=== PATIENT | male | born 1945 | race Caucasian/White ===

== ENCOUNTER → 2020-05-31 09:19 | Outpatient (BNVA) | payer MEDICARE, SELFPAY | PROVIDERS: PCP Internal Medicine Medical Oncology; Referring Provider Internal Medicine Medical Oncology; Visit Provider Internal Medicine | DX: J43.9 Emphysema, unspecified (principal); J84.10 Pulmonary fibrosis, unspecified; R09.02 Hypoxemia | CPT/HCPCS: 99213 ==

== ENCOUNTER 2020-06-18 07:49 | Outpatient (REF) | payer MEDICARE, SELFPAY ==
[2020-06-18 08:55] LABS: Basophils Percent Auto 0.4 % (0-2); Eosinophils Absolute Auto 0.2 X10*3/uL (0.0-0.4); Eosinophils Percent Auto 2.5 % (0-4); Hematocrit 37.6 % (42-52); Hemoglobin 11.8 g/dl (14.0-18.0); Imm Gran Abs Auto 0.04 X10*3/uL (0.00-0.03); Imm Gran Pct Auto 0.5 % (0.0-0.4); Lymphocytes Absolute Auto 0.6 X10*3/uL (1.2-4.9); Lymphocytes Percent Auto 7.2 % (20-40); MANUAL DIFF FLAG SCAN; Mean Corpuscular HGB Conc 31.4 g/dl (31.0-36.0); Mean Platelet Volume 10.6 fL (9.4-12.4); Monocytes Absolute Auto 0.7 X10*3/uL (0.1-1.2); Monocytes Percent Auto 8.7 % (2-11); Neutrophils Absolute Auto 6.7 X10*3/uL (2.0-8.3); Neutrophils Percent Auto 80.7 % (45-73); Platelet Count 214 X10*3/uL (160-400); Red Blood Count 3.58 X10*6/uL (4.60-5.80); Red Cell Distribution Width 18.2 % (11.0-16.0); SCAN SMEAR FLAG 1; White Blood Count 8.4 X10*3/uL (4.8-10.8)
[2020-06-18 09:26] LABS: Alanine Aminotransferase 33 U/L (0-40); Albumin Level 3.7 g/dL (3.5-5.0); Alkaline Phosphatase 99 U/L (39-117); Aspartate Amino Transferase 28 U/L (5-37); Bilirubin Total 0.7 mg/dL (0.0-1.0); Blood Urea Nitrogen 23 mg/dL (9-16); Calcium 8.9 mg/dL (8.4-10.2); Cholesterol 168 mg/dL; Estimated Glomerular Filt Rate > 60; Glucose Fasting 96 mg/dL (60-99); HDL Cholesterol 30 mg/dL; LDL Cholesterol Calculated 100 mg/dl; Total Protein 7.1 g/dL (6.5-8.0); Triglycerides 193 mg/dL
[2020-06-18 09:43] LABS: Anion Gap 9 (12-20); Carbon Dioxide 30 mmol/L (22-29); Chloride 109 mmol/L (96-108); Potassium 4.1 mmol/l (3.3-5.1); Prostate Specific Antigen 0.47 ng/mL (<0.05-4.0); Sodium 144 mmol/L (135-145)
[2020-06-18 09:52] LABS: Vitamin B12 1303 pg/mL (200-900)
[2020-06-18 10:24] LABS: SLIDE REVIEW VERIFIED
[2020-06-18 11:23] LABS: Erythrocyte Sedimentation Rate 16 MM/HR (0-15)
== END 2020-06-18 07:50 | disposition home or self-care (01) ==
LOC: HO.LAB 07:49
PROVIDERS: PCP Internal Medicine Medical Oncology; Visit Provider Internal Medicine Medical Oncology
DX: D51.9 Vitamin B12 deficiency anemia, unspecified (principal); I10 Essential (primary) hypertension
CPT/HCPCS: 36415; 80053; 80061; 82607; 84153; 85025; 85652

== ENCOUNTER → 2020-06-26 11:17 | Outpatient (BNVA) | payer MEDICARE, SELFPAY | PROVIDERS: PCP Internal Medicine Medical Oncology; Referring Provider Internal Medicine Medical Oncology; Visit Provider Physician Assistant | DX: Z01.818 Encounter for other preprocedural examination (principal); Z86.010 Personal history of colon polyps | CPT/HCPCS: Q3014 ==

== ENCOUNTER → 2020-08-13 09:34 | Outpatient (BNVA) | payer MEDICARE, SELFPAY | PROVIDERS: PCP Internal Medicine Medical Oncology; Visit Provider Internal Medicine | DX: R09.02 Hypoxemia (principal); J84.10 Pulmonary fibrosis, unspecified; J43.9 Emphysema, unspecified | CPT/HCPCS: 99212 ==

== ENCOUNTER 2020-08-27 08:25 | Outpatient (REF) | payer MEDICARE, SELFPAY ==
[2020-08-27 09:53] LABS: Basophils Percent Auto 0.4 % (0-2); Eosinophils Absolute Auto 0.3 X10*3/uL (0.0-0.4); Eosinophils Percent Auto 3.4 % (0-4); Hematocrit 37.4 % (42-52); Hemoglobin 11.8 g/dl (14.0-18.0); Imm Gran Abs Auto 0.05 X10*3/uL (0.00-0.03); Imm Gran Pct Auto 0.6 % (0.0-0.4); Lymphocytes Absolute Auto 0.6 X10*3/uL (1.2-4.9); Lymphocytes Percent Auto 7.2 % (20-40); MANUAL DIFF FLAG SCAN; Mean Corpuscular HGB Conc 31.6 g/dl (31.0-36.0); Mean Corpuscular Hemoglobin 33.2 pg (27.0-33.0); Mean Corpuscular Volume 105.4 fL (80-98); Mean Platelet Volume 11.5 fL (9.4-12.4); Monocytes Absolute Auto 0.8 X10*3/uL (0.1-1.2); Monocytes Percent Auto 9.7 % (2-11); Neutrophils Absolute Auto 6.2 X10*3/uL (2.0-8.3); Neutrophils Percent Auto 78.7 % (45-73); Platelet Count 222 X10*3/uL (160-400); Red Blood Count 3.55 X10*6/uL (4.60-5.80); SCAN SMEAR FLAG 1; White Blood Count 7.8 X10*3/uL (4.8-10.8)
[2020-08-27 10:21] LABS: Alanine Aminotransferase 24 U/L (0-40); Albumin Level 3.7 g/dL (3.5-5.0); Alkaline Phosphatase 97 U/L (39-117); Anion Gap 10 (12-20); Aspartate Amino Transferase 23 U/L (5-37); Bilirubin Total 0.7 mg/dL (0.0-1.0); Blood Urea Nitrogen 26 mg/dL (9-16); Calcium 8.9 mg/dL (8.4-10.2); Carbon Dioxide 29 mmol/L (22-29); Chloride 109 mmol/L (96-108); Cholesterol 162 mg/dL; Estimated Glomerular Filt Rate > 60; Glucose Fasting 102 mg/dL (60-99); HDL Cholesterol 33 mg/dL; LDL Cholesterol Calculated 103 mg/dl; Potassium 4.6 mmol/l (3.3-5.1); Sodium 143 mmol/L (135-145); Total Protein 7.2 g/dL (6.5-8.0); Triglycerides 132 mg/dL
[2020-08-27 10:22] LABS: SLIDE REVIEW VERIFIED
[2020-08-27 10:40] LABS: Erythrocyte Sedimentation Rate 21 MM/HR (0-15)
== END 2020-08-27 08:26 | disposition home or self-care (01) ==
LOC: HO.LAB 08:25
PROVIDERS: PCP Internal Medicine Medical Oncology; Visit Provider Internal Medicine Medical Oncology
DX: Z13.89 Encounter for screening for other disorder (principal)
CPT/HCPCS: 36415; 80053; 80061; 85025; 85652

== ENCOUNTER 2020-08-27 09:08 | Outpatient (REF) | payer MEDICARE, SELFPAY | END 2020-08-27 09:09 | disposition home or self-care (01) | LOC: HO.LAB 09:08 | PROVIDERS: PCP Internal Medicine Medical Oncology; Visit Provider Internal Medicine | DX: Z20.822 Contact with and (suspected) exposure to COVID-19 (principal) | CPT/HCPCS: 36415; 80053; 80061; 85025; 85652; C9803; U0003 ==

== ENCOUNTER 2020-09-04 08:12 | Day surgery (SDC) | payer MEDICARE, SELFPAY ==
[2020-08-29 09:49] VITALS: BMI 21.7
--- NOTE | 2020-08-29 14:03 | P.CONAN_ITS ---
Documented by User: Izabela Guerreroney 08/29/20 14:06 HPI - Anesthesia Eval Consult details Narrative: 75yo M for Colonoscopy Pulmonary cleared. Advised to use O2 to keep sat >90%. [facility] Past Medical History Medical History Exercise hypoxemia Hearing difficulty of both ears HTN (hypertension) Pulmonary emphysema determined by X-ray Pulmonary fibrosis Family History Family History Father No problems noted. Mother No problems noted. Surgical History Surgical History History of rectal surgery Hx of cholecystectomy Hx of colonoscopy Social History Social History Alcohol intake: former Smoking Status: Former smoker Smoking Quit Date: 1999 Advance Directives: No Advance Directives Information Provided: No Advance Directives on File: No Meds Allergies Allergy/AdvReac Type Severity Reaction Status Date / Time hydrochlorothiazide AdvReac Intermediate ITCH Verified 08/29/20 09:42 Home Medications Medication Instructions Recorded Confirmed Type cyanocobalamin (vitamin B-12) 1,000 mcg PO DAILY 05/10/20 08/29/20 History 1,000 mcg tablet flu vacc (65yr 0.5 ml IM DIRECTED 05/10/20 08/13/20 History up)-MF59C(PF) 60 mcg(15 mcgx4)/0.5 mL IM syringe lisinopril 10 mg tablet 10 mg PO DAILY 05/10/20 08/29/20 History cholecalciferol (vitamin D3) 25 25 mcg PO DAILY 06/26/20 08/29/20 History mcg (1,000 unit) capsule calcium carbonate [Calcium 600] 600 mg PO DAILY 08/29/20 08/29/20 History vit C,U-Wo-lpfsz-lutein-zeaxan 1 tab PO BID 08/29/20 08/29/20 History [PreserVision AREDS-2] Exam Exam Date and Time: August 29, 2020 1403 Height,Weight and Vital Signs: Height 6 ft 1 in Weight 74.843 kg Pertinent Lab Results Pertinent Lab Results: Laboratory Tests 08/27/20 08/27/20 08:45 08:45 WBC 7.8 Hgb 11.8 L Hct 37.4 L Plt Count 222 Sodium 143 Potassium 4.6 Chloride 109 H Carbon Dioxide 29 BUN 26 H Creatinine 1.15 Assessment and Plan Assessment Anesthesia Assessment: Chart Reviewed Documented by User: Dianne Maguire 09/04/20 10:38 [facility] Past Medical History Medical History Exercise hypoxemia Hearing difficulty of both ears HTN (hypertension) Pulmonary emphysema determined by X-ray Pulmonary fibrosis Family History Family History Father No problems noted. Mother No problems noted. Surgical History Surgical History History of rectal surgery Hx of cholecystectomy Hx of colonoscopy Social History Social History Alcohol intake: former Smoking Status: Former smoker Smoking Quit Date: 1999 Advance Directives: No Advance Directives Information Provided: No Advance Directives on File: No Meds Allergies Allergy/AdvReac Type Severity Reaction Status Date / Time hydrochlorothiazide AdvReac Intermediate ITCH Verified 08/29/20 09:42 Home Medications Medication Instructions Recorded Confirmed Type cyanocobalamin (vitamin B-12) 1,000 mcg PO DAILY 05/10/20 08/29/20 History 1,000 mcg tablet flu vacc 202021(65yr 0.5 ml IM DIRECTED 05/10/20 08/13/20 History up)-MF59C(PF) 60 mcg(15 mcgx4)/0.5 mL IM syringe lisinopril 10 mg tablet 10 mg PO DAILY 05/10/20 08/29/20 History cholecalciferol (vitamin D3) 25 25 mcg PO DAILY 06/26/20 08/29/20 History mcg (1,000 unit) capsule calcium carbonate [Calcium 600] 600 mg PO DAILY 08/29/20 08/29/20 History vit C,E-Jb-iksrs-lutein-zeaxan 1 tab PO BID 08/29/20 08/29/20 History [PreserVision AREDS-2] Exam Airway Mallampati Class: II TM Dist: >3cm Neck ROM: Full Heart: RRR Lungs: CTA Assessment and Plan Assessment Anesthesia Assessment: Anesthesia Plan Discussed and Chart Reviewed Final Anesthetic Review NPO: Yes ASA Class: III Final Preanesthetic Review: No Changes in Pt Med Stat, Meds/Allgs Chart Reviewed, Consent Obtained/Reviewed and Anes Risks/Benef Reviewed Patient Risk: Intermediate Procedure Risk: Low Anesthetic Plan Anesthetic Plan: MAC: Disposition: Standard PACU
[2020-09-04 09:38] VITALS: BP 132/58; PULSE 54; RESP 18; TEMP 36.6; O2SAT 100
--- NOTE | 2020-09-04 09:48 | MHC.SHP ---
Pre-Procedural Eval Section B Chief Complaint: Colon Cancer Details of Present Illness: Hx rectal cancer-2006; TA 2017 COPD/ pulmonary fibrosis No acute changes since June preop Relevant Family History (Specify if Yes): No Relevant Social History: None Present Medications: see Short Stay Collaborative assessment Medical History: Significant History (COPD-?pulmonary fibrosis) History of Previous Operations: Relevant previous surgery/procedure and date(s) (see colo listed above.) Allergies: Allergies Allergy/AdvReac Type Severity Reaction Status Date / Time hydrochlorothiazide AdvReac Intermediate ITCH Verified 08/29/20 09:42 Review of Systems Sugical H&P ROS: Negative: Constitution, Cardiovascular, Respiratory, Gastrointestinal and Musculoskeletal Review of Systems Comment: No new problems from the June preop Exam Surgical H&P Exam: Normal: HEENT, Normal: Heart, Normal: Extremities and Normal: Skin and Significant Findings: Lungs (c/ hx) Plan Diagnosis/Plan: Unchanged I have reviewed the history and physical and performed a pertinent physical examination on my patient. No changes have occurred unless specified.YES
[2020-09-04] MEDS: Lactated Ringers 1,000 ML 100 ML IVCONT (10:04)
[2020-09-04 10:52] VITALS: BP 106/56; PULSE 55; RESP 20; TEMP 36.1; O2SAT 96
--- NOTE | 2020-09-04 10:53 | PM.PROC ---
Brief Operative Note Date of procedure: 09/04/20 Pre-op diagnosis: Hx Tubular adenomas Post-op diagnosis: other (Polyps, 1+ Internal hemorrhoids. diverticulosis) Procedure: COLOnoscopy Anesthesia: MAC (MD EMMANUEL) Surgeon: Anna Puente Pathology: other Condition: stable Disposition: PACU
[2020-09-04 11:07] VITALS: BP 101/65; PULSE 55; RESP 18; TEMP 36.1; O2SAT 97
--- NOTE | 2020-09-04 11:54 | PM.PROC ---
Brief Operative Note Date of procedure: 09/04/20 Pre-op diagnosis: hx tubular adenomas Post-op diagnosis: other (Colon polyps, Diverticulosis, Internal hemorrhoids.) Procedure: Colonoscopy with excisional polypectomies (3) Anesthesia: MAC (MD Ting) Surgeon: Anna Puente Estimated blood loss (mL): 10 Pathology: other (Prox transverse colon, area hepatic flex/asc colon-2 locations--region of tatoo and adj fold polyp) Condition: stable Disposition: PACU
--- NOTE | 2020-09-04 12:11 | HO.POSTANES ---
Post Anesthesia Evaluation Post Anesthesia Evaluation Vital Signs: Vital Signs Temp Pulse Resp BP Pulse Ox 09/04/20 11:07 97.0 F 55 18 101/65 97 09/04/20 10:52 97.0 F 55 20 106/56 L 96 09/04/20 09:38 97.8 F 54 18 132/58 L 100 Anesthesia: Monitored Mental Status: Awake Pain Control: Satisfactory Nausea/Vomiting: None Hydration: Adequate Anesthesia-Related Issues: No Anes. Related Issues
--- NOTE | 2020-09-06 21:09 | OP_ITS ---
SURGEON: Anna Puente MD PROCEDURE PERFORMED: Colonoscopy with excisional polypectomies x3. ESTIMATED BLOOD LOSS: Less than 10 mL. COMPLICATIONS: No complications. ANESTHESIA: Monitored. ANESTHESIOLOGIST: Dr. Maguire.Dr. Maguire. ASSISTANTS: No assistant operator. SPECIMENS: Specimen removed, proximal transverse colon, ascending colon, 2 areas. PREOPERATIVE DIAGNOSES: Colon cancer screening, increased risk; history of tubular adenomas. ADDITIONAL PRIMARY CARE PROVIDER: Rashaad Leach MD. POSTOPERATIVE DIAGNOSES: Colonic polyps, diverticulosis, 1+ internal hemorrhoids. TESTER COMPRESSED GASES: Dr. Puente. CONDITION: Postop, stable. FINDINGS: Digital rectal exam revealed prostate to be normal. There was decreased tone. Video colonoscope was introduced without difficulty. It was clear that the prep was fair to poor in some areas. Over 600 mL of sterile water was flushed to clear residual turbid fluid. Polyps identified were right-sided, diverticula present on the left side. Anorectal verge was clear. There were 1+ internal hemorrhoids. Initial specimen of the proximal transverse colon. In the ascending colon, there were 2 areas of polyps, one of which was really flat and after isolation, ended up not raised enough to be removed by either cold or hot snare technique. This was removed excisionally. The area was excised and the area was marked with endo florence tattooing ink for a future review with a flat polyp in complex technique and marginal prep. PLAN: Pt will need to be looked at anywhere from 12 to 36 months prior to this is dictated by the histology of the polyps. GRAFT OR IMPLANTS: No grafts or implants. Anna Puente MD MEN/MODL / [id number] [facility]
== END 2020-09-04 11:40 | disposition home or self-care (01) ==
PROVIDERS: PCP Internal Medicine Medical Oncology; Visit Provider Internal Medicine Gastroenterology
PROC: 0DJD8ZZ Inspection of Lower Intestinal Tract, Via Natural or Artificial Opening Endoscopic (ICD-10-PCS; CPT 45378; principal; 2020-09-04 09:30)
DX: Z12.11 Encounter for screening for malignant neoplasm of colon (principal); Z85.038 Personal history of other malignant neoplasm of large intestine; D12.2 Benign neoplasm of ascending colon; D12.3 Benign neoplasm of transverse colon; K57.30 Diverticulosis of large intestine without perforation or abscess without bleeding; K64.8 Other hemorrhoids; I10 Essential (primary) hypertension; J43.9 Emphysema, unspecified; J84.10 Pulmonary fibrosis, unspecified; H91.93 Unspecified hearing loss, bilateral; Z79.899 Other long term (current) drug therapy; Z88.8 Allergy status to other drugs, medicaments and biological substances
CPT/HCPCS: 45380; 88305

== ENCOUNTER → 2020-09-26 10:16 | Outpatient (BNVA) | payer MEDICARE, SELFPAY | PROVIDERS: PCP Internal Medicine Medical Oncology; Visit Provider Physician Assistant | DX: Z76.89 Persons encountering health services in other specified circumstances (principal) | CPT/HCPCS: Q3014 ==

== ENCOUNTER 2020-12-03 10:55 | Outpatient (REF) | payer MEDICARE, SELFPAY ==
[2020-12-03 11:19] LABS: COVID-19 Test Negative (Negative); IDNOW Serial# 55D5AD1C
== END 2020-12-03 10:56 | disposition home or self-care (01) ==
LOC: HO.LAB 10:55
PROVIDERS: Visit Provider Internal Medicine
DX: Z20.822 Contact with and (suspected) exposure to COVID-19 (principal)
CPT/HCPCS: 36415; 87635; C9803

== ENCOUNTER → 2021-02-20 09:37 | Outpatient (BNVA) | payer MEDICARE, SELFPAY | PROVIDERS: PCP Internal Medicine Medical Oncology; Visit Provider Internal Medicine | DX: J84.10 Pulmonary fibrosis, unspecified (principal); J43.9 Emphysema, unspecified; R09.02 Hypoxemia | CPT/HCPCS: 99212 ==

== ENCOUNTER 2021-02-25 07:37 | Outpatient (REF) | payer MEDICARE, SELFPAY ==
[2021-02-25 08:28] LABS: MANUAL DIFF FLAG NO
[2021-02-25 08:35] LABS: Basophils Percent Auto 0.3 % (0-2); Eosinophils Absolute Auto 0.2 X10*3/uL (0.0-0.4); Eosinophils Percent Auto 2.6 % (0-4); Hematocrit 33.6 % (42-52); Hemoglobin 10.6 g/dl (14.0-18.0); Imm Gran Abs Auto 0.06 X10*3/uL (0.00-0.03); Imm Gran Pct Auto 0.9 % (0.0-0.4); Lymphocytes Absolute Auto 0.6 X10*3/uL (1.2-4.9); Lymphocytes Percent Auto 8.6 % (20-40); Mean Corpuscular HGB Conc 31.5 g/dl (31.0-36.0); Mean Corpuscular Hemoglobin 33.3 pg (27.0-33.0); Mean Corpuscular Volume 105.7 fL (80-98); Mean Platelet Volume 10.6 fL (9.4-12.4); Monocytes Absolute Auto 0.6 X10*3/uL (0.1-1.2); Monocytes Percent Auto 8.9 % (2-11); Neutrophils Absolute Auto 5.4 X10*3/uL (2.0-8.3); Neutrophils Percent Auto 78.7 % (45-73); Platelet Count 225 X10*3/uL (160-400); Red Blood Count 3.18 X10*6/uL (4.60-5.80); Red Cell Distribution Width 19.9 % (11.0-16.0); White Blood Count 6.9 X10*3/uL (4.8-10.8)
[2021-02-25 09:03] LABS: Alanine Aminotransferase 18 U/L (0-40); Albumin Level 3.6 g/dL (3.5-5.0); Alkaline Phosphatase 82 U/L (39-117); Anion Gap 11 (12-20); Aspartate Amino Transferase 18 U/L (5-37); Bilirubin Total 0.5 mg/dL (0.0-1.0); Blood Urea Nitrogen 32 mg/dL (9-16); Calcium 9.3 mg/dL (8.4-10.2); Carbon Dioxide 26 mmol/L (22-29); Chloride 111 mmol/L (96-108); Cholesterol 167 mg/dL; Estimated Glomerular Filt Rate 51; Glucose Fasting 106 mg/dL (60-99); HDL Cholesterol 29 mg/dL; LDL Cholesterol Calculated 107 mg/dl; Potassium 4.6 mmol/L (3.3-5.1); Sodium 143 mmol/L (135-145); Total Protein 7.2 g/dL (6.5-8.0); Triglycerides 155 mg/dL
[2021-02-25 09:21] LABS: Erythrocyte Sedimentation Rate 14 MM/HR (0-15)
[2021-02-25 10:52] LABS: Vitamin B12 833 pg/mL (200-900)
== END 2021-02-25 07:38 | disposition home or self-care (01) ==
LOC: HO.LAB 07:37
PROVIDERS: Absent Provider Psychiatry & Neurology Neurology; PCP Internal Medicine Medical Oncology; Visit Provider Internal Medicine Medical Oncology
DX: M31.6 Other giant cell arteritis (principal)
CPT/HCPCS: 36415; 80053; 80061; 82607; 85025; 85652

== ENCOUNTER 2021-05-13 09:27 | Outpatient (REF) | payer MEDICARE, SELFPAY ==
[2021-05-13 10:40] LABS: MANUAL DIFF FLAG SCAN; SCAN SMEAR FLAG 1
[2021-05-13 10:43] LABS: Basophils Percent Auto 0.4 % (0-2); Eosinophils Absolute Auto 0.1 X10*3/uL (0.0-0.4); Eosinophils Percent Auto 1.9 % (0-4); Hematocrit 31.8 % (42-52); Hemoglobin 10.3 g/dl (14.0-18.0); Imm Gran Abs Auto 0.07 X10*3/uL (0.00-0.03); Imm Gran Pct Auto 0.9 % (0.0-0.4); Immature Retic Fraction 11.6 % (2.3-13.4); Lymphocytes Absolute Auto 0.6 X10*3/uL (1.2-4.9); Lymphocytes Percent Auto 8.1 % (20-40); Mean Corpuscular HGB Conc 32.4 g/dl (31.0-36.0); Mean Platelet Volume 10.3 fL (9.4-12.4); Monocytes Absolute Auto 0.6 X10*3/uL (0.1-1.2); Monocytes Percent Auto 7.8 % (2-11); NRBC Pct Auto 0.3 /100WBC (0.0-0.2); Neutrophils Percent Auto 80.9 % (45-73); Platelet Count 216 X10*3/uL (160-400); Red Blood Count 3.03 X10*6/uL (4.60-5.80); Red Cell Distribution Width 21.1 % (11.0-16.0); Retic HGB Equivalent 33.5 pg (30.0-35.0); Reticulocyte Percent 1.1 % (0.5-1.8); Reticulocytes Absolute 0.035 X10*6/uL (0.026-0.095); White Blood Count 7.5 X10*3/uL (4.8-10.8)
[2021-05-13 11:06] LABS: Alanine Aminotransferase 22 U/L (0-40); Albumin Level 3.6 g/dL (3.5-5.0); Alkaline Phosphatase 95 U/L (39-117); Anion Gap 11 (12-20); Aspartate Amino Transferase 22 U/L (5-37); Bilirubin Total 0.2 mg/dL (0.0-1.0); Blood Urea Nitrogen 36 mg/dL (9-16); Calcium 8.9 mg/dL (8.4-10.2); Carbon Dioxide 25 mmol/L (22-29); Chloride 113 mmol/L (96-108); Estimated Glomerular Filt Rate 43; Glucose Random 166 mg/dL (60-115); Potassium 4.8 mmol/L (3.3-5.1); Sodium 144 mmol/L (135-145); Total Protein 7.1 g/dL (6.5-8.0)
[2021-05-13 11:12] LABS: SLIDE REVIEW VERIFIED
[2021-05-13 11:20] LABS: Erythrocyte Sedimentation Rate 14 MM/HR (0-15)
[2021-05-13 11:47] LABS: Folate 19.9 ng/mL (> or = 4.0)
== END 2021-05-13 09:28 | disposition home or self-care (01) ==
LOC: HO.LAB 09:27
PROVIDERS: PCP Internal Medicine Medical Oncology; Visit Provider Internal Medicine Medical Oncology
DX: I10 Essential (primary) hypertension (principal); M31.6 Other giant cell arteritis; D53.9 Nutritional anemia, unspecified
CPT/HCPCS: 36415; 80053; 82746; 85025; 85045; 85652

== ENCOUNTER 2021-05-22 08:48 | Outpatient (REF) | payer MEDICARE, SELFPAY ==
[2021-05-22 08:59] LABS: MANUAL DIFF FLAG NO
[2021-05-22 09:19] LABS: Basophils Percent Auto 0.3 % (0-2); Eosinophils Absolute Auto 0.2 X10*3/uL (0.0-0.4); Eosinophils Percent Auto 2.2 % (0-4); Hematocrit 32.8 % (42-52); Hemoglobin 10.6 g/dl (14.0-18.0); Imm Gran Abs Auto 0.07 X10*3/uL (0.00-0.03); Imm Gran Pct Auto 0.9 % (0.0-0.4); Lymphocytes Absolute Auto 0.6 X10*3/uL (1.2-4.9); Lymphocytes Percent Auto 7.4 % (20-40); Mean Corpuscular HGB Conc 32.3 g/dl (31.0-36.0); Mean Corpuscular Hemoglobin 34.1 pg (27.0-33.0); Mean Corpuscular Volume 105.5 fL (80-98); Mean Platelet Volume 10.3 fL (9.4-12.4); Monocytes Absolute Auto 0.7 X10*3/uL (0.1-1.2); Monocytes Percent Auto 8.7 % (2-11); NRBC Pct Auto 0.3 /100WBC (0.0-0.2); Neutrophils Absolute Auto 6.1 X10*3/uL (2.0-8.3); Neutrophils Percent Auto 80.5 % (45-73); Platelet Count 218 X10*3/uL (160-400); Red Blood Count 3.11 X10*6/uL (4.60-5.80); Red Cell Distribution Width 20.9 % (11.0-16.0); White Blood Count 7.6 X10*3/uL (4.8-10.8)
[2021-05-22 09:46] LABS: Estimated Average Glucose 137 mg/dL; Hemoglobin A1c % 6.4 %
[2021-05-22 09:51] LABS: Alanine Aminotransferase 21 U/L (0-40); Albumin Level 3.6 g/dL (3.5-5.0); Alkaline Phosphatase 117 U/L (39-117); Anion Gap 10 (12-20); Aspartate Amino Transferase 21 U/L (5-37); Bilirubin Total 0.6 mg/dL (0.0-1.0); Blood Urea Nitrogen 31 mg/dL (9-16); Calcium 9.2 mg/dL (8.4-10.2); Carbon Dioxide 26 mmol/L (22-29); Chloride 109 mmol/L (96-108); Estimated Glomerular Filt Rate 44; Glucose Random 192 mg/dL (60-115); Potassium 4.8 mmol/L (3.3-5.1); Sodium 140 mmol/L (135-145); Total Protein 7.3 g/dL (6.5-8.0)
== END 2021-05-22 08:49 | disposition home or self-care (01) ==
LOC: HO.LAB 08:48
PROVIDERS: PCP Internal Medicine Medical Oncology; Visit Provider Internal Medicine Medical Oncology
DX: D53.9 Nutritional anemia, unspecified (principal); R73.9 Hyperglycemia, unspecified
CPT/HCPCS: 36415; 80053; 82668; 83036; 85025

== ENCOUNTER 2021-08-05 09:14 | Outpatient (REF) | payer MEDICARE, SELFPAY ==
[2021-08-05 09:59] LABS: Mean Corpuscular HGB Conc 31.4 g/dl (31.0-36.0); Mean Corpuscular Hemoglobin 33.2 pg (27.0-33.0); Neutrophils Absolute Auto 6.6 x10*3/uL (2.0-8.3); SCAN SMEAR FLAG 1
[2021-08-05 10:02] LABS: Basophils Percent Auto 0.4 % (0-2); Eosinophils Absolute Auto 0.2 X10*3/uL (0.0-0.4); Eosinophils Percent Auto 2.2 % (0-4); Hematocrit 34.7 % (42.0-52.0); Hemoglobin 10.9 g/dl (14.0-18.0); Imm Gran Abs Auto 0.07 X10*3/uL (0.00-0.03); Imm Gran Pct Auto 0.8 % (0.0-0.4); Immature Retic Fraction 13.3 % (2.3-13.4); Lymphocytes Absolute Auto 0.7 X10*3/uL (1.2-4.9); Lymphocytes Percent Auto 8.4 % (20-40); MANUAL DIFF FLAG SCAN; Mean Corpuscular Volume 105.8 fL (80.0-98.0); Mean Platelet Volume 10.4 fL (9.4-12.4); Monocytes Absolute Auto 0.7 X10*3/uL (0.1-1.2); NRBC Pct Auto 0.2 /100WBC (0.0-0.2); Neutrophils Percent Auto 80.2 % (45-73); Platelet Count 218 X10*3/uL (160-400); Red Blood Count 3.28 X10*6/uL (4.60-5.80); Red Cell Distribution Width 20.8 % (11.0-16.0); Retic HGB Equivalent 34.1 pg (30.0-35.0); Reticulocyte Percent 1.1 % (0.5-1.8); Reticulocytes Absolute 0.036 X10*6/uL (0.026-0.095); White Blood Count 8.2 X10*3/uL (4.8-10.8)
[2021-08-05 10:21] LABS: SLIDE REVIEW VERIFIED
[2021-08-05 10:31] LABS: Alanine Aminotransferase 27 U/L (0-40); Albumin Level 3.7 g/dL (3.5-5.0); Alkaline Phosphatase 97 U/L (39-117); Anion Gap 10 (12-20); Aspartate Amino Transferase 23 U/L (5-37); Bilirubin Total 0.4 mg/dL (0.0-1.0); Blood Urea Nitrogen 37 mg/dL (9-16); Calcium 9.6 mg/dL (8.4-10.2); Carbon Dioxide 27 mmol/L (22-29); Chloride 109 mmol/L (96-108); Estimated Glomerular Filt Rate 41; Glucose Random 182 mg/dL (60-115); Potassium 4.9 mmol/L (3.3-5.1); Sodium 141 mmol/L (135-145); Total Protein 7.5 g/dL (6.5-8.0)
== END 2021-08-05 09:15 | disposition home or self-care (01) ==
LOC: HO.LAB 09:14
PROVIDERS: PCP Internal Medicine Medical Oncology; Visit Provider Internal Medicine Medical Oncology
DX: D53.9 Nutritional anemia, unspecified (principal)
CPT/HCPCS: 36415; 80053; 85025; 85045

== ENCOUNTER 2021-09-10 14:17 | Outpatient (REF) | payer MEDICARE, SELFPAY ==
[2021-09-10 14:50] LABS: Binax Now Covid-19 Ag Negative (Negative)
[2021-09-10 14:51] LABS: Binax Internal Control QC Valid
== END 2021-09-10 14:18 | disposition home or self-care (01) ==
LOC: HO.LAB 14:17
PROVIDERS: PCP Internal Medicine Medical Oncology; Visit Provider Internal Medicine
DX: Z13.89 Encounter for screening for other disorder (principal)

== ENCOUNTER 2021-09-17 08:27 | Outpatient (REF) | payer MEDICARE, SELFPAY ==
--- NOTE | ~2021-09-17 | CT_ITS ---
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 COMPARISON: None TECHNIQUE: Following test bolus administration of Omnipaque 350 contrast material, Volumetric CT angiography of the head and neck was performed from the lung apices to the vertex utilizing the intravenous administration of 70 mL of Omnipaque 350 contrast material via power injector. Multiplanar reformatted reconstructions and MIP renderings were performed on the CT console. The degree of stenosis determined by NASCET criteria. This CT examination was performed using dose optimization techniques as appropriate, variously including the following: *Automated exposure control *Adjustment of mA and/or kV according to patient size (this includes techniques or standardized protocols for targeted exams where dose is matched to indication/reason for exam; i.e. extremities or head) *Use of iterative reconstruction technique DLP: 2365 mGy-cm FINDINGS: CTA NECK: Normal three-vessel arch configuration. Visualized thoracic aorta is normal in caliber with scattered partially calcified atheromatous plaque noted with no significant luminal diameter reduction. There is partially calcified plaque in the proximal left subclavian artery with no significant luminal diameter reduction. Proximal left common carotid artery is smoothly contoured and normal in caliber. The innominate artery is smoothly contoured and normal in caliber. Minimal calcified plaque at the origin of the right subclavian artery which is partially obscured near its origin. More distally, the right subclavian artery is normal in caliber, but is partially obscured distally by dense contrast material in the subclavian vein. Proximal right common carotid artery is smoothly contoured and normal in caliber. The vertebral arteries are codominant. Left vertebral artery origin is patent and normal in caliber. There is focal calcified plaque adjacent to the right vertebral artery origin, with a moderate stenosis at this location. The mid to distal common carotid arteries are patent and normal in caliber bilaterally. Mild degrees of calcified plaque are seen within the right carotid bulb and proximal right ICA with less than 50% diameter reduction stenosis on the basis of NASCET criteria. More distally, the cervical right ICA is normal in caliber and smoothly contoured. The right external carotid artery is patent and normal in caliber. On the left side, the mid to distal common carotid artery is patent and normal in caliber. There is partially calcified plaque at the left carotid bulb with less than 50% diameter reduction stenosis on the basis of NASCET criteria. More distally, the cervical left ICA is normal in caliber and smoothly contoured with a patent, normal caliber external carotid artery. The vertebral arteries are codominant and are smoothly contoured without significant focal stenosis or segmental occlusion. CTA HEAD: The intracranial internal carotid arteries are patent and normal in caliber. There are mural calcifications corresponding to the carotid siphons bilaterally, right more the left, without significant focal stenosis. The A1 segments are patent with the left being hypoplastic. The anterior communicating artery appears normal. The A2 segments are patent and normal in caliber. The M1 segments are patent and normal in caliber with a normal appearance to the M2 branches. The intradural vertebral arteries are patent and normal in caliber. The posterior inferior cerebellar artery origins are visualized bilaterally and appear unremarkable. The basilar artery is tortuous but is otherwise normal in caliber and smoothly contoured. Both the superior cerebellar arteries and posterior cerebral arteries are patent and normal in caliber. The posterior communicating arteries are not clearly visualized. Precontrast and Delayed Postcontrast Imaging of the Head: Moderate diffuse generalized brain parenchymal volume loss noted. No intracranial hemorrhage, extra-axial fluid collection, space-occupying process or mass effect. Extensive patchy and confluent regions of hypodensity are seen in the subcortical and deeper white matter of both cerebral hemispheres which are nonspecific findings but could be consistent with advanced chronic ischemic microangiopathy and/or subcortical arteriosclerotic encephalopathy. Ganglionic structures appear intact. Tiny remote lacunar infarcts are seen in the left external capsule and left putamen. The ventricular system is within normal limits without hydrocephalus. There is normal opacification of the major intracranial dural venous sinuses. Note is made of a prominent pacchionian granulation in the left occipital bone, which is an anatomic variant. Otherwise, the bony structures appear intact and the visualized airspaces are predominantly unopacified. Probable small retention cyst and minor mucosal thickening along the floor of the right maxillary sinus. Neck/Upper Chest Soft Tissues: Soft tissue neck structures appear within normal limits. Note is made of extensive emphysematous changes in the visualized lung acevedo bilaterally with probable bilateral pleural pulmonary scarring at the lung apices. Visualized mediastinal structures demonstrate some lymph nodes in the right hilum which are less than 1 cm in greatest short axis. Skeletal: Multilevel cervical DDD and spondylosis is noted with trace anterolisthesis at C3-C4 and C4-C5 and slight retrolisthesis at C5-C6 with severe disc space height loss at C5-C6 and C6-C7 with associated mild spondylosis. There is lordotic reversal at C5-C6. Bony structures are otherwise grossly intact. CT/CT angio head neck IMPRESSION: 1. No evidence for extracranial or intracranial arterial stenosis or occlusion as described above. [id number] degrees of partially calcified atheromatous plaque at the right carotid bulb and proximal right ICA and at the left carotid bulb with less than 50% diameter reduction stenosis on the basis of NASCET criteria. Moderate short segment focal stenosis suspected with associated calcified plaque at the origin of the right vertebral artery. 2. Moderate generalized diffuse brain parenchymal volume loss and probable advanced chronic ischemic microangiopathy and/or subcortical arteriosclerotic encephalopathy involving both cerebral hemispheres, with no acute process identified. 3. Pulmonary emphysematous changes noted in both lungs and probable bilateral apical scarring with a less than 1 cm greatest short axis right hilar lymph node noted. Correlate with any previous studies.
[2021-09-17] MEDS: iohexoL 350 MG/ML 100 ML INFUS..BTL 70 ML IV (09:22)
== END 2021-09-17 08:28 | disposition home or self-care (01) ==
LOC: HO.CT 08:27
PROVIDERS: PCP Internal Medicine Medical Oncology; Visit Provider Internal Medicine Medical Oncology
DX: H34.9 Unspecified retinal vascular occlusion (principal)
CPT/HCPCS: 70496; 70498; Q9967

== ENCOUNTER 2021-09-18 09:21 | Outpatient (REF) | payer MEDICARE, SELFPAY ==
[2021-09-18 15:02] LABS: Blood Urea Nitrogen 26 mg/dL (9-16); Estimated Glomerular Filt Rate 45
== END 2021-09-18 09:22 | disposition home or self-care (01) ==
LOC: HO.LAB 09:21
PROVIDERS: PCP Internal Medicine Medical Oncology; Visit Provider Internal Medicine Medical Oncology
DX: D53.9 Nutritional anemia, unspecified (principal)
CPT/HCPCS: 36415; 82565; 84520

== ENCOUNTER → 2021-09-26 10:00 | Outpatient (BNVA) | payer MEDICARE, SELFPAY | PROVIDERS: PCP Internal Medicine Medical Oncology; Visit Provider Surgery Vascular Surgery | DX: I65.23 Occlusion and stenosis of bilateral carotid arteries (principal) | CPT/HCPCS: 99202 ==

== ENCOUNTER → 2021-10-01 08:59 | Outpatient (BNVA) | payer MEDICARE, SELFPAY | PROVIDERS: PCP Internal Medicine Medical Oncology; Visit Provider Internal Medicine | DX: J84.10 Pulmonary fibrosis, unspecified (principal); J43.9 Emphysema, unspecified; R09.02 Hypoxemia | CPT/HCPCS: 99212 ==

== ENCOUNTER → 2021-10-07 10:47 | Outpatient (REF) | payer MEDICARE, SELFPAY ==
--- NOTE | 2021-10-07 10:51 | CA_ITS ---
Transthoracic Echocardiogram Patient (Last, First, Middle): Alban Little M Gender: Male Date of : 1945 Age: 76 Procedure Date: 10/07/2021 Procedure Type: Transthoracic Echocardiogram Location: OP Height: 185.42 cm Weight: 73.48 kg BSA: 1.97 m2 Heart Rate: bpm BP: 122 / 48 mmHg Branch Operations Manager: DUNG Referring MD: Rashaad Leach MD Symptoms: H34.9 Study Quality: Good ECG Rhythm: Sinus Conclusions: - The left ventricular systolic function is normal. The calculated ejection fraction is 59% by biplane method. - No obvious valvular pathology seen on this study. Findings Left Ventricle Normal left ventricular cavity size. There is normal left ventricular wall thickness. The left ventricular systolic function is normal. The calculated ejection fraction is 59% by biplane method. There is no evidence of regional wall motion abnormalities. Diastolic function is normal for age. Right Ventricle Normal right ventricular cavity size and systolic function. Atria Both atria are normal in size. Aortic Valve There is a normal trileaflet aortic valve. There is no aortic valve stenosis. There is no aortic valve regurgitation. Mitral Valve The mitral valve appears normal. There is trace mitral valve regurgitation. There is no mitral valve stenosis. Pulmonic Valve There is trace pulmonic valve regurgitation. Tricuspid Valve Normal tricuspid valve structure. There is trace tricuspid valve regurgitation. The pulmonary artery systolic pressure is normal. Great Vessels The asc aorta and aortic arch are normal in size. Venous The inferior vena cava is normal in size and collapses greater than 50% with inspiration. Pericardium/Pleural There is no evidence of pericardial effusion. Prior Study Comparison No prior study available for comparison. Recommendations, Care & Conclusions No obvious valvular pathology seen on this study. Measurements 2D Linear Measurements IVSd: 0.86 0.6-0.9/0.6-1.0 cm LVIDd: 4.48 3.9-5.3/4.2-5.9 cm LVIDd Index: 2.27 2.4-3.2/2.2-3.1 cm/m2 LVIDs: 2.73 2.0-3.6 cm LVPWd: 0.76 0.7-1.1 cm Ao Root: 3.70 2.1-3.5 cm LA Diam: 3.50 2.7-3.8/3.0-4.0 cm LAIDs Index: 1.78 1.5-2.3 cm/m2 LV Mass: 142.66 67-162/88-224 g LV Mass Index: 72.42 43-95/49-115 g/m2 LVOT Diam: 2.10 3.0+(-)1.3 cm 2D Systolic Function EF 4C: 60.40 >55% EF 2C: 60.90 >55% EF BiP: 59.00 >55% Mitral Valve MV Pk E: 0.69 MV PK A: 0.84 MV Decel Time: 323.00 E/A: 0.80 E'Lateral: 7.94 E'Medial: 7.29 E/E' Med: 9.50 E/E' Lat: 8.70 PHT: 95.00 MVA PHT: 2.32 Decel [place]: 2.15 Aortic Valve AoV Pk Mahendra: 1.18 AoV Mn Mahendra: 0.83 AoV VTI: 0.28 AoV Pk Grad: 6.00 Aov Mn Grad: 3.00 EMILE Cont.VTI: 2.77 LVOT LVOT Pk Mahendra: 0.96 LVOT Mn Mahendra: 0.67 LVOT VTI: 0.22 LVOT Pk Grad: 4.00 LVOT Mn Grad: 2.00 LVOT Diam: 2.10 LVOT Area: 3.46 Diastolic Function MV Pk E: 0.69 MV Pk A: 0.84 E/A: 0.80 E'Medial: 7.29 E/E' Med: 9.50 E' Laterial: 7.94 E/E' Lat: 8.70 Right Ventricle TAPSE (mm): 24.00 TVS' Mahendra: 11.00 Tricuspid Valve TR Pk Mahendra: 2.00 TR Pk Grad: 16.00 Great Vessels Aorta Ao Root-2D: 3.70 2.0-3.7 cm Ao Asc: 3.10 2.1-3.4 cm Ao Arch: 2.80 Updated in Other Vendor System with Status of Final Gregg Griggs MD electronically signed on 10/07/2021 4:19:24 PM with status of Final
== END ==
LOC: HO.CARD 10:47
PROVIDERS: Visit Provider Internal Medicine Medical Oncology
DX: H34.9 Unspecified retinal vascular occlusion (principal); R07.9 Chest pain, unspecified
CPT/HCPCS: 93306

== ENCOUNTER 2021-11-07 07:21 | Outpatient (REF) | payer MEDICARE, SELFPAY ==
[2021-11-07 07:35] LABS: MANUAL DIFF FLAG NO
[2021-11-07 07:56] LABS: Basophils Percent Auto 0.4 % (0-2); Eosinophils Absolute Auto 0.3 X10*3/uL (0.0-0.4); Eosinophils Percent Auto 2.8 % (0-4); Hematocrit 35.9 % (42.0-52.0); Hemoglobin 11.5 g/dl (14.0-18.0); Imm Gran Abs Auto 0.08 X10*3/uL (0.00-0.03); Imm Gran Pct Auto 0.8 % (0.0-0.4); Lymphocytes Absolute Auto 0.6 X10*3/uL (1.2-4.9); Lymphocytes Percent Auto 6.6 % (20-40); Mean Corpuscular Hemoglobin 33.7 pg (27.0-33.0); Mean Corpuscular Volume 105.3 fL (80.0-98.0); Mean Platelet Volume 10.9 fL (9.4-12.4); Monocytes Absolute Auto 0.8 X10*3/uL (0.1-1.2); Monocytes Percent Auto 8.5 % (2-11); Neutrophils Absolute Auto 7.7 x10*3/uL (2.0-8.3); Neutrophils Percent Auto 80.9 % (45-73); Platelet Count 258 X10*3/uL (160-400); Red Blood Count 3.41 X10*6/uL (4.60-5.80); Red Cell Distribution Width 22.1 % (11.0-16.0); White Blood Count 9.5 X10*3/uL (4.8-10.8)
[2021-11-07 08:06] LABS: Estimated Average Glucose 137 mg/dL; Hemoglobin A1C 130.9067 umol/L; Hemoglobin A1c % 6.4 %
[2021-11-07 08:16] LABS: Alanine Aminotransferase 29 U/L (0-40); Albumin Level 3.7 g/dL (3.5-5.0); Alkaline Phosphatase 106 U/L (39-117); Anion Gap 9 (12-20); Aspartate Amino Transferase 22 U/L (5-37); Bilirubin Total 0.7 mg/dL (0.0-1.0); Blood Urea Nitrogen 37 mg/dL (9-16); Calcium 9.6 mg/dL (8.4-10.2); Carbon Dioxide 27 mmol/L (22-29); Chloride 113 mmol/L (96-108); Cholesterol 161 mg/dL; Estimated Glomerular Filt Rate 38; Glucose Fasting 106 mg/dL (60-99); HDL Cholesterol 29 mg/dL; LDL Cholesterol Calculated 102 mg/dl; Potassium 4.7 mmol/L (3.3-5.1); Sodium 144 mmol/L (135-145); Total Protein 7.4 g/dL (6.5-8.0); Triglycerides 152 mg/dL
== END 2021-11-07 07:22 | disposition home or self-care (01) ==
LOC: HO.LAB 07:21
PROVIDERS: PCP Internal Medicine Medical Oncology; Visit Provider Internal Medicine Medical Oncology
DX: D53.9 Nutritional anemia, unspecified (principal); I10 Essential (primary) hypertension
CPT/HCPCS: 36415; 80053; 80061; 83036; 85025

== ENCOUNTER → 2021-11-20 14:32 | Outpatient (BNVA) | payer MEDICARE, SELFPAY | PROVIDERS: PCP Internal Medicine Medical Oncology; Referring Provider Internal Medicine Medical Oncology; Visit Provider Internal Medicine Cardiovascular Disease | DX: H34.13 Central retinal artery occlusion, bilateral (principal) | CPT/HCPCS: 93005; 99202 ==

== ENCOUNTER 2022-01-09 09:22 | Outpatient (REF) | payer MEDICARE, SELFPAY ==
[2022-01-09 09:32] LABS: MANUAL DIFF FLAG NO
[2022-01-09 10:06] LABS: Basophils Percent Auto 0.3 % (0-2); Eosinophils Absolute Auto 0.1 X10*3/uL (0.0-0.4); Eosinophils Percent Auto 1.3 % (0-4); Hemoglobin 10.6 g/dl (14.0-18.0); Imm Gran Abs Auto 0.04 X10*3/uL (0.00-0.03); Imm Gran Pct Auto 0.4 % (0.0-0.4); Lymphocytes Absolute Auto 0.5 X10*3/uL (1.2-4.9); Lymphocytes Percent Auto 5.4 % (20-40); Mean Corpuscular HGB Conc 31.2 g/dl (31.0-36.0); Mean Corpuscular Hemoglobin 33.2 pg (27.0-33.0); Mean Corpuscular Volume 106.6 fL (80.0-98.0); Mean Platelet Volume 10.4 fL (9.4-12.4); Monocytes Absolute Auto 0.6 X10*3/uL (0.1-1.2); Monocytes Percent Auto 6.8 % (2-11); Neutrophils Absolute Auto 7.9 x10*3/uL (2.0-8.3); Neutrophils Percent Auto 85.8 % (45-73); Platelet Count 213 X10*3/uL (160-400); Red Blood Count 3.19 X10*6/uL (4.60-5.80); Red Cell Distribution Width 22.9 % (11.0-16.0); White Blood Count 9.2 X10*3/uL (4.8-10.8)
[2022-01-09 10:22] LABS: Alanine Aminotransferase 29 U/L (0-40); Albumin Level 3.5 g/dL (3.5-5.0); Alkaline Phosphatase 99 U/L (39-117); Anion Gap 10 (12-20); Aspartate Amino Transferase 21 U/L (5-37); Bilirubin Total 0.5 mg/dL (0.0-1.0); Blood Urea Nitrogen 39 mg/dL (9-16); Calcium 9.3 mg/dL (8.4-10.2); Carbon Dioxide 25 mmol/L (22-29); Chloride 110 mmol/L (96-108); Estimated Glomerular Filt Rate 41; Glucose Random 146 mg/dL (60-115); Potassium 4.8 mmol/L (3.3-5.1); Sodium 140 mmol/L (135-145); Total Protein 7.1 g/dL (6.5-8.0)
== END 2022-01-09 09:23 | disposition home or self-care (01) ==
LOC: HO.LAB 09:22
PROVIDERS: PCP Internal Medicine Medical Oncology; Visit Provider Internal Medicine Medical Oncology
DX: D53.9 Nutritional anemia, unspecified (principal)
CPT/HCPCS: 36415; 80053; 85025

== ENCOUNTER → 2022-01-14 12:44 | Outpatient (REF) | payer MEDICARE, SELFPAY ==
--- NOTE | 2022-01-14 12:52 | HM_ITS ---
REQUESTING PROVIDERS: Cristobal Schulz M.D. REASON FOR TEST: Central retinal artery occlusion to evaluate for atrial fibrillation. FINDINGS: Patient was enrolled in cardiac event monitor from 01/14/2022, to 01/22/2022, for a total duration of 8 days. FINDINGS: Baseline rhythm is normal sinus rhythm with a heart rate varying from 72 beats per minute to 99 beats per minute. Rare isolated PACs noted. No sustained atrial fibrillation noted. Patient reported symptoms of shortness of breath, correlate with sinus rhythm. There were no other symptoms reported. CONCLUSION: 1. Event monitor is remarkable for based on normal sinus rhythm. 2. Rare isolated PACs without atrial fibrillation noted. 3. No patient reported events that were suggestive of arrhythmia. Cristobal Schulz MD NRS/MODL / [id number]
== END ==
LOC: HO.CARD 12:44
PROVIDERS: Visit Provider Internal Medicine Cardiovascular Disease
DX: H34.10 Central retinal artery occlusion, unspecified eye (principal)
CPT/HCPCS: 93270

== ENCOUNTER 2022-02-17 11:47 | Outpatient (REF) | payer MEDICARE, SELFPAY ==
[2022-02-17 11:59] LABS: MANUAL DIFF FLAG NO
[2022-02-17 13:13] LABS: Basophils Absolute Auto 0.1 X10*3/uL (0.0-0.2); Basophils Percent Auto 0.5 % (0-2); Eosinophils Absolute Auto 0.1 X10*3/uL (0.0-0.4); Eosinophils Percent Auto 1.3 % (0-4); Hematocrit 33.3 % (42.0-52.0); Hemoglobin 10.5 g/dl (14.0-18.0); Imm Gran Abs Auto 0.07 X10*3/uL (0.00-0.03); Imm Gran Pct Auto 0.7 % (0.0-0.4); Lymphocytes Absolute Auto 0.6 X10*3/uL (1.2-4.9); Lymphocytes Percent Auto 5.9 % (20-40); Mean Corpuscular HGB Conc 31.5 g/dl (31.0-36.0); Mean Corpuscular Hemoglobin 33.7 pg (27.0-33.0); Mean Corpuscular Volume 106.7 fL (80.0-98.0); Mean Platelet Volume 11.3 fL (9.4-12.4); Monocytes Absolute Auto 0.6 X10*3/uL (0.1-1.2); Monocytes Percent Auto 5.1 % (2-11); Neutrophils Absolute Auto 9.3 x10*3/uL (2.0-8.3); Neutrophils Percent Auto 86.5 % (45-73); Platelet Count 228 X10*3/uL (160-400); Red Blood Count 3.12 X10*6/uL (4.60-5.80); Red Cell Distribution Width 22.4 % (11.0-16.0); White Blood Count 10.8 X10*3/uL (4.8-10.8)
[2022-02-17 13:53] LABS: Erythrocyte Sedimentation Rate 13 MM/HR (0-15)
== END 2022-02-17 11:48 | disposition home or self-care (01) ==
LOC: HO.LAB 11:47
PROVIDERS: PCP Internal Medicine Medical Oncology; Visit Provider Psychiatry & Neurology Neurology
DX: M31.6 Other giant cell arteritis (principal)
CPT/HCPCS: 36415; 85025; 85652; 86140

== ENCOUNTER 2022-03-18 09:01 | Outpatient (REF) | payer MEDICARE, SELFPAY ==
--- NOTE | ~2022-03-18 | CT_ITS ---
EXAMINATION: CT CHEST WITHOUT CONTRAST CLINICAL INFORMATION: Pulmonary fibrosis and emphysema. COMPARISON: CT chest 03/21/2020. TECHNIQUE: Multidetector volumetric CT imaging of the chest was done. Axial MIP volume rendering provided. Sagittal and coronal reformatted images were obtained. This CT examination was performed using dose optimization techniques as appropriate, variously including the following: *Automated exposure control *Adjustment of mA and/or kV according to patient size (this includes techniques or standardized protocols for targeted exams where dose is matched to indication/reason for exam; i.e. extremities or head) *Use of iterative reconstruction technique DLP: 122 mGy-cm FINDINGS: HEMP FIBER TAKER OFF: Well-inflated lungs. LUNGS: There is centrilobular and paraseptal emphysema. There is mild intralobular peripheral-based fine interstitial thickening in both upper lobes and lower lobes. There are cystic changes throughout both lungs, most prominent in the lower lobes. Diffuse ground-glass opacity seen in both lungs. There is a 3 mm pulmonary nodule right lower lobe axial image 46/9. A 4 mm subpleural nodule right lower lobe axial image 80/6 is stable. There is bilateral basilar atelectasis or scarring. There is minimal bronchiectasis without any focal secretions. No consolidation seen. MEDIASTINUM: The heart size and the great vessels are normal caliber. There is no pericardial effusion seen. Trace coronary artery calcifications are present. There are reactive small lymph nodes in the mediastinum. The central trachea and the bronchi are widely patent. Thyroid lobes are symmetric and normal. PLEURA: There is no pleural effusion. No pleural mass or thickening. AXILLA: No lymphadenopathy. UPPER ABDOMEN: The visualized liver, spleen, pancreas, and bilateral adrenal glands are unremarkable. OSSEOUS STRUCTURES: No lytic or sclerotic process seen. CT/CT chest wo con IMPRESSION: Diffuse emphysema with fine subpleural reticular thickening throughout both lungs and subpleural-based cystic changes throughout both lungs. There are 2 pulmonary nodules which are stable. No new nodules seen. No large consolidation, mass or abnormal mediastinal lymphadenopathy. Diffuse air trapping. Overall no change from the last exam 03/21/2020. Fleischner guidelines were followed.
== END 2022-03-18 09:02 | disposition home or self-care (01) ==
LOC: HO.CT 09:01
PROVIDERS: Visit Provider Internal Medicine
DX: J84.10 Pulmonary fibrosis, unspecified (principal); J43.9 Emphysema, unspecified
CPT/HCPCS: 71250

== ENCOUNTER 2022-04-02 10:51 | Outpatient (REF) | payer MEDICARE, SELFPAY ==
--- NOTE | 2022-04-02 12:07 | PFT_ITS ---
Forced vital capacity 90%, FEV1 98%. FEV1/FVC ratio is 78. FEF 25-75 is 130% and MVV is 91%. Post bronchodilator therapy, there is no change. Total lung capacity at 83% and residual volume is 162%. Diffusion capacity 19%. CONCLUSION: No evidence of obstructive or restrictive pulmonary disorder. There was some technical problem and patient was not able to perform adequate maneuvers for slung volumes. Decreased diffusion capacity may be due to technical reason. Resting O2 saturation was noted to be 94%. Clinical correlation is recommended. It should be noted that the patient had pulmonary function test on 03/21/2020, and even on that date, it was noted that the patient was unable to complete successful lung volume maneuver and the diffusion capacity on that date was also 21, which is markedly low. MD MAIK Isbell/MATEUS / [id number]
== END 2022-04-02 10:52 | disposition home or self-care (01) ==
LOC: HO.RESP 10:51
PROVIDERS: PCP Internal Medicine Medical Oncology; Visit Provider Internal Medicine
DX: R09.02 Hypoxemia (principal); J84.10 Pulmonary fibrosis, unspecified; J43.9 Emphysema, unspecified
CPT/HCPCS: 94060; 94729

== ENCOUNTER 2022-04-07 11:18 | Outpatient (REF) | payer MEDICARE, SELFPAY ==
--- NOTE | ~2022-04-07 | US_ITS ---
EXAMINATION: US EXTRACRANIAL CAROTID DUPLEX, BILATERAL CLINICAL INFORMATION: Carotid stenosis COMPARISON: CTA from 09/17/2021 and ultrasound from 11/27/2021 TECHNIQUE: Real-time ultrasound and Doppler techniques (integrating B-mode 2-D vascular images, Doppler spectral analysis and color-flow Doppler imaging) were utilized to interrogate the extracranial carotid arteries, the vertebral arteries and proximal subclavian arteries bilaterally. The degree of stenosis is determined by criteria similar to NASCET. FINDINGS: Right Side: 1. There is mild atherosclerotic plaque seen in the bifurcation/proximal ICA region. 2. The common carotid artery PSV proximally is 80.9 cm/s and distally 72.7 cm/s. 3. The proximal internal carotid artery velocities are 66.4 cm/s systolic and 15.3 cm/s diastolic. 4. The proximal external carotid artery PSV is 110 cm/s. 5. The vertebral artery shows antegrade flow. 6. The subclavian artery waveforms are normal. Left Side: 1. There is mild atherosclerotic plaque seen in the bifurcation/proximal ICA region. 2. The common carotid artery PSV proximally is 89.7 cm/s and distally 72.1 cm/s. 3. The proximal internal carotid artery velocities are 78.6 cm/s systolic and 14.7 cm/s diastolic. 4. The proximal external carotid artery PSV is 99.7 cm/s. 5. The vertebral artery shows antegrade flow. 6. The subclavian artery waveforms are normal. US/US carotid duplex BI IMPRESSION: 1. RIGHT: Minimal, non-hemodynamically significant stenosis of the proximal right internal carotid artery corresponding to a 0-49% stenosis by velocity criteria. 2. LEFT: Minimal, non-hemodynamically significant stenosis of the proximal left internal carotid artery corresponding to a 0-49% stenosis by velocity criteria. 3. There is no change in the category severity of disease when compared to the previous study dated 09/17/2021.
== END 2022-04-07 11:19 | disposition home or self-care (01) ==
LOC: HO.US 11:18
PROVIDERS: Visit Provider Surgery Vascular Surgery
DX: I65.23 Occlusion and stenosis of bilateral carotid arteries (principal)
CPT/HCPCS: 93880

== ENCOUNTER → 2022-04-28 09:04 | Outpatient (BNVA) | payer MEDICARE, SELFPAY | PROVIDERS: PCP Internal Medicine Medical Oncology; Visit Provider Internal Medicine | DX: J43.9 Emphysema, unspecified (principal); J84.10 Pulmonary fibrosis, unspecified; R09.02 Hypoxemia | CPT/HCPCS: 94618; 99212 ==

== ENCOUNTER → 2022-06-03 13:04 | Outpatient (BNVA) | payer MEDICARE, SELFPAY | PROVIDERS: PCP Internal Medicine Medical Oncology; Visit Provider Surgery Vascular Surgery | DX: I65.23 Occlusion and stenosis of bilateral carotid arteries (principal) | CPT/HCPCS: 99212 ==

== ENCOUNTER 2022-06-25 07:39 | Outpatient (REF) | payer MEDICARE, SELFPAY ==
[2022-06-25 07:54] LABS: MANUAL DIFF FLAG NO
[2022-06-25 08:29] LABS: Basophils Absolute Auto 0.1 X10*3/uL (0.0-0.2); Basophils Percent Auto 0.5 % (0-2); Eosinophils Absolute Auto 0.2 X10*3/uL (0.0-0.4); Eosinophils Percent Auto 1.3 % (0-4); Hematocrit 33.8 % (42.0-52.0); Hemoglobin 10.7 g/dl (14.0-18.0); Imm Gran Abs Auto 0.15 X10*3/uL (0.00-0.03); Lymphocytes Absolute Auto 0.6 X10*3/uL (1.2-4.9); Lymphocytes Percent Auto 3.7 % (20-40); Mean Corpuscular HGB Conc 31.7 g/dl (31.0-36.0); Mean Corpuscular Hemoglobin 33.8 pg (27.0-33.0); Mean Corpuscular Volume 106.6 fL (80.0-98.0); Mean Platelet Volume 11.3 fL (9.4-12.4); Monocytes Absolute Auto 0.8 X10*3/uL (0.1-1.2); Monocytes Percent Auto 5.3 % (2-11); NRBC Pct Auto 0.1 /100WBC (0.0-0.2); Neutrophils Absolute Auto 13.8 x10*3/uL (2.0-8.3); Neutrophils Percent Auto 88.2 % (45-73); Platelet Count 259 X10*3/uL (160-400); Red Blood Count 3.17 X10*6/uL (4.60-5.80); Red Cell Distribution Width 22.8 % (11.0-16.0); White Blood Count 15.7 X10*3/uL (4.8-10.8)
[2022-06-25 09:26] LABS: Alanine Aminotransferase 44 U/L (0-40); Albumin Level 3.8 g/dL (3.5-5.0); Alkaline Phosphatase 157 U/L (39-117); Anion Gap 13 (12-20); Aspartate Amino Transferase 31 U/L (5-37); Bilirubin Total 0.6 mg/dL (0.0-1.0); Blood Urea Nitrogen 38 mg/dL (9-16); Calcium 9.1 mg/dL (8.4-10.2); Carbon Dioxide 25 mmol/L (22-29); Chloride 112 mmol/L (96-108); Cholesterol 101 mg/dL; Estimated Glomerular Filt Rate 35; Glucose Fasting 96 mg/dL (60-99); HDL Cholesterol 34 mg/dL; LDL Cholesterol Calculated 45 mg/dl; Potassium 5.3 mmol/L (3.3-5.1); Sodium 145 mmol/L (135-145); Total Protein 7.6 g/dL (6.5-8.0); Triglycerides 111 mg/dL
== END 2022-06-25 07:40 | disposition home or self-care (01) ==
LOC: HO.LAB 07:39
PROVIDERS: PCP Internal Medicine Medical Oncology; Visit Provider Internal Medicine Medical Oncology
DX: I10 Essential (primary) hypertension (principal); D53.9 Nutritional anemia, unspecified; R73.9 Hyperglycemia, unspecified
CPT/HCPCS: 36415; 80053; 80061; 85025

== ENCOUNTER 2022-07-16 09:11 | Outpatient (REF) | payer MEDICARE, SELFPAY ==
[2022-07-16 10:01] LABS: Basophils Absolute Auto 0.1 X10*3/uL (0.0-0.2); Basophils Percent Auto 0.4 % (0-2); Eosinophils Absolute Auto 0.1 X10*3/uL (0.0-0.4); Eosinophils Percent Auto 0.8 % (0-4); Hemoglobin 9.6 g/dl (14.0-18.0); Imm Gran Pct Auto 0.6 % (0.0-0.4); Lymphocytes Absolute Auto 0.5 X10*3/uL (1.2-4.9); Lymphocytes Percent Auto 3.2 % (20-40); MANUAL DIFF FLAG SCAN; Mean Corpuscular Hemoglobin 33.3 pg (27.0-33.0); Mean Corpuscular Volume 104.2 fL (80.0-98.0); Mean Platelet Volume 11.3 fL (9.4-12.4); Monocytes Absolute Auto 0.6 X10*3/uL (0.1-1.2); Monocytes Percent Auto 4.2 % (2-11); Neutrophils Percent Auto 90.8 % (45-73); Platelet Count 215 X10*3/uL (160-400); Red Blood Count 2.88 X10*6/uL (4.60-5.80); Red Cell Distribution Width 23.1 % (11.0-16.0); SCAN SMEAR FLAG 1; White Blood Count 15.4 X10*3/uL (4.8-10.8)
[2022-07-16 10:26] LABS: SLIDE REVIEW VERIFIED
[2022-07-16 10:29] LABS: Alanine Aminotransferase 37 U/L (0-40); Albumin Level 3.4 g/dL (3.5-5.0); Alkaline Phosphatase 136 U/L (39-117); Anion Gap 10 (12-20); Aspartate Amino Transferase 25 U/L (5-37); Bilirubin Total 0.3 mg/dL (0.0-1.0); Blood Urea Nitrogen 43 mg/dL (9-16); Calcium 8.5 mg/dL (8.4-10.2); Carbon Dioxide 25 mmol/L (22-29); Chloride 110 mmol/L (96-108); Estimated Glomerular Filt Rate 36; Gamma Glutamyl Transpeptidase 53 U/L (11-51); Glucose Random 146 mg/dL (60-115); Sodium 140 mmol/L (135-145); Total Protein 6.8 g/dL (6.5-8.0)
== END 2022-07-16 09:12 | disposition home or self-care (01) ==
LOC: HO.LAB 09:11
PROVIDERS: PCP Internal Medicine Medical Oncology; Visit Provider Internal Medicine Medical Oncology
DX: I12.9 Hypertensive chronic kidney disease with stage 1 through stage 4 chronic kidney disease, or unspecified chronic kidney disease (principal); N18.30 Chronic kidney disease, stage 3 unspecified; D53.9 Nutritional anemia, unspecified; F01.50 Vascular dementia, unspecified severity, without behavioral disturbance, psychotic disturbance, mood disturbance, and anxiety
CPT/HCPCS: 36415; 80053; 82977; 85025

== ENCOUNTER → 2022-08-27 10:20 | Outpatient (BNVA) | payer MEDICARE, SELFPAY | PROVIDERS: PCP Internal Medicine Medical Oncology; Visit Provider Internal Medicine | DX: J43.9 Emphysema, unspecified (principal); J84.10 Pulmonary fibrosis, unspecified; R09.02 Hypoxemia; D64.9 Anemia, unspecified | CPT/HCPCS: 99212 ==

== ENCOUNTER 2022-11-06 08:39 | Outpatient (REF) | payer MEDICARE, SELFPAY ==
--- NOTE | ~2022-11-06 | FL_ITS ---
EXAMINATION: FL BARIUM SWALLOW CLINICAL INFORMATION: Dysphagia. COMPARISON: None available. TECHNIQUE: Barium swallow examination is performed using fluoroscopic evaluation in addition to multiple fluoroscopic spot views. The patient is imaged both upright and prone and using both thick and thin sulfate along with effervescent granules. Fluoroscopy time: 1.9 minutes DAP: 8.121 Gycm2 Images: 44 FINDINGS: Following intravenous administration of thick barium and barium coated turkey in upright view there is normal propagation of bolus from the oral cavity through the pharynx, upper and mid esophagus into the distal segment. There are significant tertiary peristalsis in corkscrew appearance in the distal esophagus consistent with presbyesophagus. No obstructive or constrictive lesion seen. On oral administration of barium tablet there is obstruction of tablet in the distal esophagus in spite of oral administration of several glasses of water. FL/FL barium swallow IMPRESSION: Presbyesophagus distal esophagus. There is significant delay in the transition of barium resulting in pooling of barium in the upper and mid esophagus.
== END 2022-11-06 08:40 | disposition home or self-care (01) ==
LOC: HO.XRAY 08:39
PROVIDERS: PCP Internal Medicine Medical Oncology; Visit Provider Internal Medicine Medical Oncology
DX: R13.10 Dysphagia, unspecified (principal)
CPT/HCPCS: 74220

== ENCOUNTER 2022-12-23 14:41 | Outpatient (REF) | payer MEDICARE, SELFPAY ==
[2022-12-23 17:01] LABS: Alanine Aminotransferase 49 U/L (0-40); Albumin Level 3.5 g/dL (3.5-5.0); Alkaline Phosphatase 272 U/L (39-117); Amylase 38 U/L (28-100); Anion Gap 13 (12-20); Aspartate Amino Transferase 42 U/L (5-37); Bilirubin Total 0.4 mg/dL (0.0-1.0); Blood Urea Nitrogen 61 mg/dL (9-16); Calcium 9.1 mg/dL (8.4-10.2); Carbon Dioxide 22 mmol/L (22-29); Chloride 116 mmol/L (96-108); Estimated Glomerular Filt Rate 20; Gamma Glutamyl Transpeptidase 107 U/L (11-51); Glucose Random 150 mg/dL (60-115); Lipase 48 U/L (8-78); Magnesium 2.5 mg/dL (1.6-2.6); Potassium 5.1 mmol/L (3.3-5.1); Sodium 146 mmol/L (135-145); Total Protein 7.2 g/dL (6.5-8.0)
[2022-12-23 17:47] LABS: Free T4 (Free Thyroxine) 0.74 ng/dL (0.71-1.85); Thyroid Stimulating Hormone 1.81 uIU/mL (0.32-4.0)
[2022-12-26 12:39] LABS: IgA 116 mg/dL (70-320); IgG 2587 mg/dL (600-1540); IgM 59 mg/dL (50-300)
[2022-12-26 14:44] LABS: Kappa Light Chain, Free Serum 902.7 mg/L (3.3-19.4); Kappa/Lambda Lt Ch Free Ratio 18.96 (0.26-1.65); Lambda Light Chain, Free Serum 47.6 mg/L (5.7-26.3)
[2022-12-30 22:42] LABS: PES - Abn Protein Band 1 1.8 g/dL (NONE DETECTED); Prot Elec - Albumin 3.9 g/dL (3.8-4.8); Prot Elec - Alpha1 0.3 g/dL (0.2-0.3); Prot Elec - Alpha2 0.8 g/dL (0.5-0.9); Prot Elec - Beta 1 0.4 g/dL (0.4-0.6); Prot Elec - Beta 2 0.2 g/dL (0.2-0.5); Prot Elec - Gamma 2.2 g/dL (0.8-1.7); Prot Elec - Total Protein 7.7 g/dL (6.1-8.1)
[2023-01-01 14:04] LABS: Kappa, Serum 862 mg/dL (176-443); Kappa/Lambda Ratio, Serum 8.89 (1.29-2.55); Lambda, Serum 97 mg/dL (91-240)
== END 2022-12-23 14:42 | disposition home or self-care (01) ==
LOC: HO.LAB 14:41
PROVIDERS: PCP Internal Medicine Medical Oncology; Visit Provider Internal Medicine Medical Oncology
DX: Z13.89 Encounter for screening for other disorder (principal)
CPT/HCPCS: 36415; 80053; 82150; 82784; 82977; 83521; 83690; 83735; 83883; 84134; 84165; 84439; 84443; 85025; 85652; 86334

== ENCOUNTER 2022-12-24 09:44 | Outpatient (REF) | payer MEDICARE, SELFPAY ==
[2022-12-24 10:44] LABS: Hematocrit 27.3 % (42.0-52.0); Hemoglobin 8.5 g/dl (14.0-18.0); Mean Corpuscular HGB Conc 31.1 g/dl (31.0-36.0); Mean Corpuscular Hemoglobin 33.2 pg (27.0-33.0); Mean Corpuscular Volume 106.6 fL (80.0-98.0); Mean Platelet Volume 11.1 fL (9.4-12.4); NRBC Pct Auto 0.1 /100WBC (0.0-0.2); Platelet Count 246 X10*3/uL (160-400); Red Blood Count 2.56 X10*6/uL (4.60-5.80)
[2022-12-24 10:45] LABS: WBC ABN SCTR FOR CBC 1
[2022-12-24 11:41] LABS: Band Neutrophils Percent 20 % (3-5); Eosinophils Percent Manual 1 % (0-4); Lymphocytes Percent Manual 4 % (20-40); Monocytes Percent Manual 2 % (2-11); Neutrophils Percent Manual 73 % (45-73)
[2022-12-24 11:44] LABS: RBC Morphology NOTED
[2022-12-24 11:45] LABS: Hypochromasia 1+ (5-14) /OIF; Macrocytosis 2+ (15-30) /OIF; Schistocytes 1+ (0-2) /OIF; Spherocytes 1+ (0-2) /OIF; Target Cells 1+ (5-14) /OIF
[2022-12-24 11:46] LABS: Dohle Bodies PRESENT; Platelet Estimate NORMAL (NORMAL); Platelet Morphology Comment NORMAL
[2022-12-24 12:46] LABS: Eosinophils Absolute Manual 0.5 X10*3/uL (0.0-0.4); Lymphocytes Absolute Manual 2.1 X10*3/uL (1.2-4.9); Neutrophils Absolute Manual 48.1 X10*3/uL (2.0-8.3); White Blood Count 51.7 X10*3/uL (4.8-10.8)
== END 2022-12-24 09:45 | disposition home or self-care (01) ==
LOC: HO.LAB 09:44
PROVIDERS: PCP Internal Medicine Medical Oncology; Visit Provider Internal Medicine Medical Oncology
DX: Z13.89 Encounter for screening for other disorder (principal)
CPT/HCPCS: 36415; 85007; 85027

== ENCOUNTER 2022-12-25 10:11 | Inpatient (IN) | payer MEDICARE, SELFPAY ==
--- NOTE | ~2022-12-25 | XR_ITS ---
EXAMINATION: XR CHEST CLINICAL INFORMATION: Hypoxia COMPARISON: March 18, 2022 and December 28, 2006 TECHNIQUE: AP portable view of the chest was obtained. FINDINGS: There is diffuse bilateral interstitial lung disease present. There may be some superimposed acute parenchymal disease. No pneumothorax or pleural effusion identified. There appear to be some emphysematous changes seen about the lung apices. Heart normal size. No evidence of pulmonary edema. XR/XR chest 1V IMPRESSION: Diffuse interstitial lung disease bilaterally with question superimposed acute process not excluded.
--- NOTE | ~2022-12-25 | XR_ITS ---
EXAMINATION: XR CHEST CLINICAL INFORMATION: Shortness of breath COMPARISON: 12/25/2022 TECHNIQUE: Frontal view of the chest was obtained. FINDINGS: Once again significant areas of infiltrate bilaterally. These are showing no improvement from previous. Findings suggest some worsening disease in left mid to lower lung field. The right lung is relatively stable. There is no effusion. The cardiac silhouette is comparable. XR/XR chest 1V IMPRESSION: Once again significant lung disease here with some possible worsening in the left mid to lower lung zone.
--- NOTE | ~2022-12-25 | CT_ITS ---
EXAMINATION: CT ABDOMEN AND PELVIS WITHOUT CONTRAST CLINICAL INFORMATION: Acute kidney injury on top of chronic kidney disease. Weight loss. COMPARISON: CT abdomen pelvis 12/04/[address] chest 03/18/2022 TECHNIQUE: Multidetector volumetric imaging was performed from the superior aspect of the liver through the pubic symphysis. Sagittal and coronal reformatted images were obtained on the technologist's workstation. This CT examination was performed using dose optimization techniques as appropriate, variously including the following: *Automated exposure control *Adjustment of mA and/or kV according to patient size (this includes techniques or standardized protocols for targeted exams where dose is matched to indication/reason for exam; i.e. extremities or head) *Use of iterative reconstruction technique DLP: 414 mGy-cm FINDINGS: LUNG BASES: Again seen are severe changes of COPD and fibrosis at the lung bases unchanged in appearances when compared to the 03/18/2022 study LIVER, GALLBLADDER, AND BILIARY TREE: The liver is normal in size and attenuation but has a minimally nodular border. No focal hepatic lesion or biliary ductal dilatation is present. The gallbladder is unremarkable with no evidence of radiopaque gallstones, gallbladder wall thickening, or obvious pericholecystic inflammatory changes. PANCREAS: Unremarkable. SPLEEN: Spleen is mildly enlarged at 12.5 cm. ADRENAL GLANDS: Unremarkable. KIDNEYS AND URETERS: The kidneys are normal in size, shape, and attenuation. No hydronephrosis, hydroureter, or calculi seen. No perinephric stranding. BLADDER: Unremarkable. GASTROINTESTINAL TRACT: Extensive diverticulosis is present in the left colon most prominent in the sigmoid. No evidence of diverticulitis. The small and large bowel are otherwise unremarkable. The appendix is unremarkable. ABDOMINAL WALL: No significant hernia is appreciated. LYMPH NODES: No retroperitoneal lymphadenopathy. VASCULAR: Calcific plaque present in the aorta and iliofemoral vessels without aneurysm. The left renal vein is retroaortic. PELVIC VISCERA: The prostate and seminal vesicles are unremarkable. OSSEOUS STRUCTURES: Unremarkable. Some minimal degenerative changes are seen most prominent at L5-S1. CT/CT abdomen pelvis wo IV con IMPRESSION: 1. A cause for the patient's weight loss has not been found. 2. Incidental note made of severe COPD and fibrosis at the lung bases, mild splenomegaly and a minimally nodular liver border. 3. Extensive colonic diverticulosis without diverticulitis. 4. Other incidental findings as described above. Fleischner guidelines were followed.
[2022-12-25 10:17] VITALS: BP 124/34; PULSE 74; RESP 18; TEMP 37.1; O2SAT 89; BMI 25.5
--- NOTE | 2022-12-25 10:22 | ECG_ITS ---
Test Reason : weakness Blood Pressure : / mmHG Vent. Rate : 059 BPM Atrial Rate : 059 BPM P-R Int : 182 ms QRS Dur : 072 ms QT Int : 452 ms P-R-T Axes : 077 055 053 degrees QTc Int : 447 ms Sinus bradycardia Otherwise normal ECG When compared with ECG of 03-FEB-2008 15:25, No significant changes seen Referred By: eL Paul Electronically Signed By:Aiden Ho
--- NOTE | 2022-12-25 10:38 | ED.RECABL ---
HPI - Recheck/Abnormal Lab/Rx General Chief Complaint: Recheck/Abnormal Lab/Rx Stated Complaint: abnormal labs not eating Time Seen by Provider: 12/25/22 10:20 Source: patient, family, RN notes reviewed, old records reviewed and other (Dr. Leach) Mode of arrival: ambulatory Limitations: no limitations History of Present Illness HPI narrative: 77 yo male with history of vascular dementia, emphysema, minor pulmonary fibrosis (not on O2), CKD III, temporal arteritis, hx retinal artery occlusion, macrocytic anemia, BPH who presents to the ER per request of his PCP Dr. Leach for evaluation of abnormal lab work. He was seen in the office on 12/23 for persistent diarrhea, decreased PO intake and weight loss. His had been giving him Imodium the last 2-3 weeks and then he developed constipation. He was having pain trying have to have a bowel movement and had to disimpact himself at home. He had labs done yesterday showing a WBC 51,000 and OPAL on CKD with SCr up to 3.0 from a baseline of 1.8. He denies any abdominal pain aside from when he is trying to have a bowel movement. No chest pain, cough, urinary symptoms, rashes or fevers. He is SOB with exertion which is his baseline per his report. MD complaint: abnormal lab Initial visit (ago): day(s) (2) Initial visit for: other (diarrhea) Returns today for: called because of abnormal lab/test Description of abnormal result: WBC 51K OPAL on CKD Context: called for abnormal lab result Associated symptoms: malaise and other (constipation) Related Data Home Medications Medication Instructions Recorded Confirmed cyanocobalamin (vitamin B-12) 1,000 mcg PO DAILY 05/10/20 12/25/22 1,000 mcg tablet vit C 250 mg-vit E 90 mg-zinc 40 1 tab PO BID 08/29/20 12/25/22 mg-copper 1 [id number] capsule (PreserVision AREDS-2) aspirin 325 mg tablet 325 mg PO DAILY 09/26/21 12/25/22 atorvastatin 20 mg tablet 20 mg PO DAILY 06/03/22 12/25/22 tacrolimus 0.1 % topical ointment 1 appl topical DAILY 06/03/22 12/25/22 calcium carbonate 600 mg-vitamin 1 tab PO DAILY 12/25/22 12/25/22 D3 5 mcg (200 unit) tablet Allergies Allergy/AdvReac Type Severity Reaction Status Date / Time hydrochlorothiazide AdvReac Intermediate ITCH Verified 08/27/22 10:50 Review of Systems Review of Systems: Yes all other systems are reviewed and are negative [facility] Past Medical History Medical History (Updated 12/25/22 @ 14:48 by GIBSON Murray) Anemia Exercise hypoxemia Hearing difficulty of both ears HTN (hypertension) Pulmonary emphysema determined by X-ray Pulmonary fibrosis Tubular adenoma of colon Surgical History History of rectal surgery Hx of cholecystectomy Hx of colonoscopy Family History Family History Father No problems noted. Mother No problems noted. Social History Social History Household Members: Spouse Alcohol intake: former Patient Tobacco Use Status: Former Tobacco user Advance Directives: No Advance Directives Information Provided: Yes Current occupational status: retired Physical Exam Vital Signs: Vital Signs: Last Vital Signs Temp 97.7 F 12/25/22 13:42 Pulse 62 12/25/22 13:42 Resp 16 12/25/22 13:42 BP 124/57 L 12/25/22 13:42 Pulse Ox 92 12/25/22 13:42 O2 Del Method Nasal Cannula 12/25/22 13:42 O2 Flow Rate 2 12/25/22 13:42 BMI result Body Mass Index 25.5 Appearance: Alert. Oriented X3. No acute distress. Head: normocephalic, atraumatic. Eyes: Pupils equal, round and reactive to light. ENT: Pharynx normal. No tonsillar swelling or exudate. Neck: Normal inspection. Neck supple. CVS: Normal heart rate and rhythm. Pulses normal. Respiratory: Barrel chested. No respiratory distress. Breath sounds coarse at the bases. Abdomen: Soft and nontender. +BS x4. MARY normal to inspection, soft brown stool deep in the rectal vault Skin: Skin warm and dry. Normal skin color. Normal skin turgor. No rashes. Extremities: No lower extremity edema. No joint swelling. Neuro/psych: Oriented X 3. No motor deficit. No sensory deficit. CN II-XII intact. Normal speech and cognition. Course Reevaluation(s) Reevaluation #1: critical labs of WBC 56.5K with left shift and bandemia 12% he is afebrile, not tachycardic and lactic acid is normal. no evidence of severe sepsis possible GI source of infection, unable to send stool studies as he has been taking imodium and is now constipated. CT abd/pelvis pending. will give dose of empiric rocephin and f/u cultures and imaging results. case d/w Dr. Strickland. sodium 151 with calculated free water deficit of 3.1L. will start D5W @ 75cc/hr which will replete 1/2 water deficit in 1st 24 hours. planning for admission once workup complete Time: 11:47 Reevaluation #2: CT abd without and significant abnormality will plan for admission for further care patient and family updated Time: 13:20 Medications Administered Generic Name Dose Route Start Last Admin Trade Name Freq PRN Reason Stop Dose Admin Dextrose 1,000 mls @ 75 mls/hr 12/25/22 11:45 12/25/22 12:53 D5w IVCONT 75 mls/hr .[id number] RHONDA Infusion Discontinued Medications Generic Name Dose Route Start Last Admin Trade Name Freq PRN Reason Stop Dose Admin Sodium Chloride 1,000 mls @ 999 mls/hr 12/25/22 10:45 12/25/22 11:46 Ns IV 12/25/22 11:45 Infused .Q1H1M RHONDA Infusion Lactated Ringer's 1,000 mls @ 999 mls/hr 12/25/22 12:00 12/25/22 12:53 Lr IV 12/25/22 13:00 Infused .Q1H1M RHONDA Infusion Ceftriaxone Sodium 1 gm/ 50 mls @ 100 mls/hr 12/25/22 11:46 12/25/22 12:25 Sodium Chloride IV 12/25/22 12:15 Infused ONCE ONE Infusion Medical Decision Making Medical Decision Making MDM Narrative: 77 yo male with history of vascular dementia, emphysema, minor pulmonary fibrosis (not on O2), CKD III, temporal arteritis, hx retinal artery occlusion, macrocytic anemia, BPH who presents to the ER per request of his PCP Dr. Leach for evaluation of abnormal lab work. Found to have OPAL on CKD, hypernatremia, transaminitis and significant leukocytosis w/ bandemia. Afebrile and not tachycardic, not severe sepsis. No source of infection identified, ?partially hemocentrated due to dehydration. cultures sent and given 2L IVF then started on D5W for hypernatremia CT abd/pelvis without acute abnormality. no fecal impaction on exam, no diarhea to send for stool studies. at this time patient is to be admitted for further workup and management. pt and family updated on plan of care. Differential Diagnosis Differential Diagnoses: The differential diagnosis associated with the presentation includes dehydration, failure to thrive, cancer, gut translocation, biliary obstruction, biliary cancer, c diff, bacterial enteritis, doubt pneumonia Admission/Observation Consideration of admission/observation: Escalation of care including admission/observation considered Consult Healthcare Provider Management of the patient was discussed with: Hospitalist and Meat Specialist Dr. Leach - PCP and heme/onc provider Lab Data MDM Lab Attestation statement: I reviewed the patient's lab results. signiicant leukocytosis w/ bandemia, OPAL on CKD w/ hypernatremia, elevated LFTs 12/25/22 10:48 12/25/22 10:48 Labs: Lab Results 12/25/22 12/25/22 12/25/22 Range/Units 10:45 10:47 10:48 WBC 56.5 H* (4.8-10.8) X10*3/uL RBC 2.53 L (4.60-5.80) X10*6/uL Hgb 8.4 L (14.0-18.0) g/dl Hct 27.2 L (42.0-52.0) % MCV 107.5 H (80.0-98.0) fL MCH 33.2 H (27.0-33.0) pg MCHC 30.9 L (31.0-36.0) g/dl RDW 28.9 H (11.0-16.0) % Plt Count 249 (160-400) X10*3/uL MPV 11.0 (9.4-12.4) fL Immature Gran % (Auto) Cancelled Neut % (Auto) Cancelled Lymph % (Auto) Cancelled Cedar % (Auto) Cancelled Eos % (Auto) Cancelled Baso % (Auto) Cancelled Lymph # (Auto) Cancelled Cedar # (Auto) Cancelled Eos # (Auto) Cancelled Baso # (Auto) Cancelled Abs Immat Gran (auto) Cancelled Absolute Neuts (auto) Cancelled Absolute Nucleated RBC 0.070 H (0.0-0.012) X10*3/uL Nucleated RBC % (auto) 0.1 (0.0-0.2) /100WBC Neutrophils % (Manual) 85 H (45-73) % Band Neutrophils % 12 H (3-5) % Lymphocytes % (Manual) 2 L (20-40) % Monocytes % (Manual) 1 L (2-11) % Abs Neuts (Manual) 54.8 H (2.0-8.3) X10*3/uL Lymphocytes # (Manual) 1.1 L (1.2-4.9) X10*3/uL Monocytes # (Manual) 0.6 (0.1-1.2) X10*3/uL Dohle Bodies PRESENT Platelet Estimate NORMAL (NORMAL) Plt Morphology Comment NORMAL RBC Morphology NOTED Hypochromasia 1+ (5-14) /OIF Basophilic Stippling 1+ (0-2) /OIF Macrocytosis 2+ (15-30) /OIF Spherocytes 1+ (0-2) /OIF Target Cells 1+ (5-14) /OIF Schistocytes 2+ (3-5) /OIF PT (10.0-13.1) SEC INR (0.9-1.1) APTT (26.0-36.4) SEC Sodium (135-145) mmol/L Potassium (3.3-5.1) mmol/L Chloride (96-108) mmol/L Carbon Dioxide (22-29) mmol/L Anion Gap (12-20) BUN (9-16) mg/dL Creatinine (0.5-1.4) mg/dL Estim Creat Clear Calc Estimated GFR Random Glucose (60-115) mg/dL Lactic Acid 1.8 (0.5-2.0) mmol/L Calcium (8.4-10.2) mg/dL Magnesium (1.6-2.6) mg/dL Total Bilirubin (0.0-1.0) mg/dL Direct Bilirubin (0.0-0.5) mg/dL AST (5-37) U/L ALT (0-40) U/L Alkaline Phosphatase (39-117) U/L Total Creatine Kinase (38-174) U/L Troponin I High Sens (<3.5-35.0) ng/L B-Natriuretic Peptide (<100) pg/mL Total Protein (6.5-8.0) g/dL Albumin (3.5-5.0) g/dL TSH (0.32-4.0) uIU/mL Urine Color Urine Appearance Urine pH (5.0-9.0) Ur Specific [place] (1.005-1.025) Urine Protein (Neg-Trace) mg/dL Urine Glucose (UA) (Negative) mg/dL Urine Ketones (Negative) mg/dL Urine Blood (Negative) Urine Nitrite (Negative) Ur Leukocyte Esterase (Negative) Urine RBC (0-2) /HPF Urine WBC (0-5) /HPF Ur Squamous Epith Cells (0-2) /HPF Urine Bacteria (None Seen) Hyaline Casts (0-2) /LPF COVID-19 (JABARI) Negative (Negative) COVID-19 Clin Com See Note 12/25/22 12/25/22 12/25/22 Range/Units 10:48 10:48 10:48 WBC (4.8-10.8) X10*3/uL RBC (4.60-5.80) X10*6/uL Hgb (14.0-18.0) g/dl Hct (42.0-52.0) % MCV (80.0-98.0) fL MCH (27.0-33.0) pg MCHC (31.0-36.0) g/dl RDW (11.0-16.0) % Plt Count (160-400) X10*3/uL MPV (9.4-12.4) fL Immature Gran % (Auto) Neut % (Auto) Lymph % (Auto) Cedar % (Auto) Eos % (Auto) Baso % (Auto) Lymph # (Auto) Cedar # (Auto) Eos # (Auto) Baso # (Auto) Abs Immat Gran (auto) Absolute Neuts (auto) Absolute Nucleated RBC (0.0-0.012) X10*3/uL Nucleated RBC % (auto) (0.0-0.2) /100WBC Neutrophils % (Manual) (45-73) % Band Neutrophils % (3-5) % Lymphocytes % (Manual) (20-40) % Monocytes % (Manual) (2-11) % Abs Neuts (Manual) (2.0-8.3) X10*3/uL Lymphocytes # (Manual) (1.2-4.9) X10*3/uL Monocytes # (Manual) (0.1-1.2) X10*3/uL Dohle Bodies Platelet Estimate (NORMAL) Plt Morphology Comment RBC Morphology Hypochromasia /OIF Basophilic Stippling /OIF Macrocytosis /OIF Spherocytes /OIF Target Cells /OIF Schistocytes /OIF PT 11.4 (10.0-13.1) SEC INR 1.0 (0.9-1.1) APTT 28.3 (26.0-36.4) SEC Sodium 151 H (135-145) mmol/L Potassium 4.8 (3.3-5.1) mmol/L Chloride 118 H (96-108) mmol/L Carbon Dioxide 24 (22-29) mmol/L Anion Gap 14 (12-20) BUN 68 H (9-16) mg/dL Creatinine 3.06 H (0.5-1.4) mg/dL Estim Creat Clear Calc 15.7 Estimated GFR 20 Random Glucose 143 H (60-115) mg/dL Lactic Acid (0.5-2.0) mmol/L Calcium 9.5 (8.4-10.2) mg/dL Magnesium 2.4 (1.6-2.6) mg/dL Total Bilirubin 0.5 (0.0-1.0) mg/dL Direct Bilirubin 0.1 (0.0-0.5) mg/dL AST 41 H (5-37) U/L ALT 50 H (0-40) U/L Alkaline Phosphatase 271 H (39-117) U/L Total Creatine Kinase 238 H (38-174) U/L Troponin I High Sens 33.0 (<3.5-35.0) ng/L B-Natriuretic Peptide (<100) pg/mL Total Protein 7.5 (6.5-8.0) g/dL Albumin 3.6 (3.5-5.0) g/dL TSH (0.32-4.0) uIU/mL Urine Color Urine Appearance Urine pH (5.0-9.0) Ur Specific [place] (1.005-1.025) Urine Protein (Neg-Trace) mg/dL Urine Glucose (UA) (Negative) mg/dL Urine Ketones (Negative) mg/dL Urine Blood (Negative) Urine Nitrite (Negative) Ur Leukocyte Esterase (Negative) Urine RBC (0-2) /HPF Urine WBC (0-5) /HPF Ur Squamous Epith Cells (0-2) /HPF Urine Bacteria (None Seen) Hyaline Casts (0-2) /LPF COVID-19 (JABARI) (Negative) COVID-19 Clin Com 12/25/22 12/25/22 12/25/22 Range/Units 10:48 10:48 13:49 WBC (4.8-10.8) X10*3/uL RBC (4.60-5.80) X10*6/uL Hgb (14.0-18.0) g/dl Hct (42.0-52.0) % MCV (80.0-98.0) fL MCH (27.0-33.0) pg MCHC (31.0-36.0) g/dl RDW (11.0-16.0) % Plt Count (160-400) X10*3/uL MPV (9.4-12.4) fL Immature Gran % (Auto) Neut % (Auto) Lymph % (Auto) Cedar % (Auto) Eos % (Auto) Baso % (Auto) Lymph # (Auto) Cedar # (Auto) Eos # (Auto) Baso # (Auto) Abs Immat Gran (auto) Absolute Neuts (auto) Absolute Nucleated RBC (0.0-0.012) X10*3/uL Nucleated RBC % (auto) (0.0-0.2) /100WBC Neutrophils % (Manual) (45-73) % Band Neutrophils % (3-5) % Lymphocytes % (Manual) (20-40) % Monocytes % (Manual) (2-11) % Abs Neuts (Manual) (2.0-8.3) X10*3/uL Lymphocytes # (Manual) (1.2-4.9) X10*3/uL Monocytes # (Manual) (0.1-1.2) X10*3/uL Dohle Bodies Platelet Estimate (NORMAL) Plt Morphology Comment RBC Morphology Hypochromasia /OIF Basophilic Stippling /OIF Macrocytosis /OIF Spherocytes /OIF Target Cells /OIF Schistocytes /OIF PT (10.0-13.1) SEC INR (0.9-1.1) APTT (26.0-36.4) SEC Sodium (135-145) mmol/L Potassium (3.3-5.1) mmol/L Chloride (96-108) mmol/L Carbon Dioxide (22-29) mmol/L Anion Gap (12-20) BUN (9-16) mg/dL Creatinine (0.5-1.4) mg/dL Estim Creat Clear Calc Estimated GFR Random Glucose (60-115) mg/dL Lactic Acid (0.5-2.0) mmol/L Calcium (8.4-10.2) mg/dL Magnesium (1.6-2.6) mg/dL Total Bilirubin (0.0-1.0) mg/dL Direct Bilirubin (0.0-0.5) mg/dL AST (5-37) U/L ALT (0-40) U/L Alkaline Phosphatase (39-117) U/L Total Creatine Kinase (38-174) U/L Troponin I High Sens (<3.5-35.0) ng/L B-Natriuretic Peptide 139 H (<100) pg/mL Total Protein (6.5-8.0) g/dL Albumin (3.5-5.0) g/dL TSH 1.15 (0.32-4.0) uIU/mL Urine Color Yellow Urine Appearance Clear Urine pH 5.5 (5.0-9.0) Ur Specific [place] 1.015 (1.005-1.025) Urine Protein 30 (1+) H (Neg-Trace) mg/dL Urine Glucose (UA) Negative (Negative) mg/dL Urine Ketones Negative (Negative) mg/dL Urine Blood Negative (Negative) Urine Nitrite Negative (Negative) Ur Leukocyte Esterase Negative (Negative) Urine RBC 0-2 (0-2) /HPF Urine WBC 0-5 (0-5) /HPF Ur Squamous Epith Cells 0-2 (0-2) /HPF Urine Bacteria None Seen (None Seen) Hyaline Casts 11-20 (0-2) /LPF COVID-19 (JABARI) (Negative) COVID-19 Clin Com Independent Interpretation I performed an independent interpretation of an: EKG and CT Scan Interpretation: cxr w/ diffuse patchy opacities bilaterally c/w pulmonary fibrosis ekg with sinus bradycardia, hr 59 bpm, normal ND interval, no ST segment elevations or depressions Radiology Impression Discussion of test interpretation with radiology: I have reviewed the radiologist's reading. Radiologist Impression: CT/CT abdomen pelvis wo IV con IMPRESSION: 1.? A cause for the patient's weight loss has not been found. 2.? Incidental note made of severe COPD and fibrosis at the lung bases, mild splenomegaly and a minimally nodular liver border. 3.? Extensive colonic diverticulosis without diverticulitis. 4.? Other incidental findings as described above. Independent Historian Clinical information obtained from an independent historian. History obtained from or confirmed by: Spouse and Other (Dr. Leach) External Record Review External record reviewed: Outpatient record, Prior outpatient labs and Prior outpatient radiology Prescription Management I considered prescription management with: Antibiotic Chronic Conditions Patient?s care impacted by: Other (dementia, CKD) Critical Care Time Critical Care Time Critical Care Time: Yes Total Critical Care Time: 48 Attestation: I have personally provided critical care time exclusive of time spent on separately billable procedures. Time includes review of lab data, radiology results, discussion with consultants, and monitoring for potential decompensation. Intervention performed as documented. Discharge Plan Discharge Clinical Impression: Acute kidney injury superimposed on CKD, Leukocytosis, Acute hypernatremia, Constipation, Transaminitis, Hypoxia Patient Disposition: Admitted As Inpatient
[2022-12-25] MEDS: 0.9 % Sodium Chloride 1,000 ML 999 ML IV (10:50)
[2022-12-25 10:57] LABS: Hematocrit 27.2 % (42.0-52.0); Hemoglobin 8.4 g/dl (14.0-18.0); Mean Corpuscular HGB Conc 30.9 g/dl (31.0-36.0); Mean Corpuscular Hemoglobin 33.2 pg (27.0-33.0); Mean Corpuscular Volume 107.5 fL (80.0-98.0); NRBC Pct Auto 0.1 /100WBC (0.0-0.2); Platelet Count 249 X10*3/uL (160-400); Red Blood Count 2.53 X10*6/uL (4.60-5.80); Red Cell Distribution Width 28.9 % (11.0-16.0)
[2022-12-25 10:58] LABS: WBC ABN SCTR FOR CBC 1
[2022-12-25 10:59] LABS: White Blood Count 56.5 X10*3/uL (4.8-10.8)
[2022-12-25 11:01] LABS: Prothrombin Time 11.4 SEC (10.0-13.1)
[2022-12-25 11:04] LABS: Partial Thromboplastin Time 28.3 SEC (26.0-36.4)
[2022-12-25 11:11] LABS: Lactic Acid 1.8 mmol/L (0.5-2.0)
[2022-12-25 11:17] LABS: IDNOW Serial# BCCEAD1C
[2022-12-25 11:17] LABS: Alanine Aminotransferase 50 U/L (0-40); Albumin Level 3.6 g/dL (3.5-5.0); Alkaline Phosphatase 271 U/L (39-117); Anion Gap 14 (12-20); Aspartate Amino Transferase 41 U/L (5-37); Bilirubin Direct 0.1 mg/dL (0.0-0.5); Bilirubin Total 0.5 mg/dL (0.0-1.0); Blood Urea Nitrogen 68 mg/dL (9-16); Calcium 9.5 mg/dL (8.4-10.2); Carbon Dioxide 24 mmol/L (22-29); Chloride 118 mmol/L (96-108); Creatinine Clr Calc Pharmacy 15.7; Estimated Glomerular Filt Rate 20; Glucose Random 143 mg/dL (60-115); Magnesium 2.4 mg/dL (1.6-2.6); Potassium 4.8 mmol/L (3.3-5.1); Sodium 151 mmol/L (135-145); Total Protein 7.5 g/dL (6.5-8.0)
[2022-12-25 11:18] LABS: COVID-19 Test Negative (Negative)
[2022-12-25 11:22] LABS: B Type Natriuretic Peptide 139 pg/mL (<100)
[2022-12-25 11:38] LABS: Band Neutrophils Percent 12 % (3-5); Lymphocytes Absolute Manual 1.1 X10*3/uL (1.2-4.9); Lymphocytes Percent Manual 2 % (20-40); Monocytes Absolute Manual 0.6 X10*3/uL (0.1-1.2); Monocytes Percent Manual 1 % (2-11); Neutrophils Absolute Manual 54.8 X10*3/uL (2.0-8.3); Neutrophils Percent Manual 85 % (45-73)
[2022-12-25 11:39] LABS: Macrocytosis 2+ (15-30) /OIF; RBC Morphology NOTED; TSH reflex Free T4 1.15 uIU/mL (0.32-4.0)
[2022-12-25 11:42] LABS: Basophilic Stippling 1+ (0-2) /OIF; Hypochromasia 1+ (5-14) /OIF; Schistocytes 2+ (3-5) /OIF; Target Cells 1+ (5-14) /OIF
[2022-12-25 11:43] LABS: Dohle Bodies PRESENT
[2022-12-25 11:44] LABS: Platelet Estimate NORMAL (NORMAL); Platelet Morphology Comment NORMAL; Spherocytes 1+ (0-2) /OIF
[2022-12-25] MEDS: Dextrose 5 % 1,000 ML 75 ML IVCONT (11:51)
[2022-12-25] MEDS: cefTRIAXone sodium 1 GM in 0.9 % Sodium Chloride 50 ML IV (11:55)
[2022-12-25] MEDS: Lactated Ringers 1,000 ML 999 ML IV (11:55)
--- NOTE | 2022-12-25 12:01 | PHA.MEDREC ---
Pharmacy Consult ? Medication Reconciliation Pharmacy has completed the medication reconciliation. Patient family member had list of updated medications. Reports lisinopril was stops by provider on 11/19/22. Monica Reagan, DanaD
[2022-12-25 13:42] VITALS: BP 124/57; PULSE 62; RESP 16; TEMP 36.5; O2SAT 92
[2022-12-25 14:18] LABS: Appearance Urine Clear; Color Urine Yellow; Glucose Urine UA Negative (Negative); Leukocyte Esterase Urine Negative (Negative); Nitrite Urine Negative (Negative); PH 5.5 (5.0-9.0); Specific Gravity - Urine 1.015 (1.005-1.025); UMIC TRIGGER UACC YES; Urine Blood Negative (Negative); Urine Ketones Negative (Negative); Urine Protein 30 (1+) mg/dL (Neg-Trace)
--- NOTE | 2022-12-25 14:24 | P.HPHOSP_ITS ---
History of Present Illness Date of Service: 12/25/22 Attending physician on admission: Ruma Barnett Chief Complaint: Sent by PCP for abnormal labs Pt is a 77-year-old male with a PMH significant for?unspecified dementia, emphysema, pulmonary fibrosis not on home O2, temporal arteritis, CKD stage 3, macrocytic anemia, BPH, carotid atherosclerosis on aspirin, and hx of retinal artery occlusion who presents to the ED at the behest of the patient's PCP Dr. Leach for evaluation of abnormal labs with leukocytosis of 56.5, hypernatremia of 151 and creatinine 3.06. Pt AOx4 but with underlying dementia with mild cognitive impairment. Pt is accompanied by who helps supplement HPI. Pt initially presented to his PCP 3 weeks ago complaining of lose, gassy stool. Was prescribed Imodium which she just recently finished. Patient has recently been complaining of constipation with the need to manually disimpact himself. Pt is unable to clarify when this started or consistency or quantity of produced stool. is also unable to clarify about pt's bowel habits, and states she is not sure what's going on in the bathroom. Pt denies fever, chills, nausea. Has has some mild abdominal pain he associates with trying to go to the bathroom. Pt has also been experiencing recent reduction in p.o. intake of both fluids and solids. states he has been eating very little the past 2-3 days, which is unlike him. Has apparently lost 6-7 lbs in the past week. Pt also complaining of chronic SOB, especially with going up stairs. Patient also states that he occasionally feels like his heart is beating fast, especially when he is lying on the couch. 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 In the ED patient was afebrile and hypotensive at 124/34, satting at 89% on RA. Labs were significant for leukocytosis of 56.5, H&H of 8.4/27.2, MCV of 107.5, absolute neutrophils of 54.8, hypernatremia of 151, chloride 118, BUN elevated at 68, creatinine 3.06, AST of 41, ALT of 50, alk-phos of 271, total creatinine kinase is 238, BNP 139. UA results pending. Coags within normal limits. CXR showed diffuse interstitial lung disease bilaterally with question of superimposed acute process not excluded. CT?of abdomen and pelvis find a cause for the patient's weight loss, negative for acute abdomen or evidence of constipation. CT did show severe COPD and fibrosis at the lung bases, with mild splenomegaly and a minimally nodular liver border. Also found extensive colonic diverticulosis without diverticulitis. EKG demonstrated sinus bradycardia of 59 week no evidence of ST elevations or depressions or significant T-wave inversions. Pt was treated with IVF and ceftriaxone. Pt will be admitted to the hospital Review of Systems Review of Systems: Diarrhea Constipation after taking Imodium x2 weeks Abdominal pain associated with straining during attempted defecation Chronic SOB with exertion Occasional palpitations Denies fever, chills, nausea, vomiting No chest pain or pressure Yes all other systems are reviewed and are negative [facility] Medical History Anemia Exercise hypoxemia Hearing difficulty of both ears HTN (hypertension) Pulmonary emphysema determined by X-ray Pulmonary fibrosis Tubular adenoma of colon Family History Father No problems noted. Mother No problems noted. Surgical History History of rectal surgery Hx of cholecystectomy Hx of colonoscopy Social History Household Members: Spouse Alcohol intake: former Patient Tobacco Use Status: Former Tobacco user Advance Directives: No Advance Directives Information Provided: Yes Current occupational status: retired [employer] Allergies Allergy/AdvReac Type Severity Reaction Status Date / Time hydrochlorothiazide AdvReac Intermediate ITCH Verified 08/27/22 10:50 Active Medications: Current Medications Dextrose (D5w) 1,000 mls @ 75 mls/hr IVCONT .[id number] RHONDA Last Infusion: 12/25/22 12:53 Dose: 75 mls/hr Pharmacy Consult (Consult Rx Perform Med Rec) 1 each MISCELLANE ONCE PRN PRN Reason: Consult order Home Medications Medication Instructions Recorded Confirmed Last Taken Type cyanocobalamin (vitamin B-12) 1,000 mcg PO DAILY 05/10/20 12/25/22 Unknown History 1,000 mcg tablet vit C 250 mg-vit E 90 mg-zinc 40 1 tab PO BID 08/29/20 12/25/22 Unknown History mg-copper 1 [id number] capsule (PreserVision AREDS-2) aspirin 325 mg tablet 325 mg PO DAILY 09/26/21 12/25/22 Unknown History atorvastatin 20 mg tablet 20 mg PO DAILY 06/03/22 12/25/22 Unknown History tacrolimus 0.1 % topical ointment 1 appl topical DAILY 06/03/22 12/25/22 Unknown History calcium carbonate 600 mg-vitamin 1 tab PO DAILY 12/25/22 12/25/22 Unknown History D3 5 mcg (200 unit) tablet Physical Exam Vital Signs and Narrative: Vital Signs: Last Vital Signs Temp 97.7 F 12/25/22 13:42 Pulse 62 12/25/22 13:42 Resp 16 12/25/22 13:42 BP 124/57 L 12/25/22 13:42 Pulse Ox 92 12/25/22 13:42 O2 Del Method Nasal Cannula 12/25/22 13:42 O2 Flow Rate 2 12/25/22 13:42 BMI result Body Mass Index 25.5 Constitutional: Alert, in no acute distress. Mental Status: Oriented to person, place and time. Eyes: Pupils are equal, round, and reactive to light. Ear, Nose, and Throat: Oropharynx clear, mucous membranes moist. Ears and nose without deformities. Trachea midline. Respiratory: Mild diffuse expiratory wheezing. Cardiovascular: S1, S2 regular. No murmurs, rubs, or gallops. Gastrointestinal: Abdomen soft, non-tender, non-distended. Normal bowel sounds. Neurologic: Cranial nerves II-XII are grossly intact bilaterally. No focal neurological deficits. Moves all extremities spontaneously. Skin: No rashes or lesions noted. Musculoskeletal: No cyanosis or clubbing. Extremities: No edema. Psychiatric: Normal mood and affect. Results Labs 12/25/22 10:48 12/25/22 10:48 Labs: Laboratory Results - last 24 hr 12/25/22 12/25/22 12/25/22 10:45 10:47 10:48 MCV 107.5 H MCH 33.2 H MCHC 30.9 L RDW 28.9 H Plt Count 249 MPV 11.0 Immature Gran % (Auto) Cancelled Neut % (Auto) Cancelled Lymph % (Auto) Cancelled Castro % (Auto) Cancelled Eos % (Auto) Cancelled Baso % (Auto) Cancelled Lymph # (Auto) Cancelled Castro # (Auto) Cancelled Eos # (Auto) Cancelled Baso # (Auto) Cancelled Abs Immat Gran (auto) Cancelled Absolute Neuts (auto) Cancelled Absolute Nucleated RBC 0.070 H Nucleated RBC % (auto) 0.1 Neutrophils % (Manual) 85 H Band Neutrophils % 12 H Lymphocytes % (Manual) 2 L Monocytes % (Manual) 1 L Abs Neuts (Manual) 54.8 H Lymphocytes # (Manual) 1.1 L Monocytes # (Manual) 0.6 Dohle Bodies PRESENT Platelet Estimate NORMAL Plt Morphology Comment NORMAL RBC Morphology NOTED Hypochromasia 1+ (5-14) Basophilic Stippling 1+ (0-2) Macrocytosis 2+ (15-30) Spherocytes 1+ (0-2) Target Cells 1+ (5-14) Schistocytes 2+ (3-5) PT INR APTT Anion Gap Estim Creat Clear Calc Estimated GFR Random Glucose Lactic Acid 1.8 Calcium Magnesium Total Bilirubin Direct Bilirubin AST ALT Alkaline Phosphatase Total Creatine Kinase Troponin I High Sens B-Natriuretic Peptide Total Protein Albumin TSH Urine Color Urine Appearance Urine pH Ur Specific [place] Urine Protein Urine Glucose (UA) Urine Ketones Urine Blood Urine Nitrite Ur Leukocyte Esterase COVID-19 (JABARI) Negative COVID-19 Clin Com See Note 12/25/22 12/25/22 12/25/22 10:48 10:48 10:48 MCV MCH MCHC RDW Plt Count MPV Immature Gran % (Auto) Neut % (Auto) Lymph % (Auto) Castro % (Auto) Eos % (Auto) Baso % (Auto) Lymph # (Auto) Castro # (Auto) Eos # (Auto) Baso # (Auto) Abs Immat Gran (auto) Absolute Neuts (auto) Absolute Nucleated RBC Nucleated RBC % (auto) Neutrophils % (Manual) Band Neutrophils % Lymphocytes % (Manual) Monocytes % (Manual) Abs Neuts (Manual) Lymphocytes # (Manual) Monocytes # (Manual) Dohle Bodies Platelet Estimate Plt Morphology Comment RBC Morphology Hypochromasia Basophilic Stippling Macrocytosis Spherocytes Target Cells Schistocytes PT 11.4 INR 1.0 APTT 28.3 Anion Gap 14 Estim Creat Clear Calc 15.7 Estimated GFR 20 Random Glucose 143 H Lactic Acid Calcium 9.5 Magnesium 2.4 Total Bilirubin 0.5 Direct Bilirubin 0.1 AST 41 H ALT 50 H Alkaline Phosphatase 271 H Total Creatine Kinase 238 H Troponin I High Sens 33.0 B-Natriuretic Peptide Total Protein 7.5 Albumin 3.6 TSH Urine Color Urine Appearance Urine pH Ur Specific [place] Urine Protein Urine Glucose (UA) Urine Ketones Urine Blood Urine Nitrite Ur Leukocyte Esterase COVID-19 (JABARI) COVID-19 MEPS Real-Time Com 12/25/22 12/25/22 12/25/22 10:48 10:48 13:49 MCV MCH MCHC RDW Plt Count MPV Immature Gran % (Auto) Neut % (Auto) Lymph % (Auto) Castro % (Auto) Eos % (Auto) Baso % (Auto) Lymph # (Auto) Castro # (Auto) Eos # (Auto) Baso # (Auto) Abs Immat Gran (auto) Absolute Neuts (auto) Absolute Nucleated RBC Nucleated RBC % (auto) Neutrophils % (Manual) Band Neutrophils % Lymphocytes % (Manual) Monocytes % (Manual) Abs Neuts (Manual) Lymphocytes # (Manual) Monocytes # (Manual) Dohle Bodies Platelet Estimate Plt Morphology Comment RBC Morphology Hypochromasia Basophilic Stippling Macrocytosis Spherocytes Target Cells Schistocytes PT INR APTT Anion Gap Estim Creat Clear Calc Estimated GFR Random Glucose Lactic Acid Calcium Magnesium Total Bilirubin Direct Bilirubin AST ALT Alkaline Phosphatase Total Creatine Kinase Troponin I High Sens B-Natriuretic Peptide 139 H Total Protein Albumin TSH 1.15 Urine Color Yellow Urine Appearance Clear Urine pH 5.5 Ur Specific [place] 1.015 Urine Protein 30 (1+) H Urine Glucose (UA) Negative Urine Ketones Negative Urine Blood Negative Urine Nitrite Negative Ur Leukocyte Esterase Negative COVID-19 (JABARI) COVID-19 Clin Com Imaging Radiologist's Impressions: Impressions Abdomen/Pelvis CT 12/25/22 11:30 IMPRESSION: 1. A cause for the patient's weight loss has not been found. 2. Incidental note made of severe COPD and fibrosis at the lung bases, mild splenomegaly and a minimally nodular liver border. 3. Extensive colonic diverticulosis without diverticulitis. 4. Other incidental findings as described above. Fleischner guidelines were followed. Assessment and Plan (1) Leukocytosis: Status: Acute (2) Transaminitis: Status: Acute (3) Acute kidney injury superimposed on CKD: Status: Acute Plan Pt is a 77-year-old male with a PMH significant for?unspecified dementia, emphysema, pulmonary fibrosis not on home O2, temporal arteritis, CKD stage 3, macrocytic anemia, BPH, carotid atherosclerosis on aspirin, and hx of retinal artery occlusion who presents to the ED at the behest of the patient's PCP Dr. Leach for evaluation of abnormal labs with leukocytosis of 56.5, hypernatremia of 151 and creatinine 3.06. Leukocytosis Patient with leukocytosis of 56.5 Unclear etiology: UA negative, CXR with no clear acute process, patient afebrile, no cough, no obvious sign of cellulitis Possibly secondary to C-Diff infection Check C-Diff studies Check GI panel Treat empirically with vanco po Follow CBC OPAL superimposed on CKD 3 Creatinine 3.06 with elevated BUN of 68 Likely multifactorial: secondary to GI losses from diarrhea and reduced p.o. intake of fluids IVF hydration Nephrology consult Follow BMP Hypernatremia Patient's sodium 151 at time of presentation Patient receiving hypotonic IVF: D5W Follow BMP Hypoxia Likely chronic as opposed to acute, pt with severe COPD and fibrosis per CT Pt is supposed to be on supplemental O2 but he refuses home O2 Titrate supplemental O2 to >92, wean as tolerated COPD Does not seem to be in acute exacerbation Pt not complaining of worsening chronic SOB, very mild wheezing on exam Pt not on home inhalers or steroids Duonebs prn Transaminitis, mild Most likely secondary to chronic alcohol use Patient states he used to drink 6+ beers nightly, quit drinking 3-[address] showing mild splenomegaly and a minimally nodular liver border, negative for acute abdomen Pt asymptomatic, abdominal exam benign Chronic macrocytic anemia H&H 8.5/27.3, slightly below baseline No acute signs of bleeding, patient asymptomatic Follow CBC Carotid atherosclerosis Continue aspirin Full Code Attending:?Dr. Barnett DVT Prophylaxis: Pneumatic boots Pt will require a hospitalization of at least two nights for treatment of OPAL superimposed on CKD 3?and leukocytosis possibly secondary to C diff infection. Time Spent With Patient Time: Total time managing care of this patient today ____ minutes. Quality Stroke Does the patient have a stroke diagnosis?: No VTE Prior VTE?: No VTE Risk Level:: Medical - moderate - high VTE Device Contraindication: N/A - Device Ordered VTE Drug Contraindication: Treatment Not Indicated
[2022-12-25 14:38] LABS: Bacteria Urine None Seen (None Seen); RBC Urine 0-2 /HPF (0-2); Squamous Epithelial Cell Urine 0-2 /HPF (0-2); WBC Urine 0-5 /HPF (0-5)
[2022-12-25 18:32] VITALS: BMI 27.5
[2022-12-25] MEDS: vancomycin HCL 125 MG CAPSULE 250 MG PO (19:24)
[2022-12-25 19:52] VITALS: BP 109/58; PULSE 64; RESP 15; TEMP 36.7; O2SAT 89
[2022-12-26] MEDS: Dextrose 5 % 1,000 ML 75 ML IVCONT ×2 (00:46→13:44)
[2022-12-26] MEDS: vancomycin HCL 125 MG CAPSULE 250 MG PO ×5 (00:46→23:53)
[2022-12-26 03:48] VITALS: BP 132/60; PULSE 80; RESP 19; TEMP 36.9; O2SAT 80
--- NOTE | 2022-12-26 06:17 | PM.EVENT ---
Event Note Date of Service: 12/26/22 Event Note: patient noted to be hypoxic on 2 L of oxygen with O2 dropping to 70%. Patient asymptomatic. Will obtain chest x-ray placed on 5 L of oxygen satting in the 90s Time Spent With Patient Time: Total time managing care of this patient today ____ minutes.
--- NOTE | 2022-12-26 06:21 | PC.NURSE ---
Pt O2 sat 70s 0n 2L, increased O2 to 5L, sat at 92-93%. Dr Beckwith notified ordered stat Chest X-ray. Pt reported no symptoms.
[2022-12-26 06:58] LABS: Hematocrit 25.6 % (42.0-52.0); Hemoglobin 7.9 g/dl (14.0-18.0); Mean Corpuscular HGB Conc 30.9 g/dl (31.0-36.0); Mean Corpuscular Hemoglobin 32.8 pg (27.0-33.0); Mean Corpuscular Volume 106.2 fL (80.0-98.0); Mean Platelet Volume 10.8 fL (9.4-12.4); NRBC Pct Auto 0.2 /100WBC (0.0-0.2); Platelet Count 206 X10*3/uL (160-400); Red Blood Count 2.41 X10*6/uL (4.60-5.80); Red Cell Distribution Width 28.4 % (11.0-16.0)
[2022-12-26 06:59] LABS: Anion Gap 11 (12-20); Blood Urea Nitrogen 54 mg/dL (9-16); Calcium 8.6 mg/dL (8.4-10.2); Carbon Dioxide 23 mmol/L (22-29); Chloride 119 mmol/L (96-108); Creatinine Clr Calc Pharmacy 23.5; Estimated Glomerular Filt Rate 28; Glucose Random 79 mg/dL (60-115); Potassium 4.5 mmol/L (3.3-5.1); Sodium 148 mmol/L (135-145)
[2022-12-26 07:41] LABS: White Blood Count 47.6 X10*3/uL (4.8-10.8)
[2022-12-26 07:43] VITALS: BP 120/58; PULSE 59; RESP 18; TEMP 37.4; O2SAT 92
[2022-12-26] MEDS: Atorvastatin Calcium 20 MG TABLET PO (08:44)
[2022-12-26] MEDS: Calcium + Vitamin D 250 MG TABLET 500 MG PO (08:44)
[2022-12-26] MEDS: Aspirin 325 MG TABLET PO (08:44)
[2022-12-26] MEDS: Cyanocobalamin (Vitamin B-12) 1,000 MCG TABLET 1000 MCG PO (08:45)
[2022-12-26] MEDS: Multivitamin TABLET 1 TAB PO (08:45)
[2022-12-26] MEDS: Doxycycline Hyclate 100 MG in 0.9 % Sodium Chloride 250 ML 166.67 MG IV ×2 (08:45→20:57)
[2022-12-26 11:30] VITALS: O2SAT 82
--- NOTE | 2022-12-26 12:41 | P.CONNP_ITS ---
History of Present Illness Reason for Consult Consult date: 12/26/22 Chief Complaint Chief complaint: abnormal labs, leukocytosis and OPAL History of Present Illness Narrative: 77 year old patient with history of CKD presented with abnormal blood work found to have worsening kidney function. There is no report of fever, chills, chest pain or shortness of breath. He apparently has had diarrhea and decreased oral intkake. Review of his vital; signs did not how hypotension. Review of Systems Review of Systems 10 points ROS negative except for pertinent in HPI PMFSH Past Medical History Medical History Anemia Exercise hypoxemia Hearing difficulty of both ears HTN (hypertension) Pulmonary emphysema determined by X-ray Pulmonary fibrosis Tubular adenoma of colon Family History Family History Father No problems noted. Mother No problems noted. Surgical History Surgical History History of rectal surgery Hx of cholecystectomy Hx of colonoscopy Social History Social History Household Members: Spouse Housing: House Do you presently have visiting nurse or other home services: No Alcohol intake: former Patient Tobacco Use Status: Former Tobacco user Use of substances other than those prescribed or required for medical reasons: No Currently Displaying Signs/Symptoms of Drug Intoxication Withdrawal: No Have you been hit, kicked, punched, or otherwise hurt by someone within the past year? If so, by whom?: No Do you feel safe in your current relationship?: No Is there a partner from a previous relationship who is making you feel unsafe now?: No Are you made to feel afraid or neglected: No Advance Directives: No Advance Directives Information Provided: Yes Do you have thoughts of harming others: None Recently lost weight without trying: Yes How much weight loss: 2-13 pounds Eating poorly because of decreased appetite: Yes Nutrition screen score: 4 Current occupational status: retired Meds Allergies Allergy/AdvReac Type Severity Reaction Status Date / Time hydrochlorothiazide AdvReac Intermediate ITCH Verified 08/27/22 10:50 Active Medications: Current Medications Acetaminophen (Acetaminophen 325 Mg Tablet) 650 mg PO Q6H PRN PRN Reason: Pain, Mild (Pain Scale 1-3) Albuterol/Ipratropium (Albuterol/Iprat 2.5/0.5mg 3 Ml Ampul.Neb) 3 ml INHALE Q4H PRN PRN Reason: Wheezing Aspirin (Aspirin 325 Mg Tablet) 325 mg PO DAILY [facility] Last Admin: 12/26/22 08:44 Dose: 325 mg Atorvastatin Calcium (Atorvastatin Calcium 20 Mg Tablet) 20 mg PO DAILY [facility] Last Admin: 12/26/22 08:44 Dose: 20 mg Calcium Carbonate/Cholecalciferol (Calcium + Vitamin D 250 Mg Tablet) 500 mg PO DAILY [facility] Last Admin: 12/26/22 08:44 Dose: 500 mg Cyanocobalamin (Cyanocobalamin (Vitamin B-12) 1,000 Mcg Tablet) 1,000 mcg PO D AILY [facility] Last Admin: 12/26/22 08:45 Dose: 1,000 mcg Docusate Sodium (Docusate Sodium 100 Mg Capsule) 100 mg PO DAILY PRN PRN Reason: Constipation Dextrose (D5w) 1,000 mls @ 75 mls/hr IVCONT .[id number] [facility] Last Admin: 12/26/22 00:46 Dose: 75 mls/hr Doxycycline Hyclate 100 mg/ (Sodium Chloride) 250 mls @ 166.67 mls/hr IV Q12H [facility] Last Infusion: 12/26/22 10:54 Dose: Infused Multivitamins/Vitamin C (Multivitamin Tablet) 1 tab PO DAILY [facility] Last Admin: 12/26/22 08:45 Dose: 1 tab Ondansetron HCl (Ondansetron Hcl 4 Mg/2 Ml Vial) 4 mg IVPUSH Q8H PRN PRN Reason: Nausea and Vomiting Pharmacy Consult (Consult Rx Perform Med Rec) 1 each MISCELLANE ONCE PRN PRN Reason: Consult order Sodium Chloride (0.9 % Sodium Chloride Flush 3 Ml Syringe) 3 ml IVFLUSH QSHIFT [facility] Last Admin: 12/26/22 08:52 Dose: Not Given Vancomycin HCl (Vancomycin Hcl 125 Mg Capsule) 250 mg PO Q6H [facility] Last Admin: 12/26/22 11:04 Dose: 250 mg Home Medications Medication Instructions Recorded Confirmed Last Taken Type cyanocobalamin (vitamin B-12) 1,000 mcg PO DAILY 05/10/20 12/25/22 Unknown History 1,000 mcg tablet vit C 250 mg-vit E 90 mg-zinc 40 1 tab PO BID 08/29/20 12/25/22 Unknown History mg-copper 1 [id number] capsule (PreserVision AREDS-2) aspirin 325 mg tablet 325 mg PO DAILY 09/26/21 12/25/22 Unknown History atorvastatin 20 mg tablet 20 mg PO DAILY 06/03/22 12/25/22 Unknown History tacrolimus 0.1 % topical ointment 1 appl topical DAILY 06/03/22 12/25/22 Unknown History calcium carbonate 600 mg-vitamin 1 tab PO DAILY 12/25/22 12/25/22 Unknown History D3 5 mcg (200 unit) tablet Physical Exam Vital Signs: Last Vital Signs Temp 99.4 F 12/26/22 07:43 Pulse 59 12/26/22 07:43 Resp 18 12/26/22 07:43 BP 120/58 L 12/26/22 07:43 Pulse Ox 82 L 12/26/22 11:30 O2 Del Method Nasal Cannula 12/26/22 11:30 O2 Flow Rate 2 12/26/22 11:30 BMI result Body Mass Index 27.5 Const General: no acute distress and well developed HEENT Head: Yes normocephalic and Yes atraumatic Neck Neck: Yes supple Resp Effort & Inspection: normal respiratory effort Cardio Heart sounds: S1 normal heart sound present and S2 normal heart sound present GI Palpation (GI): Soft to palpation and nontender Extrem Right upper extremity: no edema Results Lab Results 12/26/22 05:31 12/26/22 05:31 Lab results: Chemistry 12/25/22 12/26/22 10:48 05:31 Sodium 151 H 148 H Potassium 4.8 4.5 Carbon Dioxide 24 23 BUN 68 H 54 H Creatinine 3.06 H 2.24 H Calcium 9.5 8.6 D Hematology 12/25/22 12/26/22 10:48 05:31 WBC 56.5 H* 47.6 H* Hgb 8.4 L 7.9 L Plt Count 249 206 Urinalysis 12/25/22 13:49 Urine Color Yellow Urine Appearance Clear Urine pH 5.5 Ur Specific [place] 1.015 Urine Protein 30 (1+) H Urine Glucose (UA) Negative Urine Ketones Negative Urine Blood Negative Urine Nitrite Negative Ur Leukocyte Esterase Negative Urine RBC 0-2 Urine WBC 0-5 Ur Squamous Epith Cells 0-2 Hyaline Casts 11-20 Assessment and Plan (1) OPAL (acute kidney injury): Status: Acute (2) Hypernatremia: Status: Acute (3) CKD (chronic kidney disease) stage 3, GFR 30-59 ml/min: Status: Acute Plan OPAL due to compromisied kidney perfusion and tubular stress other less likely elevated serum sodium due to free water deficit h/o CKD baseline Scr ~ 1.5-2 mg/dl REC hypotonic fluid follow kidney function and electrolytes Time Spent With Patient Time: Total time managing care of this patient today ____ minutes. Procedures Date of Service Date of Service: 12/26/22
--- NOTE | 2022-12-26 14:12 | HO.PM.IMPN ---
Subjective Subjective Date of Service: 12/26/22 Interval History: Resting comfortably in bed, offers no acute complaints events from last night noted patient was hypoxemic placed on 5 L of oxygen, patient denies shortness of breath, no chest pain, no cough, no sputum production, no fevers, no chills, no diarrhea had 1 bowel movement Review of Systems Review of Systems: Yes all other systems are reviewed and are negative Physical Exam Vital Signs: Vital Signs: Last Vital Signs Temp 99.4 F 12/26/22 07:43 Pulse 59 12/26/22 07:43 Resp 18 12/26/22 07:43 BP 120/58 L 12/26/22 07:43 Pulse Ox 82 L 12/26/22 11:30 O2 Del Method Nasal Cannula 12/26/22 11:30 O2 Flow Rate 2 12/26/22 11:30 BMI result Body Mass Index 27.5 Const: Other: General resting comfortably in no acute distress. Neck is supple no JVD. CVS regular rate rhythm, Respiratory lungs bibasilar coarse breath sound, no expiratory wheeze, no rales Gastrointestinal abdomen soft, nontender, bowel sounds audible, no guarding , no rigidity. Extremities no edema. Neuro nonfocal Skin no rash psych appropriate affect Objective Data Active Medications Acetaminophen (Acetaminophen 325 Mg Tablet) 650 mg PO Q6H PRN PRN Reason: Pain, Mild (Pain Scale 1-3) Albuterol/Ipratropium (Albuterol/Iprat 2.5/0.5mg 3 Ml Ampul.Neb) 3 ml INHALE Q4H PRN PRN Reason: Wheezing Aspirin (Aspirin 325 Mg Tablet) 325 mg PO DAILY [facility] Last Admin: 12/26/22 08:44 Dose: 325 mg Documented By: MEMO Atorvastatin Calcium (Atorvastatin Calcium 20 Mg Tablet) 20 mg PO DAILY [facility] Last Admin: 12/26/22 08:44 Dose: 20 mg Documented By: MEMO Calcium Carbonate/Cholecalciferol (Calcium + Vitamin D 250 Mg Tablet) 500 mg PO DAILY [facility] Last Admin: 12/26/22 08:44 Dose: 500 mg Documented By: MEMO Cyanocobalamin (Cyanocobalamin (Vitamin B-12) 1,000 Mcg Tablet) 1,000 mcg PO DAILY [facility] Last Admin: 12/26/22 08:45 Dose: 1,000 mcg Documented By: MEMO Docusate Sodium (Docusate Sodium 100 Mg Capsule) 100 mg PO DAILY PRN PRN Reason: Constipation Dextrose (D5w) 1,000 mls @ 75 mls/hr IVCONT .[id number] [facility] Last Admin: 12/26/22 13:44 Dose: 75 mls/hr Documented By: MEMO Doxycycline Hyclate 100 mg/ (Sodium Chloride) 250 mls @ 166.67 mls/hr IV Q12H [facility] Last Infusion: 12/26/22 10:54 Dose: 166.67 mls/hr Documented By: MEMO Multivitamins/Vitamin C (Multivitamin Tablet) 1 tab PO DAILY [facility] Last Admin: 12/26/22 08:45 Dose: 1 tab Documented By: MEMO Ondansetron HCl (Ondansetron Hcl 4 Mg/2 Ml Vial) 4 mg IVPUSH Q8H PRN PRN Reason: Nausea and Vomiting Pharmacy Consult (Consult Rx Perform Med Rec) 1 each MISCELLANE ONCE PRN PRN Reason: Consult order Sodium Chloride (0.9 % Sodium Chloride Flush 3 Ml Syringe) 3 ml IVFLUSH QSHIFT [facility] Last Admin: 12/26/22 08:52 Dose: Not Given Documented By: MEMO Non-Admin Reason: IV Running Vancomycin HCl (Vancomycin Hcl 125 Mg Capsule) 250 mg PO Q6H [facility] Last Admin: 12/26/22 11:04 Dose: 250 mg Documented By: MEMO Labs 12/26/22 05:31 12/26/22 05:31 Labs: Laboratory Results - last 24 hr 12/25/22 12/26/22 12/26/22 13:49 05:31 05:31 MCV 106.2 H MCH 32.8 MCHC 30.9 L RDW 28.4 H Plt Count 206 MPV 10.8 Absolute Nucleated RBC 0.090 H Nucleated RBC % (auto) 0.2 Anion Gap 11 L Estim Creat Clear Calc 23.5 Estimated GFR 28 Random Glucose 79 Calcium 8.6 D Urine Color Yellow Urine Appearance Clear Urine pH 5.5 Ur Specific Lucan 1.015 Urine Protein 30 (1+) H Urine Glucose (UA) Negative Urine Ketones Negative Urine Blood Negative Urine Nitrite Negative Ur Leukocyte Esterase Negative Urine RBC 0-2 Urine WBC 0-5 Ur Squamous Epith Cells 0-2 Urine Bacteria None Seen Hyaline Casts 11-20 Microbiology Microbiology Results: Microbiology 12/25/22 11:08 Blood Culture - Preliminary Blood - Venous No growth after 24 hours. 12/25/22 10:45 Blood Culture - Preliminary Blood - Venous No growth after 24 hours. Assessment and Plan (1) CKD (chronic kidney disease) stage 3, GFR 30-59 ml/min: Status: Acute (2) OPAL (acute kidney injury): Status: Acute (3) Hypernatremia: Status: Acute Plan 77-year-old male with a PMH significant for?unspecified dementia, emphysema, pulmonary fibrosis not on home O2, temporal arteritis, CKD stage 3, macrocytic anemia, BPH, carotid atherosclerosis on aspirin, and hx of retinal artery occlusion who presents to the ED at the behest of the patient's PCP Dr. Leach for evaluation of abnormal labs with leukocytosis of 56.5, hypernatremia of 151 and creatinine 3.06. Leukocytosis Unclear etiology: UA negative, CXR with ? left sided acute process superimposed on chronic diffuse interstitial lung disease,patient afebrile, no cough, no obvious sign of cellulitis had diarrhea but now resolved ,Possibly secondary to C-Diff infection C-Diff studies and GI panel not sent continue empiric vancomycin by mouth, and doxycycline twice daily for possible respiratory infection, likely bronchitis, no pneumonia, WBC trending down continue to follow CBC and clinical course. Follow CBC OPAL superimposed on CKD 3 Creatinine 3.06 with elevated BUN of 68 on admission likely secondary to GI loss from diarrhea and decreased by mouth intake, creatinine trending down from 3.06-2.24 continue IVF hydration seen by Dr. Jerez he agrees with IV hydration Follow BMP Hypernatremia Patient's sodium 151 at time of presentation improved to 148 continue hypotonic fluids,Follow BMP Hypoxia Likely chronic with some component of acute infection has underlying severe COPD and fibrosis per CT Pt is supposed to be on supplemental O2 but he refuses home O2 Titrate supplemental O2 to keep finger oximetry 89-92%, COPD Does not seem to be in acute exacerbation Pt not complaining of worsening chronic SOB, not on home inhalers or steroids Duonebs prn will add Breo Transaminitis, mild Most likely secondary to chronic alcohol use Patient states he used to drink 6+ beers nightly, quit drinking 3-[address] showing mild splenomegaly and a minimally nodular liver border, negative for acute abdomen Pt asymptomatic, abdominal exam benign, follow LFTs Chronic macrocytic anemia H&H dropped further 7.9-25.6 from 8.5/27.3, No acute signs of bleeding, patient asymptomatic Follow CBC Carotid atherosclerosis Continue aspirin Full Code DVT Prophylaxis: Pneumatic boots Pt will require continued inpatient hospitalization for treatment of OPAL superimposed on CKD 3?and leukocytosis possibly secondary to C diff / respiratory infection. Time Spent With Patient Time: Total time managing care of this patient today ____ minutes. Quality Stroke Does the patient have a stroke diagnosis?: No VTE Prior VTE?: No VTE Risk Level:: Medical - moderate - high VTE Device Contraindication: N/A - Device Ordered VTE Drug Contraindication: Treatment Not Indicated
--- NOTE | 2022-12-26 14:45 | MHC.CM.PN ---
IMM 12/26/22 Male 77 DX Abnormal labs OPAL Leukocytosis. He is independent and lives with his . He is fully vaxxed. A copy of the patients HCP has been scanned into his EMR. [facility] will transport home.
[2022-12-26 16:00] VITALS: BP 111/58; PULSE 53; RESP 18; TEMP 36.4; O2SAT 92
[2022-12-26 20:00] VITALS: BP 130/62; PULSE 62; RESP 18; TEMP 36.5; O2SAT 91
[2022-12-27 04:00] VITALS: BP 123/62; PULSE 55; RESP 16; TEMP 36.3; O2SAT 91
[2022-12-27] MEDS: Dextrose 5 % 1,000 ML 75 ML IVCONT (05:38)
[2022-12-27] MEDS: vancomycin HCL 125 MG CAPSULE 250 MG PO ×3 (05:42→17:03)
[2022-12-27 06:34] LABS: Hematocrit 26.1 % (42.0-52.0); Hemoglobin 8.3 g/dl (14.0-18.0); Mean Corpuscular HGB Conc 31.8 g/dl (31.0-36.0); Mean Corpuscular Hemoglobin 33.3 pg (27.0-33.0); Mean Corpuscular Volume 104.8 fL (80.0-98.0); Mean Platelet Volume 11.2 fL (9.4-12.4); NRBC Pct Auto 0.2 /100WBC (0.0-0.2); Platelet Count 218 X10*3/uL (160-400); Red Blood Count 2.49 X10*6/uL (4.60-5.80); Red Cell Distribution Width 27.9 % (11.0-16.0)
[2022-12-27 06:44] LABS: White Blood Count 45.5 X10*3/uL (4.8-10.8)
[2022-12-27 06:54] LABS: Alanine Aminotransferase 37 U/L (0-40); Albumin Level 2.8 g/dL (3.5-5.0); Alkaline Phosphatase 234 U/L (39-117); Anion Gap 10 (12-20); Aspartate Amino Transferase 25 U/L (5-37); Bilirubin Direct 0.2 mg/dL (0.0-0.5); Bilirubin Total 0.5 mg/dL (0.0-1.0); Blood Urea Nitrogen 39 mg/dL (9-16); Calcium 8.4 mg/dL (8.4-10.2); Carbon Dioxide 23 mmol/L (22-29); Chloride 112 mmol/L (96-108); Creatinine Clr Calc Pharmacy 29.3; Estimated Glomerular Filt Rate 37; Glucose Random 77 mg/dL (60-115); Potassium 4.5 mmol/L (3.3-5.1); Sodium 140 mmol/L (135-145); Total Protein 6.1 g/dL (6.5-8.0)
[2022-12-27 07:27] VITALS: BP 134/80; PULSE 69; RESP 18; TEMP 36.9; O2SAT 95
[2022-12-27] MEDS: Fluticasone/Vilanterol 100/25 BLST.W.DEV 1 PUFF INHALE (08:30)
[2022-12-27 08:33] VITALS: PULSE 49; RESP 16; O2SAT 100
[2022-12-27] MEDS: Doxycycline Hyclate 100 MG in 0.9 % Sodium Chloride 250 ML 166.67 MG IV ×2 (08:41→20:17)
[2022-12-27] MEDS: Multivitamin TABLET 1 TAB PO (08:41)
[2022-12-27] MEDS: Atorvastatin Calcium 20 MG TABLET PO (08:41)
[2022-12-27] MEDS: Aspirin 325 MG TABLET PO (08:41)
[2022-12-27] MEDS: Cyanocobalamin (Vitamin B-12) 1,000 MCG TABLET 1000 MCG PO (08:41)
[2022-12-27] MEDS: Calcium + Vitamin D 250 MG TABLET 500 MG PO (08:41)
--- NOTE | 2022-12-27 09:11 | PM.PNNEP ---
Subjective Subjective Date of Service: 12/27/22 Interval history: seen and examined sitting out of bed feels better Physical Exam Vital Signs: Vital Signs: Last Vital Signs Temp 98.5 F 12/27/22 07:27 Pulse 49 L 12/27/22 08:33 Resp 16 12/27/22 08:33 BP 134/80 12/27/22 07:27 Pulse Ox 95 12/27/22 07:27 O2 Del Method Nasal Cannula 12/27/22 07:27 O2 Flow Rate 4.0 12/27/22 07:27 BMI result Body Mass Index 27.5 Const: General: no acute distress and well developed HEENT: Head: Yes normocephalic and Yes atraumatic Neck: Neck: Yes supple Resp: Effort & Inspection: normal respiratory effort Cardio: Heart sounds: S1 normal heart sound present and S2 normal heart sound present GI: Palpation (GI): Soft to palpation and nontender Extrem: Right upper extremity: no edema Objective Data Labs 12/27/22 05:37 12/27/22 05:37 Labs: Laboratory Results - last 24 hr 12/27/22 12/27/22 05:37 05:37 WBC 45.5 H* RBC 2.49 L Hgb 8.3 L Hct 26.1 L MCV 104.8 H MCH 33.3 H MCHC 31.8 RDW 27.9 H Plt Count 218 MPV 11.2 Absolute Nucleated RBC 0.070 H Nucleated RBC % (auto) 0.2 Sodium 140 Potassium 4.5 Chloride 112 H Carbon Dioxide 23 Anion Gap 10 L BUN 39 H Creatinine 1.80 H Estim Creat Clear Calc 29.3 Estimated GFR 37 Random Glucose 77 Calcium 8.4 Total Bilirubin 0.5 Direct Bilirubin 0.2 AST 25 ALT 37 Alkaline Phosphatase 234 H Total Protein 6.1 L Albumin 2.8 L Microbiology Microbiology Results: Microbiology 12/25/22 11:08 Blood - Venous Blood Culture - Preliminary No growth after 24 hours. 12/25/22 10:45 Blood - Venous Blood Culture - Preliminary No growth after 24 hours. Procedures Date of Service Date of Service: 12/27/22 Assessment & Plan Assessment and plan (1) OPAL (acute kidney injury): Status: Acute (2) Hypernatremia: Status: Acute (3) CKD (chronic kidney disease) stage 3, GFR 30-59 ml/min: Status: Acute Plan kidney function at baseline Sna normalized OPAL due to compromised kidney perfusion and tubular stress other less likely elevated serum sodium due to free water deficit h/o CKD baseline Scr ~ 1.5-2 mg/dl REC dc IVF follow kidney function and electrolytes Time Spent With Patient Time: Total time managing care of this patient today ____ minutes. Progress Note: Quality Stroke Does the patient have a stroke diagnosis?: No
--- NOTE | 2022-12-27 10:29 | P.PNIM_ITS ---
Subjective Subjective Date of Service: 12/27/22 Interval History: admitted for abnormal labs, sitting comfortably this a.m. offers no acute complaints, tolerating diet no nausea no vomiting, no abdominal pain, oxygenation drops to 80s on 2 L therefore placed on 4 L at nighttime at present finger oximetry 95%, on 2 L. no diarrhea, no fevers, no chills, no cough or shortness of breath. Review of Systems Review of Systems: Yes all other systems are reviewed and are negative Physical Exam Vital Signs: Vital Signs: Last Vital Signs Temp 98.5 F 12/27/22 07:27 Pulse 49 L 12/27/22 08:33 Resp 16 12/27/22 08:33 BP 134/80 12/27/22 07:27 Pulse Ox 95 12/27/22 07:27 O2 Del Method Nasal Cannula 12/27/22 07:27 O2 Flow Rate 4.0 12/27/22 07:27 BMI result Body Mass Index 27.5 Const: Other: General? resting comfortably in no acute distress.? Neck is supple no JVD. CVS? regular rate rhythm, Respiratory lungs? bibasilar coarse breath sound, no expiratory wheeze, no rales Gastrointestinal abdomen soft, non tender, bowel sounds audible, no guarding , no rigidity. Extremities no edema. Neuro nonfocal Skin no rash psych appropriate affect Objective Data Active Medications Acetaminophen (Acetaminophen 325 Mg Tablet) 650 mg PO Q6H PRN PRN Reason: Pain, Mild (Pain Scale 1-3) Albuterol/Ipratropium (Albuterol/Iprat 2.5/0.5mg 3 Ml Ampul.Neb) 3 ml INHALE Q4H PRN PRN Reason: Wheezing Aspirin (Aspirin 325 Mg Tablet) 325 mg PO DAILY [facility] Last Admin: 12/27/22 08:41 Dose: 325 mg Documented By: ROBERTO.COTEMA Atorvastatin Calcium (Atorvastatin Calcium 20 Mg Tablet) 20 mg PO DAILY [facility] Last Admin: 12/27/22 08:41 Dose: 20 mg Documented By: ROBERTO.COTEMA Calcium Carbonate/Cholecalciferol (Calcium + Vitamin D 250 Mg Tablet) 500 mg PO DAILY [facility] Last Admin: 12/27/22 08:41 Dose: 500 mg Documented By: ROBERTO.COTEMA Cyanocobalamin (Cyanocobalamin (Vitamin B-12) 1,000 Mcg Tablet) 1,000 mcg PO DAILY [facility] Last Admin: 12/27/22 08:41 Dose: 1,000 mcg Documented By: CRYSTAL Docusate Sodium (Docusate Sodium 100 Mg Capsule) 100 mg PO DAILY PRN PRN Reason: Constipation Fluticasone/Vilanterol (Fluticasone/Vilanterol 100/25 Blst.W.Dev) 1 puff INHALE RDAILY [facility] Last Admin: 12/27/22 08:30 Dose: 1 puff Documented By: SARTHAK Doxycycline Hyclate 100 mg/ (Sodium Chloride) 250 mls @ 166.67 mls/hr IV Q12H [facility] Last Admin: 12/27/22 08:41 Dose: 166.67 mls/hr Documented By: CRYSTAL Multivitamins/Vitamin C (Multivitamin Tablet) 1 tab PO DAILY [facility] Last Admin: 12/27/22 08:41 Dose: 1 tab Documented By: CRYSTAL Ondansetron HCl (Ondansetron Hcl 4 Mg/2 Ml Vial) 4 mg IVPUSH Q8H PRN PRN Reason: Nausea and Vomiting Pharmacy Consult (Consult Rx Perform Med Rec) 1 each MISCELLANE ONCE PRN PRN Reason: Consult order Sodium Chloride (0.9 % Sodium Chloride Flush 3 Ml Syringe) 3 ml IVFLUSH QSHIFT [facility] Last Admin: 12/27/22 07:09 Dose: Not Given Documented By: CRYSTAL Non-Admin Reason: IV Running Vancomycin HCl (Vancomycin Hcl 125 Mg Capsule) 250 mg PO Q6H [facility] Last Admin: 12/27/22 05:42 Dose: 250 mg Documented By: KEYSHAWN Labs 12/27/22 05:37 12/27/22 05:37 Labs: Laboratory Results - last 24 hr 12/27/22 12/27/22 05:37 05:37 MCV 104.8 H MCH 33.3 H MCHC 31.8 RDW 27.9 H Plt Count 218 MPV 11.2 Absolute Nucleated RBC 0.070 H Nucleated RBC % (auto) 0.2 Anion Gap 10 L Estim Creat Clear Calc 29.3 Estimated GFR 37 Random Glucose 77 Calcium 8.4 Total Bilirubin 0.5 Direct Bilirubin 0.2 AST 25 ALT 37 Alkaline Phosphatase 234 H Total Protein 6.1 L Albumin 2.8 L Microbiology Microbiology Results: Microbiology 12/25/22 11:08 Blood Culture - Preliminary Blood - Venous No growth after 24 hours. 12/25/22 10:45 Blood Culture - Preliminary Blood - Venous No growth after 24 hours. Assessment and Plan (1) CKD (chronic kidney disease) stage 3, GFR 30-59 ml/min: Status: Acute (2) OPAL (acute kidney injury): Status: Acute (3) Hypernatremia: Status: Acute Plan 77-year-old male with a PMH significant for?unspecified dementia, emphysema, pulmonary fibrosis not on home O2, temporal arteritis, CKD stage 3, macrocytic anemia, BPH, carotid atherosclerosis on aspirin, and hx of retinal artery occlusion who presents to the ED at the behest of the patient's PCP Dr. Leach for evaluation of abnormal labs with leukocytosis of 56.5, hypernatremia of 151 and creatinine 3.06. Leukocytosis Unclear etiology: UA negative, CXR with ? left sided acute process superimposed on chronic diffuse interstitial lung disease,patient afebrile, no cough, no obvious sign of cellulitis had diarrhea but now resolved ,Possibly secondary to C-Diff infection,uri, or reactive, patient not on steroids, no sepsis, no blast weight use the a no C-Diff studies and GI panel not sent, since patient unable to provide sample continue empiric vancomycin by mouth, and doxycycline twice daily for possible respiratory infection, likely bronchitis, no pneumonia, WBC trending down continue to follow CBC and clinical course. Follow CBC OPAL superimposed on CKD 3 Creatinine 3.06 with elevated BUN of 68 on admission likely secondary to GI loss from diarrhea and decreased by mouth intake, creatinine trending down from 3.06- 2.24 to 1.8 today continue IVF hydration seen by Dr. Jerez he agrees with IV hydration Follow BMP Hypernatremia Patient's sodium 151 at time of presentation improved to 140 dc hypotonic fluids,Follow BMP, encourage by mouth fluids Hypoxia Likely chronic with some component of acute infection has underlying severe COPD and fibrosis per CT Pt is supposed to be on supplemental O2 but he refuses home O2 Titrate supplemental O2 to keep finger oximetry 89-92%, will get overnight sleep study COPD Does not seem to be in acute exacerbation Pt. not complaining of worsening chronic SOB, not on home inhalers or steroids added Duonebs prn and Breo. Transaminitis, mild Most likely secondary to chronic alcohol use Patient states he used to drink 6+ beers nightly, quit drinking 3-[address] showing mild splenomegaly and a minimally nodular liver border, negative for acute abdomen Pt asymptomatic, abdominal exam benign, .LFTs normalized Chronic macrocytic anemia H&H dropped but stabilized likely dilutional, no acute bleeding noted hematocrit at baseline Follow CBC Carotid atherosclerosis Continue aspirin Full Code DVT Prophylaxis: Pneumatic boots Pt will require continued inpatient hospitalization for treatment of OPAL superimposed on CKD 3?and leukocytosis possibly secondary to C diff / respiratory infection. Time Spent With Patient Time: Total time managing care of this patient today ____ minutes. Quality Stroke Does the patient have a stroke diagnosis?: No VTE Prior VTE?: No VTE Risk Level:: Medical - moderate - high VTE Device Contraindication: N/A - Device Ordered VTE Drug Contraindication: Treatment Not Indicated
[2022-12-27 11:51] LABS: CDiff Gene PCR NEGATIVE (Negative)
[2022-12-27 12:33] LABS: Campylobacter Not Detected (Not Detect.); Plesiomonas shigelloides Not Detected (Not Detect.)
[2022-12-27 12:34] LABS: Adenovirus F 40/41 Not Detected (Not Detect.); Astrovirus Not Detected (Not Detect.); Cryptosporidium Not Detected (Not Detect.); Cyclospora cayetanensis Not Detected (Not Detect.); E. coli EAEC Not Detected (Not Detect.); E. coli EPEC Not Detected (Not Detect.); E. coli ETEC Not Detected (Not Detect.); E. coli STEC Not Detected (Not Detect.); Entamoeba histolytica Not Detected (Not Detect.); Giardia lamblia Not Detected (Not Detect.); Norovirus GI/GII Not Detected (Not Detect.); Rotavirus A Not Detected (Not Detect.); Salmonella Not Detected (Not Detect.); Sapovirus Not Detected (Not Detect.); Shigella sp./EIEC Not Detected (Not Detect.); Vibrio Not Detected (Not Detect.); Vibrio Cholerae Not Detected (Not Detect.); Yersinia enterocolitica Not Detected (Not Detect.)
[2022-12-27 16:00] VITALS: BP 164/62; PULSE 68; RESP 18; TEMP 37; O2SAT 98
[2022-12-27] MEDS: 0.9 % Sodium Chloride Flush 3 ML SYRINGE IVFLUSH ×2 (17:03→20:17)
[2022-12-27 19:16] VITALS: BP 123/57; PULSE 65; RESP 18; TEMP 36.6; O2SAT 90
[2022-12-28] VITALS (10 sets, daily range): BP systolic 113–133; BP diastolic 56–60; PULSE 60–79; RESP 16–18; TEMP 36.3–37; O2SAT 76–95
[2022-12-28] MEDS: vancomycin HCL 125 MG CAPSULE 250 MG PO ×2 (01:14→06:07)
[2022-12-28 06:40] LABS: Hematocrit 29.1 % (42.0-52.0); Hemoglobin 9.2 g/dl (14.0-18.0); Mean Corpuscular HGB Conc 31.6 g/dl (31.0-36.0); Mean Corpuscular Hemoglobin 32.9 pg (27.0-33.0); Mean Corpuscular Volume 103.9 fL (80.0-98.0); Mean Platelet Volume 10.9 fL (9.4-12.4); NRBC Pct Auto 0.1 /100WBC (0.0-0.2); Platelet Count 238 X10*3/uL (160-400); Red Cell Distribution Width 27.9 % (11.0-16.0)
[2022-12-28 06:43] LABS: White Blood Count 49.3 X10*3/uL (4.8-10.8)
[2022-12-28 06:50] LABS: Anion Gap 11 (12-20); Blood Urea Nitrogen 36 mg/dL (9-16); Calcium 8.6 mg/dL (8.4-10.2); Carbon Dioxide 22 mmol/L (22-29); Chloride 113 mmol/L (96-108); Creatinine Clr Calc Pharmacy 32.1; Estimated Glomerular Filt Rate 41; Glucose Random 72 mg/dL (60-115); Potassium 4.5 mmol/L (3.3-5.1); Sodium 141 mmol/L (135-145)
--- NOTE | 2022-12-28 06:52 | PM.PNNEP ---
Subjective Subjective Date of Service: 12/28/22 Interval history: seen and examined no complaints Physical Exam Vital Signs: Vital Signs: Last Vital Signs Temp 98.6 F 12/28/22 04:00 Pulse 62 12/28/22 04:00 Resp 16 12/28/22 04:00 BP 123/57 L 12/27/22 19:16 Pulse Ox 91 L 12/28/22 04:00 O2 Del Method Nasal Cannula 12/28/22 04:00 O2 Flow Rate 2 12/28/22 04:00 BMI result Body Mass Index 27.5 Const: General: no acute distress and well developed HEENT: Head: Yes normocephalic and Yes atraumatic Neck: Neck: Yes supple Resp: Effort & Inspection: normal respiratory effort Cardio: Heart sounds: S1 normal heart sound present and S2 normal heart sound present GI: Palpation (GI): Soft to palpation and nontender Extrem: Right upper extremity: no edema Objective Data Labs 12/28/22 05:47 12/28/22 05:47 Labs: Laboratory Results - last 24 hr 12/27/22 12/27/22 12/27/22 05:37 09:49 09:49 WBC RBC Hgb Hct MCV MCH MCHC RDW Plt Count MPV Absolute Nucleated RBC Nucleated RBC % (auto) Sodium 140 Potassium 4.5 Chloride 112 H Carbon Dioxide 23 Anion Gap 10 L BUN 39 H Creatinine 1.80 H Estim Creat Clear Calc 29.3 Estimated GFR 37 Random Glucose 77 Calcium 8.4 Total Bilirubin 0.5 Direct Bilirubin 0.2 AST 25 ALT 37 Alkaline Phosphatase 234 H Total Protein 6.1 L Albumin 2.8 L Stl C. cayetanensis PCR Not Detected Stool Rotavirus A PCR Not Detected Stl Adenov F 40/41 PCR Not Detected Stool Astrovirus (PCR) Not Detected Stool Campylobacter PCR Not Detected Stool Cryptosporidium PCR Not Detected Stl Sh Tox Pr E STEC PCR Not Detected Stool E coli O157 PCR Not applicable Stl Enterotoxigenic E PCR Not Detected Stool EPEC (PCR) Not Detected Stool EAEC (PCR) Not Detected Stl E. histolytica PCR Not Detected Stool Giardia Lamblia PCR Not Detected Stl P. shigelloides PCR Not Detected Stool Salmonella PCR Not Detected Stool Sapovirus (PCR) Not Detected Stl Shigella/EIEC PCR Not Detected St Y.enterocolitica PCR Not Detected Stool Vibrio (PCR) Not Detected Stl Vibrio cholerae PCR Not Detected Stl Norovirus GI/GII PCR Not Detected C. difficile Tox B Gene NEGATIVE 12/28/22 12/28/22 05:47 05:47 WBC 49.3 H* RBC 2.80 L Hgb 9.2 L Hct 29.1 L MCV 103.9 H MCH 32.9 MCHC 31.6 RDW 27.9 H Plt Count 238 MPV 10.9 Absolute Nucleated RBC 0.050 H Nucleated RBC % (auto) 0.1 Sodium 141 Potassium 4.5 Chloride 113 H Carbon Dioxide 22 Anion Gap 11 L BUN 36 H Creatinine 1.64 H Estim Creat Clear Calc 32.1 Estimated GFR 41 Random Glucose 72 Calcium 8.6 Total Bilirubin Direct Bilirubin AST ALT Alkaline Phosphatase Total Protein Albumin Stl C. cayetanensis PCR Stool Rotavirus A PCR Stl Adenov F 40/ PCR Stool Astrovirus (PCR) Stool Campylobacter PCR Stool Cryptosporidium PCR Stl Sh Tox Pr E STEC PCR Stool E coli O157 PCR Stl Enterotoxigenic E PCR Stool EPEC (PCR) Stool EAEC (PCR) Stl E. histolytica PCR Stool Giardia Lamblia PCR Stl P. shigelloides PCR Stool Salmonella PCR Stool Sapovirus (PCR) Stl Shigella/EIEC PCR St Y.enterocolitica PCR Stool Vibrio (PCR) Stl Vibrio cholerae PCR Stl Norovirus GI/GII PCR C. difficile Tox B Gene Microbiology Microbiology Results: Microbiology 12/25/22 11:08 Blood - Venous Blood Culture - Preliminary No growth after 48 hours. 12/25/22 10:45 Blood - Venous Blood Culture - Preliminary No growth after 48 hours. Procedures Date of Service Date of Service: 12/28/22 Assessment & Plan Assessment and plan (1) OPAL (acute kidney injury): Status: Acute (2) CKD (chronic kidney disease) stage 3, GFR 30-59 ml/min: Status: Acute Plan kidney function at baseline OPAL due to compromised kidney perfusion and tubular stress h/o CKD baseline Scr ~ 1.5-2 mg/dl REC no need for IVF if adequate oral intake follow kidney function and electrolytes Time Spent With Patient Time: Total time managing care of this patient today ____ minutes. Progress Note: Quality Stroke Does the patient have a stroke diagnosis?: No
[2022-12-28] MEDS: Fluticasone/Vilanterol 100/25 BLST.W.DEV 1 PUFF INHALE (07:58)
[2022-12-28] MEDS: Doxycycline Hyclate 100 MG in 0.9 % Sodium Chloride 250 ML 166.67 MG IV ×2 (08:57→20:34)
[2022-12-28] MEDS: Cyanocobalamin (Vitamin B-12) 1,000 MCG TABLET 1000 MCG PO (08:58)
[2022-12-28] MEDS: Aspirin 325 MG TABLET PO (08:58)
[2022-12-28] MEDS: 0.9 % Sodium Chloride Flush 3 ML SYRINGE IVFLUSH ×3 (08:58→22:14)
[2022-12-28] MEDS: Calcium + Vitamin D 250 MG TABLET 500 MG PO (08:58)
[2022-12-28] MEDS: Multivitamin TABLET 1 TAB PO (08:58)
[2022-12-28] MEDS: Atorvastatin Calcium 20 MG TABLET PO (08:58)
--- NOTE | 2022-12-28 11:53 | P.PNIM_ITS ---
Subjective Subjective Date of Service: 12/28/22 Interval History: Being followed for acute renal failure and leukocytosis, patient sitting comfortably in chair offers no acute complaints, no cough, no sputum production, no fevers, no chills, no nausea, no vomiting, no abdominal pain tolerating diet, no acute events overnight, no urinary symptoms. Review of Systems Review of Systems: Yes all other systems are reviewed and are negative Physical Exam Vital Signs: Vital Signs: Last Vital Signs Temp 98.3 F 12/28/22 07:21 Pulse 79 12/28/22 08:01 Resp 16 12/28/22 08:01 BP 133/60 12/28/22 07:21 Pulse Ox 95 12/28/22 07:21 O2 Del Method Nasal Cannula 12/28/22 07:21 O2 Flow Rate 2 12/28/22 07:21 BMI result Body Mass Index 27.5 Const: Other: General? resting comfortably in no acute distress.? Neck is supple no JVD. CVS? regular rate rhythm, Respiratory lungs? clear to auscultation, no expiratory wheeze, no rales Gastrointestinal abdomen soft, non tender, bowel sounds audible, no guarding , no rigidity. Extremities no edema. Neuro nonfocal Skin no rash psych appropriate affect Objective Data Active Medications Acetaminophen (Acetaminophen 325 Mg Tablet) 650 mg PO Q6H PRN PRN Reason: Pain, Mild (Pain Scale 1-3) Albuterol/Ipratropium (Albuterol/Iprat 2.5/0.5mg 3 Ml Ampul.Neb) 3 ml INHALE Q4H PRN PRN Reason: Wheezing Aspirin (Aspirin 325 Mg Tablet) 325 mg PO DAILY [facility] Last Admin: 12/28/22 08:58 Dose: 325 mg Documented By: COTEMA Atorvastatin Calcium (Atorvastatin Calcium 20 Mg Tablet) 20 mg PO DAILY [facility] Last Admin: 12/28/22 08:58 Dose: 20 mg Documented By: COTEMA Calcium Carbonate/Cholecalciferol (Calcium + Vitamin D 250 Mg Tablet) 500 mg PO DAILY [facility] Last Admin: 12/28/22 08:58 Dose: 500 mg Documented By: YESSIEMA Cyanocobalamin (Cyanocobalamin (Vitamin B-12) 1,000 Mcg Tablet) 1,000 mcg PO DAILY [facility] Last Admin: 12/28/22 08:58 Dose: 1,000 mcg Documented By: CRYSTAL Docusate Sodium (Docusate Sodium 100 Mg Capsule) 100 mg PO DAILY PRN PRN Reason: Constipation Fluticasone/Vilanterol (Fluticasone/Vilanterol 100/25 Blst.W.Dev) 1 puff INHALE RDAILY [facility] Last Admin: 12/28/22 07:58 Dose: 1 puff Documented By: SARTHAK Doxycycline Hyclate 100 mg/ (Sodium Chloride) 250 mls @ 166.67 mls/hr IV Q12H [facility] Last Infusion: 12/28/22 10:34 Dose: 0 mls/hr Documented By: CRYSTAL Multivitamins/Vitamin C (Multivitamin Tablet) 1 tab PO DAILY [facility] Last Admin: 12/28/22 08:58 Dose: 1 tab Documented By: CRYSTAL Ondansetron HCl (Ondansetron Hcl 4 Mg/2 Ml Vial) 4 mg IVPUSH Q8H PRN PRN Reason: Nausea and Vomiting Pharmacy Consult (Consult Rx Perform Med Rec) 1 each MISCELLANE ONCE PRN PRN Reason: Consult order Sodium Chloride (0.9 % Sodium Chloride Flush 3 Ml Syringe) 3 ml IVFLUSH QSHIFT [facility] Last Admin: 12/28/22 08:58 Dose: 3 ml Documented By: CRSYTAL Labs 12/28/22 05:47 12/28/22 05:47 Labs: Laboratory Results - last 24 hr 12/27/22 12/28/22 12/28/22 09:49 05:47 05:47 MCV 103.9 H MCH 32.9 MCHC 31.6 RDW 27.9 H Plt Count 238 MPV 10.9 Absolute Nucleated RBC 0.050 H Nucleated RBC % (auto) 0.1 Anion Gap 11 L Estim Creat Clear Calc 32.1 Estimated GFR 41 Random Glucose 72 Calcium 8.6 Stl C. cayetanensis PCR Not Detected Stool Rotavirus A PCR Not Detected Stl Adenov F 40/41 PCR Not Detected Stool Astrovirus (PCR) Not Detected Stool Campylobacter PCR Not Detected Stool Cryptosporidium PCR Not Detected Stl Sh Tox Pr E STEC PCR Not Detected Stool E coli O157 PCR Not applicable Stl Enterotoxigenic E PCR Not Detected Stool EPEC (PCR) Not Detected Stool EAEC (PCR) Not Detected Stl E. histolytica PCR Not Detected Stool Giardia Lamblia PCR Not Detected Stl P. shigelloides PCR Not Detected Stool Salmonella PCR Not Detected Stool Sapovirus (PCR) Not Detected Stl Shigella/EIEC PCR Not Detected St Y.enterocolitica PCR Not Detected Stool Vibrio (PCR) Not Detected Stl Vibrio cholerae PCR Not Detected Stl Norovirus GI/GII PCR Not Detected Microbiology Microbiology Results: Microbiology 12/25/22 11:08 Blood Culture - Preliminary Blood - Venous No growth after 48 hours. 12/25/22 10:45 Blood Culture - Preliminary Blood - Venous No growth after 48 hours. Assessment and Plan (1) CKD (chronic kidney disease) stage 3, GFR 30-59 ml/min: Status: Acute (2) OPAL (acute kidney injury): Status: Acute (3) Hypernatremia: Status: Acute Plan 77-year-old male with a PMH significant for?unspecified dementia, emphysema, pulmonary fibrosis not on home O2, temporal arteritis, CKD stage 3, macrocytic anemia, BPH, carotid atherosclerosis on aspirin, and hx of retinal artery occlusion who presents to the ED at the behest of the patient's PCP Dr. Haylee parikh r evaluation of abnormal labs with leukocytosis of 56.5, hypernatremia of 151 and creatinine 3.06. Leukocytosis Unclear etiology: UA negative, CXR with ? left sided acute process superimposed on chronic diffuse interstitial lung disease,patient afebrile, no cough, no obvious sign of cellulitis had diarrhea but now resolved , C-Diff negative, not on steroids, no sepsis, no blast Question bronchitis Initially treated with empiric vancomycin by mouth for concern for C diff however later discontinued with negative C diff test Continue doxycycline for possible respiratory infection WBC, improved but remains elevated, H&H and platelet stable Will obtain ID consultation OPAL superimposed on CKD 3 Creatinine 3.06 with elevated BUN of 68 on admission likely secondary to GI loss from diarrhea and decreased by mouth intake, creatinine returned to baseline 1.64 dc IVF Hypernatremia Patient's sodium 151 at time of presentation improved to 141 encourage by mouth fluids Hypoxia Likely chronic with some component of acute infection has underlying severe COPD and fibrosis per CT Pt. is supposed to be on supplemental O2 but he refuses home O2 Titrate supplemental O2 to keep finger oximetry 89-92%, will get overnight sleep study and home O2 eval prior to discharge COPD Does not seem to be in acute exacerbation Pt. not complaining of worsening chronic SOB, not on home inhalers or steroids Continue Duonebs prn and Breo. Transaminitis, mild Most likely secondary to chronic alcohol use Patient states he used to drink 6+ beers nightly, quit drinking 3-[address] showing mild splenomegaly and a minimally nodular liver border, negative for acute abdomen Pt asymptomatic, abdominal exam benign, .LFTs normalized Chronic macrocytic anemia H&H dropped but stabilized likely dilutional, no acute bleeding noted hematocrit at baseline Carotid atherosclerosis Continue aspirin 325 mg daily and statins Full Code DVT Prophylaxis: Pneumatic boots Pt. will require continued inpatient hospitalization for treatment of OPAL superimposed on CKD 3?and leukocytosis Time Spent With Patient Time: Total time managing care of this patient today ____ minutes. Quality Stroke Does the patient have a stroke diagnosis?: No VTE Prior VTE?: No VTE Risk Level:: Medical - moderate - high VTE Device Contraindication: N/A - Device Ordered VTE Drug Contraindication: Treatment Not Indicated
[2022-12-29] VITALS (8 sets, daily range): BP systolic 112–146; BP diastolic 56–67; PULSE 63–111; RESP 16–20; TEMP 36.2–37.2; O2SAT 77–95
[2022-12-29 04:26] LABS: ABG Base Excess -0.8 mmol/L; ABG HCO3 23 mmol/L (22-26); ABG pCO2 37 mmHg (32-45); ABG pO2 65 mmHg (83-108)
[2022-12-29 04:33] LABS: ABG Refer to POC result
[2022-12-29 06:28] LABS: Hematocrit 25.3 % (42.0-52.0); Hemoglobin 8.2 g/dl (14.0-18.0); Mean Corpuscular HGB Conc 32.4 g/dl (31.0-36.0); Mean Corpuscular Hemoglobin 33.3 pg (27.0-33.0); Mean Corpuscular Volume 102.8 fL (80.0-98.0); Mean Platelet Volume 11.4 fL (9.4-12.4); NRBC Pct Auto 0.1 /100WBC (0.0-0.2); Platelet Count 223 X10*3/uL (160-400); Red Blood Count 2.46 X10*6/uL (4.60-5.80); Red Cell Distribution Width 27.9 % (11.0-16.0)
[2022-12-29 06:39] LABS: Anion Gap 13 (12-20); Blood Urea Nitrogen 38 mg/dL (9-16); Calcium 8.5 mg/dL (8.4-10.2); Carbon Dioxide 19 mmol/L (22-29); Chloride 114 mmol/L (96-108); Estimated Glomerular Filt Rate 39; Glucose Random 70 mg/dL (60-115); Potassium 4.7 mmol/L (3.3-5.1); Sodium 141 mmol/L (135-145)
[2022-12-29 07:20] LABS: White Blood Count 50.3 X10*3/uL (4.8-10.8)
[2022-12-29] MEDS: Aspirin 325 MG TABLET PO (07:45)
[2022-12-29] MEDS: Multivitamin TABLET 1 TAB PO (07:45)
[2022-12-29] MEDS: Calcium + Vitamin D 250 MG TABLET 500 MG PO (07:46)
[2022-12-29] MEDS: 0.9 % Sodium Chloride Flush 3 ML SYRINGE IVFLUSH ×3 (07:46→20:24)
[2022-12-29] MEDS: Cyanocobalamin (Vitamin B-12) 1,000 MCG TABLET 1000 MCG PO (07:46)
[2022-12-29] MEDS: Atorvastatin Calcium 20 MG TABLET PO (07:46)
[2022-12-29] MEDS: Fluticasone/Vilanterol 100/25 BLST.W.DEV 1 PUFF INHALE (08:08)
[2022-12-29] MEDS: Doxycycline Hyclate 100 MG in 0.9 % Sodium Chloride 250 ML 166.7 MG IV (08:51)
[2022-12-29 08:57] LABS: Folate > 20.0 ng/mL (> or = 4.0); Vitamin B12 > 2000 pg/mL (200-900)
--- NOTE | 2022-12-29 10:02 | PM.HEMONCCN ---
Subjective - Subjective Chief complaint: Consult for: Leukocytosis. Patient: new to practice Consult date: 12/29/22 Requesting Physician: Anibal. Primary Care Provider: Roman Leach MD Family Provider: ROMAN LEACH. Medical Summary: DIAGNOSIS: LEUKOCYTOSIS. HPI - Consult Narrative Reason for consult: Consult for: Leucocytosis. Narrative: Alban Little is a 77 year old gentleman, Chief Complaint: He was referred by PCP for abnormal labs Pt is a 77-year-old male with a who presents to the ED for evaluation of abnormal labs with: Lleukocytosis of 56.5, hypernatremia of 151 and creatinine 3.06. Pt AO x4 but with underlying dementia with mild cognitive impairment. Pt was accompanied by who helped supplement HPI. He initially presented to his PCP 3 weeks ago complaining of lose, gassy stool. Was prescribed Imodium which he just recently finished. He was complaining of constipation with the need to manually disimpact himself. Pt was unable to clarify when this started or consistency or quantity of produced stool. was also unable to clarify about pt's bowel habits. Pt denied fever, chills, nausea. Has had some mild abdominal pain he associates with trying to go to the bathroom. Pt has also had recent reduction in p.o. intake of both fluids and solids. He has been eating very little the past 2-3 days, which is unlike him. Had lost 6-7 lbs in the past week. He complained of chronic SOB, especially with going up stairs. Patient also states that he occasionally feels like his heart is beating fast, especially when he is lying on the couch. Patient has a history of chronic dysphagia, had a barium swallow on 11/06/2022 that revealed: Round presbyesophagus distal esophagus with significant delay in transition of barium with resulting pooling in the upper and mid esophagus. In the ED patient was afebrile and hypotensive at 124/34, satting at 89% on RA. Labs were significant for leukocytosis of 56.5, H&H of 8.4/27.2, MCV of 107.5, absolute neutrophils of 54.8, hypernatremia of 151, chloride 118, BUN elevated at 68, creatinine 3.06, AST of 41, ALT of 50, alk-phos of 271, total creatinine kinase is 238, BNP 139. UA results pending. Coags within normal limits. CXR showed diffuse interstitial lung disease bilaterally with question of superimposed acute process not excluded. CT?of abdomen and pelvis find a cause for the patient's weight loss, negative for acute abdomen or evidence of constipation. CT did show severe COPD and fibrosis at the lung bases, with mild splenomegaly and a minimally nodular liver border. Also found extensive colonic diverticulosis without diverticulitis. EKG demonstrated sinus bradycardia of 59 week no evidence of ST elevations or depressions or significant T-wave inversions. Pt was treated with IVF and ceftriaxone. Review of Systems Review of Systems: Diarrhea Constipation after taking Imodium x2 weeks Abdominal pain associated with straining during attempted defecation Chronic SOB with exertion Occasional palpitations Denies fever, chills, nausea, vomiting No chest pain or pressure Yes all other systems are reviewed and are negative REPLACED BY [facility] Medical History: PMH significant for?unspecified dementia, emphysema, pulmonary fibrosis not on home O2, temporal arteritis, CKD stage 3, macrocytic anemia, BPH, carotid atherosclerosis on aspirin, and hx of retinal artery occlusion. Anemia Exercise hypoxemia Hearing difficulty of both ears HTN (hypertension) Pulmonary emphysema determined by X-ray Pulmonary fibrosis Tubular adenoma of colon Family History: Father Social history: He worked for [employer]. He is . He has no children of his own. He smoked but quit years ago. He used to drink heavily but quit 2 years ago. Review of Systems - Constitutional Reports system reviewed and no additional complaints, except as documented - Eyes Reports system reviewed and no additional complaints, except as documented - ENT Reports system reviewed and no additional complaints, except as documented - Cardiovascular Reports system reviewed and no additional complaints, except as documented - Respiratory Reports no additional respiratory complaints - Gastrointestinal Reports system reviewed and no additional complaints, except as documented - Genitourinary Genitourinary: Reports no additional male genitourinary complaints - Musculoskeletal Reports system reviewed and no additional complaints, except as documented - Integumentary/Breasts Skin/Breast: Reports no additional skin complaints - Neurologic Reports system reviewed and no additional complaints, except as documented - Psychiatric Reports system reviewed and no additional complaints, except as documented - Endocrine Reports no additional endocrine complaints - Hematologic/Lymphatic Reports system reviewed and no additional complaints, except as documented - Allergic/Immunologic Reports system reviewed and no additional complaints, except as documented REPLACED BY [facility] Medical History: Medical History (Last Reviewed 12/29/22 @ 16:09 by Cheyanne Demarco MD) Anemia CKD (chronic kidney disease) stage 3, GFR 30-59 ml/min Exercise hypoxemia Hearing difficulty of both ears HTN (hypertension) Pulmonary emphysema determined by X-ray Pulmonary fibrosis Tubular adenoma of colon Functional capacity: wheelchair bound Patient : No Family History: Family History (Last Reviewed 12/29/22 @ 16:09 by Cheyanne Demarco MD) Father No problems noted. Mother No problems noted. 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 Home Medications and Allergies Current Medications: Current Medications Acetaminophen (Acetaminophen 325 Mg Tablet) 650 mg PO Q6H PRN PRN Reason: Pain, Mild (Pain Scale 1-3) Albuterol/Ipratropium (Albuterol/Iprat 2.5/0.5mg 3 Ml Ampul.Neb) 3 ml INHALE Q4H PRN PRN Reason: Wheezing Aspirin (Aspirin 325 Mg Tablet) 325 mg PO DAILY [facility] Last Admin: 12/29/22 07:45 Dose: 325 mg Atorvastatin Calcium (Atorvastatin Calcium 20 Mg Tablet) 20 mg PO DAILY [facility] Last Admin: 12/29/22 07:46 Dose: 20 mg Calcium Carbonate/Cholecalciferol (Calcium + Vitamin D 250 Mg Tablet) 500 mg PO DAILY [facility] Last Admin: 12/29/22 07:46 Dose: 500 mg Cyanocobalamin (Cyanocobalamin (Vitamin B-12) 1,000 Mcg Tablet) 1,000 mcg PO DAILY [facility] Last Admin: 12/29/22 07:46 Dose: 1,000 mcg Docusate Sodium (Docusate Sodium 100 Mg Capsule) 100 mg PO DAILY PRN PRN Reason: Constipation Fluticasone/Vilanterol (Fluticasone/Vilanterol 100/25 Blst.W.Dev) 1 puff INHALE RDAILY [facility] Last Admin: 12/29/22 08:08 Dose: 1 puff Doxycycline Hyclate 100 mg/ (Sodium Chloride) 250 mls @ 166.67 mls/hr IV Q12H [facility] Last Admin: 12/29/22 08:51 Dose: 166.7 mls/hr Multivitamins/Vitamin C (Multivitamin Tablet) 1 tab PO DAILY [facility] Last Admin: 12/29/22 07:45 Dose: 1 tab Ondansetron HCl (Ondansetron Hcl 4 Mg/2 Ml Vial) 4 mg IVPUSH Q8H PRN PRN Reason: Nausea and Vomiting Pharmacy Consult (Consult Rx Perform Med Rec) 1 each MISCELLANE ONCE PRN PRN Reason: Consult order Sodium Chloride (0.9 % Sodium Chloride Flush 3 Ml Syringe) 3 ml IVFLUSH QSHIFT [facility] Last Admin: 12/29/22 07:46 Dose: 3 ml Home Medications Medication Instructions Recorded Confirmed Type cyanocobalamin (vitamin B-12) 1,000 mcg PO DAILY 05/10/20 12/25/22 History 1,000 mcg tablet vit C 250 mg-vit E 90 mg-zinc 40 1 tab PO BID 08/29/20 12/25/22 History mg-copper 1 [id number] capsule (PreserVision AREDS-2) aspirin 325 mg tablet 325 mg PO DAILY 09/26/21 12/25/22 History atorvastatin 20 mg tablet 20 mg PO DAILY 06/03/22 12/25/22 History tacrolimus 0.1 % topical ointment 1 appl topical DAILY 06/03/22 12/25/22 History calcium carbonate 600 mg-vitamin 1 tab PO DAILY 12/25/22 12/25/22 History D3 5 mcg (200 unit) tablet Allergies Allergy/AdvReac Type Severity Reaction Status Date / Time hydrochlorothiazide AdvReac Intermediate ITCH Verified 08/27/22 10:50 Physical Exam Vital signs: Vital Signs Temp 97.2 F 12/29/22 07:30 Pulse 64 12/29/22 08:10 Resp 20 12/29/22 08:10 BP 146/67 H 12/29/22 07:30 Pulse Ox 92 12/29/22 07:30 O2 Del Method Nasal Cannula 12/29/22 07:30 O2 Flow Rate 3 12/29/22 07:30 Intake & Output 12/28/22 12/29/22 12/29/22 18:59 06:59 18:59 Intake Total 730 / 1180 450 / 1180 Output Total 300 / 300 Balance 730 / 880 150 / 880 Urine Output (Average ml/kg/hr) 0.36 Intake: Intake, Oral Amount 480 / 680 200 / 680 Intake, IV Amount 250 / 500 250 / 500 Doxycycline Hyclate 100 mg In 0 250 / 500 250 / 500 .9 % Sodium Chloride 250 ml @ 166.67 mls/hr IV Q12H [facility] Rx#: [id number] Output: Output, Urine Amount 300 / 300 Other: Meal Refused No NPO No Breakfast % Eaten 100% Lunch % Eaten 100% Number of Unmeasured Voids 3 1 Number of Bowel Movements 2 1 Urine Bathroom Urinal Urine Color Yellow Last Bowel Movement 12/28/22 12/28/22 Stool Bathroom Bathroom Stool Amount Large Scant Stool Color Dark Brown Stool Consistency Soft Loose Weight 70.4 kg - Constitutional Present: mild distress, moderate distress - Routine HEENT Exam Head: Present: normal inspection, normocephalic Eye: Present: normal appearance ENT: Present: mucous membranes moist - Routine Neck Exam Present: supple Hem/Onc Consult Result - Labs CBC & Chem 7: 12/29/22 05:35 12/29/22 05:35 Labs: Short CBC 12/29/22 Range/Units 05:35 WBC 50.3 H* (4.8-10.8) X10*3/uL Hgb 8.2 L (14.0-18.0) g/dl Hct 25.3 L (42.0-52.0) % Plt Count 223 (160-400) X10*3/uL [facility] 12/29/22 05:35 Sodium 141 Potassium 4.7 Chloride 114 H Carbon Dioxide 19 L BUN 38 H Creatinine 1.70 H Calcium 8.5 Assessment and Plan Patient Active problem list reviewed?: Yes (1) Leukocytosis Status: Acute Assessment and plan: [address] scan of the abdomen from 12/25: 1. A cause for the patient's weight loss has not been found. 2. Incidental note made of severe COPD and fibrosis at the lung bases,mild splenomegaly and a minimally nodular liver border. 3. Extensive colonic diverticulosis without diverticulitis. 4. Other incidental findings as described above. Noted to have leukocytosis. DIFFERENTIAL DIAGNOSIS: 1. LEUKEMOID REACTION: Related to infection. 2. A MYELOPROLIFERATIVE NEOPLASM: CML. PLAN: I will proceed with further evaluation. Check LDH: 286. Check BCR ABL gene transcript to look for CML. Thank you for the consult I will follow along with you, Cc: Dr. Barnett. - Time Spent With Patient Time Spent with Patient (in minutes): 30
--- NOTE | 2022-12-29 10:04 | PM.PNNEP ---
Subjective Subjective Date of Service: 12/29/22 Interval history: seen and examined somnolent no complaints Physical Exam Vital Signs: Vital Signs: Last Vital Signs Temp 97.2 F 12/29/22 07:30 Pulse 64 12/29/22 08:10 Resp 20 12/29/22 08:10 BP 146/67 H 12/29/22 07:30 Pulse Ox 92 12/29/22 07:30 O2 Del Method Nasal Cannula 12/29/22 07:30 O2 Flow Rate 3 12/29/22 07:30 BMI result Body Mass Index 27.5 Const: General: no acute distress and well developed HEENT: Head: Yes normocephalic and Yes atraumatic Neck: Neck: Yes supple Resp: Effort & Inspection: normal respiratory effort Cardio: Heart sounds: S1 normal heart sound present and S2 normal heart sound present GI: Palpation (GI): Soft to palpation and nontender Extrem: Right upper extremity: no edema Objective Data Labs 12/29/22 05:35 12/29/22 05:35 Labs: Laboratory Results - last 24 hr 12/29/22 12/29/22 12/29/22 04:17 05:35 05:35 WBC 50.3 H* RBC 2.46 L Hgb 8.2 L Hct 25.3 L MCV 102.8 H MCH 33.3 H MCHC 32.4 RDW 27.9 H Plt Count 223 MPV 11.4 Absolute Nucleated RBC 0.030 H Nucleated RBC % (auto) 0.1 O2 Saturation 90.0 ABG pH at Pt Temp 7.40 ABG pCO2 at Pt Temp 37 ABG pO2 at Pt Temp 65 L ABG HCO3 23 ABG Base Excess (Actual) -0.8 Sodium 141 Potassium 4.7 Chloride 114 H Carbon Dioxide 19 L Anion Gap 13 BUN 38 H Creatinine 1.70 H Estim Creat Clear Calc 31.0 Estimated GFR 39 Random Glucose 70 Calcium 8.5 Vitamin B12 > 2000 H Folate > 20.0 Microbiology Microbiology Results: Microbiology 12/25/22 11:08 Blood - Venous Blood Culture - Preliminary No growth after 48 hours. 12/25/22 10:45 Blood - Venous Blood Culture - Preliminary No growth after 48 hours. Procedures Date of Service Date of Service: 12/29/22 Assessment & Plan Assessment and plan (1) OPAL (acute kidney injury): Status: Acute (2) CKD (chronic kidney disease) stage 3, GFR 30-59 ml/min: Status: Acute Plan kidney function at baseline OPAL due to compromised kidney perfusion and tubular stress h/o CKD baseline Scr ~ 1.5-2 mg/dl REC no need for IVF follow kidney function and electrolytes Time Spent With Patient Time: Total time managing care of this patient today ____ minutes. Progress Note: Quality Stroke Does the patient have a stroke diagnosis?: No
[2022-12-29 10:59] LABS: Lactate Dehydrogenase 286 U/L (118-273)
--- NOTE | 2022-12-29 12:48 | HO.PM.IMPN ---
Subjective Subjective Date of Service: 12/29/22 Interval History: Sitting comfortably in bed offers no acute complaints, had overnight sleep oximetry qualifies for 2 L of oxygen, denies shortness of breath, no cough, tolerating diet no nausea, no vomiting, no abdominal pain, no diarrhea, denies fever, no chills. Review of Systems Review of Systems: Yes all other systems are reviewed and are negative Physical Exam Vital Signs: Vital Signs: Last Vital Signs Temp 97.2 F 12/29/22 07:30 Pulse 64 12/29/22 08:10 Resp 20 12/29/22 08:10 BP 146/67 H 12/29/22 07:30 Pulse Ox 92 12/29/22 07:30 O2 Del Method Nasal Cannula 12/29/22 07:30 O2 Flow Rate 3 12/29/22 07:30 BMI result Body Mass Index 27.5 Const: Other: General? resting comfortably in no acute distress.? Neck is supple no JVD. CVS? regular rate rhythm, Respiratory lungs? clear to auscultation, no expiratory wheeze, no rales Gastrointestinal abdomen soft, non tender, bowel sounds audible, no guarding , no rigidity. Extremities no edema. Neuro nonfocal Skin no rash psych appropriate affect Objective Data Active Medications Acetaminophen (Acetaminophen 325 Mg Tablet) 650 mg PO Q6H PRN PRN Reason: Pain, Mild (Pain Scale 1-3) Albuterol/Ipratropium (Albuterol/Iprat 2.5/0.5mg 3 Ml Ampul.Neb) 3 ml INHALE Q4H PRN PRN Reason: Wheezing Aspirin (Aspirin 325 Mg Tablet) 325 mg PO DAILY [facility] Last Admin: 12/29/22 07:45 Dose: 325 mg Documented By: DIONNE Atorvastatin Calcium (Atorvastatin Calcium 20 Mg Tablet) 20 mg PO DAILY [facility] Last Admin: 12/29/22 07:46 Dose: 20 mg Documented By: DIONNE Calcium Carbonate/Cholecalciferol (Calcium + Vitamin D 250 Mg Tablet) 500 mg PO DAILY [facility] Last Admin: 12/29/22 07:46 Dose: 500 mg Documented By: DIONNE Cyanocobalamin (Cyanocobalamin (Vitamin B-12) 1,000 Mcg Tablet) 1,000 mcg PO DAILY [facility] Last Admin: 12/29/22 07:46 Dose: 1,000 mcg Documented By: DIONNE Docusate Sodium (Docusate Sodium 100 Mg Capsule) 100 mg PO DAILY PRN PRN Reason: Constipation Fluticasone/Vilanterol (Fluticasone/Vilanterol 100/25 Blst.W.Dev) 1 puff INHALE RDAILY [facility] Last Admin: 12/29/22 08:08 Dose: 1 puff Documented By: MAE Doxycycline Hyclate 100 mg/ (Sodium Chloride) 250 mls @ 166.67 mls/hr IV Q12H [facility] Last Infusion: 12/29/22 10:23 Dose: 0 mls/hr Documented By: DIONNE Multivitamins/Vitamin C (Multivitamin Tablet) 1 tab PO DAILY [facility] Last Admin: 12/29/22 07:45 Dose: 1 tab Documented By: DIONNE Ondansetron HCl (Ondansetron Hcl 4 Mg/2 Ml Vial) 4 mg IVPUSH Q8H PRN PRN Reason: Nausea and Vomiting Pharmacy Consult (Consult Rx Perform Med Rec) 1 each MISCELLANE ONCE PRN PRN Reason: Consult order Sodium Chloride (0.9 % Sodium Chloride Flush 3 Ml Syringe) 3 ml IVFLUSH QSHIFT [facility] Last Admin: 12/29/22 07:46 Dose: 3 ml Documented By: DIONNE Labs 12/29/22 05:35 12/29/22 05:35 Labs: Laboratory Results - last 24 hr 12/29/22 12/29/22 12/29/22 04:17 05:35 05:35 MCV 102.8 H MCH 33.3 H MCHC 32.4 RDW 27.9 H Plt Count 223 MPV 11.4 Absolute Nucleated RBC 0.030 H Nucleated RBC % (auto) 0.1 O2 Saturation 90.0 ABG pH at Pt Temp 7.40 ABG pCO2 at Pt Temp 37 ABG pO2 at Pt Temp 65 L ABG HCO3 23 ABG Base Excess (Actual) -0.8 Anion Gap 13 Estim Creat Clear Calc 31.0 Estimated GFR 39 Random Glucose 70 Calcium 8.5 Lactate Dehydrogenase Vitamin B12 > 2000 H Folate > 20.0 12/29/22 10:29 MCV MCH MCHC RDW Plt Count MPV Absolute Nucleated RBC Nucleated RBC % (auto) O2 Saturation ABG pH at Pt Temp ABG pCO2 at Pt Temp ABG pO2 at Pt Temp ABG HCO3 ABG Base Excess (Actual) Anion Gap Estim Creat Clear Calc Estimated GFR Random Glucose Calcium Lactate Dehydrogenase 286 H Vitamin B12 Folate Assessment and Plan (1) CKD (chronic kidney disease) stage 3, GFR 30-59 ml/min: Status: Acute (2) OPAL (acute kidney injury): Status: Acute (3) Hypernatremia: Status: Acute Plan 77-year-old male with a PMH significant for?unspecified dementia, emphysema, pulmonary fibrosis not on home O2, temporal arteritis, CKD stage 3, macrocytic anemia, BPH, carotid atherosclerosis on aspirin, and hx of retinal artery occlusion who presents to the ED at the behest of the patient's PCP Dr. Leach for evaluation of abnormal labs with leukocytosis of 56.5, hypernatremia of 151 and creatinine 3.06. Leukocytosis Unclear etiology: UA negative, CXR with ? left sided acute process superimposed on chronic diffuse interstitial lung disease,patient afebrile, no cough, no obvious sign of cellulitis had diarrhea but now resolved , C-Diff negative, not on steroids, no sepsis, no blast Question bronchitis, question leukomoid reaction Initially treated with empiric vancomycin by mouth for concern for C diff however later discontinued with negative C diff test on doxycycline day 4 ,for possible respiratory infection WBC, fluctuating/ remains elevated, H&H low and platelet stable Obtained Hematology and Infectious Disease consult OPAL superimposed on CKD 3 Creatinine 3.06 with elevated BUN of 68 on admission likely secondary to GI loss from diarrhea and decreased by mouth intake, creatinine returned to baseline dc IVF Hypernatremia Patient's sodium 151 at time of presentation improved to 141 encourage by mouth fluids Hypoxia Likely chronic with some component of acute infection has underlying severe COPD and fibrosis per CT Pt. is supposed to be on supplemental O2 but he refuses home O2 overnight sleep study done patient qualifies for 2 L of oxygen at night, will obtain home O2 eval COPD Does not seem to be in acute exacerbation, not on home inhalers or steroids Continue Duonebs prn and Breo. Transaminitis, mild Most likely secondary to chronic alcohol use Patient states he used to drink 6+ beers nightly, quit drinking 3-[address] showing mild splenomegaly and a minimally nodular liver border, negative for acute abdomen Pt asymptomatic, abdominal exam benign, .LFTs normalized Chronic macrocytic anemia H&H dropped but stabilized likely dilutional, no acute bleeding noted hematocrit at baseline, normal B12 and folate Carotid atherosclerosis Continue aspirin 325 mg daily and statins Unspecified dementia no behavioral issues not on any medications. S Full Code DVT Prophylaxis: Pneumatic boots Pt. will require continued inpatient hospitalization for treatment of leukocytosis and hypoxia. Time Spent With Patient Time: Total time managing care of this patient today ____ minutes. Quality Stroke Does the patient have a stroke diagnosis?: No VTE Prior VTE?: No VTE Risk Level:: Medical - moderate - high VTE Device Contraindication: N/A - Device Ordered VTE Drug Contraindication: Treatment Not Indicated
--- NOTE | 2022-12-29 13:21 | MHC.CM.PN ---
PER CONVERSATION WITH R.T., PATIENT WILL REQUIRE 6 L O2 DURING AMBULATION AND 2 L AT REST. REFERRAL TO [facility] TO REQUEST FOLLOW UP SERVICES FOR NEW O2. POSSIBLE HOME TOMORROW (12/30/21)
--- NOTE | 2022-12-29 16:07 | W.PM.IDCN ---
History of Present Illness Data of Consult Service Date: 12/29/22 Requesting physician: Ruma Barnett Primary Care Provider: Rashaad Leach MD HPI Reason for consult: leukocytosis He presents with constipation and weakness. He has no fever or chills. He has new leukocytosis to 51,000. He has creatinine of 3.0. Review of Systems Review of Systems: Yes Unobtainable due to mental condition PMFSH Past Medical History Medical History Anemia Exercise hypoxemia Hearing difficulty of both ears HTN (hypertension) Pulmonary emphysema determined by X-ray Pulmonary fibrosis Tubular adenoma of colon Functional capacity: wheelchair bound Family History Family History Father No problems noted. Mother No problems noted. Family history: reviewed and not pertinent Surgical History Surgical History History of rectal surgery Hx of cholecystectomy Hx of colonoscopy Social History Social History Household Members: Spouse Housing: House Do you presently have visiting nurse or other home services: No Alcohol intake: former Patient Tobacco Use Status: Former Tobacco user service: Yes Current occupational status: retired [employer] Allergies Allergy/AdvReac Type Severity Reaction Status Date / Time hydrochlorothiazide AdvReac Intermediate ITCH Verified 08/27/22 10:50 Active Medications: Current Medications Acetaminophen (Acetaminophen 325 Mg Tablet) 650 mg PO Q6H PRN PRN Reason: Pain, Mild (Pain Scale 1-3) Albuterol/Ipratropium (Albuterol/Iprat 2.5/0.5mg 3 Ml Ampul.Neb) 3 ml INHALE Q4H PRN PRN Reason: Wheezing Aspirin (Aspirin 325 Mg Tablet) 325 mg PO DAILY [facility] Last Admin: 12/29/22 07:45 Dose: 325 mg Atorvastatin Calcium (Atorvastatin Calcium 20 Mg Tablet) 20 mg PO DAILY [facility] Last Admin: 12/29/22 07:46 Dose: 20 mg Calcium Carbonate/Cholecalciferol (Calcium + Vitamin D 250 Mg Tablet) 500 mg PO DAILY [facility] Last Admin: 12/29/22 07:46 Dose: 500 mg Cyanocobalamin (Cyanocobalamin (Vitamin B-12) 1,000 Mcg Tablet) 1,000 mcg PO DAILY [facility] Last Admin: 12/29/22 07:46 Dose: 1,000 mcg Docusate Sodium (Docusate Sodium 100 Mg Capsule) 100 mg PO DAILY PRN PRN Reason: Constipation Doxycycline Monohydrate (Doxycycline Monohydrate 100 Mg Capsule) 100 mg PO Q12H [facility] Fluticasone/Vilanterol (Fluticasone/Vilanterol 100/25 Blst.W.Dev) 1 puff INHALE RDAILY [facility] Last Admin: 12/29/22 08:08 Dose: 1 puff Multivitamins/Vitamin C (Multivitamin Tablet) 1 tab PO DAILY [facility] Last Admin: 12/29/22 07:45 Dose: 1 tab Ondansetron HCl (Ondansetron Hcl 4 Mg/2 Ml Vial) 4 mg IVPUSH Q8H PRN PRN Reason: Nausea and Vomiting Pharmacy Consult (Consult Rx Perform Med Rec) 1 each MISCELLANE ONCE PRN PRN Reason: Consult order Sodium Chloride (0.9 % Sodium Chloride Flush 3 Ml Syringe) 3 ml IVFLUSH QSHIFT [facility] Last Admin: 12/29/22 15:56 Dose: 3 ml Home Medications Medication Instructions Recorded Confirmed Last Taken Type cyanocobalamin (vitamin B-12) 1,000 mcg PO DAILY 05/10/20 12/25/22 Unknown History 1,000 mcg tablet vit C 250 mg-vit E 90 mg-zinc 40 1 tab PO BID 08/29/20 12/25/22 Unknown History mg-copper 1 [id number] capsule (PreserVision AREDS-2) aspirin 325 mg tablet 325 mg PO DAILY 09/26/21 12/25/22 Unknown History atorvastatin 20 mg tablet 20 mg PO DAILY 06/03/22 12/25/22 Unknown History tacrolimus 0.1 % topical ointment 1 appl topical DAILY 06/03/22 12/25/22 Unknown History calcium carbonate 600 mg-vitamin 1 tab PO DAILY 12/25/22 12/25/22 Unknown History D3 5 mcg (200 unit) tablet Physical Exam Vital Signs: Vital Signs: Last Vital Signs Temp 98.9 F 12/29/22 16:00 Pulse 85 12/29/22 16:00 Resp 20 12/29/22 16:00 BP 112/56 L 12/29/22 16:00 Pulse Ox 95 12/29/22 16:00 O2 Del Method Nasal Cannula 12/29/22 16:00 O2 Flow Rate 3 12/29/22 16:00 BMI result Body Mass Index 27.5 HEENT: Head: Yes normal to inspection Face and sinus: Yes normal facial exam Mouth: Normal oral and palatal mucosa present Teeth and gingiva: dentition normal Eyes: General: appearance normal, both eyes and all related structures Pupils: Equal, round and reactive pupils present Resp: Effort & Inspection: normal respiratory effort Cardio: Rate: regular rate Rhythm: regular rhythm GI: Palpation (GI): Soft to palpation and nontender : General: Yes no CVA tenderness Back/Spine/Pelvis: Back: no CVA tenderness Skin: General skin exam: no rashes or lesions noted Neuro: General: moves all extremities Cranial nerves: Yes Equal, round and reactive pupils present Extrem: General: Yes normal to inspection Psych: Appearance: grossly normal Results Labs 12/29/22 05:35 12/29/22 05:35 Labs: Short CBC 12/29/22 Range/Units 05:35 WBC 50.3 H* (4.8-10.8) X10*3/uL Hgb 8.2 L (14.0-18.0) g/dl Hct 25.3 L (42.0-52.0) % Plt Count 223 (160-400) X10*3/uL BMP 12/29/22 05:35 Sodium 141 Potassium 4.7 Chloride 114 H Carbon Dioxide 19 L BUN 38 H Creatinine 1.70 H Calcium 8.5 Microbiology Microbiology Results: Microbiology 12/25/22 11:08 Blood - Venous Blood Culture - Preliminary No growth after 48 hours. 12/25/22 10:45 Blood - Venous Blood Culture - Preliminary No growth after 48 hours. Assessment and Plan (1) Leukocytosis: Status: Acute There is no obvious infectious etiology for leukocytosis. He has abrupt increase in WBC Plan Hematology evaluation ?CLL No antibiotics at this time. Time Spent With Patient Time: Total time managing care of this patient today ____ minutes.
[2022-12-29] MEDS: Melatonin 3 MG TABLET 6 MG PO (23:26)
[2022-12-30 03:33] VITALS: BP 144/70; PULSE 65; RESP 16; TEMP 36; O2SAT 93
--- NOTE | 2022-12-30 07:11 | PM.PNNEP ---
Subjective Subjective Date of Service: 12/30/22 Interval history: seen and examined denies CP/SOB/N/V/D Physical Exam Vital Signs: Vital Signs: Last Vital Signs Temp 96.8 F 12/30/22 03:33 Pulse 65 12/30/22 03:33 Resp 16 12/30/22 03:33 BP 144/70 H 12/30/22 03:33 Pulse Ox 93 12/30/22 03:33 O2 Del Method Nasal Cannula 12/30/22 03:33 O2 Flow Rate 2 12/30/22 03:33 BMI result Body Mass Index 27.5 Const: General: no acute distress and well developed HEENT: Head: Yes normocephalic and Yes atraumatic Neck: Neck: Yes supple Resp: Effort & Inspection: normal respiratory effort Cardio: Heart sounds: S1 normal heart sound present and S2 normal heart sound present GI: Palpation (GI): Soft to palpation and nontender Extrem: Right upper extremity: no edema Objective Data Labs 12/29/22 05:35 12/29/22 05:35 Labs: Laboratory Results - last 24 hr 12/29/22 12/29/22 12/29/22 05:35 05:35 10:29 WBC 50.3 H* RBC 2.46 L Hgb 8.2 L Hct 25.3 L MCV 102.8 H MCH 33.3 H MCHC 32.4 RDW 27.9 H Plt Count 223 MPV 11.4 Absolute Nucleated RBC 0.030 H Nucleated RBC % (auto) 0.1 Lactate Dehydrogenase 286 H Vitamin B12 > 2000 H Folate > 20.0 Microbiology Microbiology Results: Microbiology 12/25/22 11:08 Blood - Venous Blood Culture - Preliminary No growth after 48 hours. 12/25/22 10:45 Blood - Venous Blood Culture - Preliminary No growth after 48 hours. Procedures Date of Service Date of Service: 12/30/22 Assessment & Plan Assessment and plan (1) OPAL (acute kidney injury): Status: Acute (2) CKD (chronic kidney disease) stage 3, GFR 30-59 ml/min: Status: Acute Plan kidney function at baseline OPAL due to compromised kidney perfusion and tubular stress h/o CKD baseline Scr ~ 1.5-2 mg/dl anemia in the setting of CKD o/p suggests M spike on previous work up would get free lights REC free light chains repeat serum immunofixation follow kidney function and electrolytes Time Spent With Patient Time: Total time managing care of this patient today ____ minutes. Progress Note: Quality Stroke Does the patient have a stroke diagnosis?: No
[2022-12-30] MEDS: Atorvastatin Calcium 20 MG TABLET PO (07:31)
[2022-12-30] MEDS: Cyanocobalamin (Vitamin B-12) 1,000 MCG TABLET 1000 MCG PO (07:31)
[2022-12-30] MEDS: 0.9 % Sodium Chloride Flush 3 ML SYRINGE IVFLUSH (07:31)
[2022-12-30] MEDS: Multivitamin TABLET 1 TAB PO (07:31)
[2022-12-30] MEDS: Calcium + Vitamin D 250 MG TABLET 500 MG PO (07:31)
[2022-12-30] MEDS: Aspirin 325 MG TABLET PO (07:31)
[2022-12-30] MEDS: Fluticasone/Vilanterol 100/25 BLST.W.DEV 1 PUFF INHALE (07:47)
[2022-12-30 07:50] VITALS: PULSE 73; RESP 20; O2SAT 96
[2022-12-30 07:59] VITALS: BP 114/59; PULSE 60; RESP 16; TEMP 36.7; O2SAT 95
--- NOTE | 2022-12-30 09:43 | P.DS_ITS ---
DS: Providers Provider Date of Service: 12/30/22 Date of admission: 12/25/22 16:05 Primary care physician: Rashaad Leach MD Consults: 12/25/22 16:16 Consult to Nephrology Routine Consulting Provider: Gerardo Gilmore Reason for consultation: OPAL on CKD3 12/28/22 07:36 Consult to Infectious Diseases Routine Consulting Provider: Cheyanne Demarco Reason for consultation: leukocytosis Has provider been notified: No 12/29/22 07:45 Consult to Hematology / Oncology Routine Consulting Provider: Dami Handley Reason for consultation: leukocytosis Has provider been notified: No DS: Diagnosis Discharge Diagnosis (1) Leukocytosis: Status: Acute DS: Summary Hospital Course Hospital Course: History of presenting illness; Date of Service: 12/25/22 Attending physician on admission: Ruma Barnett Chief Complaint: Sent by PCP for abnormal labs Pt is a 77-year-old male with a PMH significant for?unspecified dementia, emphysema, pulmonary fibrosis not on home O2, temporal arteritis, CKD stage 3, macrocytic anemia, BPH, carotid atherosclerosis on aspirin, and hx of retinal artery occlusion who presents to the ED at the behest of the patient's PCP Dr. Leach for evaluation of abnormal labs with leukocytosis of 56.5, hypernatremia of 151 and creatinine 3.06. Pt AOx4 but with underlying dementia with mild cognitive impairment. Pt is accompanied by who helps supplement HPI. Pt initially presented to his PCP 3 weeks ago complaining of lose, gassy stool.? Was prescribed Imodium which she just recently finished.? Patient has recently been complaining of constipation with the need to manually disimpact himself. Pt is unable to clarify when this started or consistency or quantity of produced stool. is also unable to clarify about pt's bowel habits, and states she is not sure what's going on in the bathroom. Pt denies fever, chills, nausea. Has has some mild abdominal pain he associates with trying to go to the bathroom. Pt has also been experiencing recent reduction in p.o. intake of both fluids and solids. states he has been eating very little the past 2-3 days, which is unlike him. Has apparently lost 6-7 lbs in the past week. Pt also complaining of chronic SOB, especially with going up stairs.? Patient also states that he occasionally feels like his heart is beating fast, especially when he is lying on the couch.? 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 In the ED patient was afebrile and hypotensive at 124/34, satting at 89% on RA. Labs were significant for leukocytosis of 56.5, H&H of 8.4/27.2, MCV of 107.5, absolute neutrophils of 54.8, hypernatremia of 151, chloride 118, BUN elevated at 68, creatinine 3.06, AST of 41, ALT of 50, alk-phos of 271, total creatinine kinase is 238, BNP 139.? UA results pending. Coags within normal limits.? CXR showed diffuse interstitial lung disease bilaterally with question of superimposed acute process not excluded. CT?of abdomen and pelvis find a cause for the patient's weight loss, negative for acute abdomen or evidence of constipation. CT did show severe COPD and fibrosis at the lung bases, with mild splenomegaly and a minimally nodular liver border.? Also found extensive colonic diverticulosis without diverticulitis. EKG demonstrated sinus bradycardia of 59 week no evidence of ST elevations or depressions or significant T-wave inversions. Pt was treated with IVF and ceftriaxone. Pt will be admitted to the hospital. Hospital course: 77-year-old male with a PMH significant for?unspecified dementia, emphysema, pulmonary fibrosis not on home O2, temporal arteritis, CKD stage 3, macrocytic anemia, BPH, carotid atherosclerosis on aspirin, and hx of retinal artery occlusion who presents to the ED at the behest of the patient's PCP Dr. Leach for evaluation of abnormal labs with leukocytosis of 56.5, hypernatremia of 151 and creatinine 3.06. Leukocytosis, Unclear etiology: UA negative, CXR with ? left sided? acute process superimposed on chronic diffuse interstitial lung disease,patient afebrile, no cough, no obvious sign of cellulitis,had diarrhea briefly , C-Diff negative, not on steroids, no sepsis, no blast, Initially treated with empiric vancomycin by mouth for concern for C diff however later discontinued with negative C diff test, treated for doxycycline x5 days for possible respiratory infection, but WBC remains elevated, seen by Dr. Handley from Hematology workup for CML sent and is pending seen by Dr. Demarco from Infectious Disease she recommend no antibiotics, since patient is hemodynamically stable and all workup done will discharge home with recommendation to follow-up with Hematology as outpatient. OPAL superimposed on CKD 3 Creatinine 3.06 with elevated BUN of 68 on admission, likely secondary to GI loss from diarrhea and decreased by mouth intake, cr eatinine returned to baseline?with ivf. Hypernatremia sodium 151 at time of presentation improved to 141 with IV fluids,encourage by mouth fluids. Hypoxia Likely chronic?has underlying severe COPD and fibrosis per CT chest,overnight sleep study done patient qualifies for 2 L of oxygen at night, COPD no acute exacerbation, not on home inhalers or steroids Transaminitis, mild, Most likely secondary to chronic alcohol use, used to drink 6+ beers nightly, quit drinking 3-4 years ago,CT showing mild splenomegaly and a minimally nodular liver border, negative for acute abdomen abdominal exam be nign, repeat LFTs normalized Chronic macrocytic anemia H&H? dropped but stabilized likely dilutional, no acute bleeding, noted hematocrit at baseline, normal B12 and folate Carotid atherosclerosis Continue aspirin 325 mg daily?and statins Unspecified dementia no behavioral issues not on any medications.? Time Spent with Patient Time attestation: Total time managing care of this patient today ____ minutes. Discharge coordination time: Greater than 30 minutes Quality: Safe Use of Opioids Does Pt have an Active Cancer Diagnosis on the Problem List?: No Quality: Stroke Does the patient have a stroke diagnosis?: No Physical Exam Vital Signs: Vital Signs: Last Vital Signs Temp 98.0 F 12/30/22 07:59 Pulse 60 12/30/22 07:59 Resp 16 12/30/22 07:59 BP 114/59 L 12/30/22 07:59 Pulse Ox 95 12/30/22 07:59 O2 Del Method Nasal Cannula 12/30/22 07:59 O2 Flow Rate 2 12/30/22 07:59 BMI result Body Mass Index 27.5 Const: Other: General? resting comfortably in no acute distress.? Neck is supple no JVD. CVS? regular rate rhythm, Respiratory lungs? clear to auscultation, no expiratory wheeze, no rales Gastrointestinal abdomen soft, non tender, bowel sounds audible, no guarding , no rigidity. Extremities no edema. Neuro non focal Skin no rash psych appropriate affect DS: Data Data Completed and Pending Labs on day of discharge: Laboratory Results - last 24 hr 12/29/22 10:29 Lactate Dehydrogenase 286 H Preliminary micro results at discharge 12/25/22 11:08 Blood Culture - Preliminary Blood - Venous No growth after 48 hours. 12/25/22 10:45 Blood Culture - Preliminary Blood - Venous No growth after 48 hours. Discharge Plan Discharge Anticipated Discharge Date/Time: 12/30/22 10:08 Patient Disposition: Home Health Service Discharge Diagnosis: OPAL superimposed on chronic kidney disease stage 3 Hypernatremia Leukocytosis Hypoxia Referrals: [facility] [Outside] - 1 Week Rashaad Leach MD [Primary Care Provider] - 1 Week Discharge Medications: Continued PreserVision AREDS-2 [id number] Capsule 1 tab PO BID calcium carbonate-vitamin D3 600 mg-5 mcg (200 unit) Tablet 1 tab PO DAILY cyanocobalamin (vitamin B-12) 1,000 mcg tablet 1,000 mcg PO DAILY tacrolimus 0.1 % ointment 1 appl topical DAILY atorvastatin 20 mg tablet 20 mg PO DAILY aspirin 325 mg tablet 325 mg PO DAILY Discharge Orders: Discharge Order (Routine); Ordered 12/30/22 Ordered By: Ruma Barnett Diet: Low fat, low cholesterol Activity on Discharge: As tolerated Stand Alone Forms: Patient Portal Discharge page Care Plan Goals: Acute hypoxic respiratory failure due to underlying COPD and fibrosis Take oxygen 2 L by nasal cannula at rest and at night and 6 L Oxymizer with activity Continue all home medications as before Elevated white blood cell count follow-up with sports management intern Dr. Handley for further workup Health Concerns: COPD/unspecified dementia Plan of Treatment: Outpatient follow-up with primary care physician and outpatient follow-up with Dr. Handley from Hematology for appointment. Assessment: As above
--- NOTE | 2022-12-30 10:36 | MHC.CM.PN ---
PATIENT IS DC HOME TODAY WITH NEW [facility] RN SKILLS FOR HIS HOME O2 NEEDS. IS ON HER WAY IN TO TRANSPORT PATIENT DOES NOT WISH TO APPEAL THE DECISION FOR DISCHARGE IMM 12/30 IN CHART. RN AWARE OF PLAN
--- NOTE | 2022-12-30 10:38 | P.F2F_ITS ---
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 Reason homebound: weakness related to hospital stay Certification: Based on the above findings, I certify that this patient is confined to the home and needs intermittent retirement care, physical therapy and/or speech therapy, or continues to need occupational therapy. The patient is under my care, and I have initiated the establishment of the plan of care. The patient will be followed by a physician who will periodically review the plan of care. Time Spent With Patient Time: Total time managing care of this patient today ____ minutes.
--- NOTE | 2022-12-30 14:44 | MHC.CM.PN ---
PER FITNESS/WELLNESS DIRECTOR REQUEST, DC SUMMARY FAXED TO [facility] @ [phone]
[2023-01-01 14:38] LABS: Kappa Light Chain, Free Serum 620.4 mg/L (3.3-19.4); Kappa/Lambda Lt Ch Free Ratio 15.28 (0.26-1.65); Lambda Light Chain, Free Serum 40.6 mg/L (5.7-26.3)
[2023-01-06 10:18] LABS: IgA 117 mg/dL (70-320); IgG 2229 mg/dL (600-1540); IgM 57 mg/dL (50-300)
== END 2022-12-30 12:04 | disposition home health service (06) | DRG 683 ==
LOC: HO.ED 11:54 → HO.EDOVER 16:30 → HO.S3 16:42
PROVIDERS: Internal Medicine Medical Oncology; Internal Medicine Nephrology; Physician Assistant; Admitting Provider Student in an Organized Health Care Education/Training Program; Emergency Provider Student in an Organized Health Care Education/Training Program; PCP Internal Medicine Medical Oncology; Visit Provider Hospitalist
DX: N17.9 Acute kidney failure, unspecified (principal); C92.10 Chronic myeloid leukemia, BCR/ABL-positive, not having achieved remission; E87.0 Hyperosmolality and hypernatremia; F01.50 Vascular dementia, unspecified severity, without behavioral disturbance, psychotic disturbance, mood disturbance, and anxiety; D53.9 Nutritional anemia, unspecified; I65.23 Occlusion and stenosis of bilateral carotid arteries; D63.1 Anemia in chronic kidney disease; N18.30 Chronic kidney disease, stage 3 unspecified; N40.0 Benign prostatic hyperplasia without lower urinary tract symptoms; J43.9 Emphysema, unspecified; J84.10 Pulmonary fibrosis, unspecified; Z20.822 Contact with and (suspected) exposure to COVID-19; Z79.82 Long term (current) use of aspirin; Z79.899 Other long term (current) drug therapy
CPT/HCPCS: 36415; 36600; 71045; 74176; 80048; 80053; 80076; 81001; 81003; 81206; 81207; 82150; 82550; 82607; 82746; 82784; 82803; 82977; 83521; 83605; 83615; 83690; 83735; 83880; 83883; 84134; 84165; 84439; 84443; 84484; 85007; 85025; 85027; 85610; 85730; 86334; 87040; 87493; 87507; 87635; 93005; 94640; 97161; 99285; J0696

== ENCOUNTER → 2023-01-08 13:00 | Outpatient (BNV) | payer MEDICARE, SELFPAY | PROVIDERS: PCP Internal Medicine Medical Oncology; Visit Provider Internal Medicine Medical Oncology | DX: D72.829 Elevated white blood cell count, unspecified (principal) | CPT/HCPCS: 99213; 99214 ==

== ENCOUNTER 2023-01-13 12:51 | Outpatient (REF) | payer MEDICARE, SELFPAY ==
[2023-01-13 13:13] LABS: Hematocrit 23.4 % (42.0-52.0); Hemoglobin 7.5 g/dl (14.0-18.0); Mean Corpuscular HGB Conc 32.1 g/dl (31.0-36.0); Mean Corpuscular Hemoglobin 33.3 pg (27.0-33.0); Mean Platelet Volume 11.4 fL (9.4-12.4); NRBC Pct Auto 0.1 /100WBC (0.0-0.2); Platelet Count 221 X10*3/uL (160-400); Red Blood Count 2.25 X10*6/uL (4.60-5.80); Red Cell Distribution Width 28.2 % (11.0-16.0)
[2023-01-13 13:20] LABS: WBC ABN SCTR FOR CBC 1
[2023-01-13 13:21] LABS: White Blood Count 89.4 X10*3/uL (4.8-10.8)
[2023-01-13 13:53] LABS: Band Neutrophils Percent 24 % (3-5); Lymphocytes Absolute Manual 0.9 X10*3/uL (1.2-4.9); Lymphocytes Percent Manual 1 % (20-40); Metamyelocytes Absolute 1.8 X10*3/uL; Metamyelocytes Percent 2 %; Monocytes Absolute Manual 0.9 X10*3/uL (0.1-1.2); Monocytes Percent Manual 1 % (2-11); Neutrophils Absolute Manual 85.8 X10*3/uL (2.0-8.3); Neutrophils Percent Manual 72 % (45-73); Nucleated Red Blood Cells 1 /100WBC (0-0)
[2023-01-13 13:54] LABS: RBC Morphology NOTED
[2023-01-13 13:56] LABS: Macrocytosis 1+ (5-14) /OIF; Target Cells 1+ (5-14) /OIF; Tear Drop Cells 1+ (0-2) /OIF
[2023-01-13 13:57] LABS: Basophilic Stippling 1+ (0-2) /OIF; Toxic Granulation PRESENT
[2023-01-13 13:59] LABS: Alanine Aminotransferase 25 U/L (0-40); Albumin Level 3.1 g/dL (3.5-5.0); Alkaline Phosphatase 247 U/L (39-117); Anion Gap 13 (12-20); Aspartate Amino Transferase 27 U/L (5-37); Bilirubin Total 0.3 mg/dL (0.0-1.0); Blood Urea Nitrogen 42 mg/dL (9-16); Calcium 9.9 mg/dL (8.4-10.2); Carbon Dioxide 25 mmol/L (22-29); Chloride 110 mmol/L (96-108); Estimated Glomerular Filt Rate 35; Glucose Random 36 mg/dL (60-115); Potassium 4.3 mmol/L (3.3-5.1); Schistocytes 2+ (3-5) /OIF; Sodium 144 mmol/L (135-145); Total Protein 6.8 g/dL (6.5-8.0)
[2023-01-13 14:01] LABS: Dohle Bodies PRESENT; Large Platelet PRESENT; Platelet Estimate NORMAL (NORMAL); Platelet Morphology Comment NOTED; Toxic Vacuolation PRESENT
== END 2023-01-13 12:52 | disposition home or self-care (01) ==
LOC: HO.HVNA 12:51
PROVIDERS: Visit Provider Internal Medicine Medical Oncology
DX: D64.9 Anemia, unspecified (principal); D72.829 Elevated white blood cell count, unspecified
CPT/HCPCS: 36415; 80053; 85007; 85025; 85027

== ENCOUNTER 2023-01-20 16:01 | Outpatient (REF) | payer MEDICARE, SELFPAY ==
[2023-01-20 16:12] LABS: Hematocrit 28.4 % (42.0-52.0); Hemoglobin 8.8 g/dl (14.0-18.0); Mean Corpuscular Hemoglobin 33.1 pg (27.0-33.0); Mean Corpuscular Volume 106.8 fL (80.0-98.0); PLT CLUMP 1; Red Blood Count 2.66 X10*6/uL (4.60-5.80); Red Cell Distribution Width 25.3 % (11.0-16.0)
[2023-01-20 16:23] LABS: PLT ABN DIST 1; WBC ABN SCTR FOR CBC 1
[2023-01-20 16:33] LABS: Platelet Count 132 X10*3/uL (160-400); White Blood Count 76.1 X10*3/uL (4.8-10.8)
[2023-01-20 17:19] LABS: Band Neutrophils Percent 14 % (3-5); Eosinophils Absolute Manual 1.5 X10*3/uL (0.0-0.4); Eosinophils Percent Manual 2 % (0-4); Lymphocytes Absolute Manual 1.5 X10*3/uL (1.2-4.9); Lymphocytes Percent Manual 2 % (20-40); Metamyelocytes Percent 4 %; Monocytes Absolute Manual 2.3 X10*3/uL (0.1-1.2); Monocytes Percent Manual 3 % (2-11); Neutrophils Absolute Manual 67.7 X10*3/uL (2.0-8.3); Neutrophils Percent Manual 75 % (45-73)
[2023-01-20 17:20] LABS: Alanine Aminotransferase 64 U/L (0-40); Albumin Level 3.2 g/dL (3.5-5.0); Alkaline Phosphatase 302 U/L (39-117); Anion Gap 15 (12-20); Aspartate Amino Transferase 46 U/L (5-37); Bilirubin Total 0.3 mg/dL (0.0-1.0); Blood Urea Nitrogen 59 mg/dL (9-16); Calcium 9.6 mg/dL (8.4-10.2); Carbon Dioxide 24 mmol/L (22-29); Chloride 109 mmol/L (96-108); Estimated Glomerular Filt Rate 27; Glucose Random 23 mg/dL (60-115); Potassium 4.4 mmol/L (3.3-5.1); RBC Morphology NOTED; Sodium 144 mmol/L (135-145)
[2023-01-20 17:21] LABS: Acanthocytes 1+ (0-2) /OIF; Burr Cells 2+ (3-5) /OIF; Target Cells 1+ (5-14) /OIF; Tear Drop Cells 1+ (0-2) /OIF
[2023-01-20 17:22] LABS: Basophilic Stippling 1+ (0-2) /OIF
[2023-01-20 17:23] LABS: Dohle Bodies PRESENT; Toxic Vacuolation PRESENT; WBC Morphology Comment DYSMORPHIC
[2023-01-20 17:24] LABS: Large Platelet PRESENT; Macrocytosis 1+ (5-14) /OIF; Platelet Estimate DECREASED (NORMAL); Platelet Morphology Comment NOTED
== END 2023-01-20 16:02 | disposition home or self-care (01) ==
LOC: HO.HVNA 16:01
PROVIDERS: Visit Provider Internal Medicine Medical Oncology
DX: D64.9 Anemia, unspecified (principal); D72.819 Decreased white blood cell count, unspecified
CPT/HCPCS: 36415; 80053; 85007; 85027

== ENCOUNTER 2023-01-23 11:22 | Day surgery (SDC) | payer MEDICARE, SELFPAY ==
[2023-01-23] VITALS (7 sets, daily range): BP systolic 103–137; BP diastolic 50–67; PULSE 58–62; RESP 12–20; TEMP 36.3–36.4; O2SAT 94–96; BMI 19.7
[2023-01-23 12:25] LABS: Glucose, Whole Blood 90 mg/dL (60-115)
[2023-01-23] MEDS: Lactated Ringers 1,000 ML 100 ML IVCONT (12:49)
[2023-01-23 13:01] LABS: Hematocrit 28.4 % (42.0-52.0); Hemoglobin 8.8 g/dl (14.0-18.0); Mean Corpuscular Hemoglobin 32.4 pg (27.0-33.0); Mean Corpuscular Volume 104.4 fL (80.0-98.0); Mean Platelet Volume 12.2 fL (9.4-12.4); Platelet Count 173 X10*3/uL (160-400); Red Blood Count 2.72 X10*6/uL (4.60-5.80); Red Cell Distribution Width 24.9 % (11.0-16.0)
[2023-01-23 13:04] LABS: WBC ABN SCTR FOR CBC 1
[2023-01-23 13:07] LABS: White Blood Count 71.9 X10*3/uL (4.8-10.8)
[2023-01-23 13:15] LABS: Alanine Aminotransferase 52 U/L (0-40); Albumin Level 3.3 g/dL (3.5-5.0); Alkaline Phosphatase 262 U/L (39-117); Anion Gap 15 (12-20); Aspartate Amino Transferase 34 U/L (5-37); Bilirubin Total 0.5 mg/dL (0.0-1.0); Blood Urea Nitrogen 61 mg/dL (9-16); Calcium 10.2 mg/dL (8.4-10.2); Carbon Dioxide 22 mmol/L (22-29); Chloride 114 mmol/L (96-108); Creatinine Clr Calc Pharmacy 23.3; Estimated Glomerular Filt Rate 26; Glucose Fasting 83 mg/dL (60-99); Potassium 4.5 mmol/L (3.3-5.1); Sodium 146 mmol/L (135-145); Total Protein 7.2 g/dL (6.5-8.0)
[2023-01-23 13:39] LABS: Estimated Average Glucose 123 mg/dL; Hemoglobin A1c % 5.9 %
[2023-01-23 13:56] LABS: Band Neutrophils Percent 15 % (3-5); Eosinophils Absolute Manual 0.7 X10*3/uL (0.0-0.4); Eosinophils Percent Manual 1 % (0-4); Lymphocytes Absolute Manual 1.4 X10*3/uL (1.2-4.9); Lymphocytes Percent Manual 2 % (20-40); Monocytes Absolute Manual 1.4 X10*3/uL (0.1-1.2); Monocytes Percent Manual 2 % (2-11); Myelocytes Absolute 2.2 X10*/uL; Myelocytes Percent 3 %; Neutrophils Absolute Manual 66.1 X10*3/uL (2.0-8.3); Neutrophils Percent Manual 77 % (45-73)
--- NOTE | 2023-01-23 13:59 | PC.NURSE ---
pt sat down to 90-93 2 liter n/ when sleeping everyone aware back up to 94-96 when awake on oxygen
[2023-01-23 14:02] LABS: Basophilic Stippling 1+ (0-2) /OIF; Hypochromasia 1+ (5-14) /OIF; Macrocytosis 2+ (15-30) /OIF; RBC Morphology NOTED; Schistocytes 1+ (0-2) /OIF; Target Cells 1+ (5-14) /OIF
[2023-01-23 14:03] LABS: Platelet Estimate NORMAL (NORMAL); Platelet Morphology Comment NORMAL
[2023-01-23 14:46] LABS: Bone Marrow SEE SEPARATE REPORT
--- NOTE | 2023-01-23 15:03 | PM.HEMONCBM ---
Bone Marrow Aspiration - Bone Marrow Aspiration Procedure:: *Service Date: [01/23/23] Pre Op Diagnosis:: 1. Leukocytosis. 2. Plasma cell dyscrasia. Post Op Diagnosis:: Same. Surgeon:: Dami Handley. Anesthesia:: MAC. Consent:: Informed consent obtained from the patient for the procedure. Pros and cons of biopsy explained. The patient was willing to proceed with the procedure under local anesthesia. Procedure in Detail:: *Service Date: 01/23/23. *Procedure: Bone marrow aspirate and biopsy. *Pre Op Dx: 1. Leukocytosis. 2. Plasma cell dyscrasia. *Post Op Dx: Same. *Surgeon: Dami Handley. The patient was positioned prone. The left posterior superior iliac spine prepped and draped. Patient was anesthetized under MAC. Under aseptic precautions, 5 ml of 1% lidocaine used for local anesthesia. Bone marrow aspirate was taken. With the Jamshidi needle, a core biopsy was obtained without any complications. Specimens were sent for Tolentino stain, flow cytometry and cytogenetics. Biopsy was sent for histology. The patient tolerated the procedure well. Bandage was applied and patient was positioned on his back for 10 to 15 minutes after the procedure. The patient was advised to call us if he develops any pain or swelling at the surgical site. Follow up in 2 weeks.
[2023-01-28 14:13] LABS: IgA 126 mg/dL (70-320); IgG 2439 mg/dL (600-1540); IgM 69 mg/dL (50-300)
== END 2023-01-23 16:14 | disposition home or self-care (01) ==
PROVIDERS: PCP Internal Medicine Medical Oncology; Visit Provider Internal Medicine Medical Oncology
PROC: (CPT 38221; principal; 2023-01-23 13:30)
DX: D64.9 Anemia, unspecified (principal); D75.89 Other specified diseases of blood and blood-forming organs; I12.9 Hypertensive chronic kidney disease with stage 1 through stage 4 chronic kidney disease, or unspecified chronic kidney disease; N18.30 Chronic kidney disease, stage 3 unspecified; F03.90 Unspecified dementia, unspecified severity, without behavioral disturbance, psychotic disturbance, mood disturbance, and anxiety; J43.9 Emphysema, unspecified; J84.10 Pulmonary fibrosis, unspecified; R09.02 Hypoxemia; Z79.82 Long term (current) use of aspirin; Z79.899 Other long term (current) drug therapy; Z88.8 Allergy status to other drugs, medicaments and biological substances; Z87.891 Personal history of nicotine dependence
CPT/HCPCS: 38222; 36415; 80053; 82784; 82947; 83036; 85007; 85025; 85027; 86334; 88184; 88185; 88237; 88264; 88305; 88307; 88311; 88313; 88341; 88342; J1642; J2250

== ENCOUNTER 2023-01-27 12:37 | Outpatient (REF) | payer MEDICARE, SELFPAY ==
[2023-01-27 12:54] LABS: Hematocrit 25.7 % (42.0-52.0); Hemoglobin 8.1 g/dl (14.0-18.0); Mean Corpuscular HGB Conc 31.5 g/dl (31.0-36.0); Mean Corpuscular Hemoglobin 32.9 pg (27.0-33.0); Mean Corpuscular Volume 104.5 fL (80.0-98.0); Mean Platelet Volume 11.7 fL (9.4-12.4); Platelet Count 157 X10*3/uL (160-400); Red Blood Count 2.46 X10*6/uL (4.60-5.80); Red Cell Distribution Width 24.4 % (11.0-16.0)
[2023-01-27 12:56] LABS: WBC ABN SCTR FOR CBC 1
[2023-01-27 12:59] LABS: White Blood Count 64.2 X10*3/uL (4.8-10.8)
[2023-01-27 13:39] LABS: Band Neutrophils Percent 19 % (3-5); Lymphocytes Absolute Manual 3.2 X10*3/uL (1.2-4.9); Lymphocytes Percent Manual 5 % (20-40); Monocytes Absolute Manual 1.3 X10*3/uL (0.1-1.2); Monocytes Percent Manual 2 % (2-11); Myelocytes Absolute 1.3 X10*/uL; Myelocytes Percent 2 %; Neutrophils Absolute Manual 58.4 X10*3/uL (2.0-8.3); Neutrophils Percent Manual 72 % (45-73)
[2023-01-27 13:41] LABS: Macrocytosis 1+ (5-14) /OIF; RBC Morphology NOTED
[2023-01-27 13:42] LABS: Dohle Bodies PRESENT; Hypochromasia 1+ (5-14) /OIF; Toxic Vacuolation PRESENT
[2023-01-27 13:44] LABS: Target Cells 1+ (5-14) /OIF; Tear Drop Cells 1+ (0-2) /OIF
[2023-01-27 13:48] LABS: Large Platelet PRESENT; Platelet Estimate SLIGHTLY DECREASED (NORMAL); Platelet Morphology Comment NOTED
[2023-01-27 14:02] LABS: Alanine Aminotransferase 52 U/L (0-40); Albumin Level 3.2 g/dL (3.5-5.0); Alkaline Phosphatase 257 U/L (39-117); Anion Gap 12 (12-20); Aspartate Amino Transferase 43 U/L (5-37); Bilirubin Total 0.3 mg/dL (0.0-1.0); Blood Urea Nitrogen 61 mg/dL (9-16); Calcium 9.5 mg/dL (8.4-10.2); Carbon Dioxide 25 mmol/L (22-29); Chloride 110 mmol/L (96-108); Estimated Glomerular Filt Rate 25; Glucose Random 176 mg/dL (60-115); Potassium 4.4 mmol/L (3.3-5.1); Sodium 143 mmol/L (135-145); Total Protein 6.9 g/dL (6.5-8.0)
== END 2023-01-27 12:38 | disposition home or self-care (01) ==
LOC: HO.HVNA 12:37
PROVIDERS: Visit Provider Internal Medicine Medical Oncology
DX: D64.9 Anemia, unspecified (principal); D72.829 Elevated white blood cell count, unspecified
CPT/HCPCS: 36415; 80053; 85007; 85025; 85027

== ENCOUNTER 2023-02-02 16:20 | Outpatient (REF) | payer MEDICARE, SELFPAY ==
[2023-02-02 16:35] LABS: Hemoglobin 7.2 g/dl (14.0-18.0); Mean Corpuscular Volume 101.4 fL (80.0-98.0); PLT CLUMP 1
[2023-02-02 16:37] LABS: Hematocrit 22.2 % (42.0-52.0); Mean Corpuscular HGB Conc 32.4 g/dl (31.0-36.0); Mean Corpuscular Hemoglobin 32.9 pg (27.0-33.0); Mean Platelet Volume 11.3 fL (9.4-12.4); NRBC Pct Auto 0.1 /100WBC (0.0-0.2); Red Blood Count 2.19 X10*6/uL (4.60-5.80); Red Cell Distribution Width 24.9 % (11.0-16.0)
[2023-02-02 17:37] LABS: Alanine Aminotransferase 40 U/L (0-40); Albumin Level 3.3 g/dL (3.5-5.0); Alkaline Phosphatase 233 U/L (39-117); Anion Gap 13 (12-20); Aspartate Amino Transferase 29 U/L (5-37); Bilirubin Total 0.3 mg/dL (0.0-1.0); Blood Urea Nitrogen 56 mg/dL (9-16); Carbon Dioxide 23 mmol/L (22-29); Chloride 109 mmol/L (96-108); Estimated Glomerular Filt Rate 23; Glucose Random 61 mg/dL (60-115); Potassium 4.5 mmol/L (3.3-5.1); Sodium 140 mmol/L (135-145); Total Protein 6.6 g/dL (6.5-8.0)
[2023-02-02 17:46] LABS: WBC ABN SCTR FOR CBC 1
[2023-02-02 17:48] LABS: Platelet Count 149 X10*3/uL (160-400); White Blood Count 73.3 X10*3/uL (4.8-10.8)
[2023-02-02 17:56] LABS: Band Neutrophils Percent 5 % (3-5); Basophils Abs Manual 0.7 X10*3/uL (0.0-0.2); Basophils Percent Manual 1 % (0-2); Lymphocytes Absolute Manual 1.5 X10*3/uL (1.2-4.9); Lymphocytes Percent Manual 2 % (20-40); Metamyelocytes Absolute 2.2 X10*3/uL; Metamyelocytes Percent 3 %; Monocytes Absolute Manual 1.5 X10*3/uL (0.1-1.2); Monocytes Percent Manual 2 % (2-11); Neutrophils Absolute Manual 67.4 X10*3/uL (2.0-8.3); Neutrophils Percent Manual 87 % (45-73)
[2023-02-02 18:02] LABS: RBC Morphology NORMAL
[2023-02-02 18:03] LABS: Platelet Estimate NORMAL (NORMAL); Platelet Morphology Comment NORMAL
== END 2023-02-02 16:21 | disposition home or self-care (01) ==
LOC: HO.HVNA 16:20
PROVIDERS: Visit Provider Internal Medicine Medical Oncology
DX: D64.9 Anemia, unspecified (principal); D72.829 Elevated white blood cell count, unspecified
CPT/HCPCS: 36415; 80053; 85007; 85025; 85027

== ENCOUNTER 2023-02-03 12:59 | Outpatient (REF) | payer MEDICARE, SELFPAY ==
--- NOTE | ~2023-02-03 | US_ITS ---
EXAMINATION: US VENOUS WITH DOPPLER UPPER EXTREMITY, RIGHT CLINICAL INFORMATION: Right arm swelling. COMPARISON: None available. TECHNIQUE: Ultrasound of the upper extremity is performed using compression sonography and color and pulse Doppler flow with assessment of augmentation of flow. There is also imaging and Doppler assessment of the jugular and subclavian veins. Spectral analysis with color-flow imaging is performed. FINDINGS: Respiratory variation, normal compression, and augmented flow are noted throughout the upper extremity including the axillary, brachial, cubital, and radial and ulnar veins. There is normal flow in the internal jugular and subclavian veins. Incidental note made of some slight thickening of the dalal of the superficial cephalic vein. There is no visible deep or superficial thrombophlebitis. If the patient's symptoms progress, a followup ultrasound in 5 -7 days might be of value to exclude proximal propagation from a nonvisualized distal arm vein. US/US venous duplex UE RT IMPRESSION: No DVT demonstrated in the right upper extremity.
--- NOTE | ~2023-02-03 | US_ITS ---
EXAMINATION: US VENOUS ULTRASOUND WITH DOPPLER LOWER EXTREMITY, BILATERAL CLINICAL INFORMATION: Bilateral lower extremity edema. COMPARISON: None available. TECHNIQUE: Ultrasound of the deep veins is performed from the hip to the calf with compression sonography and color and pulse Doppler assessment. Spectral analysis with color-flow imaging is performed. FINDINGS: RIGHT: There is normal venous compression and respiratory variation and augmented flow. The visualized common femoral vein, superficial femoral vein, profunda femoral vein, popliteal vein, and the trifurcation region shows no evidence of deep venous thrombosis. The posterior tibial veins are not seen. There is no significant popliteal fossa cyst. LEFT: There is normal venous compression and respiratory variation and augmented flow. The visualized common femoral vein, superficial femoral vein, profunda femoral vein, popliteal vein, and the trifurcation region shows no evidence of deep venous thrombosis. The posterior tibial veins are not seen. There is no significant popliteal fossa cyst. If the patient's symptoms persist, followup ultrasound in 5 days 7 days might be of value to exclude proximal propagation from a non-visualized calf vein. US/US venous duplex LE BI IMPRESSION: No DVT demonstrated in either lower extremity. The posterior tibial veins are not seen.
== END 2023-02-03 13:00 | disposition home or self-care (01) ==
LOC: HO.US 12:59
PROVIDERS: Visit Provider Internal Medicine Medical Oncology
DX: R60.0 Localized edema (principal)
CPT/HCPCS: 93970; 93971

== ENCOUNTER 2023-02-11 13:35 | Outpatient (REF) | payer MEDICARE, SELFPAY | END 2023-02-11 13:36 | disposition home or self-care (01) | LOC: HO.HVNA 13:35 | PROVIDERS: Visit Provider Internal Medicine Medical Oncology | DX: D72.829 Elevated white blood cell count, unspecified (principal); D64.9 Anemia, unspecified | CPT/HCPCS: 36415; 80053; 83521; 85007; 85027 ==

== ENCOUNTER 2023-02-17 10:14 | Outpatient (AMB) | payer MEDICARE, SELFPAY ==
--- NOTE | 2023-02-17 10:22 | A.OFFVIS_ITS ---
Intake Vital Signs 02/17/23 10:31 Height 6 ft Weight 142 lb BMI 19.3 BP 126/74 Blood Pressure Location Lt brachial Position Sitting Pulse 74 Intake Visit Reasons: weight loss diarrhea Allergies hydrochlorothiazide Adverse Reaction (Intermediate, Verified 02/17/23 10:29) ITCH Medication List - Last Reconciled 02/17/23 by Ese Campbell PA-C atorvastatin 20 mg PO DAILY calcium carbonate-vitamin D3 600 mg-5 mcg (200 unit) 1 tab PO DAILY cyanocobalamin (vitamin B-12) 1,000 mcg PO DAILY tacrolimus 0.1% 1 appl topical DAILY vit C,L-Bt-mgwcz-lutein-zeaxan 250-90-40-1 mg (PreserVision AREDS-2) 1 tab PO BID HPI HPI Comments History of Present Illness Details A an 78-year-old male multiple comorbidities, dependent O2, follows with Pulmonary, last seen 2020 after colonoscopy. He is here with his - She is unsure why he is being seen by GI at this time is he is undergoing a with Hematology as well as Nephrology. She speaks for her , says he is cognitively declining- difficulty comprehending O2-was at 2 L, has recently been increased to 3L- when hes anxious 6L seeing heme Dr. Handley and Dr Jackson)- Increase shortness of breath on exertion She is very concerned she is unsure of his future plan- has a f/u in 2 days- with Luz Mata. PCP - yesterday- his says all related to heme issue. Overall appetite is good- bowels have improved, he had had issue with diarrhea however does completely resolved at this time.- no abdominal pain no nausea or vomiting. He has had no fever or chills-no rectal bleed [facility] Medical History Anemia CKD (chronic kidney disease) stage 3, GFR 30-59 ml/min Exercise hypoxemia Hearing difficulty of both ears HTN (hypertension) Pulmonary emphysema determined by X-ray Pulmonary fibrosis Tubular adenoma of colon Surgical History History of rectal surgery Hx of cholecystectomy Hx of colonoscopy Family History Father No problems noted. Mother No problems noted. Social History Household Members: Spouse Housing: House Do you presently have visiting nurse or other home services: No Alcohol intake: former Patient Tobacco Use Status: Former Tobacco user service: Yes Review of Systems Const All systems reviewed & are unremarkable except as noted in HPI and below Card Denies chest pain, Reports dyspnea and Reports dyspnea on exertion Resp Reports dyspnea and Reports dyspnea on exertion GI Denies abdominal pain, Denies hematochezia, Denies nausea and Denies vomiting Psych Reports abnormal sleep pattern and Denies change in appetite Physical Exam Vital Signs: Last Vital Signs Pulse 74 02/17/23 10:31 BP 126/74 02/17/23 10:31 BMI result Body Mass Index 19.3 Const General: comfortable Nutritional Appearance: thin and underweight Limitations: other limitations (O2@ 3 L) Results Reviewed Results Reviewed: Results Reviewed Results Reviewed: Name: Alban Little Age/Sex: 75/M Attending: Anna Puente MD : 1945 Submitted by: Anna Puente MD Copies to: MR #: [id number] ? Status: [facility] Collected: 09/04/20 Location: [facility] Received: 09/04/20 Diagnosis A.? Colon, proximal transverse, polypectomy:? Tubular adenoma; no high grade dysplasia or carcinoma seen. B.? Colon, ascending, polypectomies:? Fragments of tubular adenomas; no high- grade dysplasia or carcinoma seen. Clinical History Pre-Op Dx:? Hx of colon CA Post-Op Dx: Colon polyps, diverticulosis, 1+ internal hemorrhoids There were 1+ internal hemorrhoids.? Initial specimen of the proximal transverse colon. In the ascending colon, there were 2 areas of polyps, one of which was really flat and after isolation, ended up not raised enough to be removed by either cold or hot snare technique.? This was removed excisionally.? The area was excised and the area was marked with endo florence tattooing ink for a future review with a flat polyp in complex technique and marginal prep. PLAN: Pt will need to be looked at anywhere from 12 to 36 months prior to this is dictated by the histology of the polyps Name:?Alban Little Age/Sex: 75/M Attending: Anna Puente MD : 1945 Submitted by: Anna Puente MD Copies to: MR #: [id number] ? Status: [facility] [place] Collected: 09/04/20 Location: [facility] Received: 09/04/20 Diagnosis A.? Colon, proximal transverse, polypectomy:? Tubular adenoma; no high grade dysplasia or carcinoma seen. B.? Colon, ascending, polypectomies:? Fragments of tubular adenomas; no high- grade dysplasia or carcinoma seen. Assessment & Plan Assessment & Plan (1) Anemia: Comment: 78-year-old male anemia-aspirin had been discontinued by Hematology -undergoing extensive workup- Shortness of breath on O2, Code(s): D64.9 - Anemia, unspecified (2) Tubular adenoma of colon: Comment: History of rectal cancer, history colon adenomas, last colonoscopy 2020 -due for repeat Code(s): D12.6 - Benign neoplasm of colon, unspecified Plan Very pleasant Gent multiple comorbidities , history of rectal cancer, multiple colon polyps, chronic anemia accompanied by his /game advisor-very supportive, she is very reluctant to any invasive procedures She is agreeable to talk to me after she meets this week with Dr. Handley-as well I will consult with Dr. Tamez- following heme/etc- Patient Instructions: Very pleasant 78-year-old male-multiple comorbidities Continue to follow-up with Hematology and Nephrology-we will await input We are available for any questions Patient's is agreeable to call us after his next appointment- If any procedure commended/required be discussed with her over the phone as to make her come in for another appointment. Encouraged to call with any questions or concerns We appreciate the opportunity assist in the care this pleasant Gent Coding Level of Care Code Est Pt Level 4 (53153) Diagnoses Anemia D64.9 Tubular adenoma of colon D12.6 Time Spent (min) 45
[2023-02-17 10:31] VITALS: BP 126/74; PULSE 74; BMI 19.3
== END 2023-02-17 11:06 | disposition home or self-care (01) ==
PROVIDERS: PCP Internal Medicine Medical Oncology; Visit Provider Physician Assistant
DX: D64.9 Anemia, unspecified (principal); D12.6 Benign neoplasm of colon, unspecified
CPT/HCPCS: 99214

== ENCOUNTER → 2023-02-17 10:14 | Outpatient (BNVA) | payer MEDICARE, SELFPAY | PROVIDERS: PCP Internal Medicine Medical Oncology; Visit Provider Physician Assistant | DX: D64.9 Anemia, unspecified (principal); Z85.048 Personal history of other malignant neoplasm of rectum, rectosigmoid junction, and anus; Z86.010 Personal history of colon polyps | CPT/HCPCS: 99212 ==

== ENCOUNTER 2023-02-18 09:29 | Outpatient (REF) | payer MEDICARE, SELFPAY ==
--- NOTE | ~2023-02-18 | XR_ITS ---
EXAMINATION: XR SKELETAL SURVEY CLINICAL INFORMATION: Multiple myeloma COMPARISON: Chest x-ray of 12/26/2022, CT abdomen of 12/25/2022, and CT chest 03/18/2022. TECHNIQUE: Skeletal survey FINDINGS: LATERAL SKULL: No abnormal lytic or sclerotic lesions identified. Visualized paranasal sinuses are unremarkable. Mastoid air cells appear unremarkable. There are multiple. CERVICAL SPINE: Lateral view of the cervical spine does not demonstrate any abnormal prevertebral soft tissue swelling. There is mild degenerative subluxation of C3 anterior to C4. There is disc space narrowing seen at C5-C7. No suspicious lytic or sclerotic lesions identified. Dental caries present. THORACIC SPINE: AP and lateral views of the thoracic spine do not demonstrate any evidence of acute fracture. The visualized pedicles appear unremarkable without abnormal lytic or sclerotic lesions. 2 2 obliquity on AP view is difficult to visualize in a few of the mid thoracic left-sided pedicles. There is some mild degenerative narrowing of a few disc spaces within the mid thoracic spine. Paraspinal line appears unremarkable without bulge. Bilateral interstitial lung disease is identified. LUMBAR SPINE: AP and lateral views of the lumbar spine do not demonstrate evidence of acute fracture, spondylolisthesis, or spondylolysis. Pedicles appear intact. Vascular calcifications are present. There is some narrowing of the L5-S1 disc space with increased facet sclerosis consistent with facet arthropathy. Large calcification is seen within the right midabdomen which may represent a gallstone. No abnormal sclerotic or lytic lesions identified. PELVIS: AP film of the pelvis does not demonstrate any evidence of acute fracture or diastases. There is some narrowing of the hip joint spaces inferiorly bilaterally. Prominent vascular calcifications present. On this plain film study, no sacral lytic lesions are appreciated however, on review of CT scan, there appear to be a few small regions of diminished density Sacroiliac joints do not demonstrate any evidence of fusion or widening. CHEST: PA film of the chest again demonstrates diffuse bilateral interstitial lung disease. No definite acute region of parenchymal disease is appreciated. Heart normal size. No pneumothorax or pleural effusion. LEFT HUMERUS: Single view of the left humerus does not demonstrate any evidence of acute fracture or dislocation. There are some scattered regions of diminished density which may be related to osteopenia with no definite destructive bony lesions identified. RIGHT HUMERUS: Single view of the right humerus does not demonstrate evidence of acute fracture or dislocation. No definite destructive lytic or sclerotic lesions identified. There are some regions of diminished density seen about the proximal humerus which may be related to osteopenia or small lytic lesions. LEFT RADIUS AND ULNA: Single view of the left radius and ulna demonstrate multiple regions of diminished density most prominent about the mid and distal left radius and some of which appear to be involving cortex. This may be related to osteopenia however, small lytic lesions are suspected. RIGHT RADIUS AND ULNA: Views of the right radius and ulna demonstrate regions of diminished density most prominent distally again which may be related to osteopenia however, lytic lesions of other etiology such as multiple myeloma could have this appearance. RIGHT FEMUR: Single view of the right femur does not demonstrate any evidence of acute fracture or dislocation. No definite lytic or sclerotic lesions are appreciated. LEFT FEMUR: Views of the left femur demonstrate a few circumscribed up to 6 mm regions of low density also involving the lesser trochanter which are suspicious for lytic lesions possibly of multiple myeloma. RIGHT TIBIA AND FIBULA: Views of the right tibia and fibula do not demonstrate evidence of acute fracture or dislocation. There are a few regions of diminished density however, no definite circumscribed lytic lesions are appreciated. LEFT TIBIA AND FIBULA; Views of the left tibia and fibula do not demonstrate any evidence of acute fracture or dislocation. There are a few regions of diminished density but without specific circumscribed destructive bony lesion. XR/XR bone survey IMPRESSION: 1. No destructive bony lesions appreciated. Multiple regions of diminished density which could be related to osteopenia. No suspicious sclerotic lesions are seen. 2. Within the left femur a few circumscribed low density lesions are present suspicious for lytic lesions consistent with multiple myeloma. 3. Regions of diminished density within the distal radius bones bilaterally are suspicious for possible lytic lesions without destructive findings. 4. Severe bilateral interstitial lung disease.
== END 2023-02-18 09:30 | disposition home or self-care (01) ==
LOC: HO.XRAY 09:29
PROVIDERS: Visit Provider Internal Medicine Medical Oncology
DX: C90.00 Multiple myeloma not having achieved remission (principal); D64.9 Anemia, unspecified; D72.829 Elevated white blood cell count, unspecified
CPT/HCPCS: 36415; 77075; 80053; 85025

== ENCOUNTER 2023-02-18 15:49 | Outpatient (REF) | payer MEDICARE, SELFPAY ==
[2023-02-18 15:55] LABS: MANUAL DIFF FLAG NO
[2023-02-18 16:16] LABS: Basophils Absolute Auto 0.1 X10*3/uL (0.0-0.2); Basophils Percent Auto 0.1 % (0-2); Eosinophils Absolute Auto 0.3 X10*3/uL (0.0-0.4); Eosinophils Percent Auto 0.3 % (0-4); Hematocrit 27.6 % (42.0-52.0); Hemoglobin 8.7 g/dl (14.0-18.0); Imm Gran Abs Auto 10.02 X10*3/uL (0.00-0.03); Imm Gran Pct Auto 10.9 % (0.0-0.4); LEFT SHIFT? 1; Lymphocytes Absolute Auto 1.3 X10*3/uL (1.2-4.9); Lymphocytes Percent Auto 1.4 % (20-40); Mean Corpuscular HGB Conc 31.5 g/dl (31.0-36.0); Mean Corpuscular Hemoglobin 32.8 pg (27.0-33.0); Mean Corpuscular Volume 104.2 fL (80.0-98.0); Mean Platelet Volume 12.6 fL (9.4-12.4); Monocytes Absolute Auto 2.4 X10*3/uL (0.1-1.2); Monocytes Percent Auto 2.6 % (2-11); Neutrophils Absolute Auto 78.3 x10*3/uL (2.0-8.3); Neutrophils Percent Auto 84.7 % (45-73); Platelet Count 158 X10*3/uL (160-400); Red Blood Count 2.65 X10*6/uL (4.60-5.80); Red Cell Distribution Width 22.9 % (11.0-16.0); SCAN SMEAR FLAG 1; WBC ABN SCTR 1
[2023-02-18 16:18] LABS: WBC ABN SCTR FOR CBC 1
[2023-02-18 16:20] LABS: White Blood Count 92.4 X10*3/uL (4.8-10.8)
[2023-02-18 17:16] LABS: Alanine Aminotransferase 34 U/L (0-40); Albumin Level 3.6 g/dL (3.5-5.0); Alkaline Phosphatase 237 U/L (39-117); Anion Gap 17 (12-20); Aspartate Amino Transferase 29 U/L (5-37); Bilirubin Total 0.4 mg/dL (0.0-1.0); Blood Urea Nitrogen 58 mg/dL (9-16); Calcium 10.5 mg/dL (8.4-10.2); Carbon Dioxide 23 mmol/L (22-29); Chloride 113 mmol/L (96-108); Estimated Glomerular Filt Rate 16; Glucose Random 47 mg/dL (60-115); Potassium 3.9 mmol/L (3.3-5.1); Sodium 149 mmol/L (135-145); Total Protein 7.3 g/dL (6.5-8.0)
== END 2023-02-18 15:50 | disposition home or self-care (01) ==
LOC: HO.HVNA 15:49
PROVIDERS: Visit Provider Internal Medicine Medical Oncology
DX: Z13.89 Encounter for screening for other disorder (principal)
CPT/HCPCS: 36415; 80053; 85025

== ENCOUNTER 2023-02-20 11:35 | Outpatient (REF) | payer MEDICARE, SELFPAY | END 2023-02-20 11:36 | disposition home or self-care (01) | LOC: HO.LNP 11:35 | PROVIDERS: Visit Provider Internal Medicine Medical Oncology | DX: C90.00 Multiple myeloma not having achieved remission (principal) | CPT/HCPCS: 83883; 86335 ==

== ENCOUNTER 2023-02-25 15:00 | Outpatient (REF) | payer MEDICARE, SELFPAY ==
[2023-02-25 16:41] LABS: PLT CLUMP 1; Red Cell Distribution Width 21.9 % (11.0-16.0)
[2023-02-25 16:43] LABS: Hematocrit 26.4 % (42.0-52.0); Hemoglobin 8.4 g/dl (14.0-18.0); Mean Corpuscular HGB Conc 31.8 g/dl (31.0-36.0); Mean Corpuscular Hemoglobin 31.7 pg (27.0-33.0); Mean Corpuscular Volume 99.6 fL (80.0-98.0); Mean Platelet Volume 11.4 fL (9.4-12.4); Red Blood Count 2.65 X10*6/uL (4.60-5.80)
[2023-02-25 16:58] LABS: WBC ABN SCTR FOR CBC 1
[2023-02-25 16:59] LABS: Platelet Count 122 X10*3/uL (160-400); White Blood Count 63.9 X10*3/uL (4.8-10.8)
[2023-02-25 17:03] LABS: Alanine Aminotransferase 47 U/L (0-40); Albumin Level 3.3 g/dL (3.5-5.0); Alkaline Phosphatase 254 U/L (39-117); Aspartate Amino Transferase 44 U/L (5-37); Bilirubin Total 0.3 mg/dL (0.0-1.0); Blood Urea Nitrogen 61 mg/dL (9-16); Calcium 9.1 mg/dL (8.4-10.2); Chloride 109 mmol/L (96-108); Estimated Glomerular Filt Rate 18; Glucose Random 159 mg/dL (60-115); Potassium 4.6 mmol/L (3.3-5.1); Sodium 142 mmol/L (135-145); Total Protein 7.1 g/dL (6.5-8.0)
[2023-02-25 17:36] LABS: Band Neutrophils Percent 22 % (3-5); Lymphocytes Absolute Manual 1.3 X10*3/uL (1.2-4.9); Lymphocytes Percent Manual 2 % (20-40); Macrocytosis 1+ (5-14) /OIF; Metamyelocytes Absolute 1.3 X10*3/uL; Metamyelocytes Percent 2 %; Microcytosis 1+ (5-14) /OIF; Monocytes Absolute Manual 1.3 X10*3/uL (0.1-1.2); Monocytes Percent Manual 2 % (2-11); Myelocytes Absolute 0.6 X10*/uL; Myelocytes Percent 1 %; Neutrophils Absolute Manual 59.4 X10*3/uL (2.0-8.3); Neutrophils Percent Manual 71 % (45-73); RBC Morphology NOTED
[2023-02-25 17:37] LABS: Large Platelet PRESENT; Platelet Estimate NORMAL (NORMAL); Platelet Morphology Comment NOTED
[2023-02-25 17:38] LABS: Schistocytes 2+ (3-5) /OIF
[2023-02-26 02:07] LABS: Carbon Dioxide 21 mmol/L (22-29)
[2023-02-26 04:52] LABS: Anion Gap 17 (12-20)
== END 2023-02-25 15:01 | disposition home or self-care (01) ==
LOC: HO.HVNA 15:00
PROVIDERS: Visit Provider Internal Medicine Medical Oncology
DX: D64.9 Anemia, unspecified (principal); D72.829 Elevated white blood cell count, unspecified
CPT/HCPCS: 36415; 80053; 85007; 85027

== ENCOUNTER 2023-03-05 13:56 | Outpatient (REF) | payer MEDICARE, SELFPAY ==
[2023-03-05 14:22] LABS: Basophils Absolute Auto 0.1 X10*3/uL (0.0-0.2); Basophils Percent Auto 0.5 % (0-2); Eosinophils Absolute Auto 0.1 X10*3/uL (0.0-0.4); Eosinophils Percent Auto 0.4 % (0-4); Hematocrit 23.8 % (42.0-52.0); Hemoglobin 7.7 g/dl (14.0-18.0); Imm Gran Pct Auto 2.2 % (0.0-0.4); Lymphocytes Absolute Auto 0.4 X10*3/uL (1.2-4.9); Lymphocytes Percent Auto 2.3 % (20-40); MANUAL DIFF FLAG SCAN; Mean Corpuscular HGB Conc 32.4 g/dl (31.0-36.0); Mean Corpuscular Hemoglobin 31.3 pg (27.0-33.0); Mean Corpuscular Volume 96.7 fL (80.0-98.0); Mean Platelet Volume 11.4 fL (9.4-12.4); Monocytes Absolute Auto 0.4 X10*3/uL (0.1-1.2); Monocytes Percent Auto 2.4 % (2-11); Neutrophils Absolute Auto 16.9 x10*3/uL (2.0-8.3); Neutrophils Percent Auto 92.2 % (45-73); Platelet Count 142 X10*3/uL (160-400); Red Blood Count 2.46 X10*6/uL (4.60-5.80); Red Cell Distribution Width 21.4 % (11.0-16.0); SCAN SMEAR FLAG 1; White Blood Count 18.3 X10*3/uL (4.8-10.8)
[2023-03-05 14:46] LABS: SLIDE REVIEW VERIFIED
[2023-03-05 17:28] LABS: Alanine Aminotransferase 41 U/L (0-40); Albumin Level 3.3 g/dL (3.5-5.0); Alkaline Phosphatase 176 U/L (39-117); Anion Gap 16 (12-20); Aspartate Amino Transferase 28 U/L (5-37); Bilirubin Total 0.4 mg/dL (0.0-1.0); Blood Urea Nitrogen 72 mg/dL (9-16); Calcium 8.5 mg/dL (8.4-10.2); Carbon Dioxide 16 mmol/L (22-29); Chloride 112 mmol/L (96-108); Estimated Glomerular Filt Rate 20; Glucose Random 57 mg/dL (60-115); Potassium 5.1 mmol/L (3.3-5.1); Sodium 139 mmol/L (135-145); Total Protein 6.8 g/dL (6.5-8.0)
== END 2023-03-05 13:57 | disposition home or self-care (01) ==
LOC: HO.HVNA 13:56
PROVIDERS: Visit Provider Internal Medicine Medical Oncology
DX: D72.829 Elevated white blood cell count, unspecified (principal); D64.9 Anemia, unspecified
CPT/HCPCS: 36415; 80053; 85025

== ENCOUNTER 2023-03-12 11:56 | Outpatient (REF) | payer MEDICARE, SELFPAY ==
[2023-03-12 12:24] LABS: Basophils Percent Auto 0.4 % (0-2); Eosinophils Absolute Auto 0.1 X10*3/uL (0.0-0.4); Eosinophils Percent Auto 0.6 % (0-4); Hemoglobin 8.5 g/dl (14.0-18.0); Imm Gran Abs Auto 0.15 X10*3/uL (0.00-0.03); Imm Gran Pct Auto 1.7 % (0.0-0.4); Lymphocytes Absolute Auto 0.4 X10*3/uL (1.2-4.9); Lymphocytes Percent Auto 3.9 % (20-40); MANUAL DIFF FLAG SCAN; Mean Corpuscular HGB Conc 31.5 g/dl (31.0-36.0); Mean Corpuscular Hemoglobin 31.5 pg (27.0-33.0); Mean Platelet Volume 9.5 fL (9.4-12.4); Monocytes Absolute Auto 0.3 X10*3/uL (0.1-1.2); Monocytes Percent Auto 3.1 % (2-11); Neutrophils Absolute Auto 8.2 x10*3/uL (2.0-8.3); Neutrophils Percent Auto 90.3 % (45-73); Platelet Count 129 X10*3/uL (160-400); Red Cell Distribution Width 20.2 % (11.0-16.0); SCAN SMEAR FLAG 1; White Blood Count 9.1 X10*3/uL (4.8-10.8)
[2023-03-12 12:46] LABS: SLIDE REVIEW VERIFIED
[2023-03-12 12:48] LABS: Alanine Aminotransferase 37 U/L (0-40); Albumin Level 3.5 g/dL (3.5-5.0); Alkaline Phosphatase 154 U/L (39-117); Anion Gap 11 (12-20); Aspartate Amino Transferase 25 U/L (5-37); Bilirubin Total 0.4 mg/dL (0.0-1.0); Blood Urea Nitrogen 53 mg/dL (9-16); Calcium 8.6 mg/dL (8.4-10.2); Carbon Dioxide 20 mmol/L (22-29); Chloride 115 mmol/L (96-108); Estimated Glomerular Filt Rate 26; Glucose Random 83 mg/dL (60-115); Sodium 141 mmol/L (135-145); Total Protein 7.4 g/dL (6.5-8.0)
== END 2023-03-12 11:57 | disposition home or self-care (01) ==
LOC: HO.HVNA 11:56
PROVIDERS: Visit Provider Internal Medicine Medical Oncology
DX: D64.9 Anemia, unspecified (principal); D72.829 Elevated white blood cell count, unspecified
CPT/HCPCS: 36415; 80053; 85025

== ENCOUNTER 2023-03-19 17:34 | Outpatient (REF) | payer MEDICARE, SELFPAY ==
[2023-03-19 17:42] LABS: Basophils Percent Auto 0.5 % (0-2); Imm Gran Abs Auto 0.07 X10*3/uL (0.00-0.03); Imm Gran Pct Auto 1.7 % (0.0-0.4); MANUAL DIFF FLAG SCAN; Mean Corpuscular Volume 99.5 fL (80.0-98.0); PLT CLUMP 1; SCAN SMEAR FLAG 1
[2023-03-19 17:44] LABS: Lymphocytes Absolute Auto 0.3 X10*3/uL (1.2-4.9); Lymphocytes Percent Auto 6.5 % (20-40); Mean Corpuscular HGB Conc 31.5 g/dl (31.0-36.0); Mean Corpuscular Hemoglobin 31.3 pg (27.0-33.0); Mean Platelet Volume 9.7 fL (9.4-12.4); Monocytes Absolute Auto 0.2 X10*3/uL (0.1-1.2); Monocytes Percent Auto 5.8 % (2-11); Neutrophils Absolute Auto 3.5 x10*3/uL (2.0-8.3); Neutrophils Percent Auto 84.5 % (45-73); Red Blood Count 2.01 X10*6/uL (4.60-5.80); Red Cell Distribution Width 20.6 % (11.0-16.0)
[2023-03-19 18:01] LABS: Alanine Aminotransferase 20 U/L (0-40); Albumin Level 3.1 g/dL (3.5-5.0); Alkaline Phosphatase 115 U/L (39-117); Anion Gap 10 (12-20); Aspartate Amino Transferase 17 U/L (5-37); Bilirubin Total 0.3 mg/dL (0.0-1.0); Blood Urea Nitrogen 63 mg/dL (9-16); Calcium 8.6 mg/dL (8.4-10.2); Carbon Dioxide 22 mmol/L (22-29); Chloride 113 mmol/L (96-108); Estimated Glomerular Filt Rate 23; Glucose Random 129 mg/dL (60-115); Potassium 4.8 mmol/L (3.3-5.1); Sodium 140 mmol/L (135-145); Total Protein 6.6 g/dL (6.5-8.0)
[2023-03-19 18:17] LABS: Hemoglobin 6.3 g/dl (14.0-18.0); Platelet Count 82 X10*3/uL (160-400); White Blood Count 4.2 X10*3/uL (4.8-10.8)
[2023-03-19 18:18] LABS: SLIDE REVIEW VERIFIED
== END 2023-03-19 17:35 | disposition home or self-care (01) ==
LOC: HO.HVNA 17:34
PROVIDERS: Visit Provider Internal Medicine Medical Oncology
DX: D64.9 Anemia, unspecified (principal); D72.829 Elevated white blood cell count, unspecified
CPT/HCPCS: 36415; 80053; 85025

== ENCOUNTER 2023-03-26 15:02 | Outpatient (REF) | payer MEDICARE, SELFPAY ==
[2023-03-26 15:06] LABS: MANUAL DIFF FLAG NO
[2023-03-26 15:13] LABS: Basophils Percent Auto 0.3 % (0-2); Eosinophils Percent Auto 0.7 % (0-4); Hematocrit 25.8 % (42.0-52.0); Hemoglobin 8.2 g/dl (14.0-18.0); Imm Gran Abs Auto 0.05 X10*3/uL (0.00-0.03); Imm Gran Pct Auto 0.8 % (0.0-0.4); Lymphocytes Absolute Auto 0.4 X10*3/uL (1.2-4.9); Lymphocytes Percent Auto 5.8 % (20-40); Mean Corpuscular HGB Conc 31.8 g/dl (31.0-36.0); Mean Corpuscular Hemoglobin 31.7 pg (27.0-33.0); Mean Corpuscular Volume 99.6 fL (80.0-98.0); Mean Platelet Volume 9.4 fL (9.4-12.4); Monocytes Absolute Auto 0.5 X10*3/uL (0.1-1.2); Monocytes Percent Auto 7.4 % (2-11); Neutrophils Absolute Auto 5.1 x10*3/uL (2.0-8.3); Red Blood Count 2.59 X10*6/uL (4.60-5.80); Red Cell Distribution Width 19.7 % (11.0-16.0); White Blood Count 6.1 X10*3/uL (4.8-10.8)
[2023-03-26 15:16] LABS: Platelet Count 43 X10*3/uL (160-400)
[2023-03-26 17:23] LABS: Alanine Aminotransferase 33 U/L (0-40); Albumin Level 3.2 g/dL (3.5-5.0); Alkaline Phosphatase 122 U/L (39-117); Anion Gap 11 (12-20); Aspartate Amino Transferase 23 U/L (5-37); Bilirubin Total 0.3 mg/dL (0.0-1.0); Blood Urea Nitrogen 55 mg/dL (9-16); Calcium 8.6 mg/dL (8.4-10.2); Carbon Dioxide 24 mmol/L (22-29); Chloride 112 mmol/L (96-108); Estimated Glomerular Filt Rate 25; Glucose Random 153 mg/dL (60-115); Potassium 4.6 mmol/L (3.3-5.1); Sodium 142 mmol/L (135-145); Total Protein 6.8 g/dL (6.5-8.0)
== END 2023-03-26 15:03 | disposition home or self-care (01) ==
LOC: HO.HVNA 15:02
PROVIDERS: Visit Provider Internal Medicine Medical Oncology
DX: D64.9 Anemia, unspecified (principal); D72.829 Elevated white blood cell count, unspecified
CPT/HCPCS: 80053; 85025

== ENCOUNTER 2023-03-31 09:32 | Outpatient (AMB) | payer MEDICARE, SELFPAY ==
[2023-03-31 09:39] VITALS: BP 94/40; PULSE 62; O2SAT 100; BMI 19.4
--- NOTE | 2023-03-31 09:39 | MHC.OFFVIS ---
Intake Vital Signs 03/31/23 09:39 Height 6 ft 1 in Weight 147 lb BMI 19.4 BP 94/40 L Blood Pressure Location Lt brachial Position Sitting Pulse 62 Pulse Source Pulse Oximeter Pulse Oximetry (%) 100 Oxygen Delivery Method Nasal Cannula Oxygen Flow Rate 3 Intake Visit Reasons: amparo Intake Note: pt is here for follow up and states he is now on oxygen and he is seeing Dr. 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 IN DECEMBER OF THIS YEAR HE WAS ADMITTED TO [facility], WITH ANEMIA AND ACUTE KIDNEY INJURY. HE HAS BEEN DIAGNOSED TO HAVE MYELOBLASTIC OR MYELOPROLIFERATIVE DISORDER, AND HAS REQUIRED BLOOD TRANSFUSIONS A FEW TIMES. LATEST HEMOGLOBINON 03/26 IS 8.2, PL COUNT = 43 K. AT THE RG OF DISCHARGE FROM THE HOSPITAL HE WAS SENT HOME ON OXYGEN. PREVIOUSLY HE HAS BEEN DECLINING TO USE THE OXYGEN. PULMONARY [place] HE IS KNOWN TO HAVE PULMONARY EMPHYSEMA WELL MILD PULMONARY FIBROSIS, HE DOES NOT NEED TO USE ANY BRONCHODILATORS, OR STEROIDS, NOW HE IS USING O2 2 L/MINUTE MOST OF THE TIME DURING THE DAY, BUT NOT AT NIGHT. [facility] Medical History Anemia CKD (chronic kidney disease) stage 3, GFR 30-59 ml/min Exercise hypoxemia Hearing difficulty of both ears HTN (hypertension) Pulmonary emphysema determined by X-ray Pulmonary fibrosis Tubular adenoma of colon Surgical History History of rectal surgery Hx of cholecystectomy Hx of colonoscopy Family History Father No problems noted. Mother No problems noted. Social History Household Members: Spouse Housing: House Do you presently have visiting nurse or other home services: No Alcohol intake: former Patient Tobacco Use Status: Former Tobacco user service: Yes Review of Systems Const All systems reviewed & are unremarkable except as noted in HPI and below Eyes Reports no additional complaints ENT Reports hearing loss (Moderate) Card Denies chest pain, Denies irregular heart rhythm and Denies leg edema Resp Reports as per HPI GI Reports no additional complaints Reports no additional complaints Musc Reports no additional complaints Skin/Breast Reports system reviewed and no additional complaints, except as documented Neuro Reports no additional complaints Psych Reports no additional complaints Physical Exam Vital Signs: Last Vital Signs Pulse 62 03/31/23 09:39 BP 94/40 L 03/31/23 09:39 Pulse Ox 100 03/31/23 09:39 Oxygen Delivery Method Nasal Cannula 03/31/23 09:39 Oxygen Flow Rate 3 03/31/23 09:39 BMI result Body Mass Index 19.4 Const General: healthy appearing, comfortable, no acute distress, alert and awake Orientation/consciousness: patient oriented x3 HEENT Head: Yes normal to inspection Ears: hearing grossly abnormal bilaterally (Moderate degree of hearing loss) General nose exam: No nasal polyps present and No nasal discharge present Face and sinus: Yes sinuses nontender Mouth: oropharynx normal Throat: Yes posterior oropharynx normal Eyes General: appearance normal, both eyes and all related structures Neck Neck: Yes normal visual inspection, Yes no lymphadenopathy, Yes trachea midline and Yes no JVD Thyroid: Thyroid normal Chest Chest palpation & inspection: normal inspection of the chest, normal palpation of entire chest wall and no tenderness Resp Other: Percussion note is hyper- resonant, breath sounds are equal on both sides. No definite crepitations or wheezes are heard. Cardio Palpation: normal PMI Rate: regular rate Rhythm: regular rhythm Heart sounds: no gallops and no murmurs GI Palpation (GI): Soft to palpation, nontender, No hepatosplenomegaly present and no masses Auscultation: normal bowel sounds Back/Spine/Pelvis Thoracic/Lumbar Spine: thoracic and lumbar spine normal to inspection Skin General skin exam: no rashes or lesions noted Neuro General: patient oriented x3 and no focal motor deficits Cranial nerves: Yes CN's II-XII intact bilaterally Extrem General: Yes normal to inspection, Yes no clubbing, cyanosis or edema and Yes no calf tenderness Psych Appearance: grossly normal and well kempt Speech and movement: Normal speech and movement present Results Reviewed Results Reviewed: chest xray on 12/25 Imp. Diffuse interstitial lung disease bilaterally with question superimposed acute process not excluded. ? Assessment & Plan Assessment & Plan (1) Pulmonary emphysema determined by X-ray: Comment: last PFT. on 04/02/22 DID NOT SHOW ANY SIGNIFICANT OBSTRUCTIVE DISORDER . DLCO WAS QUITE LOW , SEC TO PULM . EMPHYSEMA, AND FIBROSIS . PATIENT HAS NOT REQUIRED TO USE ANY BRONCHODILATOR AGENTS . Code(s): J43.9 - Emphysema, unspecified (2) Pulmonary fibrosis: Comment: REPEAT CT SCAN SHOWED SIGNIFICANT DEGREE OF FIBROTIC AND CYSTIC CHANGES THROUGHOUT THE LUNGS . HE REMAINS RELATIVELY ASYMPTOMATIC. THIS WOULD NEED TO BE MONITORED CLOSELY. Code(s): J84.10 - Pulmonary fibrosis, unspecified (3) Hypoxia: Comment: PATIENT HAS HAD EXERCISE INDUCED HYPOXEMIA BEFORE, BUT DURING HIS HOSPITALIZATION IN DECEMBER, HE WAS FOUND TO HAVE LOW O2 SATS EVEN AT REST. PREVIOUSLY HE DECLINED TO USE PORTABLE OXYGEN. BUT SINCE THIS LAST DISCHARGE FROM THE HOSPITAL HE DOES HAVE O2 CONCENTRATOR AT HOME WELL PORTABLE CYLINDERS. HE DOES USE O2 2 L/MINUTE DURING THE DAYTIME BUT GOES OFF O2 FOR SHORT INTERVALS. HE IS NOT USING IT AT NIGHT. I RECOMMENDED THAT HE SHOULD USE O2 2 L/MINUTE MOST OF THE TIME ESPECIALLY WHEN GOING OUTDOORS. HE SHOULD ALSO USE O2 AT NIGHT 2 L/MINUTE. ON THE WHOLE HE SHOULD USE OXYGEN FOR 16-18 OURS EVERY EVERY DAY. I EXPLAINED TO HIM THAT NOW THAT HE IS MORE ANEMIC, HIS OXYGEN REQUIREMENT HAS INCREASED. BOTH THE PATIENT AND HIS UNDERSTAND VERY WELL. Code(s): R09.02 - Hypoxemia Coding Level of Care Code Est Pt Level 4 (89646) Diagnoses Pulmonary emphysema determined by X-ray J43.9 Pulmonary fibrosis J84.10 Hypoxia R09.02
== END 2023-03-31 10:03 | disposition home or self-care (01) ==
PROVIDERS: PCP Internal Medicine Medical Oncology; Visit Provider Internal Medicine
DX: J43.9 Emphysema, unspecified (principal); J84.10 Pulmonary fibrosis, unspecified; R09.02 Hypoxemia
CPT/HCPCS: 99214

== ENCOUNTER → 2023-03-31 09:32 | Outpatient (BNVA) | payer MEDICARE, SELFPAY | PROVIDERS: PCP Internal Medicine Medical Oncology; Visit Provider Internal Medicine | DX: J43.9 Emphysema, unspecified (principal); J84.10 Pulmonary fibrosis, unspecified; R09.02 Hypoxemia | CPT/HCPCS: 99212 ==

== ENCOUNTER 2023-04-02 17:59 | Outpatient (REF) | payer MEDICARE, SELFPAY ==
[2023-04-02 18:04] LABS: MANUAL DIFF FLAG NO
[2023-04-02 18:24] LABS: Alanine Aminotransferase 35 U/L (0-40); Albumin Level 3.2 g/dL (3.5-5.0); Alkaline Phosphatase 114 U/L (39-117); Anion Gap 9 (12-20); Aspartate Amino Transferase 23 U/L (5-37); Bilirubin Total 0.3 mg/dL (0.0-1.0); Blood Urea Nitrogen 52 mg/dL (9-16); Calcium 8.8 mg/dL (8.4-10.2); Carbon Dioxide 25 mmol/L (22-29); Chloride 112 mmol/L (96-108); Estimated Glomerular Filt Rate 27; Glucose Random 119 mg/dL (60-115); Potassium 4.5 mmol/L (3.3-5.1); Sodium 141 mmol/L (135-145); Total Protein 6.8 g/dL (6.5-8.0)
[2023-04-02 18:44] LABS: Basophils Percent Auto 0.3 % (0-2); Eosinophils Absolute Auto 0.1 X10*3/uL (0.0-0.4); Eosinophils Percent Auto 0.6 % (0-4); Hematocrit 24.8 % (42.0-52.0); Imm Gran Abs Auto 0.08 X10*3/uL (0.00-0.03); Lymphocytes Absolute Auto 0.4 X10*3/uL (1.2-4.9); Lymphocytes Percent Auto 5.3 % (20-40); Mean Corpuscular HGB Conc 32.3 g/dl (31.0-36.0); Mean Corpuscular Hemoglobin 32.5 pg (27.0-33.0); Mean Corpuscular Volume 100.8 fL (80.0-98.0); Mean Platelet Volume 12.1 fL (9.4-12.4); Monocytes Absolute Auto 0.5 X10*3/uL (0.1-1.2); Monocytes Percent Auto 6.9 % (2-11); Neutrophils Absolute Auto 6.8 x10*3/uL (2.0-8.3); Neutrophils Percent Auto 85.9 % (45-73); Platelet Count 88 X10*3/uL (160-400); Red Blood Count 2.46 X10*6/uL (4.60-5.80); Red Cell Distribution Width 21.3 % (11.0-16.0); White Blood Count 7.9 X10*3/uL (4.8-10.8)
== END 2023-04-02 18:00 | disposition home or self-care (01) ==
LOC: HO.HVNA 17:59
PROVIDERS: Visit Provider Internal Medicine Medical Oncology
DX: D72.829 Elevated white blood cell count, unspecified (principal); D64.9 Anemia, unspecified
CPT/HCPCS: 36415; 80053; 85025

== ENCOUNTER 2023-04-07 13:53 | Outpatient (REF) | payer MEDICARE, SELFPAY ==
[2023-04-07 13:56] LABS: MANUAL DIFF FLAG NO
[2023-04-07 14:02] LABS: Basophils Percent Auto 0.3 % (0-2); Eosinophils Percent Auto 0.4 % (0-4); Hematocrit 26.1 % (42.0-52.0); Hemoglobin 8.2 g/dl (14.0-18.0); Imm Gran Pct Auto 1.8 % (0.0-0.4); Lymphocytes Absolute Auto 0.4 X10*3/uL (1.2-4.9); Lymphocytes Percent Auto 3.7 % (20-40); Mean Corpuscular HGB Conc 31.4 g/dl (31.0-36.0); Mean Corpuscular Hemoglobin 32.5 pg (27.0-33.0); Mean Corpuscular Volume 103.6 fL (80.0-98.0); Mean Platelet Volume 10.4 fL (9.4-12.4); Monocytes Absolute Auto 0.7 X10*3/uL (0.1-1.2); Monocytes Percent Auto 6.6 % (2-11); Neutrophils Absolute Auto 9.6 x10*3/uL (2.0-8.3); Neutrophils Percent Auto 87.2 % (45-73); Platelet Count 150 X10*3/uL (160-400); Red Blood Count 2.52 X10*6/uL (4.60-5.80); Red Cell Distribution Width 23.9 % (11.0-16.0); White Blood Count 11.1 X10*3/uL (4.8-10.8)
[2023-04-07 14:52] LABS: Alanine Aminotransferase 52 U/L (0-40); Albumin Level 3.5 g/dL (3.5-5.0); Alkaline Phosphatase 131 U/L (39-117); Anion Gap 11 (12-20); Aspartate Amino Transferase 38 U/L (5-37); Bilirubin Total 0.4 mg/dL (0.0-1.0); Blood Urea Nitrogen 47 mg/dL (9-16); Calcium 9.1 mg/dL (8.4-10.2); Carbon Dioxide 26 mmol/L (22-29); Chloride 112 mmol/L (96-108); Estimated Glomerular Filt Rate 26; Glucose Random 51 mg/dL (60-115); Potassium 4.8 mmol/L (3.3-5.1); Sodium 144 mmol/L (135-145); Total Protein 7.3 g/dL (6.5-8.0)
== END 2023-04-07 13:54 | disposition home or self-care (01) ==
LOC: HO.HVNA 13:53
PROVIDERS: Visit Provider Internal Medicine Medical Oncology
DX: D72.829 Elevated white blood cell count, unspecified (principal); D64.9 Anemia, unspecified
CPT/HCPCS: 36415; 80053; 85025

== ENCOUNTER 2023-04-16 11:28 | Outpatient (REF) | payer MEDICARE, SELFPAY ==
[2023-04-16 11:33] LABS: MANUAL DIFF FLAG NO
[2023-04-16 11:37] LABS: Basophils Absolute Auto 0.1 X10*3/uL (0.0-0.2); Basophils Percent Auto 0.6 % (0-2); Eosinophils Absolute Auto 0.1 X10*3/uL (0.0-0.4); Eosinophils Percent Auto 0.5 % (0-4); Hemoglobin 7.9 g/dl (14.0-18.0); Imm Gran Abs Auto 0.25 X10*3/uL (0.00-0.03); Lymphocytes Absolute Auto 0.4 X10*3/uL (1.2-4.9); Lymphocytes Percent Auto 3.5 % (20-40); Mean Corpuscular HGB Conc 31.6 g/dl (31.0-36.0); Mean Corpuscular Hemoglobin 33.8 pg (27.0-33.0); Mean Corpuscular Volume 106.8 fL (80.0-98.0); Mean Platelet Volume 10.6 fL (9.4-12.4); Monocytes Absolute Auto 0.8 X10*3/uL (0.1-1.2); Monocytes Percent Auto 6.6 % (2-11); Neutrophils Absolute Auto 10.8 x10*3/uL (2.0-8.3); Neutrophils Percent Auto 86.8 % (45-73); Platelet Count 178 X10*3/uL (160-400); Red Blood Count 2.34 X10*6/uL (4.60-5.80); White Blood Count 12.5 X10*3/uL (4.8-10.8)
[2023-04-16 13:53] LABS: Alanine Aminotransferase 50 U/L (0-40); Albumin Level 3.2 g/dL (3.5-5.0); Alkaline Phosphatase 137 U/L (39-117); Anion Gap 12 (12-20); Aspartate Amino Transferase 39 U/L (5-37); Bilirubin Total 0.4 mg/dL (0.0-1.0); Blood Urea Nitrogen 54 mg/dL (9-16); Calcium 8.7 mg/dL (8.4-10.2); Carbon Dioxide 22 mmol/L (22-29); Chloride 114 mmol/L (96-108); Estimated Glomerular Filt Rate 24; Glucose Random 125 mg/dL (60-115); Potassium 4.7 mmol/L (3.3-5.1); Sodium 143 mmol/L (135-145); Total Protein 7.1 g/dL (6.5-8.0)
== END 2023-04-16 11:29 | disposition home or self-care (01) ==
LOC: HO.HVNA 11:28
PROVIDERS: Visit Provider Internal Medicine Medical Oncology
DX: J84.10 Pulmonary fibrosis, unspecified (principal); J96.01 Acute respiratory failure with hypoxia; D46.9 Myelodysplastic syndrome, unspecified
CPT/HCPCS: 36415; 80053; 85025

== ENCOUNTER → 2023-04-28 11:21 | Outpatient (AMB) | payer MEDICARE, SELFPAY ==
--- NOTE | 2023-04-28 11:30 | A.OFFVIS_ITS ---
Intake Vital Signs 04/28/23 11:31 Height 6 ft 1 in Weight 150 lb BMI 19.8 BP 123/74 Blood Pressure Location Lt brachial Position Sitting Pulse 74 Intake Visit Reasons: Dysphagia Intake Note: Patient follow up for dysphagia. Patient cc: chronic constipation and dysphagia on and off. Denies any other GI issues. Blue Print Control Clerk Required: No Accompanied by: Spouse Allergies hydrochlorothiazide Adverse Reaction (Intermediate, Verified 04/28/23 11:27) ITCH Medication List - Last Reconciled 04/28/23 by Ese Campbell PA-C atorvastatin 20 mg PO DAILY bisacodyl (Dulcolax (bisacodyl)) 10 mg KS DAILY PRN calcium carbonate-vitamin D3 600 mg-5 mcg (200 unit) 1 tab PO DAILY cyanocobalamin (vitamin B-12) 1,000 mcg PO DAILY docusate sodium (Colace) 200 mg (2 x 100 mg) PO DAILY polyethylene glycol 3350 (Miralax) 17 grams PO DAILY tacrolimus 0.1% 1 appl topical DAILY vit C,M-Hh-dwamu-lutein-zeaxan 250-90-40-1 mg (PreserVision AREDS-2) 1 tab PO BID HPI HPI Comments History of Present Illness Details 78-year-old fragile appearing male histo ry of last colonoscopy 2020 tubular adenomas, referred with intermittent dysphagia and constipation-under the care of Dr. Handley- He is accompanied by his His says that he refuses to take bowel regimen he says typically he uses his finger to start stool-- refuses fiber/ laxative or stool softeners- per pt and Stool seems to be right at the anus- He is being referred to [facility]- for bone marrow ca- 05/20/23- He had chemo last week - -following with Dr. Handley- he will return on 05/19 for next infusion- Just restarted hydroxyurea 500 mg He has intermittent dysphagia- he has difficulty with certain pills- however drinks water and takes them slowly- Ensure recommended by pcp He is able to manage cereal, OJ and toast INDINGS: Digital rectal exam revealed prostate to be normal. There was decreased tone. Video colonoscope was introduced without difficulty. It was clear that the prep was fair to poor in some areas. Over 600 mL of sterile water was flushed to clear residual turbid fluid. Polyps identified were right-sided, diverticula present on the left side. Anorectal verge was clear. There were 1+ internal hemorrhoids. Initial specim en of the proximal transverse colon. In the ascending colon, there were 2 areas of polyps, one of which was really flat and after isolation, ended up not raised enough to be removed by either cold or hot snare technique. This was removed excisionally. The area was excised and the area was marked with endo florence tattooing ink for a future review with a flat polyp in complex technique and marginal prep. PLAN: Pt will need to be looked at anywhere from 12 to 36 months prior to this is dictated by the histology of the polyps. Name: Alban Little Age/Sex: 75/M Attending: Anna Puente MD : 1945 Submitted by: Anna Puente MD Copies to: MR #: [id number] Status: [facility] Collected: 09/04/20 Location: [facility] Received: 09/04/20 Diagnosis A. Colon, proximal transverse, polypectomy: Tubular adenoma; no high grade dysplasia or carcinoma seen. B. Colon, ascending, polypectomies: Fragments of tubular adenomas; no high-grade dysplasia or carcinoma seen. Clinical History Pre-Op Dx: Hx of colon CA Post-Op Dx: Colon polyps, diverticulosis, 1+ internal hemorrhoids Microscopic Description A, B. Microscopic sections reviewed. Material Received A. Proximal transverse colon polyp B. Ascending colon polyps Gross Description Received in two parts. Part A: Received in formalin labeled Proximal transverse colon polyp are two glistening, semitranslucent, soft, paris-pink, irregular tissue fragments, each measuring 0.3 cm. in greatest dimension, which are submitted in toto in a single cassette labeled A. Part B: Received in formalin labeled Ascending colon polyps are several glistening, semitranslucent, soft, hyperemic and congested, focally hemorrhagic, paris and paris-pink, irregular tissue fragments, ranging from minute to 0.25 cm. in greatest dimension, which are submitted in toto in a single cassette labeled B. CEDS NOTE: Some or all of the immunohistochemical tests reported herein may have been developed and their performance characteristics determined by [facility]. They have not been cleared or approved by the U.S. Food and Drug Administration (FDA). However, the FDA has determined that such clearance or approval is not necessary. This laboratory is certified under the Clinical Laboratory Improvement Amendments of 1988 (CLIA) as qualified to perform high complexity clinical laboratory testing. Electronically Signed By: Tulio Horowitz MD 09/05/20 [id number] Patient: Alban Little Age/Sex: 75/M MR#: [id number] Page 1 of 1 [facility]LY [facility], [facility] Medical History Anemia CKD (chronic kidney disease) stage 3, GFR 30-59 ml/min Exercise hypoxemia Hearing difficulty of both ears HTN (hypertension) Pulmonary emphysema determined by X-ray Pulmonary fibrosis Tubular adenoma of colon Surgical History Hx of cholecystectomy History of rectal surgery Hx of colonoscopy Family History Father No problems noted. Mother No problems noted. Social History Household Members: Spouse Housing: House Do you presently have visiting nurse or other home services: No Alcohol intake: former Patient Tobacco Use Status: Former Tobacco user service: Yes Physical Exam Vital Signs: Last Vital Signs Pulse 74 04/28/23 11:31 BP 123/74 04/28/23 11:31 BMI result Body Mass Index 19.8 Const Other: O2 @ 2L- via N/C General: cooperative, comfortable, no acute distress and ill appearing Nutritional Appearance: thin Orientation/consciousness: patient oriented x3 Eyes Sclerae: sclerae normal Resp Other: O2 at 2 L via nasal cannula Effort & Inspection: normal respiratory effort and able to speak in complete sentences Auscultation: clear to auscultation bilaterally, no rhonchi and no wheezes Cardio Rate: regular rate Rhythm: regular rhythm GI Palpation (GI): Soft to palpation and nontender Auscultation: normal bowel sounds Neuro General: patient oriented x3 Extrem General: Yes full ROM Psych Appearance: well kempt Speech and movement: Clear speech present Affect: Labile affect present Attitude: cooperative Thought process: Circumstantial thought process present Results Reviewed Results Reviewed: [address] [address] Procedure Note Signed Patient: Alban Little MR#: [id number] : 1945 Acct:[id number] Age/Sex: 75 / M ADM Date: 09/04/20 Loc: [facility] Attending Dr: Anna Puente MD cc: ~ Brief Operative Note Date of procedure: 09/04/20 Pre-op diagnosis: hx tubular adenomas Post-op diagnosis: other (Colon polyps, Diverticulosis, Internal hemorrhoids.) Procedure: Colonoscopy with excisional polypectomies (3) Anesthesia: MAC (MD Ting) Surgeon: Anna Puente Estimated blood loss (mL): 10 Pathology: other (Prox transverse colon, area hepatic flex/asc colon-2 locations--region of tatoo and adj fold polyp) Condition: stable Disposition: PACU FL/FL barium swallow IMPRESSION: Presbyesophagus distal esophagus. There is significant delay in the transition of barium resulting in pooling of barium in the upper and mid esophagus. Assessment & Plan Assessment & Plan (1) Hypoxia: Comment: Reviewed- PATIENT HAS HAD EXERCISE INDUCED HYPOXEMIA BEFORE, BUT DURING HIS HOSPITALIZATION IN DECEMBER, HE WAS FOUND TO HAVE LOW O2 SATS EVEN AT REST. PREVIOUSLY HE DECLINED TO USE PORTABLE OXYGEN. BUT SINCE THIS LAST DISCHARGE FROM THE HOSPITAL HE DOES HAVE O2 CONCENTRATOR AT HOME WELL PORTABLE CYLINDERS. HE DOES USE O2 2 L/MINUTE DURING THE DAYTIME BUT GOES OFF O2 FOR SHORT INTERVALS. HE IS NOT USING IT AT NIGHT. I RECOMMENDED THAT HE SHOULD USE O2 2 L/MINUTE MOST OF THE TIME ESPECIALLY WHEN GOING OUTDOORS. HE SHOULD ALSO USE O2 AT NIGHT 2 L/MINUTE. ON THE WHOLE HE SHOULD USE OXYGEN FOR 16-18 OURS EVERY EVERY Code(s): R09.02 - Hypoxemia (2) Tubular adenoma of colon: Comment: history colon adenomas, last colonoscopy 2020 -due for repeat Code(s): D12.6 - Benign neoplasm of colon, unspecified (3) History of rectal cancer: Comment: Reviewed note from 01/05/2007-rectal adenocarcinoma However does not recall Code(s): Z85.048 - Personal history of other malignant neoplasm of rectum, rectosigmoid junction, and anus Plan: Reviewed history, GI history unclear Plan Discussed plan of care further with MD given health/respiratory status Medications: New docusate sodium (Colace) 200 mg (2 x 100 mg) PO DAILY 60 caps 5RF bisacodyl (Dulcolax (bisacodyl)) 10 mg KS DAILY PRN 20 ea 2RF constipation polyethylene glycol 3350 (Miralax) 17 grams PO DAILY 510 grams 2RF Patient Instructions: 78-year-old frail-appearing male referred with dysphagia-he is able to manage daily medications- Reinforced importance Eat slowly, chew well, it agrees to be present when he eats Advised against self disimpaction-recommend consistent stool regimen- Stool softener, MiraLax Will discuss w/ MD supportive and agrees with the plan- prefers calls- multiple appts/ also going to [facility]- Encourage to call questions r concern Coding Level of Care Code Est Pt Level 4 (71242) Diagnoses Hypoxia R09.02 Tubular adenoma of colon D12.6 History of rectal cancer Z85.048 Time Spent (min) 40
[2023-04-28 11:31] VITALS: BP 123/74; PULSE 74; BMI 19.8
== END ==
PROVIDERS: PCP Internal Medicine Medical Oncology; Visit Provider Physician Assistant
DX: R09.02 Hypoxemia (principal); D12.6 Benign neoplasm of colon, unspecified; Z85.048 Personal history of other malignant neoplasm of rectum, rectosigmoid junction, and anus
CPT/HCPCS: 99214

== ENCOUNTER → 2023-04-28 11:21 | Outpatient (BNVA) | payer MEDICARE, SELFPAY | PROVIDERS: PCP Internal Medicine Medical Oncology; Visit Provider Physician Assistant | DX: R09.02 Hypoxemia (principal); Z85.048 Personal history of other malignant neoplasm of rectum, rectosigmoid junction, and anus; Z86.010 Personal history of colon polyps | CPT/HCPCS: 99212 ==

== ENCOUNTER 2023-04-29 17:02 | Outpatient (REF) | payer MEDICARE, SELFPAY ==
[2023-04-29 17:24] LABS: Basophils Percent Auto 1.1 % (0-2); Eosinophils Percent Auto 2.1 % (0-4); Hematocrit 21.1 % (42.0-52.0); Imm Gran Abs Auto 0.07 X10*3/uL (0.00-0.03); Imm Gran Pct Auto 3.7 % (0.0-0.4); Lymphocytes Absolute Auto 0.2 X10*3/uL (1.2-4.9); Lymphocytes Percent Auto 11.2 % (20-40); MANUAL DIFF FLAG SCAN; Mean Corpuscular HGB Conc 31.8 g/dl (31.0-36.0); Mean Corpuscular Hemoglobin 34.5 pg (27.0-33.0); Mean Corpuscular Volume 108.8 fL (80.0-98.0); Mean Platelet Volume 11.4 fL (9.4-12.4); Monocytes Absolute Auto 0.1 X10*3/uL (0.1-1.2); Monocytes Percent Auto 3.2 % (2-11); Neutrophils Absolute Auto 1.5 x10*3/uL (2.0-8.3); Neutrophils Percent Auto 78.7 % (45-73); Platelet Count 103 X10*3/uL (160-400); Red Blood Count 1.94 X10*6/uL (4.60-5.80); Red Cell Distribution Width 26.1 % (11.0-16.0); SCAN SMEAR FLAG 1
[2023-04-29 17:33] LABS: White Blood Count 1.9 X10*3/uL (4.8-10.8)
[2023-04-29 17:34] LABS: Hemoglobin 6.7 g/dl (14.0-18.0)
[2023-04-29 17:42] LABS: SLIDE REVIEW VERIFIED
[2023-04-29 18:30] LABS: Alanine Aminotransferase 26 U/L (0-40); Albumin Level 3.3 g/dL (3.5-5.0); Alkaline Phosphatase 126 U/L (39-117); Anion Gap 13 (12-20); Aspartate Amino Transferase 27 U/L (5-37); Bilirubin Total 0.5 mg/dL (0.0-1.0); Blood Urea Nitrogen 76 mg/dL (9-16); Calcium 9.2 mg/dL (8.4-10.2); Carbon Dioxide 18 mmol/L (22-29); Chloride 119 mmol/L (96-108); Estimated Glomerular Filt Rate 21; Glucose Random 93 mg/dL (60-115); Potassium 5.2 mmol/L (3.3-5.1); Sodium 145 mmol/L (135-145); Total Protein 7.5 g/dL (6.5-8.0)
== END 2023-04-29 17:03 | disposition home or self-care (01) ==
LOC: HO.HVNA 17:02
PROVIDERS: Visit Provider Internal Medicine Medical Oncology
DX: Z13.89 Encounter for screening for other disorder (principal)
CPT/HCPCS: 36415; 80053; 85025

== ENCOUNTER 2023-04-30 09:00 | Outpatient (RCR) | payer MEDICARE, SELFPAY ==
[2023-01-08 13:18] VITALS: BP 108/53; PULSE 65; TEMP 36.4; O2SAT 93; BMI 19.0
[2023-01-08 13:18] LABS: Baso%MD 0.1 %; Eos%MD 0.5 %; Hematocrit 26.3 % (42.0-52.0); Hemoglobin 8.4 g/dl (14.0-18.0); IG%MD 11.8 %; Lymph%MD 1.2 %; Mean Corpuscular HGB Conc 31.9 g/dl (31.0-36.0); Mean Corpuscular Hemoglobin 33.3 pg (27.0-33.0); Mean Corpuscular Volume 104.4 fL (80.0-98.0); Mean Platelet Volume 10.5 fL (9.4-12.4); Mono%MD 2.9 %; NRBC Pct Auto 0.1 /100WBC (0.0-0.2); Neut%MD 83.5 %; Platelet Count 266 X10*3/uL (160-400); Red Blood Count 2.52 X10*6/uL (4.60-5.80); Red Cell Distribution Width 28.1 % (11.0-16.0)
[2023-01-08 13:22] LABS: WBC ABN SCTR FOR CBC 1
[2023-01-08 13:24] LABS: White Blood Count 84.6 X10*3/uL (4.8-10.8)
[2023-01-08 13:39] LABS: Band Neutrophils Percent 13 % (3-5); Eosinophils Absolute Manual 0.8 X10*3/uL (0.0-0.4); Eosinophils Percent Manual 1 % (0-4); Metamyelocytes Absolute 1.7 X10*3/uL; Metamyelocytes Percent 2 %; Monocytes Absolute Manual 1.7 X10*3/uL (0.1-1.2); Monocytes Percent Manual 2 % (2-11); Neutrophils Absolute Manual 80.4 X10*3/uL (2.0-8.3); Neutrophils Percent Manual 82 % (45-73); Nucleated Red Blood Cells 1 /100WBC (0-0)
[2023-01-08 13:42] LABS: Macrocytosis 1+ (5-14) /OIF; RBC Morphology NOTED; Schistocytes 1+ (0-2) /OIF
[2023-01-08 13:43] LABS: Basophilic Stippling 1+ (0-2) /OIF; Hypochromasia 1+ (5-14) /OIF; Platelet Estimate NORMAL (NORMAL); Platelet Morphology Comment NORMAL; Spherocytes 1+ (0-2) /OIF; Target Cells 1+ (5-14) /OIF; Toxic Vacuolation PRESENT
[2023-01-08 13:53] LABS: Alanine Aminotransferase 36 U/L (0-40); Albumin Level 3.3 g/dL (3.5-5.0); Alkaline Phosphatase 265 U/L (39-117); Anion Gap 11 (12-20); Aspartate Amino Transferase 30 U/L (5-37); Bilirubin Total 0.4 mg/dL (0.0-1.0); Blood Urea Nitrogen 48 mg/dL (9-16); Carbon Dioxide 26 mmol/L (22-29); Chloride 109 mmol/L (96-108); Creatinine Clr Calc Pharmacy 27.3; Estimated Glomerular Filt Rate 32; Glucose Random 86 mg/dL (60-115); Lactate Dehydrogenase 322 U/L (118-273); Potassium 4.8 mmol/L (3.3-5.1); Sodium 141 mmol/L (135-145); Total Protein 7.3 g/dL (6.5-8.0)
--- NOTE | 2023-01-08 15:27 | PM.HEMONCPN ---
Medical Summary - Medical Summary Date of Service: 01/08/23 Chief complaint: Follow up for: Leukocytosis. Primary Care Provider: Rashaad Leach MD Medical Summary: DIAGNOSIS: LEUKOCYTOSIS. Interval History Interval history: 77-year-old gentleman was initially seen in house on 12/29 on account of leukocytosis. HPI:He was referred by PCP for abnormal labs: Lleukocytosis of 56.5, hypernatremia of 151 and creatinine 3.06. Pt AO x4 but with underlying dementia with mild cognitive impairment. He initially presented to his PCP 3 weeks ago complaining of lose, gassy stool. Was prescribed Imodium which he just recently finished. He was complaining of constipation with the need to manually disimpact himself. was also unable to clarify about pt's bowel habits. Pt denied fever, chills, nausea. Had some mild abdominal pain he associates with trying to go to the bathroom. Pt has also had recent reduction in p.o. intake of both fluids and solids. He has been eating very little the past 2-3 days, which is unlike him. Had lost 6-7 lbs in the past week. He complained of chronic SOB, especially with going up stairs. Patient also states that he occasionally feels like his heart is beating fast, especially when he is lying on the couch. Patient has a history of chronic dysphagia, had a barium swallow on 11/06/2022 that revealed: Round presbyesophagus distal esophagus with significant delay in transition of barium with resulting pooling in the upper and mid esophagus. In the ED patient was afebrile and hypotensive at 124/34, satting at 89% on RA. Labs were significant for leukocytosis of 56.5, H&H of 8.4/27.2, MCV of 107.5, absolute neutrophils of 54.8, hypernatremia of 151, chloride 118, BUN elevated at 68, creatinine 3.06, AST of 41, ALT of 50, alk-phos of 271, total creatinine kinase is 238, BNP 139. UA results neg. Coags within normal limits. CXR showed diffuse interstitial lung disease bilaterally with question of superimposed acute process not excluded. CT?of abdomen and pelvis find a cause for the patient's weight loss, negative for acute abdomen or evidence of constipation. CT did show severe COPD and fibrosis at the lung bases, with mild splenomegaly and a minimally nodular liver border. Also found extensive colonic diverticulosis without diverticulitis. EKG demonstrated sinus bradycardia of 59 week no evidence of ST elevations or depressions or significant T-wave inversions. Pt was treated with IVF and ceftriaxone. He is now here for a follow-up visit. He was sent home on home O2. He is rather frustrated with the tubes. He still feels rather tired. He does take a nap in the afternoon. Denies any fever chills or night sweats. He is rather uncomfortable at night. He sleeps on the couch. He denies pain. He has been eating 3 meals a day. His is giving him Ensure and fluids. Review of Systems Review of Systems: Diarrhea Constipation after taking Imodium x2 weeks Abdominal pain associated with straining during attempted defecation Chronic SOB with exertion Occasional palpitations Denies fever, chills, nausea, vomiting No chest pain or pressure All other systems are reviewed and are negative [facility]: Medical History: PMH significant for?unspecified dementia, emphysema, pulmonary fibrosis not on home O2, temporal arteritis, CKD stage 3, macrocytic anemia, BPH, carotid atherosclerosis on aspirin, and hx of retinal artery occlusion. Anemia Exercise hypoxemia Hearing difficulty of both ears HTN (hypertension) Pulmonary emphysema determined by X-ray Pulmonary fibrosis Tubular adenoma of colon Family History: Father Social history: He worked for [employer]. He is . He has no children of his own. He smoked but quit years ago. He used to drink heavily but quit 2 years ago. Review of Systems - Constitutional Reports no additional constitutional complaints, Reports fatigue, Reports lack of energy, Reports malaise, Reports weakness, Reports weight loss - Eyes Reports no additional eye complaints - ENT Reports no additional ear, nose, mouth, and throat complaints - Cardiovascular Reports no additional cardiovascular complaints - Respiratory Reports no additional respiratory complaints - Gastrointestinal Reports no additional gastrointestinal complaints - Genitourinary Genitourinary: Reports no additional male genitourinary complaints - Musculoskeletal Reports no additional musculoskeletal complaints - Integumentary/Breasts Skin/Breast: Reports no additional skin complaints - Neurologic Reports no additional neurologic complaints - Psychiatric Reports no additional psychiatric complaints - Endocrine Reports no additional endocrine complaints - Hematologic/Lymphatic Reports no additional hematologic/lymphatic complaints - Allergic/Immunologic Reports no additional allergic/immunologic complaints [facility] Medical History: Medical History (Last Reviewed 01/08/23 @ 13:20 by Jarod Wilson) Anemia CKD (chronic kidney disease) stage 3, GFR 30-59 ml/min Exercise hypoxemia Hearing difficulty of both ears HTN (hypertension) Pulmonary emphysema determined by X-ray Pulmonary fibrosis Tubular adenoma of colon Functional capacity: wheelchair bound Patient : No Family History: Family History (Last Reviewed 12/29/22 @ 16:09 by Cheyanne Demarco MD) Father No problems noted. Mother No problems noted. Surgical History: Surgical History (Last Reviewed 01/08/23 @ 13:20 by Jarod Wilson) History of rectal surgery Hx of cholecystectomy Hx of colonoscopy Social History: Social History (Last Updated 01/08/23 @ 13:21 by Jarod Wilson) Living Situation History: Household Members: Spouse Housing: House Do you presently have visiting nurse or other home services: No Alcohol History Details: 1. How often do you have a drink containing alcohol?: a. Never Tobacco History: Patient Tobacco Use Status: Former Tobacco user Domestic Abuse History: Have you been hit, kicked, punched, or otherwise hurt by someone within the past year? 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 Oncology Screenings - ECOG Performance Status ECOG Performance Status: 2 Home Medications and Allergies Home Medications Medication Instructions Recorded Confirmed Type cyanocobalamin (vitamin B-12) 1,000 mcg PO DAILY 05/10/20 01/08/23 History 1,000 mcg tablet vit C 250 mg-vit E 90 mg-zinc 40 1 tab PO BID 08/29/20 01/08/23 History mg-copper 1 [id number] capsule (PreserVision AREDS-2) aspirin 325 mg tablet 325 mg PO DAILY 09/26/21 01/08/23 History atorvastatin 20 mg tablet 20 mg PO DAILY 06/03/22 01/08/23 History tacrolimus 0.1 % topical ointment 1 appl topical DAILY 06/03/22 01/08/23 History calcium carbonate 600 mg-vitamin 1 tab PO DAILY 12/25/22 01/08/23 History D3 5 mcg (200 unit) tablet Allergies Allergy/AdvReac Type Severity Reaction Status Date / Time hydrochlorothiazide AdvReac Intermediate ITCH Verified 08/27/22 10:50 Exam Vital signs: Vital Signs Temp 97.5 F 01/08/23 13:18 Pulse 65 01/08/23 13:18 BP 108/53 L 01/08/23 13:18 Pulse Ox 93 01/08/23 13:18 O2 Del Method Room Air 01/08/23 13:18 Intake & Output 01/07/23 01/08/23 01/08/23 18:59 06:59 18:59 Other: Weight 65.3 kg [place] Weight in Grams 05916 Weight 65.3 kg BMI result Body Mass Index 19.0 - Constitutional Present: no acute distress - Routine HEENT Exam Head: Present: normal inspection Eye: Present: normal appearance ENT: Present: mucous membranes moist - Routine Neck Exam Present: full ROM - Routine Respiratory Exam Present: CTAB - Routine Cardiovascular Exam Cardiovascular: Present: RRR, S1, S2 - Routine Abdominal Exam Present: soft, nontender - Routine Extremities Exam Present: nontender - Routine Back/Spine/Pelvis Exam Back/Spine: Present: full ROM - Routine Skin Exam Present: intact - Routine Neurological Exam Present: alert, oriented X3 - Routine Psychiatric Exam Present: normal affect Data - Labs CBC & Chem 7: 01/08/23 13:12 01/08/23 13:12 Labs: 01/08/23 13:12 Complete Blood Count Man Dif Routine Comprehensive Met. Panel Routine LDH [Lactate Dehydrogenase] Routine Laboratory Last Values WBC 84.6 X10*3/uL (4.8-10.8) H* 01/08/23 13:12 RBC 2.52 X10*6/uL (4.60-5.80) L 01/08/23 13:12 Hgb 8.4 g/dl (14.0-18.0) L 01/08/23 13:12 Hct 26.3 % (42.0-52.0) L 01/08/23 13:12 MCV 104.4 fL (80.0-98.0) H 01/08/23 13:12 MCH 33.3 pg (27.0-33.0) H 01/08/23 13:12 MCHC 31.9 g/dl (31.0-36.0) 01/08/23 13:12 RDW 28.1 % (11.0-16.0) H 01/08/23 13:12 Plt Count 266 X10*3/uL (160-400) 01/08/23 13:12 MPV 10.5 fL (9.4-12.4) 01/08/23 13:12 Absolute Nucleated RBC 0.060 X10*3/uL (0.0-0.012) H 01/08/23 13:12 Nucleated RBC % (auto) 0.1 /100WBC (0.0-0.2) 01/08/23 13:12 Neutrophils % (Manual) 82 % (45-73) H 01/08/23 13:12 Band Neutrophils % 13 % (3-5) H 01/08/23 13:12 Monocytes % (Manual) 2 % (2-11) 01/08/23 13:12 Eosinophils % (Manual) 1 % (0-4) 01/08/23 13:12 Metamyelocytes % 2 % 01/08/23 13:12 Abs Neuts (Manual) 80.4 X10*3/uL (2.0-8.3) H 01/08/23 13:12 Monocytes # (Manual) 1.7 X10*3/uL (0.1-1.2) H 01/08/23 13:12 Eosinophils # (Manual) 0.8 X10*3/uL (0.0-0.4) H 01/08/23 13:12 Metamyelocytes # 1.7 X10*3/uL 01/08/23 13:12 Nucleated RBCs 1 /100WBC (0-0) H 01/08/23 13:12 Toxic Vacuolation PRESENT 01/08/23 13:12 Platelet Estimate NORMAL (NORMAL) 01/08/23 13:12 Plt Morphology Comment NORMAL 01/08/23 13:12 RBC Morphology NOTED 01/08/23 13:12 Hypochromasia 1+ (5-14) /OIF 01/08/23 13:12 Basophilic Stippling 1+ (0-2) /OIF 01/08/23 13:12 Macrocytosis 1+ (5-14) /OIF 01/08/23 13:12 Spherocytes 1+ (0-2) /OIF 01/08/23 13:12 Target Cells 1+ (5-14) /OIF 01/08/23 13:12 Schistocytes 1+ (0-2) /OIF 01/08/23 13:12 Sodium 141 mmol/L (135-145) 01/08/23 13:12 Potassium 4.8 mmol/L (3.3-5.1) 01/08/23 13:12 Chloride 109 mmol/L (96-108) H 01/08/23 13:12 Carbon Dioxide 26 mmol/L (22-29) 01/08/23 13:12 Anion Gap 11 (12-20) L 01/08/23 13:12 BUN 48 mg/dL (9-16) H 01/08/23 13:12 Creatinine 2.02 mg/dL (0.5-1.4) H 01/08/23 13:12 Estim Creat Clear Calc 27.3 01/08/23 13:12 Estimated GFR 32 01/08/23 13:12 Random Glucose 86 mg/dL (60-115) 01/08/23 13:12 Calcium 10.0 mg/dL (8.4-10.2) D 01/08/23 13:12 Total Bilirubin 0.4 mg/dL (0.0-1.0) 01/08/23 13:12 AST 30 U/L (5-37) 01/08/23 13:12 ALT 36 U/L (0-40) 01/08/23 13:12 Alkaline Phosphatase 265 U/L (39-117) H 01/08/23 13:12 Lactate Dehydrogenase 322 U/L (118-273) H 01/08/23 13:12 Total Protein 7.3 g/dL (6.5-8.0) 01/08/23 13:12 Albumin 3.3 g/dL (3.5-5.0) L 01/08/23 13:12 Assessment and Plan Patient Active problem list reviewed?: Yes (1) Leukocytosis Status: Acute Assessment and plan: 77 year old gentleman, was seen in house on 12/29 on account of leukocytosis. CT scan of the abdomen from 12/25: 1. A cause for the patient's weight loss has not been found. 2. Incidental note made of severe COPD and fibrosis at the lung bases,mild splenomegaly and a minimally nodular liver border. 3. Extensive colonic diverticulosis without diverticulitis. 4. Other incidental findings as described above. Noted to have leukocytosis. DIFFERENTIAL DIAGNOSIS: 1. LEUKEMOID REACTION: Related to infection. 2. A MYELOPROLIFERATIVE NEOPLASM: CML. I proceeded with further evaluation. Checked LDH: 286. Checked BCR ABL gene transcript to look for CML. This just came back and was negative. His white count has gone up further to 84. Hemoglobin is 8.4. No underlying infectious process is obvious. PLAN: I will proceed with peripheral blood for flow cytometry for further evaluation. If that is non revealing will consider a bone marrow exam for further evaluation. He has been on home oxygen. He was taken off and O2 sat was checked. It was down to 90. Will continue him on home O2 for now. He will return in a month for a follow-up. Will have visiting nurses check his blood count weekly at home. Thank you for the consult I will follow along with you, Cc: Dr. Barnett. - Time Spent With Patient Time Spent with Patient (in minutes): 30
--- NOTE | 2023-01-08 15:43 | MHC.HEMONCMA ---
patient seen today for leukocytosis, vss, labs, following up in 1 month
--- NOTE | 2023-01-13 14:07 | MHC.HEMONC ---
Telephone call received from lab, reporting glucose 36. Reported to Dr Handley. Dr Handley spoke with pts family member with instructions to feed pt, given oj, and if pt lethargic he needs to go to ED. Family states understanding
[2023-01-15] VITALS (7 sets, daily range): BP systolic 92–125; BP diastolic 51–57; PULSE 59–78; RESP 16–18; TEMP 36.2–36.8; O2SAT 92; BMI 19.1
--- NOTE | 2023-01-15 14:58 | MHC.HEMONC ---
Here for transfusion of 2 units prbc. Settled into treatment room 2. Hgb 7.5 on 01/13. IV started right forearm. States is feeling well. Is using O2 at 2L. Blood infused well with no s/s transfusion reaction. Lungs clear throughout before and after. IV removed. Ese is here, and Dr Handley in to speak with them. Departure packet given. Pt scheduled for home draw weekly, and follow up in 2 weeks.
--- NOTE | 2023-01-15 16:25 | P.PNHO-ONC_ITS ---
Medical Summary - Medical Summary Date of Service: 01/15/23 Chief complaint: Follow-up for: 1. Anemia. 2. Leukocytosis. Primary Care Provider: Rashaad Leach MD Medical Summary: DIAGNOSIS: LEUKOCYTOSIS. Abnormal SIEP. Interval History Interval history: 77-year-old gentleman here for a follow-up visit. Patient had a CBC done at home yesterday: WBC 89, HGB 7.5, HCT 23.4, PLT 221. He was advised to come in for a blood transfusion. He still feels rather tired. He has to take a nap in the afternoon. Denies any fever chills or night sweats. No headache but he is dizzy. No chest pain but has shortness of breath. He is on home oxygen. Denies abdominal pain nausea vomiting heartburn indigestion. Bowels are working without any gross blood in it. He has been eating 3 meals a day. His is giving him Ensure and fluids. He is rather uncomfortable at night. He sleeps on the couch. He denies pain. He is in good spirits. Rest of the review of systems is unremarkable. PRESENTING HISTORY: He was initially seen in house on 12/29 on account of leukocytosis. He was referred by PCP for abnormal labs: Lleukocytosis of 56.5, hypernatremia of 151 and creatinine 3.06. Pt AO x4 but with underlying dementia with mild cognitive impairment. He initially presented to his PCP 3 weeks ago complaining of lose, gassy stool. Was prescribed Imodium which he just recently finished. He was complaining of co nstipation with the need to manually disimpact himself. was also unable to clarify about pt's bowel habits. Pt denied fever, chills, nausea. Had some mild abdominal pain he associates with trying to go to the bathroom. Pt has also had recent reduction in p.o. intake of both fluids and solids. He has been eating very little the past 2-3 days, which is unlike him. Had lost 6-7 lbs in the past week. He complained of chronic SOB, especially with going up stairs. Patient also states that he occasionally feels like his heart is beating fast, especially when he is lying on the couch. Patient has a history of chronic dysphagia, had a barium swallow on 11/06/2022 that revealed: Round presbyesophagus distal esophagus with significant delay in transition of barium with resulting pooling in the upper and mid esophagus. In the ED patient was afebrile and hypotensive at 124/34, satting at 89% on RA. Labs were significant for leukocytosis of 56.5, H&H of 8.4/27.2, MCV of 107.5, absolute neutrophils of 54.8, hypernatremia of 151, chloride 118, BUN elevated at 68, creatinine 3.06, AST of 41, ALT of 50, alk-phos of 271, total creatinine kinase is 238, BNP 139. UA results neg. Coags within normal limits. CXR showed diffuse interstitial lung disease bilaterally with question of superimposed acute process not excluded. CT?of abdomen and pelvis find a cause for the patient's weight loss, negative for acute abdomen or evidence of constipation. CT did show severe COPD and fibrosis at the lung bases, with mild splenomegaly and a minimally nodular liver border. Also found extensive colonic diverticulosis without diverticulitis. EKG demonstrated sinus bradycardia of 59 week no evidence of ST elevations or depressions or significant T-wave inversions. Pt was treated with IVF and ceftriaxone. He was sent home on home O2. He is rather frustrated with the tubes. Review of Systems Review of Systems: Diarrhea Constipation after taking Imodium x2 weeks Abdominal pain associated with straining during attempted defecation Chronic SOB with exertion Occasional palpitations Denies fever, chills, nausea, vomiting No chest pain or pressure All other systems are reviewed and are negative PMFSH: Medical History: PMH significant for?unspecified dementia, emphysema, pulmonary fibrosis not on home O2, temporal arteritis, CKD stage 3, macrocytic anemia, BPH, carotid atherosclerosis on aspirin, and hx of retinal artery occlusion. Anemia Exercise hypoxemia Hearing difficulty of both ears HTN (hypertension) Pulmonary emphysema determined by X-ray Pulmonary fibrosis Tubular adenoma of colon Family History: Father Social history: He worked for [employer]. He is . He has no children of his own. He smoked but quit years ago. He used to drink heavily but quit 2 years ago. Review of Systems - Constitutional Reports system reviewed and no additional complaints, except as documented, Reports fatigue, Reports weakness, Reports weight loss, Denies fever(s) - Eyes Reports system reviewed and no additional complaints, except as documented - ENT Reports system reviewed and no additional complaints, except as documented - Cardiovascular Reports system reviewed and no additional complaints, except as documented - Respiratory Reports no additional respiratory complaints - Gastrointestinal Reports system reviewed and no additional complaints, except as documented - Genitourinary Genitourinary: Reports no additional male genitourinary complaints - Musculoskeletal Reports system reviewed and no additional complaints, except as documented - Integumentary/Breasts Skin/Breast: Reports no additional skin complaints - Neurologic Reports system reviewed and no additional complaints, except as documented, Reports weakness - Psychiatric Reports system reviewed and no additional complaints, except as documented - Endocrine Reports no additional endocrine complaints - Hematologic/Lymphatic Reports system reviewed and no additional complaints, except as documented - Allergic/Immunologic Reports system reviewed and no additional complaints, except as documented PMFSH Medical History: Medical History (Last Reviewed 01/08/23 @ 13:20 by Jarod Wlison) Anemia CKD (chronic kidney disease) stage 3, GFR 30-59 ml/min Exercise hypoxemia Hearing difficulty of both ears HTN (hypertension) Pulmonary emphysema determined by X-ray Pulmonary fibrosis Tubular adenoma of colon Functional capacity: wheelchair bound Patient : No Family History: Family History (Last Reviewed 12/29/22 @ 16:09 by Cheyanne Demarco MD) Father No problems noted. Mother No problems noted. Surgical History: Surgical History (Last Reviewed 01/08/23 @ 13:20 by Jarod Wilson) History of rectal surgery Hx of cholecystectomy Hx of colonoscopy Social History: Social History (Last Updated 01/08/23 @ 13:21 by Jarod Wilson) Living Situation History: Household Members: Spouse Housing: House Do you presently have visiting nurse or other home services: No Alcohol History Details: 1. How often do you have a drink containing alcohol?: a. Never Tobacco History: Patient Tobacco Use Status: Former Tobacco user Domestic Abuse History: Have you been hit, kicked, punched, or otherwise hurt by someone within the past year? 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 Oncology Screenings - ECOG Performance Status ECOG Performance Status: 2 Home Medications and Allergies Home Medications Medication Instructions Recorded Confirmed Type cyanocobalamin (vitamin B-12) 1,000 mcg PO DAILY 05/10/20 01/08/23 History 1,000 mcg tablet vit C 250 mg-vit E 90 mg-zinc 40 1 tab PO BID 08/29/20 01/08/23 History mg-copper 1 [id number] capsule (PreserVision AREDS-2) aspirin 325 mg tablet 325 mg PO DAILY 09/26/21 01/08/23 History atorvastatin 20 mg tablet 20 mg PO DAILY 06/03/22 01/08/23 History tacrolimus 0.1 % topical ointment 1 appl topical DAILY 06/03/22 01/08/23 History calcium carbonate 600 mg-vitamin 1 tab PO DAILY 12/25/22 01/08/23 History D3 5 mcg (200 unit) tablet Allergies Allergy/AdvReac Type Severity Reaction Status Date / Time hydrochlorothiazide AdvReac Intermediate ITCH Verified 08/27/22 10:50 Exam Vital signs: Vital Signs Temp 97.9 F 01/15/23 14:36 Pulse 68 01/15/23 14:36 Resp 18 01/15/23 14:36 BP 114/56 L 01/15/23 14:36 Pulse Ox 92 01/15/23 09:03 O2 Del Method Nasal Cannula 01/15/23 09:03 O2 Flow Rate 2 01/15/23 09:03 Intake & Output 01/14/23 01/15/23 01/15/23 18:59 06:59 18:59 Intake Total 700 / 700 Balance 700 / 700 Intake: Intake (Blood Product) Amount 700 / 700 Red Blood Cells (E0336) Unit 350 / 350 [id number] Red Blood Cells (E0336) Unit 350 / 350 [id number] Other: Weight 65.7 kg Weight in Grams 10865 Weight 65.7 kg BMI result Body Mass Index 19.1 - Constitutional Present: no acute distress - Routine HEENT Exam Head: Present: normal inspection Eye: Present: normal appearance ENT: Present: mucous membranes moist - Routine Neck Exam Present: full ROM - Routine Respiratory Exam Present: CTAB - Routine Cardiovascular Exam Cardiovascular: Present: RRR, S1, S2 - Routine Abdominal Exam Present: soft, nontender - Routine Extremities Exam Present: nontender - Routine Back/Spine/Pelvis Exam Back/Spine: Present: full ROM - Routine Skin Exam Present: intact - Routine Neurological Exam Present: alert, oriented X3 - Routine Psychiatric Exam Present: normal affect Data - Labs CBC & Chem 7: 01/08/23 13:12 01/08/23 13:12 Assessment and Plan Patient Active problem list reviewed?: Yes (1) Leukocytosis Status: Acute Assessment and plan: 77 year old gentleman, was seen in house on 12/29 on account of leukocytosis. CT scan of the abdomen from 12/25: 1. A cause for the patient's weight loss has not been found. 2. Incidental note made of severe COPD and fibrosis at the lung bases,mild splenomegaly and a minimally nodular liver border. 3. Extensive colonic diverticulosis without diverticulitis. 4. Other incidental findings as described above. Noted to have leukocytosis. DIFFERENTIAL DIAGNOSIS: 1. LEUKEMOID REACTION: Related to infection. 2. A MYELOPROLIFERATIVE NEOPLASM: CML. I proceeded with further evaluation. Checked LDH: 286. Checked BCR ABL gene transcript to look for CML. This just came back and was negative. His white count has gone up further to 89. Hemoglobin is 7.5. I proceeded with peripheral blood for flow cytometry for further evaluation. This revealed: Non specific T cell dominant profile. Review of his SIEP: From 12/30: IgG 2229. IgG kappa monoclonal protein. Serum free light chain ratio: 15.28. LDH: 322. I shared the results with him and his . Suspected diagnosis of multiple myeloma. Recommended that we proceed with bone marrow exam for further evaluation. Mentions that it is a treatable disorder. Treatment would be with chemo immunotherapy. He would need further staging workup. PLAN: He was brought in for a couple of units of packed RBCs. The patient and his will call me tomorrow with their decision about the bone marrow exam. Will proceed with a PET scan for initial staging. Will continue him on home O2 for now. He will return in a couple of weeks for a follow-up. Thank you for the consult Cc: Dr. Leach. Addendum: Patient is agreeable for the bone marrow. This is been set up for January 23, under [facility]. His blood sugar was reported to be low at 23 and 36. This could be related to the plasma cell dyscrasia interfering with the blood sugar measurements. Will recheck it in short stay. Checked hemoglobin A1c: 5.9. Blood sugar: 83. And a finger stick at the same time: 90. - Time Spent With Patient Time Spent with Patient (in minutes): 30
--- NOTE | 2023-01-19 12:07 | MHC.HEMONCMA ---
called patient in regards to bone marrow, is aware of OR procedure 01/23 at 1:30
--- NOTE | 2023-01-20 16:44 | MHC.HEMONC ---
Critical result WBC 76.1 (was 89.4) Dr Kumar aware. No New orders. Let Dr Handley know on 01/23/23. MSG/TEXT left.
--- NOTE | 2023-01-21 14:11 | HO.ANESPROP2 ---
HPI - Anesthesia Eval Consult details Narrative: 77yo M for Bone Marrow Biopsy s/p 2 units PRBC 01/15/23 Pulmonary fibrosis requiring supplemental O2 PMFSH Active Problems Active Problems: All Active Problems (Updated 01/08/23 @ 15:35 by Dami Handley MD) Leukocytosis (Acute) Hypoxia (Acute) Anemia (Acute) CRAO (central retinal artery occlusion) (Acute) Bilateral carotid artery stenosis (Acute) Bilateral carotid artery disease (Acute) Tubular adenoma of colon (Acute) Colonoscopy planned (Acute) Exercise hypoxemia (Acute) Pulmonary fibrosis (Acute) Pulmonary emphysema determined by X-ray (Acute) Past Medical History Medical History Anemia Exercise hypoxemia Hearing difficulty of both ears HTN (hypertension) Pulmonary emphysema determined by X-ray Pulmonary fibrosis Tubular adenoma of colon Functional capacity: wheelchair bound Family History Family History Father No problems noted. Mother No problems noted. Surgical History Surgical History History of rectal surgery Hx of cholecystectomy Hx of colonoscopy Social History Social History (Updated 01/08/23 @ 13:21 by Jarod Wilson) Household Members: Spouse Housing: House Do you presently have visiting nurse or other home services: No Alcohol intake: former Patient Tobacco Use Status: Former Tobacco user service: Yes Meds Allergies Allergy/AdvReac Type Severity Reaction Status Date / Time hydrochlorothiazide AdvReac Intermediate ITCH Verified 08/27/22 10:50 Home Medications Medication Instructions Recorded Confirmed Last Taken Type cyanocobalamin (vitamin B-12) 1,000 mcg PO DAILY 05/10/20 01/08/23 Unknown History 1,000 mcg tablet vit C 250 mg-vit E 90 mg-zinc 40 1 tab PO BID 08/29/20 01/08/23 Unknown History mg-copper 1 [id number] capsule (PreserVision AREDS-2) aspirin 325 mg tablet 325 mg PO DAILY 09/26/21 01/08/23 01/21/23 History atorvastatin 20 mg tablet 20 mg PO DAILY 06/03/22 01/08/23 Unknown History tacrolimus 0.1 % topical ointment 1 appl topical DAILY 06/03/22 01/08/23 Unknown History calcium carbonate 600 mg-vitamin 1 tab PO DAILY 12/25/22 01/08/23 Unknown History D3 5 mcg (200 unit) tablet Exam Exam Date and Time: January 21, 2023 141 Height,Weight and Vital Signs: Height 6 ft 1 in Weight 65.7 kg Last Vital Signs Temp 97.9 F 01/15/23 14:36 Pulse 68 01/15/23 14:36 Resp 18 01/15/23 14:36 BP 114/56 L 01/15/23 14:36 Pulse Ox 92 01/15/23 09:03 O2 Del Method Nasal Cannula 01/15/23 09:03 O2 Flow Rate 2 01/15/23 09:03 Pertinent Lab Results Pertinent Lab Results: Laboratory Tests 01/08/23 01/08/23 01/08/23 13:12 13:12 14:14 WBC 84.6 H* RBC 2.52 L Hgb 8.4 L Hct 26.3 L MCV 104.4 H MCH 33.3 H MCHC 31.9 RDW 28.1 H Plt Count 266 MPV 10.5 Absolute Nucleated RBC 0.060 H Nucleated RBC % (auto) 0.1 Neutrophils % (Manual) 82 H Band Neutrophils % 13 H Monocytes % (Manual) 2 Eosinophils % (Manual) 1 Metamyelocytes % 2 Abs Neuts (Manual) 80.4 H Monocytes # (Manual) 1.7 H Eosinophils # (Manual) 0.8 H Metamyelocytes # 1.7 Nucleated RBCs 1 H Toxic Vacuolation PRESENT Platelet Estimate NORMAL Plt Morphology Comment NORMAL RBC Morphology NOTED Hypochromasia 1+ (5-14) Basophilic Stippling 1+ (0-2) Macrocytosis 1+ (5-14) Spherocytes 1+ (0-2) Target Cells 1+ (5-14) Schistocytes 1+ (0-2) Sodium 141 Potassium 4.8 Chloride 109 H Carbon Dioxide 26 Anion Gap 11 L BUN 48 H Creatinine 2.02 H Estim Creat Clear Calc 27.3 Estimated GFR 32 Random Glucose 86 Calcium 10.0 D Total Bilirubin 0.4 AST 30 ALT 36 Alkaline Phosphatase 265 H Lactate Dehydrogenase 322 H Total Protein 7.3 Albumin 3.3 L Leuk/Lym Interpretation See Note Blood Type Antibody Screen Crossmatch 01/15/23 08:34 WBC RBC Hgb Hct MCV MCH MCHC RDW Plt Count MPV Absolute Nucleated RBC Nucleated RBC % (auto) Neutrophils % (Manual) Band Neutrophils % Monocytes % (Manual) Eosinophils % (Manual) Metamyelocytes % Abs Neuts (Manual) Monocytes # (Manual) Eosinophils # (Manual) Metamyelocytes # Nucleated RBCs Toxic Vacuolation Platelet Estimate Plt Morphology Comment RBC Morphology Hypochromasia Basophilic Stippling Macrocytosis Spherocytes Target Cells Schistocytes Sodium Potassium Chloride Carbon Dioxide Anion Gap BUN Creatinine Estim Creat Clear Calc Estimated GFR Random Glucose Calcium Total Bilirubin AST ALT Alkaline Phosphatase Lactate Dehydrogenase Total Protein Albumin Leuk/Lym Interpretation Blood Type A Positive Antibody Screen NEGATIVE Crossmatch See Detail Laboratory Tests 01/20/23 01/20/23 13:00 13:00 WBC 76.1 H* Hgb 8.8 L Hct 28.4 L D Plt Count 132 L D Sodium 144 Potassium 4.4 Chloride 109 H Carbon Dioxide 24 BUN 59 H Creatinine 2.32 H Assessment and Plan Assessment Anesthesia Assessment: Chart Reviewed
--- NOTE | 2023-01-22 10:12 | HE.ONCSEC ---
called pt to confirm appt, lvm.
--- NOTE | 2023-02-02 17:21 | MHC.HEMONC ---
Nurse took t/c from Shradd[facility] at [facility], said pt has been having weekly home labs drawn, last week his Hgb was 8.1, after having blood transfusion on 01/15/23. She says she is drawing his blood now, so may not see the result before clinic closes today. Pt, regardless, will be in tomorrow for f/u appt w/ Dr. Handley. Nurse notified Dr. Handley, booked pt for possible blood transfusion tomorrow, and pt already is ordered to have type and screen when he comes in. Nurse also notified Cheri at blood bank to be ready for possible transfusion order.
[2023-02-03 09:08] LABS: Hematocrit 25.8 % (42.0-52.0); Hemoglobin 8.3 g/dl (14.0-18.0); Mean Corpuscular HGB Conc 32.2 g/dl (31.0-36.0); Mean Corpuscular Hemoglobin 33.1 pg (27.0-33.0); Mean Corpuscular Volume 102.8 fL (80.0-98.0); Mean Platelet Volume 10.7 fL (9.4-12.4); Platelet Count 160 X10*3/uL (160-400); Red Blood Count 2.51 X10*6/uL (4.60-5.80); Red Cell Distribution Width 24.9 % (11.0-16.0)
[2023-02-03 09:15] LABS: WBC ABN SCTR FOR CBC 1
[2023-02-03 09:16] VITALS: BP 119/56; PULSE 68; RESP 18; TEMP 36.4; O2SAT 93; BMI 19.3
[2023-02-03 09:16] LABS: White Blood Count 81.7 X10*3/uL (4.8-10.8)
[2023-02-03 09:22] LABS: Alanine Aminotransferase 40 U/L (0-40); Albumin Level 3.4 g/dL (3.5-5.0); Alkaline Phosphatase 252 U/L (39-117); Anion Gap 11 (12-20); Aspartate Amino Transferase 30 U/L (5-37); Bilirubin Total 0.4 mg/dL (0.0-1.0); Blood Urea Nitrogen 55 mg/dL (9-16); Calcium 9.7 mg/dL (8.4-10.2); Carbon Dioxide 25 mmol/L (22-29); Chloride 110 mmol/L (96-108); Creatinine Clr Calc Pharmacy 19.1; Estimated Glomerular Filt Rate 21; Glucose Random 147 mg/dL (60-115); Potassium 4.5 mmol/L (3.3-5.1); Sodium 141 mmol/L (135-145); Total Protein 7.4 g/dL (6.5-8.0)
[2023-02-03 09:40] LABS: Band Neutrophils Percent 12 % (3-5); Lymphocytes Absolute Manual 0.8 X10*3/uL (1.2-4.9); Lymphocytes Percent Manual 1 % (20-40); Metamyelocytes Absolute 2.5 X10*3/uL; Metamyelocytes Percent 3 %; Monocytes Absolute Manual 4.1 X10*3/uL (0.1-1.2); Monocytes Percent Manual 5 % (2-11); Myelocytes Absolute 1.6 X10*/uL; Myelocytes Percent 2 %; Neutrophils Absolute Manual 72.7 X10*3/uL (2.0-8.3); Neutrophils Percent Manual 77 % (45-73); Nucleated Red Blood Cells 1 /100WBC (0-0)
[2023-02-03 09:41] LABS: Macrocytosis 1+ (5-14) /OIF; Microcytosis 1+ (5-14) /OIF; RBC Morphology NOTED
[2023-02-03 09:44] LABS: Basophilic Stippling 1+ (0-2) /OIF; Hypochromasia 1+ (5-14) /OIF; Schistocytes 1+ (0-2) /OIF; Target Cells 1+ (5-14) /OIF
[2023-02-03 09:45] LABS: Platelet Estimate NORMAL (NORMAL); Platelet Morphology Comment NORMAL
--- NOTE | 2023-02-03 09:56 | P.PNHO-ONC_ITS ---
Medical Summary - Medical Summary Date of Service: 02/03/23 Chief complaint: Follow-up for: Multiple myeloma. Primary Care Provider: Rashaad Leach MD Medical Summary: DIAGNOSIS: H/O MDS/MPN. LEUKOCYTOSIS. Abnormal SIEP. CURRENT THERAPY: Blood transfusion. Interval History Interval history: 77-year-old gentleman here for a follow-up visit. Patient had a CBC done at home yesterday: WBC 73.3, HGB 7.2, HCT 22.2, PLT: 149. He was advised to come in for a blood transfusion. His CBC from today revealed: WBC 81.7, HGB 8.3, HCT 25.8, PLT 160. He has noticed some bruising/hematoma in his right upper extremity. The extremity itself is swollen compared to the left. There is bruising on the hand and in the forearm area. He also has a bruise over his left forefoot. He does claim he has been bumping into things. He feels rather fatigued. He is trying to walk around however mostly he sitting down in a chair. He cannot do strenuous activity. He has to take a nap in the afternoon. Denies any fever chills or night sweats. No headache but he is dizzy. No chest pain but has shortness of breath, especially in the morning. He is on home oxygen. Denies abdominal pain nausea vomiting heartburn indigestion. Bowels are working without any gross blood in it. Denies any black stools. He has been eating 3 meals a day. His is giving him Ensure as a snack and fluids. He is rather uncomfortable at night. He sleeps on the couch. He denies pain. He is in good spirits. Rest of the review of systems is unremarkable. PRESENTING HISTORY: He was initially seen in house on 12/29 on account of leukocytosis. He was referred by PCP for abnormal labs: Lleukocytosis of 56.5, hypernatremia of 151 and creatinine 3.06. Pt AO x4 but with underlying dementia with mild cognitive impairment. He initially presented to his PCP 3 weeks ago complaining of lose, gassy stool. Was prescribed Imodium which he just recently finished. He was complaining of constipation with the need to manually disimpact himself. was also unable to clarify about pt's bowel habits. Pt denied fever, chills, nausea. Had some mild abdominal pain he associates with trying to go to the bathroom. Pt has also had recent reduction in p.o. intake of both fluids and solids. He has been eating very little the past 2-3 days, which is unlike him. Had lost 6-7 lbs in the past week. He complained of chronic SOB, especially with going up stairs. Patient also states that he occasionally feels like his heart is beating fast, especially when he is lying on the couch. Patient has a history of chronic dysphagia, had a barium swallow on 11/06/2022 that revealed: Round presbyesophagus distal esophagus with significant delay in transition of barium with resulting pooling in the upper and mid esophagus. In the ED patient was afebrile and hypotensive at 124/34, satting at 89% on RA. Labs were significant for leukocytosis of 56.5, H&H of 8.4/27.2, MCV of 107.5, absolute neutrophils of 54.8, hypernatremia of 151, chloride 118, BUN elevated at 68, creatinine 3.06, AST of 41, ALT of 50, alk-phos of 271, total creatinine kinase is 238, BNP 139. UA results neg. Coags within normal limits. CXR showed diffuse interstitial lung disease bilaterally with question of superimposed acute process not excluded. CT?of abdomen and pelvis find a cause for the patient's weight loss, negative for acute abdomen or evidence of constipation. CT did show severe COPD and fibrosis at the lung bases, with mild splenomegaly and a minimally nodular liver border. Also found extensive colonic diverticulosis without diverticulitis. EKG demonstrated sinus bradycardia of 59 week no evidence of ST elevations or depressions or significant T-wave inversions. Pt was treated with IVF and ceftriaxone. He was sent home on home O2. He is rather frustrated with the tubes. Review of Systems Review of Systems: Diarrhea Constipation after taking Imodium x2 weeks Abdominal pain associated with straining during attempted defecation Chronic SOB with exertion Occasional palpitations Denies fever, chills, nausea, vomiting No chest pain or pressure All other systems are reviewed and are negative PMFSH: Medical History: PMH significant for?unspecified dementia, emphysema, pulmonary fibrosis not on home O2, temporal arteritis, CKD stage 3, macrocytic anemia, BPH, carotid atherosclerosis on aspirin, and hx of retinal artery occlusion. Anemia Exercise hypoxemia Hearing difficulty of both ears HTN (hypertension) Pulmonary emphysema determined by X-ray Pulmonary fibrosis Tubular adenoma of colon Family History: Father Social history: He worked for [employer]. He is . He has no children of his own. He smoked but quit years ago. He used to drink heavily but quit 2 years ago. Review of Systems - Constitutional Reports system reviewed and no additional complaints, except as documented, Reports daytime sleepiness, Reports fatigue, Reports lack of energy, Reports malaise, Reports poor appetite, Reports weight loss, Denies fever(s), Denies headache(s), Denies weight gain - Eyes Reports system reviewed and no additional complaints, except as documented - ENT Reports system reviewed and no additional complaints, except as documented - Cardiovascular Reports system reviewed and no additional complaints, except as documented - Respiratory Reports no additional respiratory complaints, Reports dyspnea, Reports dyspnea on exertion - Gastrointestinal Reports system reviewed and no additional complaints, except as documented - Genitourinary Genitourinary: Reports no additional male genitourinary complaints - Musculoskeletal Reports system reviewed and no additional complaints, except as documented, Reports body aches - Integumentary/Breasts Skin/Breast: Reports no additional skin complaints, Reports skin swelling, Reports unusual bruising - Neurologic Reports system reviewed and no additional complaints, except as documented, Reports weakness - Psychiatric Reports system reviewed and no additional complaints, except as documented - Endocrine Reports no additional endocrine complaints - Hematologic/Lymphatic Reports system reviewed and no additional complaints, except as documented - Allergic/Immunologic Reports system reviewed and no additional complaints, except as documented [facility] Medical History: Medical History (Last Reviewed 02/17/23 @ 10:35 by Ese Campbell PA-C) Anemia CKD (chronic kidney disease) stage 3, GFR 30-59 ml/min Exercise hypoxemia Hearing difficulty of both ears HTN (hypertension) Pulmonary emphysema determined by X-ray Pulmonary fibrosis Tubular adenoma of colon Functional capacity: wheelchair bound Patient : No Family History: Family History (Last Reviewed 02/17/23 @ 10:35 by Ese Campbell PA-C) Father No problems noted. Mother No problems noted. Surgical History: Surgical History (Last Reviewed 02/17/23 @ 10:35 by Ese Campbell PA-C) History of rectal surgery Hx of cholecystectomy Hx of colonoscopy Social History: Social History (Last Reviewed 02/17/23 @ 10:35 by Ese Campbell PA-C) Living Situation History: Household Members: Spouse Housing: House Do you presently have visiting nurse or other home services: No Tobacco History: Patient Tobacco Use Status: Former Tobacco user 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 Oncology Screenings - ECOG Performance Status ECOG Performance Status: 2 Home Medications and Allergies Home Medications Medication Instructions Recorded Confirmed Type cyanocobalamin (vitamin B-12) 1,000 mcg PO DAILY 05/10/20 02/17/23 History 1,000 mcg tablet vit C 250 mg-vit E 90 mg-zinc 40 1 tab PO BID 08/29/20 02/17/23 History mg-copper 1 [id number] capsule (PreserVision AREDS-2) atorvastatin 20 mg tablet 20 mg PO DAILY 06/03/22 02/17/23 History tacrolimus 0.1 % topical ointment 1 appl topical DAILY 06/03/22 02/17/23 History calcium carbonate 600 mg-vitamin 1 tab PO DAILY 12/25/22 02/17/23 History D3 5 mcg (200 unit) tablet Allergies Allergy/AdvReac Type Severity Reaction Status Date / Time hydrochlorothiazide AdvReac Intermediate ITCH Verified 02/17/23 10:29 Exam Vital signs: Vital Signs Temp 97.6 F 02/03/23 09:16 Pulse 68 02/03/23 09:16 Resp 18 02/03/23 09:16 BP 119/56 L 02/03/23 09:16 Pulse Ox 93 02/03/23 09:16 O2 Del Method Nasal Cannula 02/03/23 09:16 O2 Flow Rate 3 02/03/23 09:16 Intake & Output 02/02/23 02/03/23 02/03/23 18:59 06:59 18:59 Other: Weight 66.5 kg [place] Weight in Grams 91180 Weight 66.5 kg BMI result Body Mass Index 19.3 - Constitutional Present: no acute distress - Routine HEENT Exam Head: Present: normal inspection Eye: Present: normal appearance ENT: Present: mucous membranes moist - Routine Neck Exam Present: full ROM - Routine Respiratory Exam Present: CTAB - Routine Cardiovascular Exam Cardiovascular: Present: RRR, S1, S2 - Routine Abdominal Exam Present: soft, nontender - Routine Extremities Exam Present: nontender - Routine Back/Spine/Pelvis Exam Back/Spine: Present: full ROM - Routine Skin Exam Present: intact - Routine Neurological Exam Present: alert, oriented X3 - Routine Psychiatric Exam Present: normal affect Data - Labs CBC & Chem 7: 02/12/23 09:22 02/03/23 08:50 Assessment and Plan Patient Active problem list reviewed?: Yes (1) Leukocytosis Status: Acute Assessment and plan: 77 year old gentleman, was seen in house on 12/29 on account of leukocytosis. CT scan of the abdomen from 12/25: 1. A cause for the patient's weight loss has not been found. 2. Incidental note made of severe COPD and fibrosis at the lung bases,mild splenomegaly and a minimally nodular liver border. 3. Extensive colonic diverticulosis without diverticulitis. 4. Other incidental findings as described above. Noted to have leukocytosis. DIFFERENTIAL DIAGNOSIS: 1. LEUKEMOID REACTION: Related to infection. 2. A MYELOPROLIFERATIVE NEOPLASM: CML. I proceeded with further evaluation. Checked LDH: 286. Checked BCR ABL gene transcript to look for CML. This just came back and was negative. His white count has gone up further to 89. Hemoglobin is 7.5. I proceeded with peripheral blood for flow cytometry for further evaluation. This revealed: Non specific T cell dominant profile. Review of his SIEP: From 12/30: IgG 2229. IgG kappa monoclonal protein. Serum free light chain ratio: 15.28. LDH: 322. I shared the results with him and his . Suspected diagnosis of multiple myeloma. Recommended that we proceed with bone marrow exam for further evaluation. Mentioned that it is a treatable disorder. Treatment would be with chemo immunotherapy. He would need further staging workup. Patient had the bone marrow done on January 23, under MAC. Results are pending. Meanwhile he was brought in for a couple of units of packed RBCs. Hemoglobin was actually 8.3 so he received 1 unit. He is rather fatigued. He also noted some purpura on his right hand and left foot. The right upper and both lower extremities are swollen. My concern is cryoglobulinemia associated with plasma cell dyscrasia. DIC is in the differential. PLAN: I will check a DIC screen and cryoglobulins.(Negative.) Will proceed with a PET scan for initial staging. Will continue him on home O2 for now. He will return in a week for a follow-up. Thank you, Cc: Dr. Leach. Addendum: On January 23, His blood sugar was reported to be low at 23 and 36. Concern was this could be related to the plasma cell dyscrasia interfering with the blood sugar measurements. l rechecked it in short stay. Blood sugar: 83. And a finger stick at the same time: 90. Checked hemoglobin A1c: 5.9. - Time Spent With Patient Time Spent with Patient (in minutes): 30
[2023-02-03 10:05] VITALS: BP 116/56; PULSE 68; RESP 20; TEMP 36.4
[2023-02-03 10:22] VITALS: BP 95/53; RESP 18; TEMP 36.6
--- NOTE | 2023-02-03 11:15 | MHC.HEMONC ---
pt received 1 unit of RBC of hgb 8.3, tolerated well. follow up with dr strickland pt c/o swelling with bruising in r kanwal and bilat feet, US ordered and additional blood work. pt will return next week for results dr lundberg will cover and is aware. future follow up will continue with dr strickland
[2023-02-03 11:30] LABS: Fibrinogen 385 MG/DL (259-690); Prothrombin Time 11.3 SEC (10.0-13.1)
[2023-02-03 11:32] LABS: Partial Thromboplastin Time 28.9 SEC (26.0-36.4)
[2023-02-03 11:45] LABS: D Dimer High Sensitivity 511 NG/ML
--- NOTE | 2023-02-03 11:51 | MHC.HEMONC ---
Nurse took courtesy call from lab, reported pt has elevated D-DImer of 511. Dr. Handley was informed.
--- NOTE | 2023-02-03 11:58 | MHC.HEMONCMA ---
patient was seen in office today for anemia and leukocytosis, VSS, patient is to follow up in 1 week
[2023-02-03 12:26] VITALS: BP 116/59; PULSE 55; RESP 20; TEMP 36.3
[2023-02-12 09:37] LABS: Mean Corpuscular Hemoglobin 32.3 pg (27.0-33.0); Mean Corpuscular Volume 100.8 fL (80.0-98.0); NRBC Pct Auto 0.1 /100WBC (0.0-0.2); Platelet Count 177 X10*3/uL (160-400); Red Blood Count 2.48 X10*6/uL (4.60-5.80); Red Cell Distribution Width 23.5 % (11.0-16.0)
[2023-02-12 09:41] LABS: WBC ABN SCTR FOR CBC 1
[2023-02-12 09:57] VITALS: BP 109/53; PULSE 61; RESP 19; TEMP 36.4; O2SAT 98
[2023-02-12 10:07] LABS: Band Neutrophils Percent 10 % (3-5); Blast Percent 1 %; Metamyelocytes Absolute 4.9 X10*3/uL; Metamyelocytes Percent 5 %; Monocytes Absolute Manual 1.9 X10*3/uL (0.1-1.2); Monocytes Percent Manual 2 % (2-11); Myelocytes Absolute 4.9 X10*/uL; Myelocytes Percent 5 %; Neutrophils Absolute Manual 83.4 X10*3/uL (2.0-8.3); Neutrophils Percent Manual 76 % (45-73); Promyelocytes Percent 1 %
[2023-02-12 10:11] LABS: Macrocytosis 1+ (5-14) /OIF; RBC Morphology NOTED
[2023-02-12 10:12] LABS: Acanthocytes 1+ (0-2) /OIF; Basophilic Stippling 1+ (0-2) /OIF; Hypochromasia 2+ (15-30) /OIF; Schistocytes 1+ (0-2) /OIF; Tear Drop Cells 1+ (0-2) /OIF
[2023-02-12 10:13] LABS: Platelet Estimate NORMAL (NORMAL); Platelet Morphology Comment NORMAL
[2023-02-12 10:14] LABS: Dohle Bodies PRESENT; Toxic Vacuolation PRESENT
--- NOTE | 2023-02-12 10:53 | PM.HEMONCPN ---
Medical Summary - Medical Summary Date of Service: 02/12/23 Chief complaint: Follow-up Primary Care Provider: Rashaad Leach MD Medical Summary: DIAGNOSIS: LEUKOCYTOSIS. Abnormal SIEP. PRESENTING HISTORY: He was initially seen in house on 12/29 on account of leukocytosis. He was referred by PCP for abnormal labs: Lleukocytosis of 56.5, hypernatremia of 151 and creatinine 3.06. Pt AO x4 but with underlying dementia with mild cognitive impairment. He initially presented to his PCP 3 weeks ago complaining of lose, gassy stool. Was prescribed Imodium which he just recently finished. He was complaining of constipation with the need to manually disimpact himself. was also unable to clarify about pt's bowel habits. Pt denied fever, chills, nausea. Had some mild abdominal pain he associates with trying to go to the bathroom. Pt has also had recent reduction in p.o. intake of both fluids and solids. He has been eating very little the past 2-3 days, which is unlike him. Had lost 6-7 lbs in the past week. He complained of chronic SOB, especially with going up stairs. Patient also states that he occasionally feels like his heart is beating fast, especially when he is lying on the couch. Patient has a history of chronic dysphagia, had a barium swallow on 11/06/2022 that revealed: Round presbyesophagus distal esophagus with significant delay in transition of barium with resulting pooling in the upper and mid esophagus. In the ED patient was afebrile and hypotensive at 124/34, satting at 89% on RA. Labs were significant for leukocytosis of 56.5, H&H of 8.4/27.2, MCV of 107.5, absolute neutrophils of 54.8, hypernatremia of 151, chloride 118, BUN elevated at 68, creatinine 3.06, AST of 41, ALT of 50, alk-phos of 271, total creatinine kinase is 238, BNP 139. UA results neg. Coags within normal limits. CXR showed diffuse interstitial lung disease bilaterally with question of superimposed acute process not excluded. CT?of abdomen and pelvis find a cause for the patient's weight loss, negative for acute abdomen or evidence of constipation. CT did show severe COPD and fibrosis at the lung bases, with mild splenomegaly and a minimally nodular liver border. Also found extensive colonic diverticulosis without diverticulitis. EKG demonstrated sinus bradycardia of 59 week no evidence of ST elevations or depressions or significant T-wave inversions. Pt was treated with IVF and ceftriaxone. CURRENT THERAPY: Blood transfusion. Interval History Interval history: Patient is here in follow-up. He is accompanied by his and daughter today. He offers no complaints. There is no report of any fever, chills, cough or shortness of breath. Patient has baseline dementia. They are aware that he is also getting blood transfusion today. Review of Systems - Constitutional Reports as per HPI, Reports no additional constitutional complaints, Denies fatigue, Denies lack of energy, Denies malaise, Denies weakness - Cardiovascular Reports no additional cardiovascular complaints - Respiratory Reports no additional respiratory complaints - Neurologic Reports no additional neurologic complaints, Denies headache(s), Reports weakness PMFSH Medical History: Medical History (Last Reviewed 01/08/23 @ 13:20 by Jarod Wilson) Anemia CKD (chronic kidney disease) stage 3, GFR 30-59 ml/min Exercise hypoxemia Hearing difficulty of both ears HTN (hypertension) Pulmonary emphysema determined by X-ray Pulmonary fibrosis Tubular adenoma of colon Functional capacity: wheelchair bound Family History: Family History (Last Reviewed 12/29/22 @ 16:09 by Cheyanne Demarco MD) Father No problems noted. Mother No problems noted. Surgical History: Surgical History (Last Reviewed 01/08/23 @ 13:20 by Jarod Wilson) History of rectal surgery Hx of cholecystectomy Hx of colonoscopy Social History: Social History (Last Updated 01/08/23 @ 13:21 by Jarod Wilson) Living Situation History: Household Members: Spouse Housing: House Do you presently have visiting nurse or other home services: No Alcohol History Details: 1. How often do you have a drink containing alcohol?: a. Never Tobacco History: Patient Tobacco Use Status: Former Tobacco user Domestic Abuse History: Have you been hit, kicked, punched, or otherwise hurt by someone within the past year? 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 Oncology Screenings - ECOG Performance Status ECOG Performance Status: 1 Home Medications and Allergies Home Medications Medication Instructions Recorded Confirmed Type cyanocobalamin (vitamin B-12) 1,000 mcg PO DAILY 05/10/20 01/08/23 History 1,000 mcg tablet vit C 250 mg-vit E 90 mg-zinc 40 1 tab PO BID 08/29/20 01/08/23 History mg-copper 1 [id number] capsule (PreserVision AREDS-2) aspirin 325 mg tablet 325 mg PO DAILY 09/26/21 01/08/23 History atorvastatin 20 mg tablet 20 mg PO DAILY 06/03/22 01/08/23 History tacrolimus 0.1 % topical ointment 1 appl topical DAILY 06/03/22 01/08/23 History calcium carbonate 600 mg-vitamin 1 tab PO DAILY 12/25/22 01/08/23 History D3 5 mcg (200 unit) tablet Allergies Allergy/AdvReac Type Severity Reaction Status Date / Time hydrochlorothiazide AdvReac Intermediate ITCH Verified 08/27/22 10:50 Exam Vital signs: Vital Signs Temp 97.6 F 02/12/23 09:57 Pulse 61 02/12/23 09:57 Resp 19 02/12/23 09:57 BP 109/53 L 02/12/23 09:57 Pulse Ox 98 02/12/23 09:57 O2 Del Method Nasal Cannula 02/12/23 09:57 O2 Flow Rate 3 02/12/23 09:57 Weight 66.5 kg BMI result Body Mass Index 19.3 - Constitutional Present: no acute distress - Routine HEENT Exam Head: Present: normal inspection - Routine Neck Exam Present: full ROM - Routine Respiratory Exam Present: CTAB - Routine Cardiovascular Exam Cardiovascular: Present: RRR, S1, S2 - Routine Abdominal Exam Present: soft, nontender - Routine Extremities Exam Present: nontender - Routine Back/Spine/Pelvis Exam Back/Spine: Present: full ROM - Routine Skin Exam Present: intact - Routine Neurological Exam Present: alert, oriented X3 - Routine Psychiatric Exam Present: normal affect Data - Labs CBC & Chem 7: 02/12/23 09:22 02/03/23 08:50 Assessment and Plan Patient Active problem list reviewed?: Yes (1) Leukocytosis Status: Acute Assessment and plan: 1. This is an 78 year old gentleman with significant neutrophilic leukocytosis, macrocytic anemia and IgG kappa monoclonal gammopathy. Bone marrow aspiration biopsy performed 01/23/2023 showed involvement by plasma cell dyscrasia. Plasma cells 6% of the aspirate and 5-10% in biopsy. Concurrent flow showed a very small population of kappa light chain restricted plasma cells. Cytogenetics revealed normal male karyotype. Peripheral blood flow cytometry showed nonspecific T-cell dominant profile. Bcr/ABL mutation on blood was negative. PET-CT has been ordered. Workup for infection was negative. Patient may have more than 1 process. He appears to have involvement with plasma cell dyscrasia but low involvement in bone bone marrow. Of concern is his worsening leukocytosis with macrocytic anemia. MDS/MPN is a possibility. Blood was sent today to [facility], myeloid panel testing. He is being transfused 1 unit PRBC. Administer hydroxyurea 500 mg x 1 today. Follow-up next week with Dr. Handley. - Time Spent With Patient Time Spent with Patient (in minutes): 20
[2023-02-12 11:46] VITALS: BP 109/53; PULSE 61; RESP 19; TEMP 36.4
[2023-02-12 12:02] VITALS: BP 103/51; PULSE 58; RESP 18; TEMP 36.6
[2023-02-12 13:56] VITALS: BP 120/56; PULSE 53; RESP 18; TEMP 36.6
--- NOTE | 2023-02-12 15:09 | MHC.HEMONC ---
Pt here for lab draw with possible blood transfusion. Labs drawn by research engineer [employer]-specimen to lab. Pt states he is dyspneic on exertion despite O2 at 3L via NC. Bilateral leg and pedal edema noted. Pt states he is fatigued. H & H 8.0/25.0/platelets 177, WBC 97-results reported to Dr Kumar (covering for DR Handley) Plan for blood transfusion with one unit RBC-Pt agreeable to plan. Dr Kumar into se pt. Genetic testing([facility]) performed as ordered by Dr Kumar. Family in room during provider visit. Blood transfusion consent obtained. #20 angio inserted in left forearm with blood return noted. Vital signs as noted, breath sounds clear. One unit RBC given as ordered with continued stable vital signs and clear breath sounds. Hydrea 500mg by mouth given as ordered by Dr Kumar. Pt has follow up with Dr Handley next week. Peripheral IV removed-no edema or redness at site after removal of IV. Discharge packet given with next appointment scheduled
[2023-02-19 10:01] VITALS: BP 118/55; PULSE 58; RESP 18; TEMP 37.1; O2SAT 99; BMI 18.9
--- NOTE | 2023-02-19 10:28 | P.PNHO-ONC_ITS ---
Medical Summary - Medical Summary Date of Service: 02/19/23 Chief complaint: Follow-up for: Leukocytosis. Plasma cell dyscrasia. Primary Care Provider: Rashaad Leach MD Medical Summary: DIAGNOSIS: LEUKOCYTOSIS. Abnormal SIEP. CURRENT THERAPY: Blood transfusion. Interval History Interval history: 77-year-old gentleman here for a follow-up visit. Patient had a CBC done at home yesterday: WBC 92.4, HGB 8., HCT 25.6, PLT: 177. He was advised to come in for a blood transfusion. His CBC from 02/03 revealed: WBC: 81.7, HGB 8.3, HCT 25.8, PLT 160. He feels rather aggravated by the oxygen tubing. He feels rather fatigued. He is trying to walk around however mostly he sitting down in a chair. He cannot do strenuous activity. He complains of shortness of breath on exertion. Denies any fever chills or night sweats. No headache but he is dizzy. No chest pain but has shortness of breath, especially in the morning. He is on home oxygen. Denies abdominal pain nausea vomiting heartburn indigestion. Bowels are working without any gross blood in it. Denies any black stools. He has been eating 3 meals a day. His is giving him Ensure as a snack and fluids. He is rather uncomfortable at night. He sleeps on the couch. He denies pain. He has noticed some bruising/hematoma in his right upper extremity. The extremity itself is swollen compared to the left. There is bruising on the hand. He has a bruise over his left forefoot. He does claim he has been bumping into things. He is in good spirits. Rest of the review of systems is unremarkable. PRESENTING HISTORY: He was initially seen in house on 12/29 on account of leukocytosis. He was referred by PCP for abnormal labs: Lleukocytosis of 56.5, hypernatremia of 151 and creatinine 3.06. Pt AO x4 but with underlying dementia with mild cognitive impairment. He initially presented to his PCP 3 weeks ago complaining of lose, gassy stool. Was prescribed Imodium which he just recently finished. He was complaining of constipation with the need to manually disimpact himself. was also unable to clarify about pt's bowel habits. Pt denied fever, chills, nausea. Had some mild abdominal pain he associates with trying to go to the bathroom. Pt has also had recent reduction in p.o. intake of both fluids and solids. He has been eating very little the past 2-3 days, which is unlike him. Had lost 6-7 lbs in the past week. He complained of chronic SOB, especially with going up stairs. Patient also states that he occasionally feels like his heart is beating fast, especially when he is lying on the couch. Patient has a history of chronic dysphagia, had a barium swallow on 11/06/2022 that revealed: Round presbyesophagus distal esophagus with significant delay in transition of barium with resulting pooling in the upper and mid esophagus. In the ED patient was afebrile and hypotensive at 124/34, satting at 89% on RA. Labs were significant for leukocytosis of 56.5, H&H of 8.4/27.2, MCV of 107.5, absolute neutrophils of 54.8, hypernatremia of 151, chloride 118, BUN elevated at 68, creatinine 3.06, AST of 41, ALT of 50, alk-phos of 271, total creatinine kinase is 238, BNP 139. UA results neg. Coags within normal limits. CXR showed diffuse interstitial lung disease bilaterally with question of superimposed acute process not excluded. CT?of abdomen and pelvis find a cause for the patient's weight loss, negative for acute abdomen or evidence of constipation. CT did show severe COPD and fibrosis at the lung bases, with mild splenomegaly and a minimally nodular liver border. Also found extensive colonic diverticulosis without diverticulitis. EKG demonstrated sinus bradycardia of 59 week no evidence of ST elevations or depressions or significant T-wave inversions. Pt was treated with IVF and ceftriaxone. He was sent home on home O2. He is rather frustrated with the tubes. Review of Systems Review of Systems: Diarrhea Constipation after taking Imodium x2 weeks Abdominal pain associated with straining during attempted defecation Chronic SOB with exertion Occasional palpitations Denies fever, chills, nausea, vomiting No chest pain or pressure All other systems are reviewed and are negative PMFSH: Medical History: PMH significant for?unspecified dementia, emphysema, pulmonary fibrosis not on home O2, temporal arteritis, CKD stage 3, macrocytic anemia, BPH, carotid a therosclerosis on aspirin, and hx of retinal artery occlusion. Anemia Exercise hypoxemia Hearing difficulty of both ears HTN (hypertension) Pulmonary emphysema determined by X-ray Pulmonary fibrosis Tubular adenoma of colon Family History: Father Social history: He worked for [employer]. He is . He has no children of his own. He smoked but quit years ago. He used to drink heavily but quit 2 years ago. Review of Systems - Constitutional Reports system reviewed and no additional complaints, except as documented - Eyes Reports system reviewed and no additional complaints, except as documented - ENT Reports system reviewed and no additional complaints, except as documented - Cardiovascular Reports system reviewed and no additional complaints, except as documented - Respiratory Reports no additional respiratory complaints - Gastrointestinal Reports system reviewed and no additional complaints, except as documented - Genitourinary Genitourinary: Reports no additional male genitourinary complaints - Musculoskeletal Reports system reviewed and no additional complaints, except as documented - Integumentary/Breasts Skin/Breast: Reports no additional skin complaints - Neurologic Reports system reviewed and no additional complaints, except as documented, Denies headache(s), Denies weakness - Psychiatric Reports system reviewed and no additional complaints, except as documented - Endocrine Reports no additional endocrine complaints - Hematologic/Lymphatic Reports system reviewed and no additional complaints, except as documented - Allergic/Immunologic Reports system reviewed and no additional complaints, except as documented PMFSH Medical History: Medical History (Last Reviewed 02/17/23 @ 10:35 by Ese Campbell PA-C) Anemia CKD (chronic kidney disease) stage 3, GFR 30-59 ml/min Exercise hypoxemia Hearing difficulty of both ears HTN (hypertension) Pulmonary emphysema determined by X-ray Pulmonary fibrosis Tubular adenoma of colon Functional capacity: wheelchair bound Patient : No Family History: Family History (Last Reviewed 02/17/23 @ 10:35 by Ese Campbell PA-C) Father No problems noted. Mother No problems noted. Surgical History: Surgical History (Last Reviewed 02/17/23 @ 10:35 by Ese Campbell PA-C) History of rectal surgery Hx of cholecystectomy Hx of colonoscopy Social History: Social History (Last Reviewed 02/17/23 @ 10:35 by Ese Campbell PA-C) Living Situation History: Household Members: Spouse Housing: House Do you presently have visiting nurse or other home services: No Alcohol History Details: 1. How often do you have a drink containing alcohol?: a. Never Tobacco History: Patient Tobacco Use Status: Former Tobacco user Domestic Abuse History: Have you been hit, kicked, punched, or otherwise hurt by someone within the past year? 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 Home Medications and Allergies Home Medications Medication Instructions Recorded Confirmed Type cyanocobalamin (vitamin B-12) 1,000 mcg PO DAILY 05/10/20 02/17/23 History 1,000 mcg tablet vit C 250 mg-vit E 90 mg-zinc 40 1 tab PO BID 08/29/20 02/17/23 History mg-copper 1 ae-ichywu-olofsn capsule (PreserVision AREDS-2) atorvastatin 20 mg tablet 20 mg PO DAILY 06/03/22 02/17/23 History tacrolimus 0.1 % topical ointment 1 appl topical DAILY 06/03/22 02/17/23 History calcium carbonate 600 mg-vitamin 1 tab PO DAILY 12/25/22 02/17/23 History D3 5 mcg (200 unit) tablet Allergies Allergy/AdvReac Type Severity Reaction Status Date / Time hydrochlorothiazide AdvReac Intermediate ITCH Verified 02/17/23 10:29 Exam Vital signs: Vital Signs Temp 98.7 F 02/19/23 10:01 Pulse 58 02/19/23 10:01 Resp 18 02/19/23 10:01 BP 118/55 L 02/19/23 10:01 Pulse Ox 99 02/19/23 10:01 O2 Del Method Nasal Cannula 02/19/23 10:01 O2 Flow Rate 3 02/19/23 10:01 Intake & Output 02/18/23 02/19/23 02/19/23 18:59 06:59 18:59 Other: Weight 64.9 kg [facility] Weight in Grams [address] Weight 64.9 kg BMI result Body Mass Index 18.9 - Constitutional Present: no acute distress - Routine HEENT Exam Head: Present: normal inspection Eye: Present: normal appearance ENT: Present: mucous membranes moist - Routine Neck Exam Present: full ROM - Routine Respiratory Exam Present: CTAB - Routine Cardiovascular Exam Cardiovascular: Present: RRR, S1, S2 - Routine Abdominal Exam Present: soft, nontender - Routine Extremities Exam Present: nontender - Routine Back/Spine/Pelvis Exam Back/Spine: Present: full ROM - Routine Skin Exam Present: intact - Routine Neurological Exam Present: alert, oriented X3 - Routine Psychiatric Exam Present: normal affect Data - Labs CBC & Chem 7: 02/12/23 09:22 02/03/23 08:50 Assessment and Plan Patient Active problem list reviewed?: Yes (1) Leukocytosis Status: Acute Assessment and plan: 77 year old gentleman, was seen in house on 12/29 on account of leukocytosis. CT scan of the abdomen from 12/25: 1. A cause for the patient's weight loss has not been found. 2. Incidental note made of severe COPD and fibrosis at the lung bases,mild splenomegaly and a minimally nodular liver border. 3. Extensive colonic diverticulosis without diverticulitis. 4. Other incidental findings as described above. Noted to have leukocytosis. DIFFERENTIAL DIAGNOSIS: 1. LEUKEMOID REACTION: Related to infection. 2. A MYELOPROLIFERATIVE NEOPLASM: CML. I proceeded with further evaluation. Checked LDH: 286. Checked BCR ABL gene transcript to look for CML. This just came back and was negative. On January 23, His blood sugar was reported to be low at 23 and 36. Concern was this could be related to the plasma cell dyscrasia interfering with the blood sugar measurements. l rechecked it in short stay. Blood sugar: 83. And a finger stick at the same time: 90. Checked hemoglobin A1c: 5.9. His white count has gone up further to 89. Hemoglobin is 7.5. I proceeded with peripheral blood for flow cytometry for further evaluation. This revealed: Non specific T cell dominant profile. Review of his SIEP: From 12/30: IgG 2229. IgG kappa monoclonal protein. Serum free light chain ratio: 15.28. LDH: 322. I shared the results with him and his . Suspected diagnosis of multiple myeloma. Recommended that we proceed with bone marrow exam for further evaluation. Mentioned that it is a treatable disorder. Treatment would be with chemo immunotherapy. He would need further staging workup. Meanwhile he was brought in for a couple of units of packed RBCs. Hemoglobin was actually 8.3 so he received 1 unit. Patient had the bone marrow done on January 23, under MAC. Results: Involvement by plasma cell dyscrasia. Background hypercellular marrow with left-sided myeloid maturation. Plasma cells are 6% of the aspirate and approximately 5-10% in the biopsy. Flow cytometry identifies a very small population of kappa light chain restric derrell plasma cells. Cytogenetics have normal male karyotype. 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 A myeloid panel was sent last week. It is still pending. He was noted to have some purpura on his right hand and left foot. The right upper and both lower extremities are swollen. My concern was cryoglobulinemia associated with plasma cell dyscrasia. DIC is in the differential. I checked a DIC screen and cryoglobulins. These were normal. 02/11: Free light chain ratio: 14. 24 hour urine for IEP revealed: Free monoclonal IgG kappa band. He is rather fatigued. His hemoglobin came back low today. Hemoglobin: 8. Osseous bone survey from 02/18, revealed: 1. No destructive bony lesions appreciated. Multiple regions of diminished density which could be related to osteopenia. No suspicious sclerotic lesions a re seen. 2. Within the left femur a few circumscribed low density lesions are present suspicious for lytic lesions consistent with multiple myeloma. 3. Regions of diminished density within the distal radius bones bilaterally are suspicious for possible lytic lesions without destructive findings. 4. Severe bilateral interstitial lung disease. PLAN: He was advised to come in for blood transfusion. Will continue him on home O2 for now. Will make further plans about treatment based upon the results of the myeloid panel. Meanwhile he was started on Hydrea therapy for his leukocytosis. He will return in a week for a follow-up. Thank you, Cc: Dr. Leach. - Time Spent With Patient Time Spent with Patient (in minutes): 30
[2023-02-19 11:21] VITALS: BP 118/55; PULSE 58; RESP 18; TEMP 37.1
[2023-02-19 11:40] VITALS: BP 98/50; PULSE 56; RESP 18; TEMP 37
[2023-02-19] MEDS: Hydroxyurea 500 MG CAPSULE PO (12:31)
--- NOTE | 2023-02-19 15:43 | MHC.HEMONC ---
Addendum entered by Candice Mcgill RN 02/19/23 16:38: is aware of the prescription for hydrea sent into the pharmacy and will pick it up. Original Note: Pt here for 1 unit of blood. Type and screen done. Consent for blood signed and put in scanning bin. #20 angio started in LLA. Lungs had fine crackles right base prior to transfusion. I unit of RBC transfused. No s/s reactions. Lungs unchanged after transfusion. IV removed intact. Pt was started on Hydrea today. Dose will be 2 x a day. Pt education sheets given to and teaching was done. Reviewed how and when to take medication, safe handling. (use gloves) A few pairs of gloves given to . Instructed that Edward will need labs next week around Thursday. will call us with date that the visiting nurse will do blood so we can plan for transfusions if needed. Pt also booked for follow up Mar 10 2023 at 1400.
--- NOTE | 2023-02-24 09:23 | HE.ONCSEC ---
Pt's daughter called. Visiting Nurses will be at the home tomorrow 02/25/23 to draw blood. Also she picked up yesterday 02/23/23 the medication Erika Mata had prescribed. There were issues with the manufacturers of the medication and pt had to wait a week to have prescription filled.
--- NOTE | 2023-02-25 17:19 | MHC.HEMONC ---
Telephone call from Mohini in the lab. WBC 63.9. Last wbc on 02/[address] Handley in AM
[2023-03-06 11:51] VITALS: BP 119/55; PULSE 61; RESP 18; TEMP 36.4
[2023-03-06 12:07] VITALS: BP 107/55; PULSE 53; RESP 18; TEMP 36.1
[2023-03-06 13:38] VITALS: BP 123/60; PULSE 54; RESP 17; TEMP 35.9
--- NOTE | 2023-03-06 15:30 | MHC.HEMONC ---
Here for transfusion. Hgb on 03/05 was 7.7. IV started left forearm with good blood return noted. Consent signed. One unit prbc infused with no s/s transfusion reaction. Lung sounds clear throughout. IV removed with no redness or swelling at the site. Scheduled for follow up with Dr Handley on 03/10. Departure packet given. Pt departed unit.
[2023-03-10 12:49] VITALS: BP 120/58; PULSE 75; RESP 18; TEMP 36.6; O2SAT 96; BMI 19.0
[2023-03-10] MEDS: 0.9 % Sodium Chloride 1,000 ML 999 ML IV (13:27)
--- NOTE | 2023-03-10 15:57 | MHC.HEMONC ---
Here for IV hydration. His states he had diarrhea for the past 3 days, but nothing today. IV started left forearm with good blood return noted. NS 1000cc infused at 500cc/hr over 2 hours, and IV dc'd. No redness or swelling at the site. Dr Handley in to see pt. He has home draw scheduled on 03/12, with possible transfusion on Tuesday 03/13. Departed unit.
[2023-03-20] VITALS (7 sets, daily range): BP systolic 103–137; BP diastolic 51–66; PULSE 50–73; RESP 16–18; TEMP 35.5–36.4; O2SAT 91; BMI 19.3
--- NOTE | 2023-03-20 11:46 | PM.HEMONCPN ---
Medical Summary - Medical Summary Date of Service: 03/20/23 Chief complaint: Follow-up for: MDS/MPN. Primary Care Provider: Rashaad Leach MD Medical Summary: DIAGNOSIS: LEUKOCYTOSIS. MDS/MPN. Abnormal SIEP. CURRENT THERAPY: Blood transfusion. Interval History Interval history: 77-year-old gentleman here for a follow-up visit. Patient had a CBC done at home yesterday: CBC: WBC 4.2, HGB 6.3, HCT 20, MCV 99.5, PLT 82. 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 Ca L8 0.6, a lb 3.1. LFTs: 0.3/115/. He was advised to come in for a blood transfusion. CBC from 02/18 revealed: WBC 92.4, HGB 8., HCT 25.6, PLT: 177. His CBC from 02/03 revealed: WBC: 81.7, HGB 8.3, HCT 25.8, PLT 160. He feels somewhat fatigued. A does not complain much. His tells me he has always been low minaya. He cannot do strenuous activity. He mostly sits on the couch. He feels rather aggravated by the oxygen tubing. He complains of shortness of breath on exertion. Denies any fever chills or night sweats. No headache but he is dizzy. No chest pain but has shortness of breath, especially in the morning. He is on home oxygen. Denies abdominal pain nausea vomiting heartburn indigestion. Bowels are working without any gross blood in it. Denies any black stools. He has been eating 3 meals a day. His is giving him Ensure as a snack and fluids. He is rather uncomfortable at night. He sleeps on the couch. He denies pain. He is in good spirits. Rest of the review of systems is unremarkable. PRESENTING HISTORY: He was initially seen in house on 12/29 on account of leukocytosis. He was referred by PCP for abnormal labs: Lleukocytosis of 56.5, hypernatremia of 151 and creatinine 3.06. Pt AO x4 but with underlying dementia with mild cognitive impairment. He initially presented to his PCP 3 weeks ago complaining of lose, gassy stool. Was prescribed Imodium which he just recently finished. He was complaining of constipation with the need to manually disimpact himself. was also unable to clarify about pt's bowel habits. Pt denied fever, chills, nausea. Had some mild abdominal pain he associates with trying to go to the bathroom. Pt has also had recent reduction in p.o. intake of both fluids and solids. He has been eating very little the past 2-3 days, which is unlike him. Had lost 6-7 lbs in the past week. He complained of chronic SOB, especially with going up stairs. Patient also states that he occasionally feels like his heart is beating fast, especially when he is lying on the couch. Patient has a history of chronic dysphagia, had a barium swallow on 11/06/2022 that revealed: Round presbyesophagus distal esophagus with significant delay in transition of barium with resulting pooling in the upper and mid esophagus. In the ED patient was afebrile and hypotensive at 124/34, satting at 89% on RA. Labs were significant for leukocytosis of 56.5, H&H of 8.4/27.2, MCV of 107.5, absolute neutrophils of 54.8, hypernatremia of 151, chloride 118, BUN elevated at 68, creatinine 3.06, AST of 41, ALT of 50, alk-phos of 271, total creatinine kinase is 238, BNP 139. UA results neg. Coags within normal limits. CXR showed diffuse interstitial lung disease bilaterally with question of superimposed acute process not excluded. CT?of abdomen and pelvis find a cause for the patient's weight loss, negative for acute abdomen or evidence of constipation. CT did show severe COPD and fibrosis at the lung bases, with mild splenomegaly and a minimally nodular liver border. Also found extensive colonic diverticulosis without diverticulitis. EKG demonstrated sinus bradycardia of 59 week no evidence of ST elevations or depressions or significant T-wave inversions. Pt was treated with IVF and ceftriaxone. He was sent home on home O2. He is rather frustrated with the tubes. Review of Systems Review of Systems: Diarrhea Constipation after taking Imodium x2 weeks Abdominal pain associated with straining during attempted defecation Chronic SOB with exertion Occasional palpitations Denies fever, chills, nausea, vomiting No chest pain or pressure All other systems are reviewed and are negative PMFSH: Medical History: PMH significant for?unspecified dementia, emphysema, pulmonary fibrosis not on home O2, temporal arteritis, CKD stage 3, macrocytic anemia, BPH, carotid atherosclerosis on aspirin, and hx of retinal artery occlusion. Anemia Exercise hypoxemia Hearing difficulty of both ears HTN (hypertension) Pulmonary emphysema determined by X-ray Pulmonary fibrosis Tubular adenoma of colon Family History: Father Social history: He worked for [employer]. He is . He has no children of his own. He smoked but quit years ago. He used to drink heavily but quit 2 years ago. Review of Systems - Constitutional Reports system reviewed and no additional complaints, except as documented, Reports lack of energy, Reports weight loss - Eyes Reports system reviewed and no additional complaints, except as documented - ENT Reports system reviewed and no additional complaints, except as documented - Cardiovascular Reports system reviewed and no additional complaints, except as documented - Respiratory Reports no additional respiratory complaints - Gastrointestinal Reports system reviewed and no additional complaints, except as documented - Genitourinary Genitourinary: Reports no additional male genitourinary complaints - Musculoskeletal Reports system reviewed and no additional complaints, except as documented - Integumentary/Breasts Skin/Breast: Reports no additional skin complaints - Neurologic Reports system reviewed and no additional complaints, except as documented, Denies headache(s), Denies weakness - Psychiatric Reports system reviewed and no additional complaints, except as documented - Endocrine Reports no additional endocrine complaints - Hematologic/Lymphatic Reports system reviewed and no additional complaints, except as documented - Allergic/Immunologic Reports system reviewed and no additional complaints, except as documented PMFSH Medical History: Medical History (Last Reviewed 03/31/23 @ 10:06 by Merna Martinez MD) Anemia CKD (chronic kidney disease) stage 3, GFR 30-59 ml/min Exercise hypoxemia Hearing difficulty of both ears HTN (hypertension) Pulmonary emphysema determined by X-ray Pulmonary fibrosis Tubular adenoma of colon Functional capacity: wheelchair bound Patient : No Family History: Family History (Last Reviewed 03/31/23 @ 10:06 by Merna Martinez MD) Father No problems noted. Mother No problems noted. 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 Oncology Screenings - ECOG Performance Status ECOG Performance Status: 1 Home Medications and Allergies Home Medications Medication Instructions Recorded Confirmed Type cyanocobalamin (vitamin B-12) 1,000 mcg PO DAILY 05/10/20 02/17/23 History 1,000 mcg tablet vit C 250 mg-vit E 90 mg-zinc 40 1 tab PO BID 08/29/20 02/17/23 History mg-copper 1 oh-nevedu-cthehl capsule (PreserVision AREDS-2) atorvastatin 20 mg tablet 20 mg PO DAILY 06/03/22 02/17/23 History tacrolimus 0.1 % topical ointment 1 appl topical DAILY 06/03/22 02/17/23 History calcium carbonate 600 mg-vitamin 1 tab PO DAILY 12/25/22 02/17/23 History D3 5 mcg (200 unit) tablet Allergies Allergy/AdvReac Type Severity Reaction Status Date / Time hydrochlorothiazide AdvReac Intermediate ITCH Verified 03/31/23 10:02 Exam Vital signs: Vital Signs Temp 97.3 F 03/20/23 11:05 Pulse 73 03/20/23 11:05 Resp 18 03/20/23 11:05 BP 136/61 03/20/23 11:05 Pulse Ox 91 L 03/20/23 11:05 O2 Del Method Nasal Cannula 03/20/23 11:05 O2 Flow Rate 3 03/20/23 11:05 Intake & Output 03/19/23 03/20/23 03/20/23 18:59 06:59 18:59 Other: Weight 66.5 kg [place] Weight in Grams 01920 Weight 66.5 kg BMI result Body Mass Index 19.3 - Constitutional Present: no acute distress - Routine HEENT Exam Head: Present: normal inspection Eye: Present: normal appearance ENT: Present: mucous membranes moist - Routine Neck Exam Present: full ROM - Routine Respiratory Exam Present: CTAB - Routine Cardiovascular Exam Cardiovascular: Present: RRR, S1, S2 - Routine Abdominal Exam Present: soft, nontender - Routine Extremities Exam Present: nontender - Routine Back/Spine/Pelvis Exam Back/Spine: Present: full ROM - Routine Skin Exam Present: intact - Routine Neurological Exam Present: alert, oriented X3 - Routine Psychiatric Exam Present: normal affect Data - Labs CBC & Chem 7: 02/12/23 09:22 02/03/23 08:50 Assessment and Plan Patient Active problem list reviewed?: Yes (1) Leukocytosis Status: Acute Assessment and plan: 77 year old gentleman, was seen in house on 12/29 on account of leukocytosis. CT scan of the abdomen from 12/25: 1. A cause for the patient's weight loss has not been found. 2. Incidental note made of severe COPD and fibrosis at the lung bases,mild splenomegaly and a minimally nodular liver border. 3. Extensive colonic diverticulosis without diverticulitis. 4. Other incidental findings as described above. Noted to have leukocytosis. DIFFERENTIAL DIAGNOSIS: 1. LEUKEMOID REACTION: Related to infection. 2. A MYELOPROLIFERATIVE NEOPLASM: CML. I proceeded with further evaluation. Checked LDH: 286. Checked BCR ABL gene transcript to look for CML. This just came back and was negative. On January 23, His blood sugar was reported to be low at 23 and 36. Concern was this could be related to the plasma cell dyscrasia interfering with the blood sugar measurements. l rechecked it in short stay. Blood sugar: 83. And a finger stick at the same time: 90. Checked hemoglobin A1c: 5.9. His white count has gone up further to 89. Hemoglobin is 7.5. I proceeded with peripheral blood for flow cytometry for further evaluation. This revealed: Non specific T cell dominant profile. Review of his SIEP: From 12/30: IgG 2229. IgG kappa monoclonal protein. Serum free light chain ratio: 15.28. LDH: 322. I shared the results with him and his . Suspected diagnosis of multiple myeloma. Recommended that we proceed with bone marrow exam for further evaluation. Mentioned that it is a treatable disorder. Treatment would be with chemo immunotherapy. He would need further staging workup. Meanwhile he was brought in for a couple of units of packed RBCs. Hemoglobin was actually 8.3 so he received 1 unit. Patient had the bone marrow done on January 23, under [facility]. Results: Involvement by plasma cell dyscrasia. Background hypercellular marrow with left-sided myeloid maturation. Plasma cells are 6% of the aspirate and approximately 5-10% in the biopsy. Flow cytometry identifies a very small population of kappa light chain restricted plasma cells. Cytogenetics have normal male karyotype. 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 A myeloid panel was sent last week. It is still pending. He was noted to have some purpura on his right hand and left foot. The right upper and both lower extremities are swollen. My concern was cryoglobulinemia associated with plasma cell dyscrasia. DIC is in the differential. I checked a DIC screen and cryoglobulins. These were normal. 02/11: Free light chain ratio: 14. 24 hour urine for IEP revealed: Free monoclonal IgG kappa band. He is rather fatigued. His hemoglobin came back low. Hemoglobin: 8. Osseous bone survey from 02/18, revealed: 1. No destructive bony lesions appreciated. Multiple regions of diminished density which could be related to osteopenia. No suspicious sclerotic lesions are seen. 2. Within the left femur a few circumscribed low density lesions are present suspicious for lytic lesions consistent with multiple myeloma. 3. Regions of diminished density within the distal radius bones bilaterally are suspicious for possible lytic lesions without destructive findings. 4. Severe bilateral interstitial lung disease. Database: 03/19: CBC: WBC 4.2, HGB 6.3, HCT 20, MCV 99.5, PLT 82. 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 Ca L8 0.6, a lb 3.1. LFTs: 0.3/115/17/20. Bone marrow from 01/23 revealed: Involvement by plasma cell dyscrasia. Background hypercellular marrow with left-shifted myeloid maturation. Plasma cells are 6% of the aspirate and 5-10% in the biopsy. New line flow cytometry identifies a very small population of kappa light chain restricted plasma cells. Cytogenetics: Normal male karyotype. Myeloid profile on the blood: ASXL1 [id number], BRCA2 L [id number], CSF3R [id number],E835, SF3B1 H662Q. No alterations retracted in the following genes: FLT3, IDH1, IDH2, NPM1. JAK2 is pending. 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 Treatment options include imatinib and ruxolotinib. I shared the above results with his and his daughter Preeti. Offered to send them to [facility] for a 2nd opinion. He was started on Hydrea. That his blood count has normalized. WBC was actually 4.2 yesterday. PLAN: He was advised to hold the Hydrea till his next lab draw. He was advised to come in for blood transfusion.with a hemoglobin of 6.3 he received 2 units. My plan is to refer him to Dr. Jarad Robertson in [place] for a 2nd opinion. He an expert in MDS/MPN. Will start him on hypomethylating agent in the meantime. He will return in a week for labs, blood transfusion and a follow-up. Thank you, Cc: Dr. Leach. - Time Spent With Patient Time Spent with Patient (in minutes): 30
--- NOTE | 2023-03-20 15:50 | MHC.HEMONC ---
Pt here for blood transfusion. H & H 6.3/20.0/platelets 82 Blood transfusion consent obtained. #20 angio inserted in right forearm with blood return noted. Vital signs as noted, breath sounds clear throughout. Vital signs remain stable with clear breath sounds after each transfusion. Peripheral IV removed-no edema or redness at site after removal of IV. Next appointment scheduled for next Thursday03/27/23. Discharge packet given.
--- NOTE | 2023-03-23 16:47 | MHC.HEMONC ---
Notes faxed to [facility], Dr Boyle for Consultation.
--- NOTE | 2023-03-27 09:15 | MHC.HEMONC ---
home lab draw done, hgb 8.2. pt called at home and spoke to . pt denies s/sx of anemia, no transfusion needed today. pt will continue to get home lab draws on , will monitor wbc and hgb f/u with dr strickland 04/17
--- NOTE | 2023-04-06 09:44 | MHC.HEMONC ---
Pt has appt with Dr Landa at [facility] on May 20 at 3 pm. He will see us on but his said she would call if he has sx r/t his anemia. HGB last week was 8.
--- NOTE | 2023-04-14 08:23 | HO.HEMONCPA ---
NO PA NEEDED FOR CHEMO MEDS COVERED BY MEDICARE PART B PLAN
--- NOTE | 2023-04-17 09:21 | P.PNHO-ONC_ITS ---
Medical Summary - Medical Summary Date of Service: 04/17/23 Chief complaint: Follow-up for: MDS/MPN. MGUS. Primary Care Provider: Rashaad Leach MD Medical Summary: DIAGNOSIS: LEUKOCYTOSIS. MDS/MPN. Abnormal SIEP. CURRENT THERAPY: Blood transfusion. Interval History Interval history: 77-year-old gentleman here for a follow-up visit. Patient had a CBC done at home yesterday, 04/16: WBC 12.5, HGB 7.9, HCT 25, PLT 178. Previous weekly hemoglobin: 8.2, 8, 8.2. He feels much better. It a little bit tired at times. He gets around okay. Does not too strenuous activity but he is able to manage. He uses oxygen during the day while he is sitting and at night. He was noted to have a shadow in his eye. He goes to Dr. Carolyn ROCHA from [place] written a consultants intern. He has been getting intra-articular Avastin injections. He is due for one on Thursday. He complains of shortness of breath on exertion. Denies any fever chills or night sweats. No headache but he is dizzy. No chest pain but has shortness of breath, especially in the morning. He is on home oxygen. Denies abdominal pain nausea vomiting heartburn indigestion. Bowels are working without any gross blood in it. Denies any black stools. He has been eating 3 meals a day. His is giving him Ensure as a snack and fluids. He is rather uncomfortable at night. He sleeps on the couch. He denies pain. He is in good spirits. Rest of the review of systems is unremarkable. INTERIM HISTORY: From 03/19: CBC: WBC 4.2, HGB 6.3, HCT 20, MCV 99.5, PLT 82. CMP: Lytes WNL, glucose 129, BUN 63, FLIGHT COORDINATOR 2.6. Ca L8 0.6, a lb 3.1. LFTs: 0.3/115/17/20. He was advised to come in for a blood transfusion. CBC from 02/18 revealed: WBC 92.4, HGB 8., HCT 25.6, PLT: 177. His CBC from 02/03 revealed: WBC: 81.7, HGB 8.3, HCT 25.8, PLT 160. He feels somewhat fatigued. He does not complain much. His tells me he has always been low minaya. He cannot do strenuous activity. He mostly sits on the couch. He feels rather aggravated by the oxygen tubing. PRESENTING HISTORY: He was initially seen in house on 12/29 on account of leukocytosis. He was referred by PCP for abnormal labs: Lleukocytosis of 56.5, hypernatremia of 151 and creatinine 3.06. Pt AO x4 but with underlying dementia with mild cognitive impairment. He initially presented to his PCP 3 weeks ago complaining of lose, gassy stool. Was prescribed Imodium which he just recently finished. He was complaining of constipation with the need to manually disimpact himself. was also unable to clarify about pt's bowel habits. Pt denied fever, chills, nausea. Had some mild abdominal pain he associates with trying to go to the bathroom. Pt has also had recent reduction in p.o. intake of both fluids and solids. He has been eating very little the past 2-3 days, which is unlike him. Had lost 6-7 lbs in the past week. He complained of chronic SOB, especially with going up stairs. Patient also states that he occasionally feels like his heart is beating fast, especially when he is lying on the couch. Patient has a history of chronic dysphagia, had a barium swallow on 11/06/2022 that revealed: Round presbyesophagus distal esophagus with significant delay in transition of barium with resulting pooling in the upper and mid esophagus. In the ED patient was afebrile and hypotensive at 124/34, satting at 89% on RA. Labs were significant for leukocytosis of 56.5, H&H of 8.4/27.2, MCV of 107.5, absolute neutrophils of 54.8, hypernatremia of 151, chloride 118, BUN elevated at 68, creatinine 3.06, AST of 41, ALT of 50, alk-phos of 271, total creatinine kinase is 238, BNP 139. UA results neg. Coags within normal limits. CXR showed diffuse interstitial lung disease bilaterally with question of superimposed acute process not excluded. CT?of abdomen and pelvis find a cause for the patient's weight loss, negative for acute abdomen or evidence of constipation. CT did show severe COPD and fibrosis at the lung bases, with mild splenomegaly and a minimally nodular liver border. Also found extensive colonic diverticulosis without diverticulitis. EKG demonstrated sinus bradycardia of 59 week no evidence of ST elevations or depressions or significant T-wave inversions. Pt was treated with IVF and ceftriaxone. He was sent home on home O2. He is rather frustrated with the tubes. Review of Systems 2 Review of Systems: Diarrhea Constipation after taking Imodium x2 weeks Abdominal pain associated with straining during attempted defecation Chronic SOB with exertion Occasional palpitations Denies fever, chills, nausea, vomiting No chest pain or pressure All other systems are reviewed and are negative [facility]: Medical History: PMH significant for?unspecified dementia, emphysema, pulmonary fibrosis not on home O2, temporal arteritis, CKD stage 3, macrocytic anemia, BPH, carotid atherosclerosis on aspirin, and hx of retinal artery occlusion. Anemia Exercise hypoxemia Hearing difficulty of both ears HTN (hypertension) Pulmonary emphysema determined by X-ray Pulmonary fibrosis Tubular adenoma of colon Family History: Father Social history: He worked for [employer]. He is . He has no children of his own. He smoked but quit years ago. He used to drink heavily but quit 2 years ago. Review of Systems - Constitutional Reports no additional constitutional complaints, Reports lack of energy, Reports malaise, Denies weight loss - Eyes Reports no additional eye complaints - ENT Reports no additional ear, nose, mouth, and throat complaints - Cardiovascular Reports no additional cardiovascular complaints - Respiratory Reports no additional respiratory complaints - Gastrointestinal Reports no additional gastrointestinal complaints - Genitourinary Genitourinary: Reports no additional male genitourinary complaints - Musculoskeletal Reports no additional musculoskeletal complaints - Integumentary/Breasts Skin/Breast: Reports no additional skin complaints - Neurologic Reports no additional neurologic complaints, Denies headache(s), Denies weakness - Psychiatric Reports no additional psychiatric complaints - Endocrine Reports no additional endocrine complaints - Hematologic/Lymphatic Reports no additional hematologic/lymphatic complaints - Allergic/Immunologic Reports no additional allergic/immunologic complaints [facility] Medical History: Medical History (Last Reviewed 04/17/23 @ 09:25 by Jarod Wilson) Anemia CKD (chronic kidney disease) stage 3, GFR 30-59 ml/min Exercise hypoxemia Hearing difficulty of both ears HTN (hypertension) Pulmonary emphysema determined by X-ray Pulmonary fibrosis Tubular adenoma of colon Functional capacity: uses cane/walker Patient : No Family History: Family History (Last Reviewed 03/31/23 @ 10:06 by Menra Martinez MD) Father No problems noted. Mother No problems noted. Surgical History: Surgical History (Last Reviewed 04/17/23 @ 09:25 by Jarod Wilson) History of rectal surgery Hx of cholecystectomy Hx of colonoscopy Social History: Social History (Last Reviewed 04/17/23 @ 09:25 by Jarod Wilson) Living Situation History: Household Members: Spouse Housing: House Do you presently have visiting nurse or other home services: No Alcohol History Details: 1. How often do you have a drink containing alcohol?: a. Never Tobacco History: Patient Tobacco Use Status: Former Tobacco user Domestic Abuse History: Have you been hit, kicked, punched, or otherwise hurt by someone within the past year? 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 Oncology Screenings - ECOG Performance Status ECOG Performance Status: 1 Home Medications and Allergies Home Medications Medication Instructions Recorded Confirmed Type cyanocobalamin (vitamin B-12) 1,000 mcg PO DAILY 05/10/20 04/17/23 History 1,000 mcg tablet vit C 250 mg-vit E 90 mg-zinc 40 1 tab PO BID 08/29/20 04/17/23 History mg-copper 1 [id number] capsule (PreserVision AREDS-2) atorvastatin 20 mg tablet 20 mg PO DAILY 06/03/22 04/17/23 History tacrolimus 0.1 % topical ointment 1 appl topical DAILY 06/03/22 04/17/23 History calcium carbonate 600 mg-vitamin 1 tab PO DAILY 12/25/22 04/17/23 History D3 5 mcg (200 unit) tablet Allergies Allergy/AdvReac Type Severity Reaction Status Date / Time hydrochlorothiazide AdvReac Intermediate ITCH Verified 04/17/23 09:25 Exam Vital signs: Vital Signs Temp 96 F L 03/20/23 16:03 Pulse 68 03/20/23 16:03 Resp 17 03/20/23 16:03 BP 137/66 03/20/23 16:03 Pulse Ox 91 L 03/20/23 11:05 O2 Del Method Nasal Cannula 03/20/23 11:05 O2 Flow Rate 3 03/20/23 11:05 Weight 66.5 kg BMI result Body Mass Index 19.3 - Constitutional Present: no acute distress - Routine HEENT Exam Head: Present: normal inspection Eye: Present: normal appearance ENT: Present: mucous membranes moist - Routine Neck Exam Present: full ROM - Routine Respiratory Exam Present: CTAB - Routine Cardiovascular Exam Cardiovascular: Present: RRR, S1, S2 - Routine Abdominal Exam Present: soft, nontender - Routine Extremities Exam Present: nontender - Routine Back/Spine/Pelvis Exam Back/Spine: Present: full ROM - Routine Skin Exam Present: intact - Routine Neurological Exam Present: alert, oriented X3 - Routine Psychiatric Exam Present: normal affect Data - Labs CBC & Chem 7: 02/12/23 09:22 02/03/23 08:50 Assessment and Plan Patient Active problem list reviewed?: Yes (1) Leukocytosis Status: Acute Assessment and plan: 77 year old gentleman, was seen in house on 12/29 on account of leukocytosis. CT scan of the abdomen from 12/25: 1. A cause for the patient's weight loss has not been found. 2. Incidental note made of severe COPD and fibrosis at the lung bases,mild splenomegaly and a minimally nodular liver border. 3. Extensive colonic diverticulosis without diverticulitis. 4. Other incidental findings as described above. Noted to have leukocytosis. DIFFERENTIAL DIAGNOSIS: 1. LEUKEMOID REACTION: Related to infection. 2. A MYELOPROLIFERATIVE NEOPLASM: CML. I proceeded with further evaluation. Checked LDH: 286. Checked BCR ABL gene transcript to look for CML. This just came back and was negative. On January 23, His blood sugar was reported to be low at 23 and 36. Concern was this could be related to the plasma cell dyscrasia interfering with the blood sugar measurements. l rechecked it in short stay. Blood sugar: 83. And a finger stick at the same time: 90. Checked hemoglobin A1c: 5.9. His white count has gone up further to 89. Hemoglobin is 7.5. I proceeded with peripheral blood for flow cytometry for further evaluation. This revealed: Non specific T cell dominant profile. Review of his SIEP: From 12/30: IgG 2229. IgG kappa monoclonal protein. Serum free light chain ratio: 15.28. LDH: 322. I shared the results with him and his . Suspected diagnosis of multiple myeloma. Recommended that we proceed with bone marrow exam for further evaluation. Mentioned that it is a treatable disorder. Treatment would be with chemo immunotherapy. He would need further staging workup. Meanwhile he was brought in for a couple of units of packed RBCs. Hemoglobin was actually 8.3 so he received 1 unit. Patient had the bone marrow done on January 23, under [facility]. Results: Involvement by plasma cell dyscrasia. Background hypercellular marrow with left-sided myeloid maturation. Plasma cells are 6% of the aspirate and approximately 5-10% in the biopsy. Flow cytometry identifies a very small population of kappa light chain restricted plasma cells. Cytogenetics have normal male karyotype. 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 A myeloid panel was sent last week. It is still pending. He was noted to have some purpura on his right hand and left foot. The right upper and both lower extremities are swollen. My concern was cryoglobulinemia associated with plasma cell dyscrasia. DIC is in the differential. I checked a DIC screen and cryoglobulins. These were normal. 02/11: Free light chain ratio: 14. 24 hour urine for IEP revealed: Free monoclonal IgG kappa band. He is rather fatigued. His hemoglobin came back low. Hemoglobin: 8. Osseous bone survey from 02/18, revealed: 1. No destructive bony lesions appreciated. Multiple regions of diminished density which could be related to osteopenia. No suspicious sclerotic lesions are seen. 2. Within the left femur a few circumscribed low density lesions are present suspicious for lytic lesions consistent with multiple myeloma. 3. Regions of diminished density within the distal radius bones bilaterally are suspicious for possible lytic lesions without destructive findings. 4. Severe bilateral interstitial lung disease. Database: 03/19: CBC: WBC 4.2, HGB 6.3, HCT 20, MCV 99.5, PLT 82. CMP: Lytes WNL, glucose 129, BUN 63, FLIGHT COORDINATOR 2.6. Ca L8 0.6, a lb 3.1. LFTs: 0.3/115/17/20. Bone marrow from 01/23 revealed: Involvement by plasma cell dyscrasia. Background hypercellular marrow with left-shifted myeloid maturation. Plasma cells are 6% of the aspirate and 5-10% in the biopsy. New line flow cytometry identifies a very small population of kappa light chain restricted plasma cells. Cytogenetics: Normal male karyotype. Myeloid profile on the blood: ASXL1 [id number], BRCA2 L [id number], CSF3R T6181,E835, SF3B1 H662Q. No alterations retracted in the following genes: FLT3, IDH1, IDH2, NPM1. JAK2 is negative. 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 Treatment options include: decitabine, imatinib and ruxolotinib. I shared the above results with his and his daughter Preeti. Offered to send them to [facility] for a 2nd opinion. He was started on Hydrea. That his blood count has normalized. WBC was actually 4.2 on 03/18. He stopped the Hydrea on 03/19. He had a CBC done at home yesterday, 04/16: WBC 12.5, HGB 7.9, HCT 25, PLT 178. Previous weekly hemoglobin: 8.2, 8, 8.2. PLAN: He will be started on Decitabine, for now. He underwent chemotherapy teaching today. Will start next week. He has been referred to Dr. Jarad Robertson in [place] for a 2nd opinion. He has an appointment on 05/20. He will return in a week for labs, blood transfusion and a follow-up. Will arrange for a Port-A-Cath placement electively. All his and his 's questions were answered to their satisfaction. Thank you, Cc: Dr. Leach. - Time Spent With Patient Time Spent with Patient (in minutes): 26
[2023-04-17 09:24] VITALS: BP 117/58; PULSE 70; O2SAT 94; BMI 19.3
--- NOTE | 2023-04-17 10:50 | MHC.HEMONCMA ---
patient seen today for leukocytosis, vss, labs, following up with provider with possible chemo
--- NOTE | 2023-04-17 15:48 | MHC.HEMONC ---
Chemotherapy teaching: Decitabine. Patient accompanied by . Informational sheets provided. Potential side effects discussed but not limited to: neutropenia, fatigue, nausea, vomiting, and appetite changes etc. Reviewed when and how to call department and use of safety companion. All questions and concerns addressed. Consent signed. Patient to return Thursday for C1D1. Pharmacy notified. Per Dr. Handley labs to be done Thursday. Patient may need transfusion later next week.
[2023-04-20 08:39] LABS: MANUAL DIFF FLAG NO
[2023-04-20 08:42] LABS: Basophils Absolute Auto 0.1 X10*3/uL (0.0-0.2); Basophils Percent Auto 0.4 % (0-2); Eosinophils Absolute Auto 0.1 X10*3/uL (0.0-0.4); Eosinophils Percent Auto 0.7 % (0-4); Hematocrit 28.5 % (42.0-52.0); Imm Gran Abs Auto 0.34 X10*3/uL (0.00-0.03); Lymphocytes Absolute Auto 0.4 X10*3/uL (1.2-4.9); Lymphocytes Percent Auto 2.2 % (20-40); Mean Corpuscular HGB Conc 31.6 g/dl (31.0-36.0); Mean Corpuscular Hemoglobin 34.2 pg (27.0-33.0); Mean Corpuscular Volume 108.4 fL (80.0-98.0); Mean Platelet Volume 10.6 fL (9.4-12.4); Monocytes Absolute Auto 0.8 X10*3/uL (0.1-1.2); Monocytes Percent Auto 4.8 % (2-11); Neutrophils Absolute Auto 15.1 x10*3/uL (2.0-8.3); Neutrophils Percent Auto 89.9 % (45-73); Platelet Count 217 X10*3/uL (160-400); Red Blood Count 2.63 X10*6/uL (4.60-5.80); Red Cell Distribution Width 27.1 % (11.0-16.0); White Blood Count 16.8 X10*3/uL (4.8-10.8)
[2023-04-20 09:00] LABS: Alanine Aminotransferase 58 U/L (0-40); Albumin Level 3.6 g/dL (3.5-5.0); Alkaline Phosphatase 149 U/L (39-117); Anion Gap 10 (12-20); Aspartate Amino Transferase 43 U/L (5-37); Bilirubin Total 0.5 mg/dL (0.0-1.0); Blood Urea Nitrogen 61 mg/dL (9-16); Carbon Dioxide 25 mmol/L (22-29); Chloride 115 mmol/L (96-108); Estimated Glomerular Filt Rate 21; Glucose Random 133 mg/dL (60-115); Potassium 4.9 mmol/L (3.3-5.1); Sodium 145 mmol/L (135-145); Total Protein 7.8 g/dL (6.5-8.0)
[2023-04-20 09:53] VITALS: BP 108/53; PULSE 63; RESP 17; TEMP 37.2; O2SAT 97; BMI 18.9
[2023-04-20] MEDS: 0.9 % Sodium Chloride 1,000 ML 500 ML IV (09:59)
[2023-04-20] MEDS: Ondansetron ODT 8 MG TAB.RAPDIS TRANSLINGU (12:01)
--- NOTE | 2023-04-20 16:15 | MHC.HEMONC ---
Pt here for C1D1 Decitabine. Pt ambulatory with steady gait to tx room 4. Pt wearing oxygen at 3l from home. Switched to our wall oxygen at 2L per request. wears 3l when walking. Pt offered no complaints. IV #22 started left fore arm. good blood return. Labs were drawn peripherally and results reviewed with Dr Handley. Bun [address] Handley give normal saline 1000ml over 2 hrs to hydrate. Hgb 9.0 no blood products today. Pt will have labs repeated on by [facility] at home. Pt to start Hydrea [address] Handley for increasing wbc. Hydration infused. Pre med zofran given and treatment infused. Pt toll well. IV wrapped and remains in place for treatment tomorrow. D/c summary given with next treatment. Pt offered a wheel chair and he declined. Ambulatory with steady gait accompanied by . NOTE PT HAS APPOINTMENT AT [facility] ON MAY 20.
[2023-04-21 12:58] VITALS: BP 98/54; PULSE 60; RESP 16; TEMP 36.7; O2SAT 95; BMI 19.6
[2023-04-21] MEDS: Ondansetron ODT 8 MG TAB.RAPDIS TRANSLINGU (13:58)
--- NOTE | 2023-04-21 15:52 | MHC.HEMONC ---
Pt here for C1D2 Decitabine. Pt amb to tx rm4 wearing oxygen from home. Oxygen switched to our wall o2 at 2Lnc. Pt reports having difficulty moving bowels. Dr Handley notified and asked for script for stool softener. also stated that he is not eating well and when questioned patient he reports things sometimes feel like they are getting stuck or like food is moving very slowly Dr Handley aware and GI consult put in. Patient and family aware. BP 98/54 ANA PAULA and 97/[address] Handley notified. Pt asymptomatic. no new orders. Pt given po fluids to drink. Labs reviewed from 04/20/23. IV intact left arm. No redness, swelling or ecchymosis. No blood return but flushes easily, no pain. Pre med Zofran given. Treatment infused. Pt tolerated it well. IV wrapped and left in place. D/c printed with next treatment tomorrow. Pt offered wheelchair. Pt declined. Pt amb out of onc with steady gait.
[2023-04-22 12:43] VITALS: BP 112/54; PULSE 61; RESP 18; TEMP 36.1; O2SAT 90
[2023-04-22] MEDS: Ondansetron ODT 8 MG TAB.RAPDIS TRANSLINGU (12:55)
--- NOTE | 2023-04-22 15:52 | MHC.HEMONC ---
Here for C1 D3 Decitabine. IV in place, flushed with NS. No redness, swelling, or pain at the site. States is feeling well. Premedicated with zofran 8mg po as ordered. Treatment done and tolerated well. IV removed. Will return for D4. Departed unit.
[2023-04-23 12:55] LABS: Basophils Absolute Auto 0.1 X10*3/uL (0.0-0.2); Basophils Percent Auto 0.4 % (0-2); Eosinophils Absolute Auto 0.1 X10*3/uL (0.0-0.4); Eosinophils Percent Auto 0.5 % (0-4); Hematocrit 28.8 % (42.0-52.0); Hemoglobin 9.1 g/dl (14.0-18.0); Imm Gran Abs Auto 0.15 X10*3/uL (0.00-0.03); Lymphocytes Absolute Auto 0.3 X10*3/uL (1.2-4.9); Lymphocytes Percent Auto 2.2 % (20-40); MANUAL DIFF FLAG SCAN; Mean Corpuscular HGB Conc 31.6 g/dl (31.0-36.0); Mean Corpuscular Hemoglobin 34.1 pg (27.0-33.0); Mean Corpuscular Volume 107.9 fL (80.0-98.0); Monocytes Absolute Auto 0.4 X10*3/uL (0.1-1.2); Monocytes Percent Auto 2.9 % (2-11); Neutrophils Absolute Auto 13.3 x10*3/uL (2.0-8.3); Platelet Count 184 X10*3/uL (160-400); Red Blood Count 2.67 X10*6/uL (4.60-5.80); Red Cell Distribution Width 26.4 % (11.0-16.0); SCAN SMEAR FLAG 1; White Blood Count 14.3 X10*3/uL (4.8-10.8)
[2023-04-23 12:57] VITALS: BP 128/59; PULSE 66; RESP 18; TEMP 36.3; O2SAT 97
[2023-04-23 13:09] LABS: Alanine Aminotransferase 39 U/L (0-40); Albumin Level 3.5 g/dL (3.5-5.0); Alkaline Phosphatase 154 U/L (39-117); Anion Gap 10 (12-20); Aspartate Amino Transferase 25 U/L (5-37); Bilirubin Total 0.3 mg/dL (0.0-1.0); Blood Urea Nitrogen 63 mg/dL (9-16); Calcium 8.6 mg/dL (8.4-10.2); Carbon Dioxide 23 mmol/L (22-29); Chloride 113 mmol/L (96-108); Estimated Glomerular Filt Rate 19; Glucose Random 134 mg/dL (60-115); Potassium 5.3 mmol/L (3.3-5.1); Sodium 141 mmol/L (135-145); Total Protein 7.6 g/dL (6.5-8.0)
[2023-04-23 13:33] LABS: SLIDE REVIEW VERIFIED
[2023-04-23] MEDS: Ondansetron ODT 8 MG TAB.RAPDIS TRANSLINGU (13:55)
--- NOTE | 2023-04-23 15:57 | MHC.HEMONC ---
Here for C1 D4 Decitabine. Feeling good, tolerating treatments well. Labs done, hgb 9.1, wbc 14.3. IV started right forearm with good blood return noted. Premedicated with zofran 8mg po as ordered. Treatment done and tolerated well. IV wrapped, pt to come back for D5 tomorrow. Departed unit.
[2023-04-24 12:49] VITALS: BMI 19.9
[2023-04-24 12:50] VITALS: BP 130/58; PULSE 55; RESP 16; TEMP 36.1; O2SAT 99
[2023-04-24] MEDS: 0.9 % Sodium Chloride 1,000 ML 500 ML IV (13:41)
[2023-04-24] MEDS: Ondansetron ODT 8 MG TAB.RAPDIS TRANSLINGU (14:00)
--- NOTE | 2023-04-24 16:09 | MHC.HEMONC ---
Pt here for C1D5 Decitabine. Pt amb to tx room 3 using oxygen from home at 3L when ambulating and 2L when sitting gait steady. Labs reviewed from 04/23/23. Bun/Creat 63/3.17 Dr Handley notified and 1 liter of normal saline ordered and infused. Pre med zofran po given and treatment infused. Pt toll well. IV removed intact. No redness, swelling, bruising noted. D/c summary given and pt departed with steady gait accompanied by .
[2023-04-30 11:04] LABS: Hematocrit 23.9 % (42.0-52.0); Hemoglobin 7.6 g/dl (14.0-18.0); Mean Corpuscular HGB Conc 31.8 g/dl (31.0-36.0); Mean Corpuscular Hemoglobin 34.7 pg (27.0-33.0); Mean Corpuscular Volume 109.1 fL (80.0-98.0); Mean Platelet Volume 10.4 fL (9.4-12.4); Red Blood Count 2.19 X10*6/uL (4.60-5.80); Red Cell Distribution Width 26.3 % (11.0-16.0)
[2023-04-30 11:05] LABS: Platelet Count 76 X10*3/uL (160-400); WBC ABN SCTR FOR CBC 1
[2023-04-30 11:07] VITALS: BP 135/61; PULSE 64; RESP 18; TEMP 36.7; O2SAT 95; BMI 19.9
[2023-04-30 11:09] LABS: White Blood Count 1.2 X10*3/uL (4.8-10.8)
[2023-04-30 11:21] LABS: Alanine Aminotransferase 26 U/L (0-40); Albumin Level 3.5 g/dL (3.5-5.0); Alkaline Phosphatase 129 U/L (39-117); Anion Gap 13 (12-20); Aspartate Amino Transferase 24 U/L (5-37); Bilirubin Total 0.4 mg/dL (0.0-1.0); Blood Urea Nitrogen 80 mg/dL (9-16); Calcium 9.6 mg/dL (8.4-10.2); Carbon Dioxide 20 mmol/L (22-29); Chloride 120 mmol/L (96-108); Creatinine Clr Calc Pharmacy 17.6; Estimated Glomerular Filt Rate 19; Glucose Random 142 mg/dL (60-115); Sodium 148 mmol/L (135-145); Total Protein 7.9 g/dL (6.5-8.0)
[2023-04-30 11:25] LABS: Band Neutrophils Percent 0 % (3-5); Eosinophils Percent Manual 2 % (0-4); Lymphocytes Absolute Manual 0.2 X10*3/uL (1.2-4.9); Lymphocytes Percent Manual 16 % (20-40); Monocytes Percent Manual 1 % (2-11); Neutrophils Percent Manual 81 % (45-73)
[2023-04-30 11:28] LABS: RBC Morphology NOTED
[2023-04-30 11:29] LABS: Acanthocytes 1+ (0-2) /OIF; Hypochromasia 1+ (5-14) /OIF; Macrocytosis 2+ (15-30) /OIF; Platelet Estimate DECREASED (NORMAL); Platelet Morphology Comment NORMAL; Tear Drop Cells 1+ (0-2) /OIF
[2023-04-30 12:07] VITALS: BP 135/61; PULSE 64; RESP 18; TEMP 36.7
[2023-04-30 12:26] VITALS: BP 107/54; PULSE 60; RESP 17; TEMP 36.2
[2023-04-30 14:34] VITALS: BP 119/56; PULSE 57; RESP 16; TEMP 36.4
[2023-04-30 14:49] VITALS: BP 137/63; PULSE 60; RESP 16; TEMP 36.6
[2023-04-30 16:22] VITALS: BP 136/61; PULSE 59; RESP 20; TEMP 36.5
--- NOTE | 2023-04-30 17:17 | MHC.HEMONC ---
Home lab draw done 04/29/23, hgb 6.7. Pt received 2 units prbc and tolerated well. No s/s transfusion reaction. Lungs clear throughout. IV removed with no redness or swelling at the site. Departed unit aware of next appointments.
--- NOTE | 2023-05-01 09:28 | MHC.HEMONC ---
Triage - pt's called to ask if the pt can get a Covid vaccine. Per Dr Handley, okay for get the vaccine. notified.
== END 2023-05-18 | disposition home or self-care (01) ==
LOC: HO.ONC 09:00
PROVIDERS: Internal Medicine; PCP Internal Medicine Medical Oncology; Visit Provider Internal Medicine Medical Oncology
DX: Z51.11 Encounter for antineoplastic chemotherapy (principal); D46.9 Myelodysplastic syndrome, unspecified; D53.9 Nutritional anemia, unspecified; J44.9 Chronic obstructive pulmonary disease, unspecified; Z99.81 Dependence on supplemental oxygen
CPT/HCPCS: 36415; 36430; 80053; 81219; 81270; 81279; 81339; 81455; 82595; 83615; 85007; 85025; 85027; 85379; 85384; 85610; 85730; 86850; 86900; 86901; 86923; 88184; 88185; 96360; 96361; 96413; 99213; 99214; J0894; P9016

== ENCOUNTER 2023-05-01 18:43 | Inpatient (IN) | payer MEDICARE, SELFPAY ==
--- NOTE | ~2023-05-01 | XR_ITS ---
EXAMINATION: XR CHEST CLINICAL INFORMATION: Fever. COMPARISON: 05/01/2023 TECHNIQUE: Frontal view of the chest was obtained. FINDINGS: The cardiomediastinal silhouette is stable. There is diffuse increased interstitial marking/coarsening as well as patchy diffuse infiltrative change. There is mild elevation of the left hemidiaphragm. There are no significant pleural effusions. The bony structures are osteopenic. XR/XR chest 1V IMPRESSION: Diffuse increased interstitial markings/interstitial coarsening with patchy infiltrative change grossly similar to previous. Findings are at least partly chronic. Superimposed infiltrate/developing infiltrate is a consideration.
--- NOTE | ~2023-05-01 | XR_ITS ---
EXAMINATION: XR CHEST CLINICAL INFORMATION: Shortness of breath. COMPARISON: 12/26/2022 TECHNIQUE: Frontal view of the chest was obtained. FINDINGS: The patient is rotated. The cardiomediastinal silhouette is stable. There is diffuse increased markings/interstitial coarsening with patchy diffuse lung opacities improved compared to prior. The bony structures are osteopenic. The soft tissues are unremarkable. XR/XR chest 1V IMPRESSION: Diffuse increased markings/interstitial coarsening and patchy lung opacities were present previously with some apparent improvement. This is likely chronic. There is no new consolidation or evidence for significant pleural effusion.
--- NOTE | ~2023-05-01 | CT_ITS ---
EXAMINATION: CT ABDOMEN AND PELVIS WITHOUT CONTRAST CLINICAL INFORMATION: Weakness. COMPARISON: CT abdomen/pelvis 12/25/2022. TECHNIQUE: Multidetector volumetric imaging was performed from the superior aspect of the liver through the pubic symphysis. Sagittal and coronal reformatted images were obtained on the technologist's workstation. This CT examination was performed using dose optimization techniques as appropriate, variously including the following: *Automated exposure control *Adjustment of mA and/or kV according to patient size (this includes techniques or standardized protocols for targeted exams where dose is matched to indication/reason for exam; i.e. extremities or head) *Use of iterative reconstruction technique DLP: 536 mGy-cm FINDINGS: The lack of intravenous contrast limits evaluation of the solid visceral organs including the liver, spleen, pancreas, and kidneys. LUNG BASES: Redemonstration of advanced emphysematous changes and pulmonary fibrosis. Enlarged heart. No pericardial effusion. LIVER, GALLBLADDER, AND BILIARY TREE: The liver is normal in size, shape, and attenuation. No focal hepatic lesion in this limited noncontrast examination. No biliary ductal dilatation is present. The gallbladder is not well-seen, possibly decompressed versus removed. No inflammatory changes in the gallbladder fossa to suspect acute cholecystitis. PANCREAS: Limited noncontrast examination. No significant peripancreatic fat stranding or free fluid. SPLEEN: Stable mild splenomegaly. ADRENAL GLANDS: No adrenal mass. KIDNEYS AND URETERS: No nephrolithiasis or hydronephrosis. No significant perinephric fat stranding. No discrete focal renal lesion in this limited noncontrast examination. BLADDER: Unremarkable. GASTROINTESTINAL TRACT: The stomach and the small bowel are nondilated. Redemonstration of large duodenal diverticuli along the second portion. Normal appendix. Large stool ball in the rectum and moderate stool content throughout the colon. Scattered colonic diverticulosis without significant pericolonic fat stranding or free fluid. ABDOMINAL WALL: No significant hernia is appreciated. LYMPH NODES: Limited evaluation due to paucity of abdominal fat and lack of IV contrast. No discrete bulky lymphadenopathy. VASCULAR: Atherosclerotic disease. Normal caliber of the abdominal aorta. PELVIC VISCERA: Unremarkable. OSSEOUS STRUCTURES: No acute or aggressive appearing osseous abnormalities. Degenerative changes of the spine. Stable degenerative sclerosis at L5-S1 with associated vacuum disc phenomena. CT/CT abdomen pelvis wo IV con IMPRESSION: Limited noncontrast examination. 1. Large stool ball in the rectum and moderate stool content throughout the colon suggesting constipation. 2. Colonic diverticulosis but no evidence of acute diverticulitis. 3. Again noted very prominent duodenal diverticuli without significant associated inflammatory changes. 4. Redemonstration of advanced emphysematous changes and pulmonary fibrosis in the visualized lung bases.
--- NOTE | ~2023-05-01 | CT_ITS ---
EXAMINATION: CT chest wo IV con. CLINICAL INFORMATION: Reason for Exam acute hypoxemic respiratory failure COMPARISON: Prior CT March 2022 TECHNIQUE: Multidetector volumetric CT imaging of the chest was done. Axial MIP volume rendering provided. Sagittal and coronal reformatted images were obtained. This CT examination was performed using dose optimization techniques as appropriate, variously including the following: *Automated exposure control *Adjustment of mA and/or kV according to patient size (this includes techniques or standardized protocols for targeted exams where dose is matched to indication/reason for exam; i.e. extremities or head) *Use of iterative reconstruction technique CONTRAST: Noncontrasted study. DLP: 304 mGy-cm FINDINGS: CONTROL ROOM TECHNICIAN: LINES/TUBES: Mixer Operator Raw Salt reviewed, no lines. LUNGS: Lung parenchyma: Advanced tan lobar pulmonary emphysema. Interstitial hazy opacification especially at the periphery involving the lower more than upper lobe combined with interlobular septal thickening, peripheral paraseptal and subpleural honeycombing suggesting interstitial pneumonitis, interstitial pulmonary fibrosis. The process has progressed, advanced since prior exams. There is no dense consolidation pneumonia. Lung nodules/masses: There is 5 mm nodule right upper lobe image 51 series 10 unchanged. AIRWAYS: Trachea and bronchi are normal. PLEURA: No pleural effusion or pneumothorax. MEDIASTINUM AND IH: No mediastinal, hilar or axillary lymphadenopathy. No mediastinal mass. VESSELS: HEART AND PERICARDIUM: Thoracic aorta is normal in size. Heart is normal in size. No pericardial effusion. There are coronary calcifications. Pulmonary arteries are normal in size. LOWER NECK, AXILLA: The visualized thyroid gland is unremarkable. No axillary mass or adenopathy. VISUALIZED ABDOMEN: Unremarkable CHEST WALL AND BONES: No chest wall mass. The visualized bony thorax is within normal limits. CT/CT chest wo IV con IMPRESSION: * Advanced tan lobar pulmonary emphysema. * Interstitial hazy opacification especially at the periphery of the lower more than upper lobes combined with interlobular septal thickening, peripheral paraseptal and subpleural honeycombing suggesting interstitial pneumonitis, interstitial pulmonary fibrosis. The process has progressed, advanced since prior exams. * No suspicious lung mass. Stable 5 mm nodule right upper lobe. * Coronary calcification. Various management parameters for solitary pulmonary nodules are in the literature. According to the UPDATED 2017 Fleischner Society recommendations, the advised follow-up imaging for solid nodules < 6 mm is: LOW RISK PATIENT: No routine follow-up. HIGH RISK PATIENT: Optional CT at 12 months. Reference: Guidelines for Management of Incidental Pulmonary Nodules Detected on CT Images: From the Fleischner Society 2017.
--- NOTE | 2023-05-01 18:49 | ECG_ITS ---
Test Reason : WEAKNESS Blood Pressure : / mmHG Vent. Rate : 080 BPM Atrial Rate : 080 BPM P-R Int : 172 ms QRS Dur : 086 ms QT Int : 352 ms P-R-T Axes : 058 065 062 degrees QTc Int : 405 ms Normal sinus rhythm Normal ECG When compared with ECG of 25-DEC-2022 12:15, Heart rate has increased Referred By: Adalid Arias Electronically Signed By:ROMAN BHATT
--- NOTE | 2023-05-01 18:50 | ED_ITS ---
HPI - General Adult General Chief complaint: Fever Stated complaint: Weakness Time Seen by Provider: 05/01/23 19:03 Source: patient, family ( ), RN notes reviewed and old records reviewed Mode of arrival: wheelchair Limitations: other (Patient is a very poor historian) History of Present Illness HPI narrative: 78-year-old male with past medical history significant for rectal cancer, myelodysplastic syndrome, dementia, COPD on chronic O2, chronic kidney disease stage 3 who presents for evaluation of increased weakness. The patient follows with Dr. 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 Per the patient's he has been intermittently ?shaking over the last 3 days. She did not take his temperature, however today the patient had some gait instability which is unusual for him He has also seem somewhat confused He has not been coughing, vomiting. He has had some constipation but his checks every bowel movement and has not noticed any black or bloody stool The patient also received a routine blood transfusion 2 days ago Related Data Home Medications Medication Instructions Recorded Confirmed cyanocobalamin (vitamin B-12) 1,000 mcg PO DAILY 05/10/20 04/28/23 1,000 mcg tablet vit C 250 mg-vit E 90 mg-zinc 40 1 tab PO BID 08/29/20 04/28/23 mg-copper 1 [id number] capsule (PreserVision AREDS-2) atorvastatin 20 mg tablet 20 mg PO DAILY 06/03/22 04/28/23 tacrolimus 0.1 % topical ointment 1 appl topical DAILY 06/03/22 04/28/23 calcium carbonate 600 mg-vitamin 1 tab PO DAILY 12/25/22 04/28/23 D3 5 mcg (200 unit) tablet Previous Rx's Medication Instructions Recorded bisacodyl 10 mg rectal suppository 10 mg NM DAILY PRN constipation 04/28/23 (Dulcolax (bisacodyl)) #20 ea docusate sodium 100 mg capsule 200 mg (2 x 100 mg) PO DAILY #60 04/28/23 (Colace) caps polyethylene glycol 3350 17 17 g PO DAILY #510 grams 04/28/23 gram/dose oral powder (Miralax) Allergies Allergy/AdvReac Type Severity Reaction Status Date / Time hydrochlorothiazide AdvReac Intermediate ITCH Verified 04/28/23 11:27 Review of Systems 2 Constitutional: Constitutional: Reports chills, Reports fatigue, Reports fever(s), Reports malaise, Reports weakness and Reports weight loss Eyes: Eyes: Denies blurry vision ENT: Denies sore throat Cardiovascular: Cardiovascular: Denies chest pain and Denies dyspnea Respiratory: Respiratory: Denies cough and Denies dyspnea Gastrointestinal: Gastrointestinal: Denies abdominal pain, Denies melena, Reports constipation, Denies nausea and Denies vomiting Genitourinary: Genitourinary: Denies dysuria Musculoskeletal: Musculoskeletal: Denies back pain Integumentary/Breasts: Skin/Breast: Denies rash Neurologic: Reports weakness Endocrine: Endocrine: Reports fatigue PMFSH Past Medical History Medical History Anemia CKD (chronic kidney disease) stage 3, GFR 30-59 ml/min Exercise hypoxemia Hearing difficulty of both ears HTN (hypertension) Pulmonary emphysema determined by X-ray Pulmonary fibrosis Tubular adenoma of colon Surgical History Hx of cholecystectomy History of rectal surgery Hx of colonoscopy Family History Family History Father No problems noted. Mother No problems noted. Social History Social History Household Members: Spouse Housing: House Do you presently have visiting nurse or other home services: No Alcohol intake: former Patient Tobacco Use Status: Former Tobacco user Smoked in Last 30 Days: No Use of substances other than those prescribed or required for medical reasons: No Advance Directives: No Advance Directives Information Provided: No service: Yes Physical Exam ED Vital Signs: Vital Signs - 24 hr 05/01/23 19:29 05/01/23 19:35 Temperature 104.2 F H Pulse Rate 80 Respiratory Rate 18 Blood Pressure 150/56 H Pulse Oximetry 99 Oxygen Delivery Method Nasal Cannula Oxygen Flow Rate 2 BMI result Body Mass Index 18.3 Const Other: Patient is alert oriented to person only General: comfortable, no acute distress, alert and awake HENMT Head: Yes normocephalic and Yes atraumatic Eyes Eyelids: Yes eyelids normal Conjunctivae: conjunctivae normal Sclerae: sclerae normal Corneas: corneas normal Pupils: Equal, round and reactive pupils present EOM: EOMs intact bilaterally Neck Neck: Yes full ROM Resp Effort & Inspection: normal respiratory effort, able to speak in complete sentences and not labored Cardio Rate: regular rate Rhythm: regular rhythm GI Inspection: No distended Palpation (GI): Soft to palpation, not firm, nontender, no guarding and not rigid Skin General skin exam: elasticity normal Neuro Cranial nerves: Yes Equal, round and reactive pupils present and Yes Bilaterally intact EOM present Cognition (Neuro): normal cognition Extrem Other: Moving all extremities well without any obvious deformities Course Course Course Narrative: This is an RME: Additional HPI, ROS, PE not included below will be deferred to primary provider. 78-year-old male history of central retinal artery occlusion, anemia, hypoxia, myelodysplastic syndrome, rectal cancer, pulmonary fibrosis presenting to the emergency department for evaluation of weakness, altered mental status, shortness of breath, fatigue and malaise worsening. This patient had to get pulled out of his vehicle he was too weak to stand on his own. Three assist. Patient felt warm to the touch. Plan- labs Reevaluation(s) Reevaluation #1: Sepsis alert was called Time: 19:14 Medications Administered Generic Name Dose Route Start Last Admin Trade Name Freq PRN Reason Stop Dose Admin Sodium Chloride 1,000 mls @ 999 mls/hr 05/01/23 19:45 05/01/23 19:44 Ns IV 05/01/23 20:45 999 mls/hr .Q1H1M RHONDA Administration Discontinued Medications Generic Name Dose Route Start Last Admin Trade Name Freq PRN Reason Stop Dose Admin Acetaminophen 975 mg 05/01/23 19:40 05/01/23 19:49 Acetaminophen 325 Mg Tablet PO 05/01/23 19:41 975 mg ONCE ONE Administration Cefepime HCl 2 gm/ Sodium 50 mls @ 100 mls/hr 05/01/23 19:40 05/01/23 19:58 Chloride IV 05/01/23 20:09 100 mls/hr ONCE ONE Administration Medical Decision Making Medical Decision Making [facility] Narrative: 78-year-old male presents for evaluation of weakness and is flagged this episode there. He has no obvious sign of infection at this time. However given that he is a chemotherapy patient he was given cefepime 2 g IV. Plan for broad workup including labs, UA, chest x-ray, CT abdomen pelvis, blood cultures. Differential Diagnosis Differential Diagnoses: The differential diagnosis associated with the presentation includes Neutropenic fever Sepsis COVID-19 UTI Bronchitis Pneumonia Intra-abdominal infection Admission/Observation Consideration of admission/observation: Escalation of care including admission/observation considered Consult Healthcare Provider Management of the patient was discussed with: Drawer In [employer] (Dr Perez, oncology) Oncology recommend starting the patient on Neupogen or Granix that is formulary for this hospital. He has already been given IV antibiotics and the patient should be admitted to the medical service Lab Data MDM Lab Attestation statement: I reviewed the patient's lab results. Patient is a critically low white count of 0.3 consistent with neutropenic fever. He has a chronic anemia with a hemoglobin of 9.1 hematocrit 28.4. He also has a platelet count of 32 K which is consistent with his pancytopenia. Sodium is slightly elevated to 146 a normal potassium of 5.0. Chloride is elevated to 119 with the CO2 of 18. The patient has baseline chronic kidney disease with the BUN of 83 and a creatinine of 3.31. The patient's lactic acid is normal 05/01/23 19:36 05/01/23 19:35 Labs: Lab Results 05/01/23 05/01/23 05/01/23 Range/Units 19:19 19:35 19:36 WBC 0.3 L* (4.8-10.8) X10*3/uL RBC 2.71 L D (4.60-5.80) X10*6/uL Hgb 9.1 L (14.0-18.0) g/dl Hct 28.4 L (42.0-52.0) % MCV 104.8 H (80.0-98.0) fL MCH 33.6 H (27.0-33.0) pg MCHC 32.0 (31.0-36.0) g/dl RDW 23.9 H (11.0-16.0) % Plt Count 32 L D (160-400) X10*3/uL MPV 9.8 (9.4-12.4) fL Immature Gran % (Auto) Cancelled Neut % (Auto) Cancelled Lymph % (Auto) Cancelled [place] % (Auto) Cancelled Eos % (Auto) Cancelled Baso % (Auto) Cancelled Lymph # (Auto) Cancelled [place] # (Auto) Cancelled Eos # (Auto) Cancelled Baso # (Auto) Cancelled Abs Immat Gran (auto) Cancelled Absolute Neuts (auto) Cancelled Absolute Nucleated RBC 0.000 (0.0-0.012) X10*3/uL Nucleated RBC % (auto) 0.0 (0.0-0.2) /100WBC Neutrophils % (Manual) 75 H (45-73) % Lymphocytes % (Manual) 15 L (20-40) % Monocytes % (Manual) 10 (2-11) % Abs Neuts (Manual) 0.2 L (2.0-8.3) X10*3/uL Platelet Estimate DECREASED (NORMAL) Plt Morphology Comment NORMAL RBC Morphology NORMAL Macrocytosis 1+ (5-14) /OIF Sodium 146 H (135-145) mmol/L Potassium 5.0 (3.3-5.1) mmol/L Chloride 119 H (96-108) mmol/L Carbon Dioxide 18 L (22-29) mmol/L Anion Gap 14 (12-20) BUN 83 H (9-16) mg/dL Creatinine 3.31 H (0.5-1.4) mg/dL Estim Creat Clear Calc 16.2 Estimated GFR 18 Random Glucose 144 H (60-115) mg/dL Lactic Acid 1.1 (0.5-2.0) mmol/L Calcium 9.2 (8.4-10.2) mg/dL Magnesium 2.1 (1.6-2.6) mg/dL Total Bilirubin 0.5 (0.0-1.0) mg/dL AST 35 (5-37) U/L ALT 30 (0-40) U/L Alkaline Phosphatase 136 H (39-117) U/L Troponin I High Sens 34.2 (<3.5-35.0) ng/L B-Natriuretic Peptide 144 H (<100) pg/mL Total Protein 7.8 (6.5-8.0) g/dL Albumin 3.5 (3.5-5.0) g/dL Urine Color Yellow Urine Appearance Cloudy Urine pH 5.5 (5.0-9.0) Ur Specific [place] 1.015 (1.005-1.025) Urine Protein 30 (1+) H (Neg-Trace) mg/dL Urine Glucose (UA) Negative (Negative) mg/dL Urine Ketones Negative (Negative) mg/dL Urine Blood Trace H (Negative) Urine Nitrite Negative (Negative) Ur Leukocyte Esterase Negative (Negative) Urine RBC 0-2 (0-2) /HPF Urine WBC 0-5 (0-5) /HPF Ur Squamous Epith Cells 3-5 (0-2) /HPF Urine Bacteria None Seen (None Seen) Hyaline Casts 11-20 (0-2) /LPF Granular Casts Present COVID-19 (JABARI) Negative (Negative) COVID-19 Clin Com See Note Independent Interpretation I performed an independent interpretation of an: Plain X-Ray (Chronic changes with no focal infiltrate) Discharge Plan Discharge Clinical Impression: Neutropenic fever Patient Disposition: Admitted As Inpatient Prescriptions: No Action PreserVision AREDS-2 [phone] Capsule 1 tab PO BID calcium carbonate-vitamin D3 600 mg-5 mcg (200 unit) Tablet 1 tab PO DAILY cyanocobalamin (vitamin B-12) 1,000 mcg tablet 1,000 mcg PO DAILY tacrolimus 0.1 % ointment 1 appl topical DAILY atorvastatin 20 mg tablet 20 mg PO DAILY docusate sodium [Colace] 100 mg capsule 200 mg PO DAILY Qty: 60 5RF polyethylene glycol 3350 [Miralax] 17 gram/dose powder 17 g PO DAILY Qty: 510 2RF bisacodyl [Dulcolax (bisacodyl)] 10 mg suppository 10 mg NM DAILY PRN (Reason: constipation) Qty: 20 2RF
[2023-05-01 19:23] VITALS: BMI 18.3
[2023-05-01 19:27] LABS: Appearance Urine Cloudy; Color Urine Yellow; Glucose Urine UA Negative (Negative); Leukocyte Esterase Urine Negative (Negative); Nitrite Urine Negative (Negative); PH 5.5 (5.0-9.0); Specific Gravity - Urine 1.015 (1.005-1.025); UMIC TRIGGER UACC YES; Urine Blood Trace (Negative); Urine Ketones Negative (Negative); Urine Protein 30 (1+) mg/dL (Neg-Trace)
[2023-05-01 19:29] VITALS: BP 150/56; PULSE 80; RESP 18; O2SAT 99
[2023-05-01 19:35] VITALS: TEMP 40.1
[2023-05-01 19:38] LABS: COVID-19 Test Negative (Negative); IDNOW Serial# 08D9AD1C
[2023-05-01 19:40] LABS: Bacteria Urine None Seen (None Seen); Granular Casts Urine Present; RBC Urine 0-2 /HPF (0-2); WBC Urine 0-5 /HPF (0-5)
[2023-05-01 19:42] LABS: Hemoglobin 9.1 g/dl (14.0-18.0); Mean Corpuscular Hemoglobin 33.6 pg (27.0-33.0); Red Blood Count 2.71 X10*6/uL (4.60-5.80)
[2023-05-01 19:43] LABS: Hematocrit 28.4 % (42.0-52.0); Mean Corpuscular Volume 104.8 fL (80.0-98.0); Mean Platelet Volume 9.8 fL (9.4-12.4); Red Cell Distribution Width 23.9 % (11.0-16.0)
[2023-05-01 19:44] LABS: Platelet Count 32 X10*3/uL (160-400)
[2023-05-01] MEDS: 0.9 % Sodium Chloride 1,000 ML 999 ML IV (19:44)
[2023-05-01 19:45] LABS: White Blood Count 0.3 X10*3/uL (4.8-10.8)
[2023-05-01] MEDS: Acetaminophen 325 MG TABLET 975 MG PO (19:49)
[2023-05-01 19:53] LABS: Lactic Acid 1.1 mmol/L (0.5-2.0)
[2023-05-01 19:58] LABS: Alanine Aminotransferase 30 U/L (0-40); Albumin Level 3.5 g/dL (3.5-5.0); Alkaline Phosphatase 136 U/L (39-117); Anion Gap 14 (12-20); Aspartate Amino Transferase 35 U/L (5-37); Bilirubin Total 0.5 mg/dL (0.0-1.0); Blood Urea Nitrogen 83 mg/dL (9-16); Calcium 9.2 mg/dL (8.4-10.2); Carbon Dioxide 18 mmol/L (22-29); Chloride 119 mmol/L (96-108); Creatinine Clr Calc Pharmacy 16.2; Estimated Glomerular Filt Rate 18; Glucose Random 144 mg/dL (60-115); Magnesium 2.1 mg/dL (1.6-2.6); Sodium 146 mmol/L (135-145); Total Protein 7.8 g/dL (6.5-8.0)
[2023-05-01] MEDS: cefEPime HCl 2 GM in 0.9 % Sodium Chloride 50 ML IV (19:58)
[2023-05-01 20:03] LABS: B Type Natriuretic Peptide 144 pg/mL (<100)
[2023-05-01 20:05] LABS: Troponin-I High Sensitivity 34.2 ng/L (<3.5-35.0)
[2023-05-01 20:11] LABS: Lymphocytes Percent Manual 15 % (20-40); Monocytes Percent Manual 10 % (2-11); Neutrophils Percent Manual 75 % (45-73); Platelet Estimate DECREASED (NORMAL); Platelet Morphology Comment NORMAL; RBC Morphology NORMAL
[2023-05-01 20:12] LABS: Macrocytosis 1+ (5-14) /OIF
[2023-05-01 20:14] LABS: Neutrophils Absolute Manual 0.2 X10*3/uL (2.0-8.3)
--- NOTE | 2023-05-01 20:59 | P.HPHOSP_ITS ---
History of Present Illness Date of Service: 05/01/23 Attending physician on admission: Apoorva Maloeny Chief Complaint: Fever, chills, generalized weakness Pt is an 78-year-old male with a PMH significant for?unspecified dementia, emphysema, pulmonary fibrosis not on home O2, temporal arteritis, CKD stage 4, macrocytic anemia, BPH, carotid atherosclerosis, and hx of retinal artery occlusion who presents to the ED with?fever, chills, and generalized weakness x2 days. Patient is accompanied by his was at bedside and who provides much of the HPI. Pt is followed by Dr. aHndley and being worked up for likely myelodysplastic syndrome. Patient was recently restarted on hydroxyurea on 04/20/2023 and started on chemotherapy last week, undergoing treatments Thursday through Thursday. states patient seemed fine until 2 days ago when he just started shaking as if he were cold. Initially sat on the couch and was able to calm down, but patient experienced additional episodes in X today. Earlier today patient had an additional episode of shaking that was much worse than prior. states patient could not even walk and seemed more weak and confused than at baseline. also notes patient was transfused 2 units of PRBCs yesterday. Patient otherwise has no acute complaints. Denies chest pain/pressure, palpitations. No shortness of breath. Chronic cough and shortness of breath, at baseline. Denies nausea, vomiting, abdominal pain. Patient has long history of chronic constipation for which he has recently been placed on stool softeners. Last bowel movement was 2-3 days ago. In the ED the patient was febrile up to 1042 hypertensive to 150/56. Labs were significant for leukopenia 0.3, H&H 9.1/28.4, absolute neutrophils 0.2, sodium 146, chloride 119, BUN 83, creatinine 3.31, alk-phos 136, BNP 144. Troponin 34.2. Lactic acid WNL at 1.1. UA negative for UTI. CXR showed no new consolidation or evidence for significant pleural effusion, but showed improving likely chronic diffuse markings/interstitial coarsening and patchy lung opacities. CT?of abdomen and pelvis found no evidence of acute abdomen, but did show large stool ball in the rectum and moderate stool content throughout the colon. EKG showed normal sinus rhythm without evidence of ST elevations or depressions. Pt was treated with IVF, acetaminophen, cefepime, and Neupogen. Pt will be admitted to the hospital for treatment and further evaluation of neutropenic fever with IV antibiotics, close monitoring, and specialist consultation. Review of Systems 2 Review of Systems: Fever, chills Generalized weakness Increased confusion Chronic constipation Chronic shortness of breath and cough, at baseline Denies chest pain/pressure, palpitations No nausea, vomiting, abdominal pain Yes all other systems are reviewed and are negative FOR[facility] Medical History CKD (chronic kidney disease) stage 3, GFR 30-59 ml/min Anemia Tubular adenoma of colon Hearing difficulty of both ears HTN (hypertension) Exercise hypoxemia Pulmonary fibrosis Pulmonary emphysema determined by X-ray Family History Father No problems noted. Mother No problems noted. Surgical History Hx of cholecystectomy History of rectal surgery Hx of colonoscopy Social History Household Members: Spouse Housing: House Do you presently have visiting nurse or other home services: No Alcohol intake: former Patient Tobacco Use Status: Former Tobacco user Smoked in Last 30 Days: No Use of substances other than those prescribed or required for medical reasons: No Advance Directives: No Advance Directives Information Provided: No service: Yes Meds Allergies Allergy/AdvReac Type Severity Reaction Status Date / Time hydrochlorothiazide AdvReac Intermediate ITCH Verified 04/28/23 11:27 Active Medications: Current Medications Acetaminophen (Acetaminophen 325 Mg Tablet) 650 mg PO Q6H PRN PRN Reason: Pain, Mild (Pain Scale 1-3) Acetaminophen (Acetaminophen Supp 650 Mg Supp.Rect) 650 mg OK Q6H PRN PRN Reason: Pain, Mild (Pain Scale 1-3) Enoxaparin Sodium (Enoxaparin Sodium 30 Mg/0.3 Ml Syringe) 30 mg SUBCUT Q24H RHONDA Cefepime HCl 2 gm/ Sodium (Chloride) 50 mls @ 100 mls/hr IV Q24H RHONDA Melatonin (Melatonin 3 Mg Tablet) 6 mg PO BEDTIME PRN PRN Reason: Insomnia Sodium Chloride (0.9 % Sodium Chloride Flush 3 Ml Syringe) 3 ml IVFLUSH QSHIFT RHONDA Home Medications Medication Instructions Recorded Confirmed Last Taken Type cyanocobalamin (vitamin B-12) 1,000 mcg PO DAILY@1500 05/10/20 05/01/23 04/30/23 History 1,000 mcg tablet vit C 250 mg-vit E 90 mg-zinc 40 1 tab PO BID 08/29/20 05/01/23 04/30/23 History mg-copper 1 [id number] capsule (PreserVision AREDS-2) atorvastatin 20 mg tablet 20 mg PO DAILY@1100 06/03/22 05/01/23 05/01/23 History tacrolimus 0.1 % topical ointment 1 appl topical DAILY 06/03/22 05/01/23 05/01/23 History calcium carbonate 600 mg-vitamin 1 tab PO DAILY@1500 12/25/22 05/01/23 04/30/23 History D3 5 mcg (200 unit) tablet hydroxyurea 500 mg capsule 500 mg PO DAILY@1300 05/01/23 05/01/23 Unknown History Physical Exam 2 Vital Signs and Narrative: Vital Signs: Last Vital Signs Temp 104.2 F H 05/01/23 19:35 Pulse 80 05/01/23 19:29 Resp 18 05/01/23 19:29 BP 150/56 H 05/01/23 19:29 Pulse Ox 99 05/01/23 19:29 O2 Del Method Nasal Cannula 05/01/23 19:29 O2 Flow Rate 2 05/01/23 19:29 BMI result Body Mass Index 18.3 General: AOx3, tired, frail-looking, no acute distress Resp: CTA bilaterally CVS: S1, S2, RRR GI: +BS, NT, no distention Skin: No rash Neuro: Cranial nerves II-XII grossly intact bilaterally. Motor grossly intact bilaterally Extremities: No edema Psych: Appropriate affect Results Labs 05/01/23 19:36 05/01/23 19:35 Labs: Laboratory Results - last 24 hr 05/01/23 05/01/23 05/01/23 19:19 19:35 19:36 MCV 104.8 H MCH 33.6 H MCHC 32.0 RDW 23.9 H Plt Count 32 L D MPV 9.8 Immature Gran % (Auto) Cancelled Neut % (Auto) Cancelled Lymph % (Auto) Cancelled Kendall % (Auto) Cancelled Eos % (Auto) Cancelled Baso % (Auto) Cancelled Lymph # (Auto) Cancelled Kendall # (Auto) Cancelled Eos # (Auto) Cancelled Baso # (Auto) Cancelled Abs Immat Gran (auto) Cancelled Absolute Neuts (auto) Cancelled Absolute Nucleated RBC 0.000 Nucleated RBC % (auto) 0.0 Neutrophils % (Manual) 75 H Lymphocytes % (Manual) 15 L Monocytes % (Manual) 10 Abs Neuts (Manual) 0.2 L Platelet Estimate DECREASED Plt Morphology Comment NORMAL RBC Morphology NORMAL Macrocytosis 1+ (5-14) Anion Gap 14 Estim Creat Clear Calc 16.2 Estimated GFR 18 Random Glucose 144 H Lactic Acid 1.1 Calcium 9.2 Magnesium 2.1 Total Bilirubin 0.5 AST 35 ALT 30 Alkaline Phosphatase 136 H B-Natriuretic Peptide 144 H Total Protein 7.8 Albumin 3.5 Urine Color Yellow Urine Appearance Cloudy Urine pH 5.5 Ur Specific [place] 1.015 Urine Protein 30 (1+) H Urine Glucose (UA) Negative Urine Ketones Negative Urine Blood Trace H Urine Nitrite Negative Ur Leukocyte Esterase Negative Urine RBC 0-2 Urine WBC 0-5 Ur Squamous Epith Cells 3-5 Urine Bacteria None Seen Hyaline Casts 11-20 Granular Casts Present COVID-19 (JABARI) Negative COVID-19 Clin Com See Note Imaging Radiologist's Impressions: Impressions Chest X-Ray 05/01/23 19:18 IMPRESSION: Diffuse increased markings/interstitial coarsening and patchy lung opacities were present previously with some apparent improvement. This is likely chronic. There is no new consolidation or evidence for significant pleural effusion. Assessment and Plan (1) Neutropenic fever: Status: Acute (2) Myelodysplastic syndrome: Status: Acute Plan Pt is an 78-year-old male with a PMH significant for?unspecified dementia, emphysema, pulmonary fibrosis not on home O2, temporal arteritis, CKD stage 4, macrocytic anemia, BPH, carotid atherosclerosis, and hx of retinal artery occlusion who presents to the ED with?fever, chills, and generalized weakness x2 days. Pt will be admitted to the hospital for treatment and further evaluation of neutropenic fever with IV antibiotics, close monitoring, and specialist consultation. Neutropenic fever Patient fever of 104.2, WBC 0.3, absolute neutrophils 0.2 Likely secondary to starting chemotherapy last week No clear source of infection: CXR negative, CT of abdomen and pelvis negative, UA negative Will treat with cefepime, started 05/01/2023 Patient given pegfilgrastim in ED, will likely need more doses depending on cell counts Oncology consult Neutropenic precautions Follow CBC Pancytopenia WBC 0.3, H&H 9.09/06 point, platelets 32 Likely secondary to starting chemotherapy last week Pneumatic boots for DVT prophylaxis d/t thrombopenia Follow CBC Myelodysplastic syndrome Continue hydroxyurea Chronic constipation Patient long history of chronic constipation, CT of abdomen and pelvis showed large stool ball in the rectum and moderate stool content throughout the colon Will give suppository Continue polyethylene glycol, docusate, bisacodyl High-fiber diet Encourage liquids HLD Continue statin Full Code Attending:?Dr. Maloney DVT Prophylaxis: Pneumatic boots d/t thrombopenia Pt will require a hospitalization of at least two nights for treatment of?neutropenic fever with IV antibiotics, bone marrow stimulants, close monitoring, and specialist consultation. Time Spent With Patient Time: Total time managing care of this patient today ____ minutes. Quality Stroke Does the patient have a stroke diagnosis?: No VTE Prior VTE?: No VTE Risk Level:: Medical - moderate - high VTE Device Contraindication: Treatment Not Indicated VTE Drug Contraindication: N/A - Med Ordered
[2023-05-01] MEDS: Enoxaparin Sodium 30 MG/0.3 ML SYRINGE SUBCUT (21:01)
--- NOTE | 2023-05-01 21:05 | PHA.MEDREC ---
Pharmacy Consult ? Medication Reconciliation Pharmacy has completed the medication reconciliation. Patient's family reported medications. Report hydroxyurea was restart at 1 tablet a day instead of 2 on 04/21/23. Monica Reagan, DanaD
[2023-05-01 21:19] VITALS: BP 115/53; PULSE 73; RESP 17; TEMP 38.9; O2SAT 100
[2023-05-01 21:33] VITALS: BP 119/48; PULSE 73; RESP 17; TEMP 38.7; O2SAT 100
[2023-05-01 23:48] VITALS: BP 104/54; PULSE 60; RESP 14; TEMP 37.3; O2SAT 100
[2023-05-02] VITALS (12 sets, daily range): BP systolic 106–176; BP diastolic 52–75; PULSE 62–93; RESP 14–20; TEMP 36–39.7; O2SAT 86–100
[2023-05-02] MEDS: 0.9 % Sodium Chloride Flush 3 ML SYRINGE IVFLUSH ×2 (02:31→09:34)
[2023-05-02] MEDS: OLANZapine 10 MG VIAL 5 MG IM (05:02)
[2023-05-02] MEDS: Acetaminophen Supp 650 MG SUPP.RECT PR (05:04)
--- NOTE | 2023-05-02 05:05 | PC.NURSE ---
Pt woke with mild agitation and restlessness. Pt also noted to be febrile to 103.5. Administered meds as ordered.
--- NOTE | 2023-05-02 05:44 | PC.NURSE ---
Pts temp elevated 103.3 rectal, given PRN rectal tylenol. Pt also placed on cooling blanket. updated on all pt vitals and current condition. Patient previously given IM zyprexa for trying to pull off leads, oxygen and monitors, not easily directable. Pt also found standing on the side of the bed, urinated on the floor. Pt back to bed, cleaned up and cooling blanket on.
--- NOTE | 2023-05-02 07:28 | MHC.EDTECH ---
Pt repositioned in bed and cleaned up. Pt declining breakfast at this time, resting quietly in bed and call mancuso within reach.
--- NOTE | 2023-05-02 08:40 | PC.NURSE ---
physician to hold solumedrol if no wheezing noted upon ausc. lung sounds. no wheezing; held med.
[2023-05-02] MEDS: polyethylene glycoL 3350 17 GM POWD.PACK PO ×2 (09:33→20:57)
[2023-05-02] MEDS: Multivitamin TABLET 1 TAB PO (09:34)
[2023-05-02] MEDS: Docusate Sodium 100 MG CAPSULE 200 MG PO (09:34)
[2023-05-02] MEDS: Omeprazole 20 MG CAPSULE.DR PO ×2 (09:35→17:33)
--- NOTE | 2023-05-02 09:45 | PC.NURSE ---
Pt is now more alert at start of shift. Oriented x2. Cooling blanket since removed for temp 98.6. VSS. 02 titrated to 2lpm. LS clear throughout without wheezing head anteriorly. NSR on monitor, skin pink warm and dry. Meds given whole in applesauce.
--- NOTE | 2023-05-02 10:29 | P.CONPL_ITS ---
History of Present Illness History of Present Illness Consult date: 05/02/23 Chief complaint: Hypoxia Narrative: 78-year-old gentleman with underlying rectal cancer, myelodysplastic syndrome, and pancytopenia, also essentially end-stage pulmonary emphysema with superimposed pulmonary fibrosis on chronic supplemental oxygen at 2 L continuous flow, followed by Dr. Martinez admitted overnight with neutropenic fever. Patient also initially required supplemental oxygen at 7 L continuous flow, but now titrated back down to his chronic 2 L of supplemental oxygen. Patient denies any pulmonary related concerns complaints at this time. Review of Systems 2 Constitutional: Constitutional: Denies daytime sleepiness, Denies excessive sweating, Reports fatigue, Denies fever(s), Denies lethargy, Reports malaise, Denies night sweats, Denies snoring and Reports weight loss Eyes: Eyes: Denies blurry vision and Denies itchy eyes ENT: Denies nasal congestion, Denies post nasal drip, Denies sinus pain, Denies sinus pressure and Denies other ( Thrush) Cardiovascular: Cardiovascular: Denies chest pain, Denies pedal edema, Denies dyspnea, Denies orthopnea and Denies paroxysmal nocturnal dyspnea Respiratory: Respiratory: Denies cough, Denies hemoptysis, Denies excessive phlegm production, Denies dyspnea, Denies snoring and Denies wheezing Gastrointestinal: Gastrointestinal: Denies abdominal pain and Denies heartburn Musculoskeletal: Musculoskeletal: Denies myalgias, Denies arthralgias and Denies joint swelling Integumentary/Breasts: Skin/Breast: Denies rash Neurologic: Denies memory loss and Denies seizure-like activity Psychiatric: Psychiatric: Denies abnormal sleep pattern, Denies anxiety and Denies memory loss Endocrine: Endocrine: Denies excessive sweating, Reports fatigue and Denies heat intolerance Hematologic/Lymphatic: Hematologic/Lymphatic: Denies easy bruising Allergic/Immunologic: Allergic/Immunologic: Denies itchy eyes, Denies seasonal rhinorrhea and Denies wheezing PMFSH Past Medical History Medical History CKD (chronic kidney disease) stage 3, GFR 30-59 ml/min Anemia Tubular adenoma of colon Hearing difficulty of both ears HTN (hypertension) Exercise hypoxemia Pulmonary fibrosis Pulmonary emphysema determined by X-ray Family History Family History Father No problems noted. Mother No problems noted. Surgical History Surgical History Hx of cholecystectomy History of rectal surgery Hx of colonoscopy Social History Social History Household Members: Spouse Housing: House Do you presently have visiting nurse or other home services: No Alcohol intake: former Patient Tobacco Use Status: Former Tobacco user Smoked in Last 30 Days: No Use of substances other than those prescribed or required for medical reasons: No Advance Directives: No Advance Directives Information Provided: No Nutrition Risks: No Nutritional Risk service: Yes Meds Allergies Allergy/AdvReac Type Severity Reaction Status Date / Time hydrochlorothiazide AdvReac Intermediate ITCH Verified 04/28/23 11:27 Active Medications: Current Medications Acetaminophen (Acetaminophen 325 Mg Tablet) 650 mg PO Q6H PRN PRN Reason: Pain, Mild (Pain Scale 1-3) Albuterol/Ipratropium (Albuterol/Iprat 2.5/0.5mg 3 Ml Ampul.Neb) 3 ml INHALE RQ4H WHILE AWAKE [facility] Atorvastatin Calcium (Atorvastatin Calcium 20 Mg Tablet) 20 mg PO DAILY@1100 [facility] Bisacodyl (Bisacodyl 10 Mg Supp.Rect) 10 mg [place] DAILY PRN PRN Reason: constipation Calcium Carbonate/Cholecalciferol (Calcium + Vitamin D 250 Mg Tablet) 500 mg PO DAILY@1500 [facility] Cyanocobalamin (Cyanocobalamin (Vitamin B-12) 1,000 Mcg Tablet) 1,000 mcg PO DAILY@1500 [facility] Docusate Sodium (Docusate Sodium 100 Mg Capsule) 200 mg PO DAILY [facility] Last Admin: 05/02/23 09:34 Dose: 200 mg Hydroxyurea (Hydroxyurea 500 Mg Capsule) 500 mg PO DAILY@1300 [facility] Cefepime HCl 2 gm/ Sodium (Chloride) 50 mls @ 100 mls/hr IV Q24H [facility] Melatonin (Melatonin 3 Mg Tablet) 6 mg PO BEDTIME PRN PRN Reason: Insomnia Methylprednisolone Sodium Succinate (Methylprednisolone Sod Succ 40 Mg/Ml Vial) 40 mg IVPUSH Q12H [facility] Last Admin: 05/02/23 08:44 Dose: Not Given Multivitamins/Vitamin C (Multivitamin Tablet) 1 tab PO DAILY [facility] Last Admin: 09/23/23 09:34 Dose: 1 tab Omeprazole (Omeprazole 20 Mg Capsule.) 20 mg PO BID@0630,1630 [facility] Last Admin: 05/02/23 09:35 Dose: 20 mg Polyethylene Glycol (Polyethylene Glycol 3350 17 Gm Powd.Pack) 17 gm PO BID [facility] Last Admin: 05/02/23 09:33 Dose: 17 gm Sodium Chloride (0.9 % Sodium Chloride Flush 3 Ml Syringe) 3 ml IVFLUSH QSHIFT [facility] Last Admin: 05/02/23 09:34 Dose: 3 ml Home Medications Medication Instructions Recorded Confirmed Last Taken Type cyanocobalamin (vitamin B-12) 1,000 mcg PO DAILY@1500 05/10/20 05/01/23 04/30/23 History 1,000 mcg tablet vit C 250 mg-vit E 90 mg-zinc 40 1 tab PO BID 08/29/20 05/01/23 04/30/23 History mg-copper 1 [id number] capsule (PreserVision AREDS-2) atorvastatin 20 mg tablet 20 mg PO DAILY@1100 06/03/22 05/01/23 05/01/23 History tacrolimus 0.1 % topical ointment 1 appl topical DAILY 06/03/22 05/01/23 05/01/23 History calcium carbonate 600 mg-vitamin 1 tab PO DAILY@1500 12/25/22 05/01/23 04/30/23 History D3 5 mcg (200 unit) tablet hydroxyurea 500 mg capsule 500 mg PO DAILY@1300 05/01/23 05/01/23 Unknown History Physical Exam 2 Vital Signs: Vital Signs: Last Vital Signs Temp 98.6 F 05/02/23 08:34 Pulse 65 05/02/23 08:34 Resp 16 05/02/23 08:34 BP 135/58 L 05/02/23 08:34 Pulse Ox 95 05/02/23 10:17 O2 Del Method Nasal Cannula 05/02/23 10:17 O2 Flow Rate 2 05/02/23 10:17 BMI result Body Mass Index 18.3 Const: General: no acute distress and alert Nutritional Appearance: thin Orientation/consciousness: Other orientation findings ( oriented) HEENT: Head: Yes atraumatic Eyes: General: appearance normal, both eyes and all related structures S clerae: sclerae normal EOM: EOMs intact bilaterally Neck: Neck: Yes supple Lymphatic: no lymphadenopathy noted Resp: Effort & Inspection: normal respiratory effort and no use of accessory muscles Auscultation: clear to auscultation bilaterally Cardio: Rate: regular rate Rhythm: regular rhythm Heart sounds: no gallops, no murmurs and no rubs Skin: General skin exam: other ( warm) Extrem: General: No clubbing, No cyanosis and No edema Results Laboratory Findings 05/01/23 19:36 05/01/23 19:35 Abnormal lab findings: Abnormal Labs 05/01/23 05/01/23 05/01/23 19:19 19:35 19:36 WBC 0.3 L* RBC 2.71 L D Hgb 9.1 L Hct 28.4 L MCV 104.8 H MCH 33.6 H RDW 23.9 H Plt Count 32 L D Neutrophils % (Manual) 75 H Lymphocytes % (Manual) 15 L Abs Neuts (Manual) 0.2 L Sodium 146 H Chloride 119 H Carbon Dioxide 18 L BUN 83 H Creatinine 3.31 H Random Glucose 144 H Alkaline Phosphatase 136 H B-Natriuretic Peptide 144 H Urine Protein 30 (1+) H Urine Blood Trace H Assessment and Plan (1) Pulmonary emphysema: Status: Acute (2) Pulmonary fibrosis: Status: Acute (3) Chronic respiratory failure with hypoxia: Status: Acute Plan Impression: 78-year-old gentleman with underlying end-stage pulmonary emphysema with superimposed fibrosis admitted with neutropenic fever, now back on to his chronic supplemental oxygen at 2 L continuous flow. Recommendations: At this time no changes in his baseline chronic hypoxic respiratory failure, no evidence of exacerbation of underlying COPD or pulmonary fibrosis. From that regard, no additional treatments are necessary. Time Spent With Patient Time: Total time managing care of this patient today ____ minutes. Procedures Date of Service Date of Service: 05/02/23
[2023-05-02 10:33] LABS: Hematocrit 25.1 % (42.0-52.0); Hemoglobin 7.9 g/dl (14.0-18.0); Mean Corpuscular HGB Conc 31.5 g/dl (31.0-36.0); Mean Corpuscular Hemoglobin 33.3 pg (27.0-33.0); Mean Corpuscular Volume 105.9 fL (80.0-98.0); Mean Platelet Volume 9.8 fL (9.4-12.4); Red Blood Count 2.37 X10*6/uL (4.60-5.80); Red Cell Distribution Width 23.9 % (11.0-16.0)
[2023-05-02 10:37] LABS: Venous Blood Gas Refer to POC result
[2023-05-02 10:38] LABS: VBG Base Excess -5.7 mmol/L; VBG HCO3 19 mmol/L (22-26); VBG pCO2 38 mmHg; VBG pH 7.31 (7.32-7.43); VBG pO2 47 mmHg
[2023-05-02 10:41] LABS: WBC ABN SCTR FOR CBC 1
[2023-05-02 10:42] LABS: Platelet Count 17 X10*3/uL (160-400); White Blood Count 0.3 X10*3/uL (4.8-10.8)
[2023-05-02 10:50] LABS: Anion Gap 13 (12-20); Blood Urea Nitrogen 76 mg/dL (9-16); Calcium 8.8 mg/dL (8.4-10.2); Carbon Dioxide 18 mmol/L (22-29); Chloride 124 mmol/L (96-108); Estimated Glomerular Filt Rate 19; Glucose Random 107 mg/dL (60-115); Potassium 4.5 mmol/L (3.3-5.1); Sodium 150 mmol/L (135-145)
[2023-05-02] MEDS: Atorvastatin Calcium 20 MG TABLET PO (11:10)
[2023-05-02 11:16] LABS: Band Neutrophils Percent 2 % (3-5); Eosinophils Percent Manual 2 % (0-4); Lymphocytes Absolute Manual 0.1 X10*3/uL (1.2-4.9); Lymphocytes Percent Manual 36 % (20-40); Neutrophils Absolute Manual 0.2 X10*3/uL (2.0-8.3); Neutrophils Percent Manual 60 % (45-73)
[2023-05-02 11:17] LABS: Acanthocytes 1+ (0-2) /OIF; Macrocytosis 2+ (15-30) /OIF; RBC Morphology NOTED
[2023-05-02 11:18] LABS: Hypochromasia 1+ (5-14) /OIF; Platelet Estimate DECREASED (NORMAL); Platelet Morphology Comment NORMAL
--- NOTE | 2023-05-02 13:44 | HO.PM.IMPN ---
Subjective Subjective Date of Service: 05/02/23 Interval History: Neutropenic fever,Pancytopenia,hypernatremia,mds Review of Systems has intermittent fevers Physical Exam Vital Signs: Vital Signs: Last Vital Signs Temp 98.6 F 05/02/23 08:34 Pulse 65 05/02/23 08:34 Resp 16 05/02/23 08:34 BP 135/58 L 05/02/23 08:34 Pulse Ox 95 05/02/23 10:17 O2 Del Method Nasal Cannula 05/02/23 10:17 O2 Flow Rate 2 05/02/23 10:17 BMI result Body Mass Index 18.3 General: Alert oriented , ch sick appearing, no acute distress Resp: air enty fair ,mild diminshed at bases ,no rales or wheezing. CVS: S1, S2, RRR GI: +BS, NT, no distention Skin: No rash Neuro: Cranial nerves II-XII grossly intact bilaterally. Motor grossly intact bilaterally Extremities: No edema Psych: Appropriate affect Objective Data Active Medications Acetaminophen (Acetaminophen 325 Mg Tablet) 650 mg PO Q6H PRN PRN Reason: Pain, Mild (Pain Scale 1-3) Albuterol/Ipratropium (Albuterol/Iprat 2.5/0.5mg 3 Ml Ampul.Neb) 3 ml INHALE RQ4H WHILE AWAKE [facility] Last Admin: 05/02/23 11:52 Dose: Not Given Documented By: SARTHAK Non-Admin Reason: Patient Asleep Atorvastatin Calcium (Atorvastatin Calcium 20 Mg Tablet) 20 mg PO DAILY@1100 [facility] Last Admin: 05/02/23 11:10 Dose: 20 mg Documented By: GRETCHEN Bisacodyl (Bisacodyl 10 Mg Supp.Rect) 10 mg [place] DAILY PRN PRN Reason: constipation Calcium Carbonate/Cholecalciferol (Calcium + Vitamin D 250 Mg Tablet) 500 mg PO DAILY@1500 [facility] Cyanocobalamin (Cyanocobalamin (Vitamin B-12) 1,000 Mcg Tablet) 1,000 mcg PO DAILY@1500 [facility] Docusate Sodium (Docusate Sodium 100 Mg Capsule) 200 mg PO DAILY [facility] Last Admin: 05/02/23 09:34 Dose: 200 mg Documented By: NEHA Hydroxyurea (Hydroxyurea 500 Mg Capsule) 500 mg PO DAILY@1300 [facility] Cefepime HCl 2 gm/ Sodium (Chloride) 50 mls @ 100 mls/hr IV Q24H [facility] Dextrose (D5w) 1,000 mls @ 50 mls/hr IVCONT .Q20H [facility] Melatonin (Melatonin 3 Mg Tablet) 6 mg PO BEDTIME PRN PRN Reason: Insomnia Multivitamins/Vitamin C (Multivitamin Tablet) 1 tab PO DAILY [facility] Last Admin: 05/02/23 09:34 Dose: 1 tab Documented By: NEHA Omeprazole (Omeprazole 20 Mg Capsule.) 20 mg PO BID@0630,1630 [facility] Last Admin: 05/02/23 09:35 Dose: 20 mg Documented By: NEHA Polyethylene Glycol (Polyethylene Glycol 3350 17 Gm Powd.Pack) 17 gm PO BID [facility] Last Admin: 05/02/23 09:33 Dose: 17 gm Documented By: NEHA Sodium Chloride (0.9 % Sodium Chloride Flush 3 Ml Syringe) 3 ml IVFLUSH QSHIFT [facility] Last Admin: 05/02/23 09:34 Dose: 3 ml Documented By: NEHA Labs 05/02/23 10:24 05/02/23 10:24 Labs: Laboratory Results - last 24 hr 05/01/23 05/01/23 05/01/23 19:19 19:35 19:36 MCV 104.8 H MCH 33.6 H MCHC 32.0 RDW 23.9 H Plt Count 32 L D MPV 9.8 Immature Gran % (Auto) Cancelled Neut % (Auto) Cancelled Lymph % (Auto) Cancelled [place] % (Auto) Cancelled Eos % (Auto) Cancelled Baso % (Auto) Cancelled Lymph # (Auto) Cancelled [place] # (Auto) Cancelled Eos # (Auto) Cancelled Baso # (Auto) Cancelled Abs Immat Gran (auto) Cancelled Absolute Neuts (auto) Cancelled Absolute Nucleated RBC 0.000 Nucleated RBC % (auto) 0.0 Neutrophils % (Manual) 75 H Band Neutrophils % Lymphocytes % (Manual) 15 L Monocytes % (Manual) 10 Eosinophils % (Manual) Abs Neuts (Manual) 0.2 L Lymphocytes # (Manual) Platelet Estimate DECREASED Plt Morphology Comment NORMAL RBC Morphology NORMAL Hypochromasia Macrocytosis 1+ (5-14) Acanthocytes (Spur) VBG pH VBG pCO2 VBG pO2 VBG HCO3 VBG O2 Saturation VBG Base Excess Anion Gap 14 Estim Creat Clear Calc 16.2 Estimated GFR 18 Random Glucose 144 H Lactic Acid 1.1 Calcium 9.2 Magnesium 2.1 Total Bilirubin 0.5 AST 35 ALT 30 Alkaline Phosphatase 136 H B-Natriuretic Peptide 144 H Total Protein 7.8 Albumin 3.5 Urine Color Yellow Urine Appearance Cloudy Urine pH 5.5 Ur Specific [place] 1.015 Urine Protein 30 (1+) H Urine Glucose (UA) Negative Urine Ketones Negative Urine Blood Trace H Urine Nitrite Negative Ur Leukocyte Esterase Negative Urine RBC 0-2 Urine WBC 0-5 Ur Squamous Epith Cells 3-5 Urine Bacteria None Seen Hyaline Casts 11-20 Granular Casts Present COVID-19 (JABARI) Negative COVID-19 Clin Com See Note 05/02/23 05/02/23 10:24 10:30 MCV 105.9 H MCH 33.3 H MCHC 31.5 RDW 23.9 H Plt Count 17 L* MPV 9.8 Immature Gran % (Auto) Cancelled Neut % (Auto) Cancelled Lymph % (Auto) Cancelled [place] % (Auto) Cancelled Eos % (Auto) Cancelled Baso % (Auto) Cancelled Lymph # (Auto) Cancelled [place] # (Auto) Cancelled Eos # (Auto) Cancelled Baso # (Auto) Cancelled Abs Immat Gran (auto) Cancelled Absolute Neuts (auto) Cancelled Absolute Nucleated RBC 0.000 Nucleated RBC % (auto) 0.0 Neutrophils % (Manual) 60 Band Neutrophils % 2 L Lymphocytes % (Manual) 36 Monocytes % (Manual) Eosinophils % (Manual) 2 Abs Neuts (Manual) 0.2 L Lymphocytes # (Manual) 0.1 L Platelet Estimate DECREASED Plt Morphology Comment NORMAL RBC Morphology NOTED Hypochromasia 1+ (5-14) Macrocytosis 2+ (15-30) Acanthocytes (Spur) 1+ (0-2) VBG pH 7.31 L VBG pCO2 38 VBG pO2 47 VBG HCO3 19 L VBG O2 Saturation 71.0 VBG Base Excess -5.7 Anion Gap 13 Estim Creat Clear Calc 17.0 Estimated GFR 19 Random Glucose 107 Lactic Acid Calcium 8.8 Magnesium Total Bilirubin AST ALT Alkaline Phosphatase B-Natriuretic Peptide Total Protein Albumin Urine Color Urine Appearance Urine pH Ur Specific [place] Urine Protein Urine Glucose (UA) Urine Ketones Urine Blood Urine Nitrite Ur Leukocyte Esterase Urine RBC Urine WBC Ur Squamous Epith Cells Urine Bacteria Hyaline Casts Granular Casts COVID-19 (JABARI) COVID-19 Clin Com Assessment and Plan (1) Neutropenic fever: Status: Acute (2) Pancytopenia: Status: Acute (3) Hypernatremia: Status: Resolved Plan 78-year-old male with a PMH significant for?unspecified dementia, emphysema, pulmonary fibrosis not on home O2, temporal arteritis, CKD stage 4, macrocytic anemia, BPH, carotid atherosclerosis, and hx of retinal artery occlusion who presents to the ED with?fever, chills, and generalized weakness x2 days. Pt will be admitted to the hospital for treatment and further evaluation of neutropenic fever with IV antibiotics, close monitoring, and specialist consultation. 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 another dose of neupogen added Oncology consult- pancytopenia worsening Neutropenic precautions Follow CBC Pancytopenia-worsening - WBC 0.3, H&H 7.9/25.1 point, platelets 17. Likely secondary to starting chemotherapy last week added type and cross Pneumatic boots for DVT prophylaxis d/t thrombopenia Follow CBC Myelodysplastic syndrom will check with oncology -? continue hydroxyurea Chronic constipation Patient long history of chronic constipation, CT of abdomen and pelvis showed large stool ball in the rectum and moderate stool content throughout the colon Will give suppository Continue polyethylene glycol, docusate, bisacodyl High-fiber diet Encourage liquids chronic hypoxic respiratory failure on 2 liter oxygen sec to pulmonary emphysema with superimposed fibrosis : continue oxygen ,nebs Hypernatremia :due to decreased po intake added d5w moniter sodium HLD Continue statin Full Code DVT Prophylaxis: Pneumatic boots d/t thrombopenia ongoing hospitalization need: treatment of?neutropenic fever with IV antibiotics, bone marrow stimulants, close monitoring. Time Spent With Patient Time: Total time managing care of this patient today ____ minutes. Quality Stroke Does the patient have a stroke diagnosis?: No VTE Prior VTE?: No VTE Risk Level:: Medical - moderate - high VTE Device Contraindication: Treatment Not Indicated VTE Drug Contraindication: N/A - Med Ordered
[2023-05-02] MEDS: Dextrose 5 % 1,000 ML 50 ML IVCONT (14:52)
[2023-05-02] MEDS: Cyanocobalamin (Vitamin B-12) 1,000 MCG TABLET 1000 MCG PO (14:53)
[2023-05-02] MEDS: Calcium + Vitamin D 250 MG TABLET 500 MG PO (14:53)
--- NOTE | 2023-05-02 15:12 | PM.HEMONCCN ---
Subjective - Subjective Patient: known to practice within the last 3 years Consult date: 05/02/23 Primary Care Provider: Unknown Physician HPI - Consult Narrative Reason for consult: neutropenic fever Narrative: Alban Little is a 78 year old male well known to me treated by Dr. Handley recently with decitibine for MDS. He is now febrile and pancytopenic. He is ladmitted to Med/Surg for ILV antibiotic therapy and blood product support. Review of Systems - Constitutional Reports fever(s), Reports lack of energy, Reports weakness, Reports weight loss - ENT Reports system reviewed and no additional complaints, except as documented - Cardiovascular Reports fast heart rate, Reports lightheadedness, Reports rapid, pounding, or irregular heartbeat - Respiratory Reports cough, Reports dyspnea on exertion - Gastrointestinal Reports feeling full early - Genitourinary Genitourinary: Reports urinary hesitancy, Reports urinary incontinence - Musculoskeletal Reports muscle weakness - Neurologic Reports confusion, Reports weakness, Denies memory loss, Denies seizure-like activity [facility] Medical History: Medical History (Last Reviewed 05/01/23 @ 22:18 by GIBSON Collins) Anemia CKD (chronic kidney disease) stage 3, GFR 30-59 ml/min Exercise hypoxemia Hearing difficulty of both ears HTN (hypertension) Pulmonary emphysema determined by X-ray Pulmonary fibrosis Tubular adenoma of colon Family History: Family History (Last Reviewed 05/01/23 @ 22:18 by GIBSON Collins) Father No problems noted. Mother No problems noted. Surgical History: Surgical History (Last Reviewed 05/01/23 @ 22:18 by GIBSON Collins) History of rectal surgery Hx of cholecystectomy Hx of colonoscopy Social History: Social History (Last Reviewed 05/01/23 @ 22:18 by GIBSON Collins) Living Situation History: Household Members: Spouse Housing: House Do you presently have visiting nurse or other home services: No Tobacco History: Patient Tobacco Use Status: Former Tobacco user Smoked in Last 30 Days: No Substance Use History: Use of substances other than those prescribed or required for medical reasons: No Advance Directives: Advance Directives: No Advance Directives Information Provided: No Nutrition Assessment: Nutrition Risks: No Nutritional Risk 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 Home Medications and Allergies Current Medications: Current Medications Acetaminophen (Acetaminophen 325 Mg Tablet) 650 mg PO Q6H PRN PRN Reason: Pain, Mild (Pain Scale 1-3) Albuterol/Ipratropium (Albuterol/Iprat 2.5/0.5mg 3 Ml Ampul.Neb) 3 ml INHALE RQ4H WHILE AWAKE [facility] Last Admin: 05/02/23 11:52 Dose: Not Given Atorvastatin Calcium (Atorvastatin Calcium 20 Mg Tablet) 20 mg PO DAILY@1100 [facility] Last Admin: 05/02/23 11:10 Dose: 20 mg Bisacodyl (Bisacodyl 10 Mg Supp.Rect) 10 mg [place] DAILY PRN PRN Reason: constipation Calcium Carbonate/Cholecalciferol (Calcium + Vitamin D 250 Mg Tablet) 500 mg PO DAILY@1500 [facility] Last Admin: 05/02/23 14:53 Dose: 500 mg Cyanocobalamin (Cyanocobalamin (Vitamin B-12) 1,000 Mcg Tablet) 1,000 mcg PO DAILY@1500 [facility] Last Admin: 05/02/23 14:53 Dose: 1,000 mcg Docusate Sodium (Docusate Sodium 100 Mg Capsule) 200 mg PO DAILY [facility] Last Admin: 05/02/23 09:34 Dose: 200 mg Cefepime HCl 2 gm/ Sodium (Chloride) 50 mls @ 100 mls/hr IV Q24H [facility] Dextrose (D5w) 1,000 mls @ 50 mls/hr IVCONT .Q20H [facility] Last Admin: 05/02/23 14:52 Dose: 50 mls/hr Melatonin (Melatonin 3 Mg Tablet) 6 mg PO BEDTIME PRN PRN Reason: Insomnia Multivitamins/Vitamin C (Multivitamin Tablet) 1 tab PO DAILY [facility] Last Admin: 05/02/23 09:34 Dose: 1 tab Omeprazole (Omeprazole 20 Mg Capsule.Dr) 20 mg PO BID@0630,1630 [facility] Last Admin: 05/02/23 09:35 Dose: 20 mg Polyethylene Glycol (Polyethylene Glycol 3350 17 Gm Powd.Pack) 17 gm PO BID [facility] Last Admin: 05/02/23 09:33 Dose: 17 gm Sodium Chloride (0.9 % Sodium Chloride Flush 3 Ml Syringe) 3 ml IVFLUSH QSHIFT [facility] Last Admin: 05/02/23 09:34 Dose: 3 ml Home Medications Medication Instructions Recorded Confirmed Type cyanocobalamin (vitamin B-12) 1,000 mcg PO DAILY@1500 05/10/20 05/01/23 History 1,000 mcg tablet vit C 250 mg-vit E 90 mg-zinc 40 1 tab PO BID 08/29/20 05/01/23 History mg-copper 1 [id number] capsule (PreserVision AREDS-2) atorvastatin 20 mg tablet 20 mg PO DAILY@1100 06/03/22 05/01/23 History tacrolimus 0.1 % topical ointment 1 appl topical DAILY 06/03/22 05/01/23 History calcium carbonate 600 mg-vitamin 1 tab PO DAILY@1500 12/25/22 05/01/23 History D3 5 mcg (200 unit) tablet hydroxyurea 500 mg capsule 500 mg PO DAILY@1300 05/01/23 05/01/23 History Allergies Allergy/AdvReac Type Severity Reaction Status Date / Time hydrochlorothiazide AdvReac Intermediate ITCH Verified 04/28/23 11:27 Physical Exam Vital signs: Vital Signs Temp 98.6 F 05/02/23 08:34 Pulse 65 05/02/23 08:34 Resp 16 05/02/23 08:34 BP 135/58 L 05/02/23 08:34 Pulse Ox 95 05/02/23 10:17 O2 Del Method Nasal Cannula 05/02/23 10:17 O2 Flow Rate 2 05/02/23 10:17 Intake & Output 05/01/23 05/02/23 05/02/23 18:59 06:59 18:59 Intake Total 1050.000 / 1050.000 Output Total 200 / 200 Balance 850.000 / 850.000 Urine Output (Average ml/kg/hr) 0.26 Intake: Intake, IV Amount 1050.000 / 1050.000 0.9 % Sodium Chloride 1,000 ml 1000 / 1000 @ 999 mls/hr IV .Q1H1M [facility] Rx#: [id number] cefEPime HCl 2 gm In 0.9 % 50.000 / 50.000 Sodium Chloride 50 ml @ 100 mls /hr IV ONCE ONE Rx#:[id number] Output: Output, Urine Amount 200 / 200 Other: Urine Urinal Weight 64.6 kg Weight 64.6 kg - Constitutional Present: no acute distress - Routine HEENT Exam Head: Present: atraumatic Eye: Present: PERRL ENT: Present: mucous membranes dry - Routine Neck Exam Present: supple - Routine Respiratory Exam Present: decreased breath sounds - Routine Cardiovascular Exam Cardiovascular: Present: RRR, tachycardia - Routine Abdominal Exam Present: diminished bowel sounds - Routine Extremities Exam Present: full ROM - Routine Skin Exam Present: warm - Routine Neurological Exam Present: moving all extremities Hem/Onc Consult Result - Labs CBC & Chem 7: 05/02/23 10:24 05/02/23 10:24 Labs: Short CBC 05/01/23 05/02/23 Range/Units 19:36 10:24 WBC 0.3 L* 0.3 L* (4.8-10.8) X10*3/uL Hgb 9.1 L 7.9 L (14.0-18.0) g/dl Hct 28.4 L 25.1 L (42.0-52.0) % Plt Count 32 L D 17 L* (160-400) X10*3/uL BMP 05/01/23 05/02/23 19:35 10:24 Sodium 146 H 150 H Potassium 5.0 4.5 Chloride 119 H 124 H Carbon Dioxide 18 L 18 L BUN 83 H 76 H Creatinine 3.31 H 3.15 H Calcium 9.2 8.8 Liver Function 05/01/23 Range/Units 19:35 Total Bilirubin 0.5 (0.0-1.0) mg/dL AST 35 (5-37) U/L ALT 30 (0-40) U/L Alkaline Phosphatase 136 H (39-117) U/L Albumin 3.5 (3.5-5.0) g/dL Urine 05/01/23 Range/Units 19:19 Urine Color Yellow Urine Appearance Cloudy Urine pH 5.5 (5.0-9.0) Ur Specific [place] 1.015 (1.005-1.025) Urine Protein 30 (1+) H (Neg-Trace) mg/dL Urine Glucose (UA) Negative (Negative) mg/dL Assessment and Plan Patient Active problem list reviewed?: Yes (1) Neutropenic fever Status: Acute Assessment and plan: He should receive support with platelet transfusions as needed to keep level above 10k, filgrastilm until wbc is above 1000. Recommend neutropenic precautions and avoid invasive procedures. Will follow. - Time Spent With Patient Time Spent with Patient (in minutes): 30
[2023-05-02 15:51] LABS: Adenovirus PCR Not Detected (Not Detect.); Bordetella parapertussis PCR Not Detected (Not Detect.); Bordetella pertussis PCR Not Detected (Not Detect.); Chlamydia pneumoniae PCR Not Detected (Not Detect.); Coronavirus 229E PCR Not Detected (Not Detect.); Coronavirus HKU1 PCR Not Detected (Not Detect.); Coronavirus NL63 PCR Not Detected (Not Detect.); Coronavirus OC43 PCR Not Detected (Not Detect.); Human metapneumovirus PCR Not Detected (Not Detect.); Influenza A PCR Not Detected (Not Detect.); Influenza B PCR Not Detected (Not Detect.); Mycoplasma pneumoniae PCR Not Detected (Not Detect.); Parainfluenza 1 PCR Not Detected (Not Detect.); Parainfluenza 2 PCR Not Detected (Not Detect.); Parainfluenza 3 PCR Not Detected (Not Detect.); Parainfluenza 4 PCR Not Detected (Not Detect.); RSV PCR Not Detected (Not Detect.); Rhino/Enterovirus PCR Not Detected (Not Detect.); SARS-CoV-2 PCR Not Detected (Not Detect.)
--- NOTE | 2023-05-02 16:00 | MHC.EDTECH ---
THIS PCT ASSUMED CARE OF PT AT 1500 ,VITALS SIGN TAKEN ,PT BELONGING LIST DONE ,TYPE AND SCREEN DRAWN AND SENT TO LAB ,PT HAS A ROOM ON MED _SURGE ,WAITING TO BE TRANSPORTED ,PT AT BEDSIDE ,PT IS COMFORTABLE AT THE MOMENT .
[2023-05-02] MEDS: Albuterol/Iprat 2.5/0.5MG 3 ML AMPUL.NEB INHALE ×2 (16:15→20:50)
[2023-05-02 19:15] LABS: Sodium 148 mmol/L (135-145)
[2023-05-02] MEDS: cefEPime HCl 2 GM in 0.9 % Sodium Chloride 50 ML IV (20:57)
[2023-05-03] VITALS (12 sets, daily range): BP systolic 89–132; BP diastolic 47–63; PULSE 53–79; RESP 16–18; TEMP 35.6–36.8; O2SAT 93–100
[2023-05-03] MEDS: Acetaminophen 325 MG TABLET 650 MG PO ×2 (01:50→08:49)
[2023-05-03] MEDS: Melatonin 3 MG TABLET 6 MG PO (01:51)
[2023-05-03] MEDS: Omeprazole 20 MG CAPSULE.DR PO ×2 (05:00→16:21)
--- NOTE | 2023-05-03 05:11 | PC.NURSE ---
Patient attempts OOB without exiting many times, but deterred by camera sitter redirection. Patient was given tylenol with melatonin at approx 0200. Hip pain improved but patient has not slept all night. occasionally pulls off oxygen. Respiratory called to unit previous to 0200 as patient O2 sats were low on 2L, concern for patient removing O2, camera room notified. Madhavi Umana stated there is not staff for sitter placement at bedside at this time.
[2023-05-03] MEDS: Albuterol/Iprat 2.5/0.5MG 3 ML AMPUL.NEB INHALE ×4 (07:48→19:46)
[2023-05-03 08:44] LABS: Mean Corpuscular HGB Conc 31.3 g/dl (31.0-36.0); Mean Corpuscular Hemoglobin 33.6 pg (27.0-33.0)
[2023-05-03 08:46] LABS: Hematocrit 25.2 % (42.0-52.0); Hemoglobin 7.9 g/dl (14.0-18.0); Mean Corpuscular Volume 107.2 fL (80.0-98.0); Red Blood Count 2.35 X10*6/uL (4.60-5.80); Red Cell Distribution Width 23.5 % (11.0-16.0)
[2023-05-03 08:47] LABS: PLT ABN DIST 1; WBC ABN SCTR FOR CBC 1
[2023-05-03] MEDS: 0.9 % Sodium Chloride Flush 3 ML SYRINGE IVFLUSH ×3 (08:49→23:43)
[2023-05-03] MEDS: Docusate Sodium 100 MG CAPSULE 200 MG PO (08:50)
[2023-05-03] MEDS: polyethylene glycoL 3350 17 GM POWD.PACK PO ×2 (08:50→18:55)
[2023-05-03] MEDS: QUEtiapine Fumarate 25 MG TABLET PO (08:50)
[2023-05-03] MEDS: Multivitamin TABLET 1 TAB PO (08:50)
[2023-05-03 09:07] LABS: Anion Gap 16 (12-20); Blood Urea Nitrogen 71 mg/dL (9-16); Calcium 8.7 mg/dL (8.4-10.2); Carbon Dioxide 15 mmol/L (22-29); Chloride 121 mmol/L (96-108); Creatinine Clr Calc Pharmacy 18.8; Estimated Glomerular Filt Rate 21; Glucose Random 100 mg/dL (60-115); Potassium 4.5 mmol/L (3.3-5.1); Sodium 147 mmol/L (135-145)
[2023-05-03 09:35] LABS: White Blood Count 0.3 X10*3/uL (4.8-10.8)
[2023-05-03 09:50] LABS: Band Neutrophils Percent 10 % (3-5); Lymphocytes Absolute Manual 0.2 X10*3/uL (1.2-4.9); Lymphocytes Percent Manual 60 % (20-40); Neutrophils Absolute Manual 0.1 X10*3/uL (2.0-8.3); Neutrophils Percent Manual 30 % (45-73)
[2023-05-03 09:51] LABS: Macrocytosis 1+ (5-14) /OIF; Platelet Estimate DECREASED (NORMAL); RBC Morphology NOTED
[2023-05-03 09:52] LABS: Burr Cells 2+ (3-5) /OIF; Platelet Morphology Comment NORMAL; Schistocytes 1+ (0-2) /OIF
--- NOTE | 2023-05-03 11:33 | P.PNHO-ONC_ITS ---
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 He is now febrile and pancytopenic. He is admitted to Med/Surg for ILV antibiotic therapy and blood product support. Since yesterday he has been afebrile. He remains neutropenic. He is on antibiotics. He is receiving a unit of platelets this morning. He seems stable. Review of Systems - Constitutional Reports weakness - Cardiovascular Reports fast heart rate, Reports shortness of breath with activity - Respiratory Reports dyspnea on exertion - Gastrointestinal Reports constipation - Genitourinary Genitourinary: Reports urinary urgency - Musculoskeletal Reports decreased muscle mass, Reports muscle weakness - Integumentary/Breasts Skin/Breast: Reports unusual bruising - Neurologic Reports confusion, Reports weakness, Denies memory loss, Denies seizure-like activity [facility] Medical History: Medical History (Last Reviewed 05/01/23 @ 22:18 by GIBSON Collins) Anemia CKD (chronic kidney disease) stage 3, GFR 30-59 ml/min Exercise hypoxemia Hearing difficulty of both ears HTN (hypertension) Pulmonary emphysema determined by X-ray Pulmonary fibrosis Tubular adenoma of colon Family History: Family History (Last Reviewed 05/01/23 @ 22:18 by GIBSON Collins) Father No problems noted. Mother No problems noted. 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 Home Medications and Allergies Current Medications: Current Medications Acetaminophen (Acetaminophen 325 Mg Tablet) 650 mg PO Q6H PRN PRN Reason: Pain, Mild (Pain Scale 1-3) Last Admin: 05/03/23 08:49 Dose: 650 mg Albuterol/Ipratropium (Albuterol/Iprat 2.5/0.5mg 3 Ml Ampul.Neb) 3 ml INHALE RQ4H WHILE AWAKE [facility] Last Admin: 05/03/23 07:48 Dose: 3 ml Atorvastatin Calcium (Atorvastatin Calcium 20 Mg Tablet) 20 mg PO DAILY@1100 [facility] Last Admin: 05/02/23 11:10 Dose: 20 mg Bisacodyl (Bisacodyl 10 Mg Supp.Rect) 10 mg ID DAILY PRN PRN Reason: constipation Calcium Carbonate/Cholecalciferol (Calcium + Vitamin D 250 Mg Tablet) 500 mg PO DAILY@1500 [facility] Last Admin: 05/02/23 14:53 Dose: 500 mg Cyanocobalamin (Cyanocobalamin (Vitamin B-12) 1,000 Mcg Tablet) 1,000 mcg PO DAILY@1500 [facility] Last Admin: 05/02/23 14:53 Dose: 1,000 mcg Docusate Sodium (Docusate Sodium 100 Mg Capsule) 200 mg PO DAILY [facility] Last Admin: 05/03/23 08:50 Dose: 200 mg Cefepime HCl 2 gm/ Sodium (Chloride) 50 mls @ 100 mls/hr IV Q24H [facility] Last Infusion: 05/02/23 21:40 Dose: Infused Melatonin (Melatonin 3 Mg Tablet) 6 mg PO BEDTIME PRN PRN Reason: Insomnia Last Admin: 05/03/23 01:51 Dose: 6 mg Multivitamins/Vitamin C (Multivitamin Tablet) 1 tab PO DAILY [facility] Last Admin: 05/03/23 08:50 Dose: 1 tab Omeprazole (Omeprazole 20 Mg Capsule.Dr) 20 mg PO BID@0630,1630 [facility] Last Admin: 05/03/23 05:00 Dose: 20 mg Polyethylene Glycol (Polyethylene Glycol 3350 17 Gm Powd.Pack) 17 gm PO BID [facility] Last Admin: 05/03/23 08:50 Dose: 17 gm Quetiapine Fumarate (Quetiapine Fumarate 25 Mg Tablet) 25 mg PO BID [facility] Last Admin: 05/03/23 08:50 Dose: 25 mg Sodium Chloride (0.9 % Sodium Chloride Flush 3 Ml Syringe) 3 ml IVFLUSH QSHIFT [facility] Last Admin: 05/03/23 08:49 Dose: 3 ml Home Medications Medication Instructions Recorded Confirmed Type cyanocobalamin (vitamin B-12) 1,000 mcg PO DAILY@1500 05/10/20 05/01/23 History 1,000 mcg tablet vit C 250 mg-vit E 90 mg-zinc 40 1 tab PO BID 01/20/21 09/22/23 History mg-copper 1 [id number] capsule (PreserVision AREDS-2) atorvastatin 20 mg tablet 20 mg PO DAILY@1100 06/03/22 05/01/23 History tacrolimus 0.1 % topical ointment 1 appl topical DAILY 06/03/22 05/01/23 History calcium carbonate 600 mg-vitamin 1 tab PO DAILY@1500 12/25/22 05/01/23 History D3 5 mcg (200 unit) tablet hydroxyurea 500 mg capsule 500 mg PO DAILY@1300 05/01/23 05/01/23 History Allergies Allergy/AdvReac Type Severity Reaction Status Date / Time hydrochlorothiazide AdvReac Intermediate ITCH Verified 04/28/23 11:27 Exam Vital signs: Vital Signs Temp 96.8 F 05/03/23 11:25 Pulse 56 05/03/23 11:25 Resp 18 05/03/23 11:25 BP 102/50 L 05/03/23 11:25 Pulse Ox 100 05/03/23 07:37 O2 Del Method Nasal Cannula 05/03/23 07:37 O2 Flow Rate 2 05/03/23 07:37 Intake & Output 05/02/23 05/03/23 05/03/23 18:59 06:59 18:59 Intake Total 710 / 710 864.167 / 864.167 Output Total 1060 / 1060 Balance -350 / -350 864.167 / 864.167 Urine Output (Average ml/kg/hr) 1.37 1.37 Intake: Intake, Oral Amount 660 / 660 Intake, IV Amount 50 / 50 864.167 / 864.167 cefEPime HCl 2 gm In 0.9 % 50 / 50 Sodium Chloride 50 ml @ 100 mls /hr IV Q24H [facility] Rx#:[id number] Dextrose 5 % 1,000 ml @ 50 mls/ 864.167 / 864.167 hr IVCONT .Q20H [facility]ONDA Rx#: [id number] Output: Output, Urine Amount 1060 / 1060 Other: Meal Refused No NPO No Dinner % Eaten 100% Number of Incontinent Voids 1 Urine Urinal Urine Color Yellow Weight 64.6 kg BMI result Body Mass Index 18.3 - Constitutional Present: no acute distress - Routine HEENT Exam Head: Present: atraumatic - Routine Respiratory Exam Present: decreased breath sounds - Routine Cardiovascular Exam Cardiovascular: Present: RRR, tachycardia - Routine Abdominal Exam Present: diminished bowel sounds - Routine Extremities Exam Present: full ROM - Routine Skin Exam Present: warm - Routine Neurological Exam Present: moving all extremities Data - Labs CBC & Chem 7: 05/03/23 08:22 05/03/23 08:22 Labs: 05/01/23 18:49 ECG 12 lead EKG Stat EKG Documentation DIRECTED XR chest 1V Stat 05/01/23 19:19 COVID-19 ID NOW ([place]) Stat UA ClnCatch+Micro w/rflx Cult Stat 05/01/23 19:35 BNP [B Type Natriuretic Peptide] Stat Comprehensive Met. Panel Stat Magnesium Stat 05/01/23 19:36 Complete Blood Count Man Dif Stat Lactic Acid Stat Troponin-I High Sensitivity Stat 05/01/23 19:40 Acetaminophen [Tylenol] 975 mg PO ONCE ONE cefEPime HCl [Maxipime] 2 gm 0.9 % Sodium Chloride [Ns] 50 ml IV ONCE 05/01/23 19:45 0.9 % Sodium Chloride [Ns] 1,000 ml IV 999 mls/hr 05/01/23 19:46 cefEPime HCl [Maxipime] 2 gm IV .STK-MED ONE 05/01/23 20:06 CT abdomen pelvis wo IV con Stat 05/01/23 20:25 Tbo-Filgrastim [Granix] 480 mcg SUBCUT ONCE ONE 05/01/23 20:42 Acetaminophen Supp [Tylenol Supp] 650 mg ID Q6H PRN 05/01/23 20:43 Admission Assessment - Modified NOW 05/01/23 21:00 Enoxaparin Sodium [Lovenox] 30 mg SUBCUT Q24H 05/01/23 21:41 bisacodyL [Dulcolax] 10 mg ID ONCE ONE 05/02/23 CT chest wo IV con Stat 05/02/23 03:36 OLANZapine [ZyPREXA] 5 mg IM STAT STA 05/02/23 05:52 Acetaminophen [Ofirmev] 1,000 mg in 100 ml IV ONCE 05/02/23 06:29 OLANZapine [ZyPREXA] 10 mg IM STAT STA 05/02/23 08:15 methylPREDNISolone Sod Succ [SOLU-MedroL] 40 mg IVPUSH Q12H 05/02/23 09:00 polyethylene glycoL 3350 [Miralax] 17 gm PO DAILY 05/02/23 10:16 VBG [Venous Blood Gas] Urgent 05/02/23 10:24 Basic Metabolic Panel AM Complete Blood Count Man Dif Routine 05/02/23 10:30 Venous Blood Gases - POC Routine 05/02/23 13:45 Dextrose 5 % [D5w] 1,000 ml IVCONT 50 mls/hr 05/02/23 13:59 Resp Pathogen Panel - [facility] Stat 05/02/23 14:45 Tbo-Filgrastim [Granix] 480 mcg SUBCUT ONCE ONE 05/02/23 18:52 Hold Lav - Possible Hematology Routine 05/02/23 18:53 Sodium Routine 05/02/23 20:51 cefEPime HCl [Maxipime] 2 gm IV .STK-MED ONE 05/03/23 08:22 BMP [Basic Metabolic Panel] Urgent CBC NO DIFF [Complete Blood Count no Diff] Urgent Manual Differential Urgent 05/03/23 09:23 Add Laboratory Test Urgent 05/03/23 09:45 Tbo-Filgrastim [Granix] 300 mcg SUBCUT ONCE ONE Laboratory Last Values WBC 0.3 X10*3/uL (4.8-10.8) L* 05/03/23 08:22 RBC 2.35 X10*6/uL (4.60-5.80) L 05/03/23 08:22 Hgb 7.9 g/dl (14.0-18.0) L 05/03/23 08:22 Hct 25.2 % (42.0-52.0) L 05/03/23 08:22 MCV 107.2 fL (80.0-98.0) H 05/03/23 08:22 MCH 33.6 pg (27.0-33.0) H 05/03/23 08:22 MCHC 31.3 g/dl (31.0-36.0) 05/03/23 08:22 RDW 23.5 % (11.0-16.0) H 05/03/23 08:22 Plt Count 9 X10*3/uL (160-400) L* 05/03/23 08:22 MPV Not Reportable 05/03/23 08:22 Immature Gran % (Auto) Cancelled 05/02/23 10:24 Neut % (Auto) Cancelled 05/02/23 10:24 Lymph % (Auto) Cancelled 05/02/23 10:24 Howell % (Auto) Cancelled 05/02/23 10:24 Eos % (Auto) Cancelled 05/02/23 10:24 Baso % (Auto) Cancelled 05/02/23 10:24 Lymph # (Auto) Cancelled 05/02/23 10:24 Howell # (Auto) Cancelled 05/02/23 10:24 Eos # (Auto) Cancelled 05/02/23 10:24 Baso # (Auto) Cancelled 05/02/23 10:24 Abs Immat Gran (auto) Cancelled 05/02/23 10:24 Absolute Neuts (auto) Cancelled 05/02/23 10:24 Absolute Nucleated RBC 0.000 X10*3/uL (0.0-0.012) 05/03/23 08:22 Nucleated RBC % (auto) 0.0 /100WBC (0.0-0.2) 05/03/23 08:22 Neutrophils % (Manual) 30 % (45-73) L 05/03/23 08:22 Band Neutrophils % 10 % (3-5) H 05/03/23 08:22 Lymphocytes % (Manual) 60 % (20-40) H 05/03/23 08:22 Monocytes % (Manual) 10 % (2-11) 05/01/23 19:36 Eosinophils % (Manual) 2 % (0-4) 05/02/23 10:24 Abs Neuts (Manual) 0.1 X10*3/uL (2.0-8.3) L 05/03/23 08:22 Lymphocytes # (Manual) 0.2 X10*3/uL (1.2-4.9) L 05/03/23 08:22 Platelet Estimate DECREASED (NORMAL) 05/03/23 08:22 Plt Morphology Comment NORMAL 05/03/23 08:22 RBC Morphology NOTED 05/03/23 08:22 Hypochromasia 1+ (5-14) /OIF 05/02/23 10:24 Macrocytosis 1+ (5-14) /OIF 05/03/23 08:22 Bucky Cells 2+ (3-5) /OIF 05/03/23 08:22 Acanthocytes (Spur) 1+ (0-2) /OIF 05/02/23 10:24 Schistocytes 1+ (0-2) /OIF 05/03/23 08:22 Hold Purple Top SEE NOTE 05/02/23 18:52 VBG pH 7.31 (7.32-7.43) L 05/02/23 10:30 VBG pCO2 38 mmHg 05/02/23 10:30 VBG pO2 47 mmHg 05/02/23 10:30 VBG HCO3 19 mmol/L (22-26) L 05/02/23 10:30 VBG O2 Saturation 71.0 % 05/02/23 10:30 VBG Base Excess -5.7 mmol/L 05/02/23 10:30 Sodium 147 mmol/L (135-145) H 05/03/23 08:22 Potassium 4.5 mmol/L (3.3-5.1) 05/03/23 08:22 Chloride 121 mmol/L (96-108) H 05/03/23 08:22 Carbon Dioxide 15 mmol/L (22-29) L 05/03/23 08:22 Anion Gap 16 (12-20) 05/03/23 08:22 BUN 71 mg/dL (9-16) H 05/03/23 08:22 Creatinine 2.86 mg/dL (0.5-1.4) H 05/03/23 08:22 Estim Creat Clear Calc 18.8 05/03/23 08:22 Estimated GFR 21 05/03/23 08:22 Random Glucose 100 mg/dL (60-115) 05/03/23 08:22 Lactic Acid 1.1 mmol/L (0.5-2.0) 05/01/23 19:36 Calcium 8.7 mg/dL (8.4-10.2) 05/03/23 08:22 Magnesium 2.1 mg/dL (1.6-2.6) 05/01/23 19:35 Total Bilirubin 0.5 mg/dL (0.0-1.0) 05/01/23 19:35 AST 35 U/L (5-37) 05/01/23 19:35 ALT 30 U/L (0-40) 05/01/23 19:35 Alkaline Phosphatase 136 U/L (39-117) H 05/01/23 19:35 Troponin I High Sens 34.2 ng/L (<3.5-35.0) 05/01/23 19:36 B-Natriuretic Peptide 144 pg/mL (<100) H 05/01/23 19:35 Total Protein 7.8 g/dL (6.5-8.0) 05/01/23 19:35 Albumin 3.5 g/dL (3.5-5.0) 05/01/23 19:35 Urine Color Yellow 05/01/23 19:19 Urine Appearance Cloudy 05/01/23 19:19 Urine pH 5.5 (5.0-9.0) 05/01/23 19:19 Ur Specific [place] 1.015 (1.005-1.025) 05/01/23 19:19 Urine Protein 30 (1+) mg/dL (Neg-Trace) H 05/01/23 19:19 Urine Glucose (UA) Negative mg/dL (Negative) 05/01/23 19:19 Urine Ketones Negative mg/dL (Negative) 05/01/23 19:19 Urine Blood Trace (Negative) H 05/01/23 19:19 Urine Nitrite Negative (Negative) 05/01/23 19:19 Ur Leukocyte Esterase Negative (Negative) 05/01/23 19:19 Urine RBC 0-2 /HPF (0-2) 05/01/23 19:19 Urine WBC 0-5 /HPF (0-5) 05/01/23 19:19 Ur Squamous Epith Cells 3-5 /HPF (0-2) 05/01/23 19:19 Urine Bacteria None Seen (None Seen) 05/01/23 19:19 Hyaline Casts 11-20 /LPF (0-2) 05/01/23 19:19 Granular Casts Present 05/01/23 19:19 Respiratory Panel Albarran See Note 05/02/23 13:59 Adenovirus (Rapid PCR) Not Detected (Not Detect.) 05/02/23 13:59 B.pert (TEM-PCR) Not Detected (Not Detect.) 05/02/23 13:59 B.parapertussis DNA PCR Not Detected (Not Detect.) 05/02/23 13:59 C. pneumoniae DNA (PCR) Not Detected (Not Detect.) 05/02/23 13:59 Coronavirus OC43 (PCR) Not Detected (Not Detect.) 05/02/23 13:59 Coronavirus HKU1 (PCR) Not Detected (Not Detect.) 05/02/23 13:59 Coronavirus 229E (PCR) Not Detected (Not Detect.) 05/02/23 13:59 COVID-19 (JABARI) Negative (Negative) 05/01/23 19:19 COVID-19 Clin Com See Note 05/01/23 19:19 Coronavirus NL63 (PCR) Not Detected (Not Detect.) 05/02/23 13:59 Human Metapneumovir PCR Not Detected (Not Detect.) 05/02/23 13:59 Influenza A (RT-PCR) Not Detected (Not Detect.) 05/02/23 13:59 Influenza B (RT-PCR) Not Detected (Not Detect.) 05/02/23 13:59 M. pneumoniae (PCR) Not Detected (Not Detect.) 05/02/23 13:59 Parainfluenza 1 (PCR) Not Detected (Not Detect.) 05/02/23 13:59 Parainfluenza 2 (PCR) Not Detected (Not Detect.) 05/02/23 13:59 Parainfluenza 3 (PCR) Not Detected (Not Detect.) 05/02/23 13:59 Parainfluenza 4 (PCR) Not Detected (Not Detect.) 05/02/23 13:59 RSV (PCR) Not Detected (Not Detect.) 05/02/23 13:59 Entero/Rhino (PCR) Not Detected (Not Detect.) 05/02/23 13:59 SARS-CoV-2 RNA (RT-PCR) Not Detected (Not Detect.) 05/02/23 13:59 Blood Type A Positive 05/02/23 15:57 Antibody Screen NEGATIVE 05/02/23 15:57 - Imaging Radiologist's impression: ITS Impressions Chest X-Ray 05/01/23 19:18 IMPRESSION: Diffuse increased markings/interstitial coarsening and patchy lung opacities were present previously with some apparent improvement. This is likely chronic. There is no new consolidation or evidence for significant pleural effusion. Abdomen/Pelvis CT 05/01/23 20:24 IMPRESSION: Limited noncontrast examination. 1. Large stool ball in the rectum and moderate stool content throughout the colon suggesting constipation. 2. Colonic diverticulosis but no evidence of acute diverticulitis. 3. Again noted very prominent duodenal diverticuli without significant associated inflammatory changes. 4. Redemonstration of advanced emphysematous changes and pulmonary fibrosis in the visualized lung bases. Chest CT 05/02/23 08:55 IMPRESSION: * Advanced tan lobar pulmonary emphysema. * Interstitial hazy opacification especially at the periphery of the lower more than upper lobes combined with interlobular septal thickening, peripheral paraseptal and subpleural honeycombing suggesting interstitial pneumonitis, interstitial pulmonary fibrosis. The process has progressed, advanced since prior exams. * No suspicious lung mass. Stable 5 mm nodule right upper lobe. * Coronary calcification. Various management parameters for solitary pulmonary nodules are in the literature. According to the UPDATED 2017 Fleischner Society recommendations, the advised follow-up imaging for solid nodules < 6 mm is: LOW RISK PATIENT: No routine follow-up. HIGH RISK PATIENT: Optional CT at 12 months. Reference: Guidelines for Management of Incidental Pulmonary Nodules Detected on CT Images: From the Fleischner Society 2017. Assessment and Plan Patient Active problem list reviewed?: Yes (1) Neutropenic fever Status: Acute Assessment and plan: He should receive support with platelet transfusions as needed to keep level above 10k, filgrastilm until wbc is above 1000. Recommend neutropenic precautions and avoid invasive procedures. He is now afebrile and able to eat and drink. - Time Spent With Patient Time Spent with Patient (in minutes): 15
--- NOTE | 2023-05-03 12:11 | PM.PSYCN ---
History of Present Illness Date of Service: t Chief Complaint: Hypoxia Reason for Consult: Delirium Requesting physician: Lisbeth Oreilly Discussed with referring provider: Yes Sources of Information: patient interviewed and chart reviewed HPI Narrative: The patient is an 78-year-old male with a prior history of dementia, COPD with supplementary oxygen at home, history of rectal cancer, on treatment with chemotherapy, central retinal artery occlusion, pulmonary fibrosis and in Phys in a admitted for a high fever with pancytopenia after chemotherapy. The patient had been treated with antibiotics but he had been agitated, nonsensical with altered mental status. The present consult was placed since the patient needed several times antipsychotics. I interview the patient at bedside, the patient was extremely confused, he was nonsensical at times and unable to provide any major information. I discussed the case with Dr. Oreilly and he disorder used the patient is on delirium and he will benefit from a short course of antipsychotics to treat agitation. Past Psychiatric History: Past history of dementia Medical Evaluation Reviewed: Yes [facility] Medical History CKD (chronic kidney disease) stage 3, GFR 30-59 ml/min Anemia Tubular adenoma of colon Hearing difficulty of both ears HTN (hypertension) Exercise hypoxemia Pulmonary fibrosis Pulmonary emphysema determined by X-ray Surgical History Hx of cholecystectomy History of rectal surgery Hx of colonoscopy Diagnostics Vital Signs (24Hr): Vital Signs - 24 hr 05/02/23 15:22 05/02/23 16:00 05/02/23 16:21 Temperature 98.8 F 97.7 F Pulse Rate 71 68 63 Respiratory Rate 16 18 16 Blood Pressure 153/71 H 127/62 Pulse Oximetry 95 92 Oxygen Delivery Method Nasal Cannula Room Air Oxygen Flow Rate 2 05/02/23 19:15 05/02/23 20:50 05/02/23 23:40 Temperature 96.8 F 97.9 F Pulse Rate 91 78 80 Respiratory Rate 18 16 20 Blood Pressure 123/55 L 141/64 H Pulse Oximetry 96 91 L Oxygen Delivery Method Nasal Cannula Nasal Cannula Oxygen Flow Rate 1 4 05/03/23 03:43 05/03/23 07:37 05/03/23 07:51 Temperature 97.8 F Pulse Rate 56 58 Respiratory Rate 16 16 16 Blood Pressure 107/58 L Pulse Oximetry 100 Oxygen Delivery Method Nasal Cannula Oxygen Flow Rate 2 05/03/23 11:09 05/03/23 11:25 05/03/23 11:29 Temperature 96.8 F 96.1 F L Pulse Rate 64 56 65 Respiratory Rate 18 18 18 Blood Pressure 102/50 L 102/50 L 97/52 L Pulse Oximetry Oxygen Delivery Method Oxygen Flow Rate 05/03/23 11:34 Temperature Pulse Rate 53 Respiratory Rate 18 Blood Pressure Pulse Oximetry Oxygen Delivery Method Oxygen Flow Rate BMI result Body Mass Index 18.3 Labs 05/03/23 08:22 05/03/23 08:22 Labs: Laboratory Results - last 48 hr 05/01/23 05/01/23 05/01/23 19:19 19:35 19:36 WBC 0.3 L* RBC 2.71 L D Hgb 9.1 L Hct 28.4 L MCV 104.8 H MCH 33.6 H MCHC 32.0 RDW 23.9 H Plt Count 32 L D MPV 9.8 Immature Gran % (Auto) Cancelled Neut % (Auto) Cancelled Lymph % (Auto) Cancelled Carter % (Auto) Cancelled Eos % (Auto) Cancelled Baso % (Auto) Cancelled Lymph # (Auto) Cancelled Carter # (Auto) Cancelled Eos # (Auto) Cancelled Baso # (Auto) Cancelled Abs Immat Gran (auto) Cancelled Absolute Neuts (auto) Cancelled Absolute Nucleated RBC 0.000 Nucleated RBC % (auto) 0.0 Neutrophils % (Manual) 75 H Band Neutrophils % Lymphocytes % (Manual) 15 L Monocytes % (Manual) 10 Eosinophils % (Manual) Abs Neuts (Manual) 0.2 L Lymphocytes # (Manual) Platelet Estimate DECREASED Plt Morphology Comment NORMAL RBC Morphology NORMAL Hypochromasia Macrocytosis 1+ (5-14) [place] Cells Acanthocytes (Spur) Schistocytes Hold Purple Top VBG pH VBG pCO2 VBG pO2 VBG HCO3 VBG O2 Saturation VBG Base Excess Sodium 146 H Potassium 5.0 Chloride 119 H Carbon Dioxide 18 L Anion Gap 14 BUN 83 H Creatinine 3.31 H Estim Creat Clear Calc 16.2 Estimated GFR 18 Random Glucose 144 H Lactic Acid 1.1 Calcium 9.2 Magnesium 2.1 Total Bilirubin 0.5 AST 35 ALT 30 Alkaline Phosphatase 136 H Troponin I High Sens 34.2 B-Natriuretic Peptide 144 H Total Protein 7.8 Albumin 3.5 Urine Color Yellow Urine Appearance Cloudy Urine pH 5.5 Ur Specific [place] 1.015 Urine Protein 30 (1+) H Urine Glucose (UA) Negative Urine Ketones Negative Urine Blood Trace H Urine Nitrite Negative Ur Leukocyte Esterase Negative Urine RBC 0-2 Urine WBC 0-5 Ur Squamous Epith Cells 3-5 Urine Bacteria None Seen Hyaline Casts 11-20 Granular Casts Present Respiratory Panel [place] Adenovirus (Rapid PCR) B.pert (TEM-PCR) B.parapertussis DNA PCR C. pneumoniae DNA (PCR) Coronavirus OC43 (PCR) Coronavirus HKU1 (PCR) Coronavirus 229E (PCR) COVID-19 (JABARI) Negative COVID-19 Clin Com See Note Coronavirus NL63 (PCR) Human Metapneumovir PCR Influenza A (RT-PCR) Influenza B (RT-PCR) M. pneumoniae (PCR) Parainfluenza 1 (PCR) Parainfluenza 2 (PCR) Parainfluenza 3 (PCR) Parainfluenza 4 (PCR) RSV (PCR) Entero/Rhino (PCR) SARS-CoV-2 RNA (RT-PCR) Blood Type Antibody Screen 05/02/23 05/02/23 05/02/23 10:24 10:30 13:59 WBC 0.3 L* RBC 2.37 L Hgb 7.9 L Hct 25.1 L MCV 105.9 H MCH 33.3 H MCHC 31.5 RDW 23.9 H Plt Count 17 L* MPV 9.8 Immature Gran % (Auto) Cancelled Neut % (Auto) Cancelled Lymph % (Auto) Cancelled Carter % (Auto) Cancelled Eos % (Auto) Cancelled Baso % (Auto) Cancelled Lymph # (Auto) Cancelled Carter # (Auto) Cancelled Eos # (Auto) Cancelled Baso # (Auto) Cancelled Abs Immat Gran (auto) Cancelled Absolute Neuts (auto) Cancelled Absolute Nucleated RBC 0.000 Nucleated RBC % (auto) 0.0 Neutrophils % (Manual) 60 Band Neutrophils % 2 L Lymphocytes % (Manual) 36 Monocytes % (Manual) Eosinophils % (Manual) 2 Abs Neuts (Manual) 0.2 L Lymphocytes # (Manual) 0.1 L Platelet Estimate DECREASED Plt Morphology Comment NORMAL RBC Morphology NOTED Hypochromasia 1+ (5-14) Macrocytosis 2+ (15-30) [place] Cells Acanthocytes (Spur) 1+ (0-2) Schistocytes Hold Purple Top VBG pH 7.31 L VBG pCO2 38 VBG pO2 47 VBG HCO3 19 L VBG O2 Saturation 71.0 VBG Base Excess -5.7 Sodium 150 H Potassium 4.5 Chloride 124 H Carbon Dioxide 18 L Anion Gap 13 BUN 76 H Creatinine 3.15 H Estim Creat Clear Calc 17.0 Estimated GFR 19 Random Glucose 107 Lactic Acid Calcium 8.8 Magnesium Total Bilirubin AST ALT Alkaline Phosphatase Troponin I High Sens B-Natriuretic Peptide Total Protein Albumin Urine Color Urine Appearance Urine pH Ur Specific [place] Urine Protein Urine Glucose (UA) Urine Ketones Urine Blood Urine Nitrite Ur Leukocyte Esterase Urine RBC Urine WBC Ur Squamous Epith Cells Urine Bacteria Hyaline Casts Granular Casts Respiratory Panel [place] See Note Adenovirus (Rapid PCR) Not Detected B.pert (TEM-PCR) Not Detected B.parapertussis DNA PCR Not Detected C. pneumoniae DNA (PCR) Not Detected Coronavirus OC43 (PCR) Not Detected Coronavirus HKU1 (PCR) Not Detected Coronavirus 229E (PCR) Not Detected COVID-19 (JABARI) COVID-19 Clin Com Coronavirus NL63 (PCR) Not Detected Human Metapneumovir PCR Not Detected Influenza A (RT-PCR) Not Detected Influenza B (RT-PCR) Not Detected M. pneumoniae (PCR) Not Detected Parainfluenza 1 (PCR) Not Detected Parainfluenza 2 (PCR) Not Detected Parainfluenza 3 (PCR) Not Detected Parainfluenza 4 (PCR) Not Detected RSV (PCR) Not Detected Entero/Rhino (PCR) Not Detected SARS-CoV-2 RNA (RT-PCR) Not Detected Blood Type Antibody Screen 05/02/23 05/02/23 05/02/23 15:57 18:52 18:53 WBC RBC Hgb Hct MCV MCH MCHC RDW Plt Count MPV Immature Gran % (Auto) Neut % (Auto) Lymph % (Auto) Carter % (Auto) Eos % (Auto) Baso % (Auto) Lymph # (Auto) Carter # (Auto) Eos # (Auto) Baso # (Auto) Abs Immat Gran (auto) Absolute Neuts (auto) Absolute Nucleated RBC Nucleated RBC % (auto) Neutrophils % (Manual) Band Neutrophils % Lymphocytes % (Manual) Monocytes % (Manual) Eosinophils % (Manual) Abs Neuts (Manual) Lymphocytes # (Manual) Platelet Estimate Plt Morphology Comment RBC Morphology Hypochromasia Macrocytosis [place] Cells Acanthocytes (Spur) Schistocytes Hold Purple Top SEE NOTE VBG pH VBG pCO2 VBG pO2 VBG HCO3 VBG O2 Saturation VBG Base Excess Sodium 148 H Potassium Chloride Carbon Dioxide Anion Gap BUN Creatinine Estim Creat Clear Calc Estimated GFR Random Glucose Lactic Acid Calcium Magnesium Total Bilirubin AST ALT Alkaline Phosphatase Troponin I High Sens B-Natriuretic Peptide Total Protein Albumin Urine Color Urine Appearance Urine pH Ur Specific [place] Urine Protein Urine Glucose (UA) Urine Ketones Urine Blood Urine Nitrite Ur Leukocyte Esterase Urine RBC Urine WBC Ur Squamous Epith Cells Urine Bacteria Hyaline Casts Granular Casts Respiratory Panel [place] Adenovirus (Rapid PCR) B.pert (TEM-PCR) B.parapertussis DNA PCR C. pneumoniae DNA (PCR) Coronavirus OC43 (PCR) Coronavirus HKU1 (PCR) Coronavirus 229E (PCR) COVID-19 (JABARI) COVID-19 Clin Com Coronavirus NL63 (PCR) Human Metapneumovir PCR Influenza A (RT-PCR) Influenza B (RT-PCR) M. pneumoniae (PCR) Parainfluenza 1 (PCR) Parainfluenza 2 (PCR) Parainfluenza 3 (PCR) Parainfluenza 4 (PCR) RSV (PCR) Entero/Rhino (PCR) SARS-CoV-2 RNA (RT-PCR) Blood Type A Positive Antibody Screen NEGATIVE 05/03/23 08:22 WBC 0.3 L* RBC 2.35 L Hgb 7.9 L Hct 25.2 L MCV 107.2 H MCH 33.6 H MCHC 31.3 RDW 23.5 H Plt Count 9 L* MPV Not Reportable Immature Gran % (Auto) Neut % (Auto) Lymph % (Auto) Carter % (Auto) Eos % (Auto) Baso % (Auto) Lymph # (Auto) Carter # (Auto) Eos # (Auto) Baso # (Auto) Abs Immat Gran (auto) Absolute Neuts (auto) Absolute Nucleated RBC 0.000 Nucleated RBC % (auto) 0.0 Neutrophils % (Manual) 30 L Band Neutrophils % 10 H Lymphocytes % (Manual) 60 H Monocytes % (Manual) Eosinophils % (Manual) Abs Neuts (Manual) 0.1 L Lymphocytes # (Manual) 0.2 L Platelet Estimate DECREASED Plt Morphology Comment NORMAL RBC Morphology NOTED Hypochromasia Macrocytosis 1+ (5-14) [place] Cells 2+ (3-5) Acanthocytes (Spur) Schistocytes 1+ (0-2) Hold Purple Top VBG pH VBG pCO2 VBG pO2 VBG HCO3 VBG O2 Saturation VBG Base Excess Sodium 147 H Potassium 4.5 Chloride 121 H Carbon Dioxide 15 L Anion Gap 16 BUN 71 H Creatinine 2.86 H Estim Creat Clear Calc 18.8 Estimated GFR 21 Random Glucose 100 Lactic Acid Calcium 8.7 Magnesium Total Bilirubin AST ALT Alkaline Phosphatase Troponin I High Sens B-Natriuretic Peptide Total Protein Albumin Urine Color Urine Appearance Urine pH Ur Specific [place] Urine Protein Urine Glucose (UA) Urine Ketones Urine Blood Urine Nitrite Ur Leukocyte Esterase Urine RBC Urine WBC Ur Squamous Epith Cells Urine Bacteria Hyaline Casts Granular Casts Respiratory Panel [place] Adenovirus (Rapid PCR) B.pert (TEM-PCR) B.parapertussis DNA PCR C. pneumoniae DNA (PCR) Coronavirus OC43 (PCR) Coronavirus HKU1 (PCR) Coronavirus 229E (PCR) COVID-19 (JABARI) COVID-19 Clin Com Coronavirus NL63 (PCR) Human Metapneumovir PCR Influenza A (RT-PCR) Influenza B (RT-PCR) M. pneumoniae (PCR) Parainfluenza 1 (PCR) Parainfluenza 2 (PCR) Parainfluenza 3 (PCR) Parainfluenza 4 (PCR) RSV (PCR) Entero/Rhino (PCR) SARS-CoV-2 RNA (RT-PCR) Blood Type Antibody Screen Imaging Radiology Impressions: ITS Impressions Chest X-Ray 05/01/23 19:18 IMPRESSION: Diffuse increased markings/interstitial coarsening and patchy lung opacities were present previously with some apparent improvement. This is likely chronic. There is no new consolidation or evidence for significant pleural effusion. Abdomen/Pelvis CT 05/01/23 20:24 IMPRESSION: Limited noncontrast examination. 1. Large stool ball in the rectum and moderate stool content throughout the colon suggesting constipation. 2. Colonic diverticulosis but no evidence of acute diverticulitis. 3. Again noted very prominent duodenal diverticuli without significant associated inflammatory changes. 4. Redemonstration of advanced emphysematous changes and pulmonary fibrosis in the visualized lung bases. Chest CT 05/02/23 08:55 IMPRESSION: * Advanced tan lobar pulmonary emphysema. * Interstitial hazy opacification especially at the periphery of the lower more than upper lobes combined with interlobular septal thickening, peripheral paraseptal and subpleural honeycombing suggesting interstitial pneumonitis, interstitial pulmonary fibrosis. The process has progressed, advanced since prior exams. * No suspicious lung mass. Stable 5 mm nodule right upper lobe. * Coronary calcification. Various management parameters for solitary pulmonary nodules are in the literature. According to the UPDATED 2017 Fleischner Society recommendations, the advised follow-up imaging for solid nodules < 6 mm is: LOW RISK PATIENT: No routine follow-up. HIGH RISK PATIENT: Optional CT at 12 months. Reference: Guidelines for Management of Incidental Pulmonary Nodules Detected on CT Images: From the Fleischner Society 2017. Mental Status Exam Mental Status Exam Patient Appearance: Appropriate (On hospital gowns) Patient Orientation: Person Level of Consciousness: Awake and Disoriented Patient Behavior: Guarded, Passive and Sedated Mood Description: Withdrawn Affect Description: Blunted Patient Cognition Impaired: Yes Ability to Follow Directions: Fair Speech Pattern: Impoverished, Garbled and Poor Articulation Hallucinations: None Delusions: Ideas of Reference Thought Process: Illogical and Distracted Thought Content: positive for [place], positive for Perseveration and positive for Thought Blocking Judgement: Poor Medications Medications Current Medications Acetaminophen (Acetaminophen 325 Mg Tablet) 650 mg PO Q6H PRN PRN Reason: Pain, Mild (Pain Scale 1-3) Last Admin: 05/03/23 08:49 Dose: 650 mg Albuterol/Ipratropium (Albuterol/Iprat 2.5/0.5mg 3 Ml Ampul.Neb) 3 ml INHALE RQ4H WHILE AWAKE [facility] Last Admin: 05/03/23 11:31 Dose: 3 ml Atorvastatin Calcium (Atorvastatin Calcium 20 Mg Tablet) 20 mg PO DAILY@1100 [facility] Last Admin: 05/02/23 11:10 Dose: 20 mg Bisacodyl (Bisacodyl 10 Mg Supp.Rect) 10 mg [place] DAILY PRN PRN Reason: constipation Calcium Carbonate/Cholecalciferol (Calcium + Vitamin D 250 Mg Tablet) 500 mg PO DAILY@1500 [facility] Last Admin: 05/02/23 14:53 Dose: 500 mg Cyanocobalamin (Cyanocobalamin (Vitamin B-12) 1,000 Mcg Tablet) 1,000 mcg PO DAILY@1500 [facility] Last Admin: 05/02/23 14:53 Dose: 1,000 mcg Docusate Sodium (Docusate Sodium 100 Mg Capsule) 200 mg PO DAILY [facility] Last Admin: 05/03/23 08:50 Dose: 200 mg Cefepime HCl 2 gm/ Sodium (Chloride) 50 mls @ 100 mls/hr IV Q24H [facility] Last Infusion: 05/02/23 21:40 Dose: Infused Melatonin (Melatonin 3 Mg Tablet) 6 mg PO BEDTIME PRN PRN Reason: Insomnia Last Admin: 05/03/23 01:51 Dose: 6 mg Multivitamins/Vitamin C (Multivitamin Tablet) 1 tab PO DAILY [facility] Last Admin: 05/03/23 08:50 Dose: 1 tab Omeprazole (Omeprazole 20 Mg Capsule.Dr) 20 mg PO BID@0630,1630 [facility] Last Admin: 05/03/23 05:00 Dose: 20 mg Polyethylene Glycol (Polyethylene Glycol 3350 17 Gm Powd.Pack) 17 gm PO BID [facility] Last Admin: 05/03/23 08:50 Dose: 17 gm Quetiapine Fumarate (Quetiapine Fumarate 25 Mg Tablet) 25 mg PO BID [facility] Last Admin: 05/03/23 08:50 Dose: 25 mg Sodium Bicarbonate (Sodium Bicarbonate 650 Mg Tablet) 650 mg PO BID [facility] Sodium Chloride (0.9 % Sodium Chloride Flush 3 Ml Syringe) 3 ml IVFLUSH QSHIFT [facility] Last Admin: 05/03/23 08:49 Dose: 3 ml Allergies Allergies Allergy/AdvReac Type Severity Reaction Status Date / Time hydrochlorothiazide AdvReac Intermediate ITCH Verified 04/28/23 11:27 Assessment & Plan Assessment & Plan (1) Pancytopenia: Status: Acute Code(s): D61.818 - Other pancytopenia (2) Chronic respiratory failure with hypoxia: Status: Acute Code(s): J96.11 - Chronic respiratory failure with hypoxia (3) Pulmonary emphysema: Status: Acute Code(s): J43.9 - Emphysema, unspecified (4) Neutropenic fever: Status: Acute Code(s): D70.9 - Neutropenia, unspecified; R50.81 - Fever presenting with conditions classified elsewhere (5) History of rectal cancer: Status: Acute Code(s): Z85.048 - Personal history of other malignant neoplasm of rectum, rectosigmoid junction, and anus (6) Myelodysplastic syndrome: Status: Acute Code(s): D46.9 - Myelodysplastic syndrome, unspecified (7) Leukocytosis: Status: Acute Code(s): D72.829 - Elevated white blood cell count, unspecified (8) CRAO (central retinal artery occlusion): Status: Acute Code(s): H34.10 - Central retinal artery occlusion, unspecified eye (9) Tubular adenoma of colon: Status: Acute Code(s): D12.6 - Benign neoplasm of colon, unspecified (10) Delirium: Status: Acute Code(s): R41.0 - Disorientation, unspecified (11) Dementia: Status: Acute Code(s): F03.90 - Unspecified dementia, unspecified severity, without behavioral disturbance, psychotic disturbance, mood disturbance, and anxiety Plan The patient is an elderly male with a past history of dementia and other several medical comorbidities who was admitted into the hospital for spike of high fever and altered mental status in the context of pancytopenia due to chemotherapy. While he was in the unit, the patient had episodes of agitation and needed to be chemically restrain with olanzapine and Seroquel. Plan 1. Increase Seroquel up to 75 mg p.o. t.i.d.. 2. Add Seroquel 100 mg p.o. Q 4 p.r.n. agitation. 3. Avoid benzodiazepine since it could worsen delirium. 4. We will follow the patient tomorrow by the team. 5. Thank you very much for the consultation we will contact the primary team for changes on the treatment. Total time managing care of this patient today __30__ minutes. Patient educated on: diagnosis Informed Consent: further education needed
[2023-05-03 12:41] LABS: Platelet Count 9 X10*3/uL (160-400)
--- NOTE | 2023-05-03 13:32 | P.PNIM_ITS ---
Subjective Subjective Date of Service: 05/03/23 Interval History: Neutropenic fever,Pancytopenia,hypernatremia,mds Review of Systems fevers resolved ,episode of sundowning last night ( received zyprexax2) no cough po intake somewhat imporving Physical Exam 2 Vital Signs: Vital Signs: Last Vital Signs Temp 96.2 F L 05/03/23 13:10 Pulse 69 05/03/23 13:10 Resp 18 05/03/23 13:10 BP 132/63 05/03/23 13:10 Pulse Ox 100 05/03/23 07:37 O2 Del Method Nasal Cannula 05/03/23 07:37 O2 Flow Rate 2 05/03/23 07:37 BMI result Body Mass Index 18.3 General: Alert orientedx2 , ch sick appearing, no acute distress Resp: air enty fair ,mild diminshed at bases ,no rales or wheezing. CVS: S1, S2, RRR GI: +BS, NT, no distention Skin: No rash Neuro: Cranial nerves II-XII grossly intact bilaterally. Motor grossly intact bilaterally Extremities: No edema Psych: Appropriate affect Objective Data Active Medications Acetaminophen (Acetaminophen 325 Mg Tablet) 650 mg PO Q6H PRN PRN Reason: Pain, Mild (Pain Scale 1-3) Last Admin: 05/03/23 08:49 Dose: 650 mg Documented By: YESICA Albuterol/Ipratropium (Albuterol/Iprat 2.5/0.5mg 3 Ml Ampul.Neb) 3 ml INHALE RQ4H WHILE AWAKE [facility] Last Admin: 05/03/23 11:31 Dose: 3 ml Documented By: JAY Atorvastatin Calcium (Atorvastatin Calcium 20 Mg Tablet) 20 mg PO DAILY@1100 [facility] Last Admin: 05/02/23 11:10 Dose: 20 mg Documented By: GRETCHEN Bisacodyl (Bisacodyl 10 Mg Supp.Rect) 10 mg SC DAILY PRN PRN Reason: constipation Calcium Carbonate/Cholecalciferol (Calcium + Vitamin D 250 Mg Tablet) 500 mg PO DAILY@1500 [facility] Last Admin: 05/02/23 14:53 Dose: 500 mg Documented By: GRETCHEN Cyanocobalamin (Cyanocobalamin (Vitamin B-12) 1,000 Mcg Tablet) 1,000 mcg PO DAILY@1500 [facility] Last Admin: 05/02/23 14:53 Dose: 1,000 mcg Documented By: GRETCHEN Docusate Sodium (Docusate Sodium 100 Mg Capsule) 200 mg PO DAILY [facility] Last Admin: 05/03/23 08:50 Dose: 200 mg Documented By: YESICA Cefepime HCl 2 gm/ Sodium (Chloride) 50 mls @ 100 mls/hr IV Q24H [facility] Last Infusion: 05/02/23 21:40 Dose: Infused Documented By: SHILPA Melatonin (Melatonin 3 Mg Tablet) 6 mg PO BEDTIME PRN PRN Reason: Insomnia Last Admin: 05/03/23 01:51 Dose: 6 mg Documented By: KEYSHAWN Multivitamins/Vitamin C (Multivitamin Tablet) 1 tab PO DAILY [facility] Last Admin: 05/03/23 08:50 Dose: 1 tab Documented By: YESICA Omeprazole (Omeprazole 20 Mg Capsule.) 20 mg PO BID@0630,1630 [facility] Last Admin: 05/03/23 05:00 Dose: 20 mg Documented By: KEYSHAWN Polyethylene Glycol (Polyethylene Glycol 3350 17 Gm Powd.Pack) 17 gm PO BID [facility] Last Admin: 05/03/23 08:50 Dose: 17 gm Documented By: YESICA Quetiapine Fumarate (Quetiapine Fumarate 50 Mg Tablet) 50 mg PO Q6H [facility] Quetiapine Fumarate (Quetiapine Fumarate 100 Mg Tablet) 100 mg PO TID PRN PRN Reason: Agitation Sodium Bicarbonate (Sodium Bicarbonate 650 Mg Tablet) 650 mg PO BID [facility] Sodium Chloride (0.9 % Sodium Chloride Flush 3 Ml Syringe) 3 ml IVFLUSH QSHIFT [facility] Last Admin: 05/03/23 08:49 Dose: 3 ml Documented By: YESICA Labs 05/03/23 08:22 05/03/23 08:22 Labs: Laboratory Results - last 24 hr 05/02/23 05/02/23 05/02/23 13:59 15:57 18:52 MCV MCH MCHC RDW Plt Count MPV Absolute Nucleated RBC Nucleated RBC % (auto) Neutrophils % (Manual) Band Neutrophils % Lymphocytes % (Manual) Abs Neuts (Manual) Lymphocytes # (Manual) Platelet Estimate Plt Morphology Comment RBC Morphology Macrocytosis [place] Cells Schistocytes Hold Purple Top SEE NOTE Anion Gap Estim Creat Clear Calc Estimated GFR Random Glucose Calcium Respiratory Panel [place] See Note Adenovirus (Rapid PCR) Not Detected B.pert (TEM-PCR) Not Detected B.parapertussis DNA PCR Not Detected C. pneumoniae DNA (PCR) Not Detected Coronavirus OC43 (PCR) Not Detected Coronavirus HKU1 (PCR) Not Detected Coronavirus 229E (PCR) Not Detected Coronavirus NL63 (PCR) Not Detected Human Metapneumovir PCR Not Detected Influenza A (RT-PCR) Not Detected Influenza B (RT-PCR) Not Detected M. pneumoniae (PCR) Not Detected Parainfluenza 1 (PCR) Not Detected Parainfluenza 2 (PCR) Not Detected Parainfluenza 3 (PCR) Not Detected Parainfluenza 4 (PCR) Not Detected RSV (PCR) Not Detected Entero/Rhino (PCR) Not Detected SARS-CoV-2 RNA (RT-PCR) Not Detected Blood Type A Positive Antibody Screen NEGATIVE 05/03/23 08:22 MCV 107.2 H MCH 33.6 H MCHC 31.3 RDW 23.5 H Plt Count 9 L* MPV Not Reportable Absolute Nucleated RBC 0.000 Nucleated RBC % (auto) 0.0 Neutrophils % (Manual) 30 L Band Neutrophils % 10 H Lymphocytes % (Manual) 60 H Abs Neuts (Manual) 0.1 L Lymphocytes # (Manual) 0.2 L Platelet Estimate DECREASED Plt Morphology Comment NORMAL RBC Morphology NOTED Macrocytosis 1+ (5-14) [place] Cells 2+ (3-5) Schistocytes 1+ (0-2) Hold Purple Top Anion Gap 16 Estim Creat Clear Calc 18.8 Estimated GFR 21 Random Glucose 100 Calcium 8.7 Respiratory Panel [place] Adenovirus (Rapid PCR) B.pert (TEM-PCR) B.parapertussis DNA PCR C. pneumoniae DNA (PCR) Coronavirus OC43 (PCR) Coronavirus HKU1 (PCR) Coronavirus 229E (PCR) Coronavirus NL63 (PCR) Human Metapneumovir PCR Influenza A (RT-PCR) Influenza B (RT-PCR) M. pneumoniae (PCR) Parainfluenza 1 (PCR) Parainfluenza 2 (PCR) Parainfluenza 3 (PCR) Parainfluenza 4 (PCR) RSV (PCR) Entero/Rhino (PCR) SARS-CoV-2 RNA (RT-PCR) Blood Type Antibody Screen Microbiology Microbiology Results: Microbiology 05/01/23 19:58 Blood Culture - Preliminary Blood - Venous No growth after 24 hours. 05/01/23 19:36 Blood Culture - Preliminary Blood - Venous No growth after 24 hours. Assessment and Plan (1) Delirium: Status: Acute (2) Pancytopenia: Status: Acute (3) Hypernatremia: Status: Resolved Plan 78-year-old male with a PMH significant for?unspecified dementia, emphysema, pulmonary fibrosis not on home O2, temporal arteritis, CKD stage 4, macrocytic anemia, BPH, carotid atherosclerosis, and hx of retinal artery occlusion who presents to the ED with?fever, chills, and generalized weakness x2 days. Pt will be admitted to the hospital for treatment and further evaluation of neutropenic fever with IV antibiotics, close monitoring, and specialist consultation. Neutropenic fever fever subsided WBC 0.3 Likely secondary to starting chemotherapy last week No clear source of infection: CXR negative, CT of abdomen and pelvis negative, UA negative blood cultures pending plan: Oncology consult noted . Neutropenic precautions continue cefepime, started 05/01/2023,received neupogen 05/01,05/02,05/03. Follow CBC Pancytopenia-worsening - WBC 0.3, H&H 7.9/25.1 point, platelets 9. 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 Chronic constipation Patient long history of chronic constipation, CT of abdomen and pelvis showed large stool ball in the rectum and moderate stool content throughout the colon Will give suppository Continue polyethylene glycol, docusate, bisacodyl High-fiber diet Encourage liquids chronic hypoxic respiratory failure on 2 liter oxygen sec to pulmonary emphysema with superimposed fibrosis : continue oxygen ,nebs Hypernatremia :improving, encourage for po intake sodium 147, dc d5w ,give free water 250 ml q4hr moniter sodium toxic metabolic encepahlopathy-multifactorial ( dementia ,hypernatremia ,dec po inatke ,received zyprexa) continue above management HLD Continue statin Full Code DVT Prophylaxis: Pneumatic boots d/t thrombopenia ongoing hospitalization need: treatment of?neutropenic fever with IV antibiotics, bone marrow stimulants, close monitoring. family updated. Time Spent With Patient Time: Total time managing care of this patient today ____ minutes. Quality Stroke Does the patient have a stroke diagnosis?: No VTE Prior VTE?: No VTE Risk Level:: Medical - moderate - high VTE Device Contraindication: Treatment Not Indicated VTE Drug Contraindication: N/A - Med Ordered
[2023-05-03] MEDS: Atorvastatin Calcium 20 MG TABLET PO (14:14)
[2023-05-03] MEDS: Tbo-Filgrastim 300 MCG/0.5 ML SYRINGE SUBCUT (14:14)
[2023-05-03] MEDS: Calcium + Vitamin D 250 MG TABLET 500 MG PO (14:14)
[2023-05-03] MEDS: QUEtiapine Fumarate 50 MG TABLET PO ×3 (14:14→23:43)
[2023-05-03] MEDS: Sodium Bicarbonate 650 MG TABLET PO ×2 (14:14→18:55)
[2023-05-03] MEDS: Cyanocobalamin (Vitamin B-12) 1,000 MCG TABLET 1000 MCG PO (14:14)
--- NOTE | 2023-05-03 15:51 | PC.NURSE ---
Patient having smears of stool and feeling of needing to have BM. Given scheduled miralax and colace. Suppository given at 1430. Awaiting results.
--- NOTE | 2023-05-03 16:06 | MHC.CM.PN ---
Addendum entered by Nuvia Rosales 05/03/23 16:12: COPY OF HCP FOUND IN [facility] CHRISTIANE IS PRIMARY Original Note: PT CONFUSED, CM ATTEMPTED TO REACH HIS , CHRISTIANE, OR DAUGHTER, FRANKIE AT BOTH NUMBERS LISTED VM LEFT REQUESTING A RETURN CALL PER EMR, PT LIVES WITH HIS AND HAD NO SERVICES LAST ADMISSION HE ALSO USED NO DME DURING HIS PREVIOUS ADMISSION PT DOES NOT HAVE A PCP LISTED IMM LEFT ON VM DCP TBD
[2023-05-03] MEDS: cefEPime HCl 2 GM in 0.9 % Sodium Chloride 50 ML IV (18:55)
[2023-05-04] VITALS (11 sets, daily range): BP systolic 94–120; BP diastolic 55–60; PULSE 63–86; RESP 16–20; TEMP 35.9–36.2; O2SAT 95–99; BMI 18.8
[2023-05-04] MEDS: QUEtiapine Fumarate 100 MG TABLET PO (03:41)
[2023-05-04] MEDS: Omeprazole 20 MG CAPSULE.DR PO ×2 (05:12→16:45)
[2023-05-04] MEDS: QUEtiapine Fumarate 50 MG TABLET PO ×3 (05:12→18:38)
[2023-05-04] MEDS: Albuterol/Iprat 2.5/0.5MG 3 ML AMPUL.NEB INHALE ×4 (08:12→19:58)
[2023-05-04 09:25] LABS: Hematocrit 23.4 % (42.0-52.0); Hemoglobin 7.3 g/dl (14.0-18.0); IG%MD 5.3 %; Lymph%MD 68.4 %; Mean Corpuscular HGB Conc 31.2 g/dl (31.0-36.0); Mean Corpuscular Hemoglobin 33.2 pg (27.0-33.0); Mean Corpuscular Volume 106.4 fL (80.0-98.0); Mono%MD 5.3 %; Red Cell Distribution Width 23.2 % (11.0-16.0)
[2023-05-04 09:32] LABS: WBC ABN SCTR FOR CBC 1
[2023-05-04] MEDS: Sodium Bicarbonate 650 MG TABLET PO ×2 (09:33→21:19)
[2023-05-04] MEDS: Multivitamin TABLET 1 TAB PO (09:33)
[2023-05-04] MEDS: Acetaminophen 325 MG TABLET 650 MG PO (09:34)
[2023-05-04] MEDS: Atorvastatin Calcium 20 MG TABLET PO (09:34)
[2023-05-04] MEDS: Docusate Sodium 100 MG CAPSULE 200 MG PO (09:34)
[2023-05-04] MEDS: polyethylene glycoL 3350 17 GM POWD.PACK PO ×2 (09:34→21:19)
[2023-05-04] MEDS: 0.9 % Sodium Chloride Flush 3 ML SYRINGE IVFLUSH ×3 (09:35→21:20)
[2023-05-04 09:47] LABS: Anion Gap 10 (12-20); Blood Urea Nitrogen 71 mg/dL (9-16); Calcium 8.7 mg/dL (8.4-10.2); Carbon Dioxide 19 mmol/L (22-29); Chloride 122 mmol/L (96-108); Creatinine Clr Calc Pharmacy 17.6; Estimated Glomerular Filt Rate 20; Glucose Random 100 mg/dL (60-115); Platelet Count 11 X10*3/uL (160-400); Potassium 4.3 mmol/L (3.3-5.1); Sodium 147 mmol/L (135-145); White Blood Count 0.2 X10*3/uL (4.8-10.8)
[2023-05-04 11:08] LABS: Band Neutrophils Percent 0 % (3-5); Lymphocytes Absolute Manual 0.2 X10*3/uL (1.2-4.9); Lymphocytes Percent Manual 75 % (20-40); Monocytes Percent Manual 5 % (2-11); Neutrophils Percent Manual 20 % (45-73)
[2023-05-04 11:10] LABS: Macrocytosis 2+ (15-30) /OIF; RBC Morphology NOTED
[2023-05-04 11:11] LABS: Acanthocytes 1+ (0-2) /OIF; Burr Cells 2+ (3-5) /OIF; Platelet Estimate DECREASED (NORMAL); Platelet Morphology Comment NORMAL; Schistocytes 1+ (0-2) /OIF
--- NOTE | 2023-05-04 12:57 | P.CDIM_ITS ---
PROVIDER RESPONSE TEXT: To clarify, the appropriate diagnosis supported by the clinical indicators: Malnutrition, specify if mild, moderate or severe QUERY TEXT: PHYSICIAN'S DOCUMENTATION REQUEST Date of Query: 05/04/2023 12:09 PM EDT Patient Name: Alban Little Admit Date: 05/02/2023 Dear Lisbeth Oreilly, A review of the medical record indicates additional documentation may be needed. Please review below and update the documentation accordingly. Clinical Indicators: Height: ( ) 6'2 Weight: ( ) 64.6 kg BMI: ( ) 18.3 Other Clinical Notes Supporting Significance of the BMI: No nutrition assessment in EMR If possible, please provide an associated diagnosis related to the abnormal BMI, such as: Underweight Malnutrition, specify if mild, moderate or severe Cachexia Anorexia BMI is not significant Other (explain)Clinically unable to determine (explain)Thank you, Trisha Macias RN Use of terms such as suspected, likely, concern for, or probable (associated with a specific diagnosi s that is being evaluated, monitored, or treated as if it exists) are acceptable and can be coded in the inpatient se tting, when documented at the time of discharge. Please use your independent medical judgment in providing your response. THIS QUERY IS PART OF THE PERMANENT MEDICAL RECORD
--- NOTE | 2023-05-04 13:51 | MHC.CLN ---
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 PT AT RISK FOR MALNUTRITION DIET RX: NEUTROPENIC-APPROPRIATE RECOMMEND ADDING ENSURE MAX BID TO INCREASE KCALS SUPP PROVIDES 300KCALS, 60G PROTEIN MONITOR PO INTAKE CLOSELY SEE ALSO FULL CLINICAL NUTRITION ASSESSMENT
--- NOTE | 2023-05-04 13:55 | MHC.CM.PN ---
IMM DELIVERED PT LIVES WITH SPOUSE/HCP CHRISTIANE ([phone]) WHO IS HIS CAREGIVER. 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 USES HOME 02 AT 2-3 LITERS VIA [employer]/ [employer] HCP ON FILE PCP DR. FORDE DP: PT MAY NEED STR , WILL AWAIT PT REC. CM WILL CONTINUE TO FOLLOW FOR DC PLAN/NEEDS.
[2023-05-04] MEDS: Tbo-Filgrastim 300 MCG/0.5 ML SYRINGE SUBCUT (13:59)
--- NOTE | 2023-05-04 15:53 | P.PNIM_ITS ---
Subjective Subjective Date of Service: 05/04/23 Interval History: Neutropenic fever,pancytopenia Review of Systems denies any fevers or chills or abd pain or chest pain or sob passing bowels Physical Exam 2 Vital Signs: Vital Signs: Last Vital Signs Temp 96.9 F 05/04/23 13:33 Pulse 67 05/04/23 13:33 Resp 16 05/04/23 13:33 BP 94/55 L 05/04/23 13:33 Pulse Ox 99 05/04/23 08:00 O2 Del Method Nasal Cannula 05/04/23 08:00 O2 Flow Rate 2.0 05/04/23 08:00 BMI result Body Mass Index 18.8 General: Alert orientedx2 , ch sick appearing, no acute distress Resp: air enty fair ,mild diminshed at bases ,no rales or wheezing. CVS: S1, S2, RRR GI: +BS, NT, no distention Skin: No rash Neuro: Cranial nerves II-XII grossly intact bilaterally. Motor grossly intact bilaterally Extremities: No edema Psych: Appropriate affect Objective Data Active Medications Acetaminophen (Acetaminophen 325 Mg Tablet) 650 mg PO Q6H PRN PRN Reason: Pain, Mild (Pain Scale 1-3) Last Admin: 05/04/23 09:34 Dose: 650 mg Documented By: THEA Albuterol/Ipratropium (Albuterol/Iprat 2.5/0.5mg 3 Ml Ampul.Neb) 3 ml INHALE RQ4H WHILE AWAKE [facility] Last Admin: 05/04/23 12:24 Dose: 3 ml Documented By: VESNA Atorvastatin Calcium (Atorvastatin Calcium 20 Mg Tablet) 20 mg PO DAILY@1100 [facility] Last Admin: 05/04/23 09:34 Dose: 20 mg Documented By: THEA Bisacodyl (Bisacodyl 10 Mg Supp.Rect) 10 mg [place] DAILY PRN PRN Reason: constipation Calcium Carbonate/Cholecalciferol (Calcium + Vitamin D 250 Mg Tablet) 500 mg PO DAILY@1500 [facility] Last Admin: 05/03/23 14:14 Dose: 500 mg Documented By: YESICA Cyanocobalamin (Cyanocobalamin (Vitamin B-12) 1,000 Mcg Tablet) 1,000 mcg PO DAILY@1500 [facility] Last Admin: 05/03/23 14:14 Dose: 1,000 mcg Documented By: YESICA Docusate Sodium (Docusate Sodium 100 Mg Capsule) 200 mg PO DAILY [facility] Last Admin: 05/04/23 09:34 Dose: 200 mg Documented By: THEA Cefepime HCl 2 gm/ Sodium (Chloride) 50 mls @ 100 mls/hr IV Q24H [facility] Last Infusion: 05/03/23 19:56 Dose: Infused Documented By: SHILPA Dextrose (D5w) 1,000 mls @ 50 mls/hr IVCONT .Q20H [facility] Melatonin (Melatonin 3 Mg Tablet) 6 mg PO BEDTIME PRN PRN Reason: Insomnia Last Admin: 05/03/23 01:51 Dose: 6 mg Documented By: KEYSHAWN Multivitamins/Vitamin C (Multivitamin Tablet) 1 tab PO DAILY [facility] Last Admin: 05/04/23 09:33 Dose: 1 tab Documented By: THEA Omeprazole (Omeprazole 20 Mg Capsule.Dr) 20 mg PO BID@0630,1630 [facility] Last Admin: 05/04/23 05:12 Dose: 20 mg Documented By: JAX Polyethylene Glycol (Polyethylene Glycol 3350 17 Gm Powd.Pack) 17 gm PO BID [facility] Last Admin: 05/04/23 09:34 Dose: 17 gm Documented By: THEA Quetiapine Fumarate (Quetiapine Fumarate 50 Mg Tablet) 50 mg PO Q6H [facility] Last Admin: 05/04/23 13:59 Dose: 50 mg Documented By: THEA Quetiapine Fumarate (Quetiapine Fumarate 100 Mg Tablet) 100 mg PO TID PRN PRN Reason: Agitation Last Admin: 05/04/23 03:41 Dose: 100 mg Documented By: JAX Sodium Bicarbonate (Sodium Bicarbonate 650 Mg Tablet) 650 mg PO BID [facility] Last Admin: 05/04/23 09:33 Dose: 650 mg Documented By: THEA Sodium Chloride (0.9 % Sodium Chloride Flush 3 Ml Syringe) 3 ml IVFLUSH QSHIFT [facility] Last Admin: 05/04/23 09:35 Dose: 3 ml Documented By: THEA Labs 05/04/23 09:03 05/04/23 09:03 Labs: Laboratory Results - last 24 hr 05/02/23 05/04/23 15:57 09:03 MCV 106.4 H MCH 33.2 H MCHC 31.2 RDW 23.2 H Plt Count 11 L* MPV Not Reportable Absolute Nucleated RBC 0.000 Nucleated RBC % (auto) 0.0 Neutrophils % (Manual) 20 L Band Neutrophils % 0 L Lymphocytes % (Manual) 75 H Monocytes % (Manual) 5 Abs Neuts (Manual) Not Reportable Lymphocytes # (Manual) 0.2 L Platelet Estimate DECREASED Plt Morphology Comment NORMAL RBC Morphology NOTED Macrocytosis 2+ (15-30) [place] Cells 2+ (3-5) Acanthocytes (Spur) 1+ (0-2) Schistocytes 1+ (0-2) Anion Gap 10 L Estim Creat Clear Calc 17.6 Estimated GFR 20 Random Glucose 100 Calcium 8.7 Blood Type A Positive Antibody Screen NEGATIVE Crossmatch See Detail Microbiology Microbiology Results: Microbiology 05/01/23 19:58 Blood Culture - Preliminary Blood - Venous No growth after 48 hours. 05/01/23 19:36 Blood Culture - Preliminary Blood - Venous No growth after 48 hours. Assessment and Plan (1) Pancytopenia: Status: Acute Plan 78-year-old male with a PMH significant for?unspecified dementia, emphysema, pulmonary fibrosis not on home O2, temporal arteritis, CKD stage 4, macrocytic anemia, BPH, carotid atherosclerosis, and hx of retinal artery occlusion who presents to the ED with?fever, chills, and generalized weakness x2 days. Pt will be admitted to the hospital for treatment and further evaluation of neutropenic fever with IV antibiotics, close monitoring, and specialist consultation. Neutropenic fever fever subsided WBC 0.2 Likely secondary to starting chemotherapy last week No clear source of infection: CXR negative, CT of abdomen and pelvis negative, UA negative blood cultures pending plan: Neutropenic precautions continue cefepime, started 05/01/2023,received neupogen 05/01,05/02,05/03,05/04. Oncology consult apprecaited ,oncology follow up today . added infectious dis eval Follow CBC Pancytopenia-worsening - WBC 0.2, H&H 7.3/23.4 point, platelets 11. Likely secondary to starting chemotherapy last week 1 platelet unit platlets yesterday,added another platlets unit and i unit prbc. Pneumatic boots for DVT prophylaxis d/t thrombopenia Follow CBC Myelodysplastic syndrom d/w oncology -hold hydroxyurea given pancytopenia. Chronic constipation Patient long history of chronic constipation, CT of abdomen and pelvis showed large stool ball in the rectum and moderate stool content throughout the colon Continue polyethylene glycol, docusate, bisacodyl High-fiber diet Encourage liquids passing bm's chronic hypoxic respiratory failure on 2 liter oxygen sec to pulmonary emphysema with superimposed fibrosis : continue oxygen ,nebs Hypernatremia :improving, encourage for po intake sodium 147, add d5w ,give free water 250 ml q4hr moniter sodium toxic metabolic encepahlopathy-multifactorial ( dementia ,hypernatremia ,dec po inatke ,received zyprexa) continue above management HLD Continue statin Full Code DVT Prophylaxis: Pneumatic boots d/t thrombopenia ongoing hospitalization need:pancytopenia -need transfusion ,neurtropenic fever -on antibiotics ,wait blood cultures ,hematology follow up. Time Spent With Patient Time: Total time managing care of this patient today ____ minutes. Quality Stroke Does the patient have a stroke diagnosis?: No VTE Prior VTE?: No VTE Risk Level:: Medical - moderate - high VTE Device Contraindication: Treatment Not Indicated VTE Drug Contraindication: N/A - Med Ordered
[2023-05-04] MEDS: Dextrose 5 % 1,000 ML 50 ML IVCONT (16:44)
[2023-05-04] MEDS: Calcium + Vitamin D 250 MG TABLET 500 MG PO (16:44)
[2023-05-04] MEDS: Cyanocobalamin (Vitamin B-12) 1,000 MCG TABLET 1000 MCG PO (16:45)
[2023-05-04 19:15] LABS: Sodium 149 mmol/L (135-145)
[2023-05-04] MEDS: cefEPime HCl 2 GM in 0.9 % Sodium Chloride 50 ML IV (21:30)
[2023-05-05] VITALS (8 sets, daily range): BP systolic 101–134; BP diastolic 55–66; PULSE 65–73; RESP 16–22; TEMP 35.8–36.4; O2SAT 93–98
[2023-05-05] MEDS: QUEtiapine Fumarate 50 MG TABLET PO ×5 (00:13→23:23)
[2023-05-05] MEDS: Omeprazole 20 MG CAPSULE.DR PO ×2 (05:34→16:20)
--- NOTE | 2023-05-05 05:48 | PC.NURSE ---
Addendum entered by Ann Jain RN 05/05/23 06:07: @ 0543 Dr. Avila asked hows pt doing in room 373, and if there are any improvements. I replied there are no improvements 70/40. Dr. Avila replied, I will call family. Addendum entered by Ann Jain RN 05/05/23 05:56: @0415 Pt in room 373, wasnt able to have blood drawn after many attempts. Only a small amount of blood was obtained. After the bolus of LR, Pt BP is 72/20, HR 112, RR 24. Dr. Hernandez was notified. Dr. Avila replied lets give another liter and can we check and confirm Pt BP. I replied, we had to check PT BP with the doppler. Dr. Avila replied, Ok i will order another bag. Pt was given another bolus LR bag. Original Note: @ 0601 Pt in room 373 [place] O2 Sat are 75 on 5L NC. Pt is cold, BP 99/20 manually but very hard to hear. She is DNR, no breathing treatment ordered. Dr. Avila was notified. said Lets call RT. asked for PT rectal tempt and why is she here. I replied Pt is here for pnuemonia and SOB with a Hx of oralpharyngeal cancer. Dr. Avila replied, Place Pt on non rebreather please and see if RT has any other suggestion. Dr. Hernandez put in an order for 1L of LR bolus and asked for a rectal tempt. I replied that Pt rectal temp is 97.6. Dr. Avila replied that she ordered the fluids for PT. I replied, Pt is on non rebreather. Dr. Avila replied, ok keep me posted.
[2023-05-05 07:21] LABS: Hematocrit 25.6 % (42.0-52.0); Hemoglobin 8.1 g/dl (14.0-18.0); Mean Corpuscular HGB Conc 31.6 g/dl (31.0-36.0); Mean Corpuscular Hemoglobin 32.3 pg (27.0-33.0); Mean Platelet Volume 9.4 fL (9.4-12.4); Red Blood Count 2.51 X10*6/uL (4.60-5.80); Red Cell Distribution Width 21.6 % (11.0-16.0)
[2023-05-05 07:41] LABS: Anion Gap 13 (12-20); Blood Urea Nitrogen 80 mg/dL (9-16); Calcium 8.6 mg/dL (8.4-10.2); Carbon Dioxide 20 mmol/L (22-29); Chloride 117 mmol/L (96-108); Estimated Glomerular Filt Rate 19; Glucose Random 112 mg/dL (60-115); Sodium 146 mmol/L (135-145)
[2023-05-05 07:54] LABS: White Blood Count 0.2 X10*3/uL (4.8-10.8)
[2023-05-05 07:55] LABS: Platelet Count 18 X10*3/uL (160-400)
[2023-05-05] MEDS: Sodium Bicarbonate 650 MG TABLET PO ×2 (10:21→19:39)
[2023-05-05] MEDS: polyethylene glycoL 3350 17 GM POWD.PACK PO ×2 (10:21→19:39)
[2023-05-05] MEDS: Docusate Sodium 100 MG CAPSULE 200 MG PO (10:21)
[2023-05-05] MEDS: Multivitamin TABLET 1 TAB PO (10:21)
[2023-05-05] MEDS: Acetaminophen 325 MG TABLET 650 MG PO (10:21)
[2023-05-05] MEDS: Atorvastatin Calcium 20 MG TABLET PO (10:22)
--- NOTE | 2023-05-05 10:36 | HO.PM.IMPN ---
Subjective Subjective Date of Service: 05/05/23 Interval History: Neutropenic fever,pancytopenia, WBC reamins low, no fever Physical Exam Vital Signs: Vital Signs: Last Vital Signs Temp 97.6 F 05/05/23 08:00 Pulse 70 05/05/23 08:00 Resp 18 05/05/23 08:00 BP 127/60 05/05/23 08:00 Pulse Ox 95 05/05/23 08:00 O2 Del Method Nasal Cannula 05/05/23 08:00 O2 Flow Rate 2.5 05/05/23 08:00 BMI result Body Mass Index 18.8 Const: Other: General: alert, some level of confusion Resp: CTA bilateral CVS: S1,S2,RRR GI: +BS, NT, no distention Skin: No rash Neuro: motor grossly intact Psych: appropriate affect Objective Data Active Medications Acetaminophen (Acetaminophen 325 Mg Tablet) 650 mg PO Q6H PRN PRN Reason: Pain, Mild (Pain Scale 1-3) Last Admin: 05/05/23 10:21 Dose: 650 mg Documented By: THEA Albuterol/Ipratropium (Albuterol/Iprat 2.5/0.5mg 3 Ml Ampul.Neb) 3 ml INHALE RQ4H WHILE AWAKE [facility] Last Admin: 05/05/23 07:56 Dose: Not Given Documented By: JAY Non-Admin Reason: Patient Asleep Atorvastatin Calcium (Atorvastatin Calcium 20 Mg Tablet) 20 mg PO DAILY@1100 [facility] Last Admin: 05/05/23 10:22 Dose: 20 mg Documented By: THEA Bisacodyl (Bisacodyl 10 Mg Supp.Rect) 10 mg AR DAILY PRN PRN Reason: constipation Calcium Carbonate/Cholecalciferol (Calcium + Vitamin D 250 Mg Tablet) 500 mg PO DAILY@1500 [facility] Last Admin: 05/04/23 16:44 Dose: 500 mg Documented By: THEA Cyanocobalamin (Cyanocobalamin (Vitamin B-12) 1,000 Mcg Tablet) 1,000 mcg PO DAILY@1500 [facility] Last Admin: 05/04/23 16:45 Dose: 1,000 mcg Documented By: THEA Docusate Sodium (Docusate Sodium 100 Mg Capsule) 200 mg PO DAILY [facility] Last Admin: 05/05/23 10:21 Dose: 200 mg Documented By: THEA Cefepime HCl 2 gm/ Sodium (Chloride) 50 mls @ 100 mls/hr IV Q24H [facility] Last Infusion: 05/04/23 22:07 Dose: Infused Documented By: NIRMALA Dextrose (D5w) 1,000 mls @ 50 mls/hr IVCONT .Q20H [facility] Last Admin: 05/04/23 16:44 Dose: 50 mls/hr Documented By: THEA Melatonin (Melatonin 3 Mg Tablet) 6 mg PO BEDTIME PRN PRN Reason: Insomnia Last Admin: 05/03/23 01:51 Dose: 6 mg Documented By: KEYSHAWN Multivitamins/Vitamin C (Multivitamin Tablet) 1 tab PO DAILY [facility] Last Admin: 05/05/23 10:21 Dose: 1 tab Documented By: THEA Omeprazole (Omeprazole 20 Mg Capsule.Dr) 20 mg PO BID@0630,1630 [facility] Last Admin: 05/05/23 05:34 Dose: 20 mg Documented By: ANGY Polyethylene Glycol (Polyethylene Glycol 3350 17 Gm Powd.Pack) 17 gm PO BID [facility] Last Admin: 05/05/23 10:21 Dose: 17 gm Documented By: THEA Quetiapine Fumarate (Quetiapine Fumarate 50 Mg Tablet) 50 mg PO Q6H [facility] Last Admin: 05/05/23 05:34 Dose: 50 mg Documented By: ANGY Quetiapine Fumarate (Quetiapine Fumarate 100 Mg Tablet) 100 mg PO TID PRN PRN Reason: Agitation Last Admin: 05/04/23 03:41 Dose: 100 mg Documented By: JAX Sodium Bicarbonate (Sodium Bicarbonate 650 Mg Tablet) 650 mg PO BID [facility] Last Admin: 05/05/23 10:21 Dose: 650 mg Documented By: THEA Sodium Chloride (0.9 % Sodium Chloride Flush 3 Ml Syringe) 3 ml IVFLUSH QSHIFT [facility] Last Admin: 05/05/23 10:20 Dose: Not Given Documented By: THEA Non-Admin Reason: IV Running Labs 05/05/23 05:31 05/05/23 05:31 Labs: Laboratory Results - last 24 hr 05/02/23 05/04/23 05/05/23 15:57 09:03 05:31 MCV 102.0 H MCH 32.3 MCHC 31.6 RDW 21.6 H Plt Count 18 L* D MPV 9.4 Absolute Nucleated RBC 0.000 Nucleated RBC % (auto) 0.0 Neutrophils % (Manual) 20 L Band Neutrophils % 0 L Lymphocytes % (Manual) 75 H Monocytes % (Manual) 5 Abs Neuts (Manual) Not Reportable Lymphocytes # (Manual) 0.2 L Platelet Estimate DECREASED Plt Morphology Comment NORMAL RBC Morphology NOTED Macrocytosis 2+ (15-30) [place] Cells 2+ (3-5) Acanthocytes (Spur) 1+ (0-2) Schistocytes 1+ (0-2) Anion Gap 13 Estim Creat Clear Calc 17.0 Estimated GFR 19 Random Glucose 112 Calcium 8.6 Blood Type A Positive Antibody Screen NEGATIVE Crossmatch See Detail Assessment and Plan (1) Pancytopenia: Status: Acute Plan 78-year-old male with a PMH significant for?unspecified dementia, emphysema, pulmonary fibrosis not on home O2, temporal arteritis, CKD stage 4, macrocytic anemia, BPH, carotid atherosclerosis, and hx of retinal artery occlusion who presents to the ED with?fever, chills, and generalized weakness x2 days. Pt will be admitted to the hospital for treatment and further evaluation of neutropenic fever with IV antibiotics, close monitoring, and specialist consultation. Neutropenic, fever resolved. Count still low at 0.2, likely related to recent chemo, no specific source of infection located, cxr, ct abd pelveis, and ua negative. plan: Neutropenic precautions continue cefepime, started 05/01/2023,received neupogen 05/01,05/02,05/03,05/04. 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, hold hydroxyurea Chronic constipation Patient long history of chronic constipation, CT of abdomen and pelvis showed large stool ball in the rectum and moderate stool content throughout the colon Continue miralax, docusate, bisacodyl High-fiber diet Encourage liquids chronic hypoxic respiratory failure on 2 liter oxygen sec to pulmonary fibrosis and emphysema, contine O2 HypERnatremia 146, improving toxic metabolic encepahlopathy-multifactorial ( dementia ,hypernatremia ,dec po inatke ,received zyprexa) continue above management HLD Continue statin Full Code DVT Prophylaxis: Pneumatic boots d/t thrombopenia ongoing hospitalization need:pancytopenia -need transfusion ,neurtropenic fever -on antibiotics ,wait blood cultures ,hematology follow up. Time Spent With Patient Time: Total time managing care of this patient today ____ minutes. Quality Stroke Does the patient have a stroke diagnosis?: No VTE Prior VTE?: No VTE Risk Level:: Medical - moderate - high VTE Device Contraindication: Treatment Not Indicated VTE Drug Contraindication: N/A - Med Ordered
[2023-05-05] MEDS: Albuterol/Iprat 2.5/0.5MG 3 ML AMPUL.NEB INHALE ×3 (11:44→19:51)
[2023-05-05] MEDS: Dextrose 5 % 1,000 ML 50 ML IVCONT (13:26)
[2023-05-05] MEDS: Cyanocobalamin (Vitamin B-12) 1,000 MCG TABLET 1000 MCG PO (16:20)
[2023-05-05] MEDS: Calcium + Vitamin D 250 MG TABLET 500 MG PO (16:20)
[2023-05-05] MEDS: cefEPime HCl 2 GM in 0.9 % Sodium Chloride 50 ML IV (19:38)
[2023-05-05] MEDS: 0.9 % Sodium Chloride Flush 3 ML SYRINGE IVFLUSH (19:39)
[2023-05-06] VITALS (8 sets, daily range): BP systolic 112–137; BP diastolic 59–65; PULSE 70–86; RESP 16–20; TEMP 35.9–36.4; O2SAT 93–96
[2023-05-06] MEDS: Omeprazole 20 MG CAPSULE.DR PO ×2 (05:52→17:28)
[2023-05-06] MEDS: QUEtiapine Fumarate 50 MG TABLET PO ×3 (05:52→17:32)
[2023-05-06] MEDS: Albuterol/Iprat 2.5/0.5MG 3 ML AMPUL.NEB INHALE ×4 (08:02→19:52)
--- NOTE | 2023-05-06 08:46 | HO.PM.IMPN ---
Subjective Subjective Date of Service: 05/07/23 Interval History: Neutropenic fever,pancytopenia, WBC reamins low, no fever, somehow confused Physical Exam Vital Signs: Vital Signs: Last Vital Signs Temp 97.6 F 05/06/23 07:31 Pulse 70 05/06/23 08:02 Resp 20 05/06/23 08:02 BP 112/59 L 05/06/23 07:31 Pulse Ox 93 05/06/23 07:31 O2 Del Method Nasal Cannula 05/06/23 07:31 O2 Flow Rate 2.0 05/06/23 07:31 BMI result Body Mass Index 18.8 Const: Other: General: alert, some level of confusion Resp: CTA bilateral CVS: S1,S2,RRR GI: +BS, NT, no distention Skin: No rash Neuro: motor grossly intact Psych: appropriate affect Objective Data Active Medications Acetaminophen (Acetaminophen 325 Mg Tablet) 650 mg PO Q6H PRN PRN Reason: Pain, Mild (Pain Scale 1-3) Last Admin: 05/05/23 10:21 Dose: 650 mg Documented By: THEA Albuterol/Ipratropium (Albuterol/Iprat 2.5/0.5mg 3 Ml Ampul.Neb) 3 ml INHALE RQ4H WHILE AWAKE [facility] Last Admin: 05/06/23 08:02 Dose: 3 ml Documented By: BRADFORD Atorvastatin Calcium (Atorvastatin Calcium 20 Mg Tablet) 20 mg PO DAILY@1100 [facility] Last Admin: 05/05/23 10:22 Dose: 20 mg Documented By: THEA Bisacodyl (Bisacodyl 10 Mg Supp.Rect) 10 mg NE DAILY PRN PRN Reason: constipation Calcium Carbonate/Cholecalciferol (Calcium + Vitamin D 250 Mg Tablet) 500 mg PO DAILY@1500 [facility] Last Admin: 05/05/23 16:20 Dose: 500 mg Documented By: THAE Cyanocobalamin (Cyanocobalamin (Vitamin B-12) 1,000 Mcg Tablet) 1,000 mcg PO DAILY@1500 [facility] Last Admin: 05/05/23 16:20 Dose: 1,000 mcg Documented By: THEA Docusate Sodium (Docusate Sodium 100 Mg Capsule) 200 mg PO DAILY [facility] Last Admin: 05/05/23 10:21 Dose: 200 mg Documented By: THEA Cefepime HCl 2 gm/ Sodium (Chloride) 50 mls @ 100 mls/hr IV Q24H [facility] Last Infusion: 05/05/23 20:22 Dose: Infused Documented By: ANGY Dextrose (D5w) 1,000 mls @ 50 mls/hr IVCONT .Q20H [facility] Last Admin: 05/05/23 13:26 Dose: 50 mls/hr Documented By: THEA Melatonin (Melatonin 3 Mg Tablet) 6 mg PO BEDTIME PRN PRN Reason: Insomnia Last Admin: 05/03/23 01:51 Dose: 6 mg Documented By: KEYSHAWN Multivitamins/Vitamin C (Multivitamin Tablet) 1 tab PO DAILY [facility] Last Admin: 05/05/23 10:21 Dose: 1 tab Documented By: THEA Omeprazole (Omeprazole 20 Mg Capsule.Dr) 20 mg PO BID@0630,1630 [facility] Last Admin: 05/06/23 05:52 Dose: 20 mg Documented By: ANGY Polyethylene Glycol (Polyethylene Glycol 3350 17 Gm Powd.Pack) 17 gm PO BID [facility] Last Admin: 05/05/23 19:39 Dose: 17 gm Documented By: ANGY Quetiapine Fumarate (Quetiapine Fumarate 50 Mg Tablet) 50 mg PO Q6H [facility] Last Admin: 05/06/23 05:52 Dose: 50 mg Documented By: ANGY Quetiapine Fumarate (Quetiapine Fumarate 100 Mg Tablet) 100 mg PO TID PRN PRN Reason: Agitation Last Admin: 05/04/23 03:41 Dose: 100 mg Documented By: JAX Sodium Bicarbonate (Sodium Bicarbonate 650 Mg Tablet) 650 mg PO BID [facility] Last Admin: 05/05/23 19:39 Dose: 650 mg Documented By: ANGY Sodium Chloride (0.9 % Sodium Chloride Flush 3 Ml Syringe) 3 ml IVFLUSH QSHIFT [facility] Last Admin: 05/05/23 19:39 Dose: 3 ml Documented By: ANGY Labs 05/07/23 09:01 05/06/23 09:29 Assessment and Plan (1) Pancytopenia: Status: Acute Plan 78-year-old male with a PMH significant for?unspecified dementia, emphysema, pulmonary fibrosis not on home O2, temporal arteritis, CKD stage 4, macrocytic anemia, BPH, carotid atherosclerosis, and hx of retinal artery occlusion who presents to the ED with?fever, chills, and generalized weakness x2 days. Pt will be admitted to the hospital for treatment and further evaluation of neutropenic fever with IV antibiotics, close monitoring, and specialist consultation. Neutropenic, fever resolved. Count still low at 0.2, likely related to recent chemo, no specific source of infection located, cxr, ct abd pelveis, and ua negative. plan: Neutropenic precautions continue cefepime, started 05/01/2023,received neupogen 05/01,05/02,05/03,05/04. Oncology following ID following Pancytopenia-related to chemo and MDS WBC 0.2, H&H 8.1/26.6 point, platelets 8--transfuse 1 unit of platlet Likely secondary to starting chemotherapy last week Myelodysplastic syndrome (MDS)--management by oncology, hold hydroxyurea Chronic constipation Patient long history of chronic constipation, CT of abdomen and pelvis showed large stool ball in the rectum and moderate stool content throughout the colon Continue miralax, docusate, bisacodyl High-fiber diet Encourage liquids chronic hypoxic respiratory failure on 2 liter oxygen sec to pulmonary fibrosis and emphysema, contine O2 HypERnatremia 146, improving toxic metabolic encepahlopathy-multifactorial ( dementia ,hypernatremia ,dec po inatke ,received zyprexa) continue above management HLD Continue statin Full Code DVT Prophylaxis: Pneumatic boots d/t thrombopenia ongoing hospitalization need:pancytopenia -need transfusion ,neurtropenic fever -on antibiotics ,wait blood cultures ,hematology follow up. Time Spent With Patient Time: Total time managing care of this patient today ____ minutes. Quality Stroke Does the patient have a stroke diagnosis?: No VTE Prior VTE?: No VTE Risk Level:: Medical - moderate - high VTE Device Contraindication: Treatment Not Indicated VTE Drug Contraindication: N/A - Med Ordered
[2023-05-06] MEDS: polyethylene glycoL 3350 17 GM POWD.PACK PO ×2 (09:47→19:45)
[2023-05-06] MEDS: Sodium Bicarbonate 650 MG TABLET PO ×2 (09:47→19:45)
[2023-05-06] MEDS: Docusate Sodium 100 MG CAPSULE 200 MG PO (09:47)
[2023-05-06] MEDS: Multivitamin TABLET 1 TAB PO (09:47)
[2023-05-06] MEDS: Dextrose 5 % 1,000 ML 50 ML IVCONT (09:51)
[2023-05-06 09:57] LABS: Eosinophils Percent Auto 5.9 % (0-4); Hematocrit 25.6 % (42.0-52.0); Hemoglobin 8.5 g/dl (14.0-18.0); Lymphocytes Absolute Auto 0.1 X10*3/uL (1.2-4.9); Lymphocytes Percent Auto 82.4 % (20-40); MANUAL DIFF FLAG SCAN; Mean Corpuscular HGB Conc 33.2 g/dl (31.0-36.0); Mean Corpuscular Hemoglobin 33.3 pg (27.0-33.0); Mean Corpuscular Volume 100.4 fL (80.0-98.0); Monocytes Percent Auto 5.9 % (2-11); Neutrophils Percent Auto 5.8 % (45-73); Red Blood Count 2.55 X10*6/uL (4.60-5.80); SCAN SMEAR FLAG 1
[2023-05-06 10:01] LABS: White Blood Count 0.2 X10*3/uL (4.8-10.8)
[2023-05-06 10:02] LABS: Red Cell Distribution Width 21.4 % (11.0-16.0)
[2023-05-06 10:10] LABS: Anion Gap 10 (12-20); Blood Urea Nitrogen 76 mg/dL (9-16); Carbon Dioxide 21 mmol/L (22-29); Chloride 118 mmol/L (96-108); Creatinine Clr Calc Pharmacy 19.4; Estimated Glomerular Filt Rate 22; Glucose Random 101 mg/dL (60-115); Potassium 4.4 mmol/L (3.3-5.1); Sodium 145 mmol/L (135-145)
[2023-05-06 10:24] LABS: Platelet Count 10 X10*3/uL (160-400)
[2023-05-06 10:25] LABS: SLIDE REVIEW VERIFIED
--- NOTE | 2023-05-06 10:32 | MHC.CM.PN ---
EMR REVIEWED. PER MD ROUNDS NOT MEDICALLY CLEARED FOR DC AT THIS TIME. LIKELY STR, AGREEABLE. CM WILL CONTINUE TO FOLLOW.
--- NOTE | 2023-05-06 12:22 | MHC.CLN ---
F/U DIET RX: NEUTROPENIC-APPROPRIATE. ENSURE MAX BID TO INCREASE KCALS. SUPPLEMENT PROVIDES 300KCALS, 60G PROTEIN INTAKE VARIABLE, 0-100%, WITH MOST MEALS 0-50%. MONITOR PO INTAKE CLOSELY.
[2023-05-06] MEDS: Calcium + Vitamin D 250 MG TABLET 500 MG PO (14:29)
[2023-05-06] MEDS: Cyanocobalamin (Vitamin B-12) 1,000 MCG TABLET 1000 MCG PO (14:29)
--- NOTE | 2023-05-06 15:58 | P.CNID_ITS ---
History of Present Illness Data of Consult Service Date: 05/06/23 Requesting physician: Pacheco Snyder Primary Care Provider: Rashaad Leach MD HPI Reason for consult: fever,myelodysplastic syndrome,post chemo He presents with weakness and fever to 104 and chills. He has MDS and received chemotherapy last week. He is on oxygen now. He has TA and CKD 4. Review of Systems 2 Review of Systems: Yes all other systems are reviewed and are negative [facility] Past Medical History Medical History CKD (chronic kidney disease) stage 3, GFR 30-59 ml/min Anemia Tubular adenoma of colon Hearing difficulty of both ears HTN (hypertension) Exercise hypoxemia Pulmonary fibrosis Pulmonary emphysema determined by X-ray Family History Family History Father No problems noted. Mother No problems noted. Family history: reviewed and not pertinent Surgical History Surgical History Hx of cholecystectomy History of rectal surgery Hx of colonoscopy Social History Social History Household Members: Spouse Housing: House Do you presently have visiting nurse or other home services: Yes Alcohol intake: former Patient Tobacco Use Status: Former Tobacco user Quit Date: several years ago service: Yes Meds Allergies Allergy/AdvReac Type Severity Reaction Status Date / Time hydrochlorothiazide AdvReac Intermediate ITCH Verified 04/28/23 11:27 Active Medications: Current Medications Acetaminophen (Acetaminophen 325 Mg Tablet) 650 mg PO Q6H PRN PRN Reason: Pain, Mild (Pain Scale 1-3) Last Admin: 05/05/23 10:21 Dose: 650 mg Albuterol/Ipratropium (Albuterol/Iprat 2.5/0.5mg 3 Ml Ampul.Neb) 3 ml INHALE RQ4H WHILE AWAKE [facility] Last Admin: 05/06/23 15:44 Dose: 3 ml Atorvastatin Calcium (Atorvastatin Calcium 20 Mg Tablet) 20 mg PO DAILY@1100 [facility] Last Admin: 05/06/23 12:47 Dose: Not Given Bisacodyl (Bisacodyl 10 Mg Supp.Rect) 10 mg DE DAILY PRN PRN Reason: constipation Calcium Carbonate/Cholecalciferol (Calcium + Vitamin D 250 Mg Tablet) 500 mg PO DAILY@1500 [facility] Last Admin: 05/06/23 14:29 Dose: 500 mg Cyanocobalamin (Cyanocobalamin (Vitamin B-12) 1,000 Mcg Tablet) 1,000 mcg PO DAILY@1500 [facility] Last Admin: 05/06/23 14:29 Dose: 1,000 mcg Docusate Sodium (Docusate Sodium 100 Mg Capsule) 200 mg PO DAILY [facility] Last Admin: 05/06/23 09:47 Dose: 200 mg Cefepime HCl 2 gm/ Sodium (Chloride) 50 mls @ 100 mls/hr IV Q24H [facility] Last Infusion: 05/05/23 20:22 Dose: Infused Dextrose (D5w) 1,000 mls @ 50 mls/hr IVCONT .Q20H [facility] Last Admin: 05/06/23 09:51 Dose: 50 mls/hr Melatonin (Melatonin 3 Mg Tablet) 6 mg PO BEDTIME PRN PRN Reason: Insomnia Last Admin: 05/03/23 01:51 Dose: 6 mg Multivitamins/Vitamin C (Multivitamin Tablet) 1 tab PO DAILY [facility] Last Admin: 05/06/23 09:47 Dose: 1 tab Omeprazole (Omeprazole 20 Mg Capsule.Dr) 20 mg PO BID@0630,1630 [facility] Last Admin: 05/06/23 05:52 Dose: 20 mg Polyethylene Glycol (Polyethylene Glycol 3350 17 Gm Powd.Pack) 17 gm PO BID [facility] Last Admin: 05/06/23 09:47 Dose: 17 gm Quetiapine Fumarate (Quetiapine Fumarate 50 Mg Tablet) 50 mg PO Q6H [facility] Last Admin: 05/06/23 14:29 Dose: 50 mg Quetiapine Fumarate (Quetiapine Fumarate 100 Mg Tablet) 100 mg PO TID PRN PRN Reason: Agitation Last Admin: 05/04/23 03:41 Dose: 100 mg Sodium Bicarbonate (Sodium Bicarbonate 650 Mg Tablet) 650 mg PO BID [facility] Last Admin: 05/06/23 09:47 Dose: 650 mg Sodium Chloride (0.9 % Sodium Chloride Flush 3 Ml Syringe) 3 ml IVFLUSH QSHIFT [facility] Last Admin: 05/06/23 09:44 Dose: Not Given Home Medications Medication Instructions Recorded Confirmed Last Taken Type cyanocobalamin (vitamin B-12) 1,000 mcg PO DAILY@1500 05/10/20 05/01/23 04/30/23 History 1,000 mcg tablet vit C 250 mg-vit E 90 mg-zinc 40 1 tab PO BID 08/29/20 05/01/23 04/30/23 History mg-copper 1 [id number] capsule (PreserVision AREDS-2) atorvastatin 20 mg tablet 20 mg PO DAILY@1100 06/03/22 05/01/23 05/01/23 History tacrolimus 0.1 % topical ointment 1 appl topical DAILY 06/03/22 05/01/23 05/01/23 History calcium carbonate 600 mg-vitamin 1 tab PO DAILY@1500 12/25/22 05/01/23 04/30/23 History D3 5 mcg (200 unit) tablet hydroxyurea 500 mg capsule 500 mg PO DAILY@1300 05/01/23 05/01/23 Unknown History Physical Exam 2 Vital Signs: Vital Signs: Last Vital Signs Temp 96.7 F L 05/06/23 15:20 Pulse 74 05/06/23 15:44 Resp 18 05/06/23 15:44 BP 122/63 05/06/23 15:20 Pulse Ox 96 05/06/23 15:20 O2 Del Method Nasal Cannula 05/06/23 15:20 O2 Flow Rate 2 05/06/23 15:20 BMI result Body Mass Index 18.8 Const: General: cooperative HEENT: Head: Yes normal to inspection Face and sinus: Yes normal facial exam Mouth: Normal oral and palatal mucosa present Teeth and gingiva: d entition normal Eyes: General: appearance normal, both eyes and all related structures P upils: Equal, round and reactive pupils present Resp: Effort & Inspection: normal respiratory effort Cardio: Rate: regular rate Rhythm: regular rhythm GI: Palpation (GI): Soft to palpation and nontender : General: Yes no CVA tenderness Back/Spine/Pelvis: Back: no CVA tenderness Skin: General skin exam: no rashes or lesions noted Neuro: General: moves all extremities Cranial nerves: Yes Equal, round and reactive pupils present Extrem: General: Yes normal to inspection Psych: Appearance: grossly normal Results Labs 05/06/23 09:29 05/06/23 09:29 Labs: Short CBC 05/06/23 Range/Units 09:29 WBC 0.2 L* (4.8-10.8) X10*3/uL Hgb 8.5 L (14.0-18.0) g/dl Hct 25.6 L (42.0-52.0) % Plt Count 10 L* (160-400) X10*3/uL BMP 05/06/23 09:29 Sodium 145 Potassium 4.4 Chloride 118 H Carbon Dioxide 21 L BUN 76 H Creatinine 2.77 H Calcium 9.0 Microbiology Microbiology Results: Microbiology 05/01/23 19:58 Blood - Venous Blood Culture - Preliminary No growth after 48 hours. 05/01/23 19:36 Blood - Venous Blood Culture - Preliminary No growth after 48 hours. Assessment and Plan (1) Neutropenic fever: Status: Acute Fever is likely related to MDS and recent chemotherapy There is no evidence of bacteremia He has poor dentition and may have oral or lung infection with upper lobe involvement. (2) Chronic respiratory failure with hypoxia: Status: Acute (3) Pancytopenia: Status: Acute Plan Would continue Cefepime for now and discharge po Augmentin for 10 days unless other concerns seen. Time Spent With Patient Time: Total time managing care of this patient today ____ minutes.
[2023-05-06] MEDS: cefEPime HCl 2 GM in 0.9 % Sodium Chloride 50 ML IV (19:43)
--- NOTE | 2023-05-06 21:34 | P.PNHO-ONC_ITS ---
Medical Summary - Medical Summary Date of Service: 05/06/23 Chief complaint: F/U for: MDS. Primary Care Provider: Rashaad Leach MD Medical Summary: DIAGNOSIS: MDS. S/P Chemotherapy. Neutropenic Sepsis. Interval History Interval history: Alban Little is a 78 year old gentleman,treated recently with decitibine for MDS. He presented with a fever. He is still pancytopenic but afebrile. Alert but confused. No complaints. Review of Systems - Constitutional Reports system reviewed and no additional complaints, except as documented, Reports anorexia, Reports body ache(s), Reports fatigue, Reports lack of energy, Reports malaise - Eyes Reports system reviewed and no additional complaints, except as documented - ENT Reports system reviewed and no additional complaints, except as documented - Cardiovascular Reports system reviewed and no additional complaints, except as documented - Respiratory Reports no additional respiratory complaints - Gastrointestinal Reports system reviewed and no additional complaints, except as documented - Genitourinary Genitourinary: Reports no additional male genitourinary complaints - Musculoskeletal Reports system reviewed and no additional complaints, except as documented - Integumentary/Breasts Skin/Breast: Reports no additional skin complaints - Neurologic Reports confusion, Reports weakness, Denies memory loss, Denies seizure-like activity - Psychiatric Reports system reviewed and no additional complaints, except as documented - Endocrine Reports no additional endocrine complaints - Hematologic/Lymphatic Reports system reviewed and no additional complaints, except as documented - Allergic/Immunologic Reports system reviewed and no additional complaints, except as documented PMFSH Medical History: Medical History (Last Reviewed 05/07/23 @ 10:42 by Lynnette Butt, PT) Anemia CKD (chronic kidney disease) stage 3, GFR 30-59 ml/min Exercise hypoxemia Hearing difficulty of both ears HTN (hypertension) Pulmonary emphysema determined by X-ray Pulmonary fibrosis Tubular adenoma of colon Family History: Family History (Last Reviewed 05/06/23 @ 16:00 by Cheyanne Demarco MD) Father No problems noted. Mother No problems noted. 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 Oncology Screenings - ECOG Performance Status ECOG Performance Status: 2 Home Medications and Allergies Current Medications: Current Medications Acetaminophen (Acetaminophen 325 Mg Tablet) 650 mg PO Q6H PRN PRN Reason: Pain, Mild (Pain Scale 1-3) Last Admin: 05/05/23 10:21 Dose: 650 mg Albuterol/Ipratropium (Albuterol/Iprat 2.5/0.5mg 3 Ml Ampul.Neb) 3 ml INHALE RQ4H WHILE AWAKE [facility] Last Admin: 05/06/23 19:52 Dose: 3 ml Atorvastatin Calcium (Atorvastatin Calcium 20 Mg Tablet) 20 mg PO DAILY@1100 [facility] Last Admin: 05/06/23 12:47 Dose: Not Given Bisacodyl (Bisacodyl 10 Mg Supp.Rect) 10 mg LA DAILY PRN PRN Reason: constipation Calcium Carbonate/Cholecalciferol (Calcium + Vitamin D 250 Mg Tablet) 500 mg PO DAILY@1500 [facility] Last Admin: 05/06/23 14:29 Dose: 500 mg Cyanocobalamin (Cyanocobalamin (Vitamin B-12) 1,000 Mcg Tablet) 1,000 mcg PO DAILY@1500 [facility] Last Admin: 05/06/23 14:29 Dose: 1,000 mcg Docusate Sodium (Docusate Sodium 100 Mg Capsule) 200 mg PO DAILY [facility] Last Admin: 05/06/23 09:47 Dose: 200 mg Cefepime HCl 2 gm/ Sodium (Chloride) 50 mls @ 100 mls/hr IV Q24H [facility] Last Infusion: 05/06/23 20:16 Dose: Infused Melatonin (Melatonin 3 Mg Tablet) 6 mg PO BEDTIME PRN PRN Reason: Insomnia Last Admin: 05/03/23 01:51 Dose: 6 mg Multivitamins/Vitamin C (Multivitamin Tablet) 1 tab PO DAILY [facility] Last Admin: 05/06/23 09:47 Dose: 1 tab Omeprazole (Omeprazole 20 Mg Capsule.Dr) 20 mg PO BID@0630,1630 [facility] Last Admin: 05/06/23 17:28 Dose: 20 mg Polyethylene Glycol (Polyethylene Glycol 3350 17 Gm Powd.Pack) 17 gm PO BID [facility] Last Admin: 05/06/23 19:45 Dose: 17 gm Quetiapine Fumarate (Quetiapine Fumarate 50 Mg Tablet) 50 mg PO Q6H [facility] Last Admin: 05/06/23 17:32 Dose: 50 mg Quetiapine Fumarate (Quetiapine Fumarate 100 Mg Tablet) 100 mg PO TID PRN PRN Reason: Agitation Last Admin: 05/04/23 03:41 Dose: 100 mg Sodium Bicarbonate (Sodium Bicarbonate 650 Mg Tablet) 650 mg PO BID [facility] Last Admin: 05/06/23 19:45 Dose: 650 mg Sodium Chloride (0.9 % Sodium Chloride Flush 3 Ml Syringe) 3 ml IVFLUSH QSHIFT [facility] Last Admin: 05/06/23 19:45 Dose: Not Given Home Medications Medication Instructions Recorded Confirmed Type cyanocobalamin (vitamin B-12) 1,000 mcg PO DAILY@1500 05/10/20 05/01/23 History 1,000 mcg tablet vit C 250 mg-vit E 90 mg-zinc 40 1 tab PO BID 08/29/20 05/01/23 History mg-copper 1 [id number] capsule (PreserVision AREDS-2) atorvastatin 20 mg tablet 20 mg PO DAILY@1100 06/03/22 05/01/23 History tacrolimus 0.1 % topical ointment 1 appl topical DAILY 06/03/22 05/01/23 History calcium carbonate 600 mg-vitamin 1 tab PO DAILY@1500 12/25/22 05/01/23 History D3 5 mcg (200 unit) tablet hydroxyurea 500 mg capsule 500 mg PO DAILY@1300 05/01/23 05/01/23 History Allergies Allergy/AdvReac Type Severity Reaction Status Date / Time hydrochlorothiazide AdvReac Intermediate ITCH Verified 04/28/23 11:27 Exam Vital signs: Vital Signs Temp 96.7 F L 05/06/23 15:20 Pulse 70 05/06/23 19:54 Resp 18 05/06/23 19:54 BP 122/63 05/06/23 15:20 Pulse Ox 96 05/06/23 15:20 O2 Del Method Nasal Cannula 05/06/23 15:20 O2 Flow Rate 2 05/06/23 15:20 Intake & Output 05/06/23 05/06/23 05/07/23 06:59 18:59 06:59 Intake Total 290 / 1440 1120 / 1170 50 / 1170 Output Total 1200 / 1800 Balance -910 / -360 1120 / 1170 50 / 1170 Urine Output (Average ml/kg/hr) 1.55 1.55 1.55 Intake: Intake, Oral Amount 240 / 390 120 / 120 Intake, IV Amount 50 / 1050 1000 / 1050 50 / 1050 cefEPime HCl 2 gm In 0.9 % 50 / 50 50 / 50 Sodium Chloride 50 ml @ 100 mls /hr IV Q24H [facility] Rx#:[id number] Dextrose 5 % 1,000 ml @ 50 mls/ 1000 / 1000 hr IVCONT .Q20H [facility] Rx#: [id number] Output: Output, Urine Amount 1200 / 1200 Other: Meal Refused Yes NPO No Breakfast % Eaten Refused Lunch % Eaten 25% Dinner % Eaten 25% Number of Bowel Movements 0 Urine Color Yellow Continuous Bladder Irrigation Fluid - Amount Drained Condom 600 Weight 64.6 kg BMI result Body Mass Index 18.8 - Constitutional Present: no acute distress - Routine HEENT Exam Head: Present: atraumatic - Routine Respiratory Exam Present: decreased breath sounds - Routine Cardiovascular Exam Cardiovascular: Present: RRR, tachycardia - Routine Abdominal Exam Present: diminished bowel sounds - Routine Extremities Exam Present: full ROM - Routine Skin Exam Present: warm - Routine Neurological Exam Present: moving all extremities Data - Labs CBC & Chem 7: 05/10/23 07:26 05/10/23 07:26 - Imaging Radiologist's impression: ITS Impressions Chest X-Ray 05/01/23 19:18 IMPRESSION: Diffuse increased markings/interstitial coarsening and patchy lung opacities were present previously with some apparent improvement. This is likely chronic. There is no new consolidation or evidence for significant pleural effusion. Abdomen/Pelvis CT 05/01/23 20:24 IMPRESSION: Limited noncontrast examination. 1. Large stool ball in the rectum and moderate stool content throughout the colon suggesting constipation. 2. Colonic diverticulosis but no evidence of acute diverticulitis. 3. Again noted very prominent duodenal diverticuli without significant associated inflammatory changes. 4. Redemonstration of advanced emphysematous changes and pulmonary fibrosis in the visualized lung bases. Chest CT 05/02/23 08:55 IMPRESSION: * Advanced tan lobar pulmonary emphysema. * Interstitial hazy opacification especially at the periphery of the lower more than upper lobes combined with interlobular septal thickening, peripheral paraseptal and subpleural honeycombing suggesting interstitial pneumonitis, interstitial pulmonary fibrosis. The process has progressed, advanced since prior exams. * No suspicious lung mass. Stable 5 mm nodule right upper lobe. * Coronary calcification. Various management parameters for solitary pulmonary nodules are in the literature. According to the UPDATED 2017 Fleischner Society recommendations, the advised follow-up imaging for solid nodules < 6 mm is: LOW RISK PATIENT: No routine follow-up. HIGH RISK PATIENT: Optional CT at 12 months. Reference: Guidelines for Management of Incidental Pulmonary Nodules Detected on CT Images: From the Fleischner Society 2017. Assessment and Plan Patient Active problem list reviewed?: Yes (1) Myelodysplastic syndrome Status: Acute Assessment and plan: 78 year old gentleman with a H/O Dementia, recent diagnosis of MDS/MPN s/p Dacitabine chemotherapy, presented with generalized weakness. Noted to be Pancytopenic. Was initially febrile. Has been on Cefipime. Blood cultures have remained negative. Has been on G-CSF. WBC is still 0.2 however he is afebrile, now. Hgb is stable at 8.5. He has had a prolonged stephy, from the chemotherapy. PLAN: He will likely need to go to rehab based upon the physical therapy assessment. He is too much care for his to handle him at home. Can be discharged on po Augmentin. Will follow blood count closely, weekly on an outpt. basis. Thanks, - Time Spent With Patient Time Spent with Patient (in minutes): 30
[2023-05-07] VITALS (8 sets, daily range): BP systolic 99–135; BP diastolic 52–67; PULSE 70–73; RESP 16–18; TEMP 35.9–36.2; O2SAT 93–96
[2023-05-07] MEDS: Omeprazole 20 MG CAPSULE.DR PO ×2 (05:31→15:24)
[2023-05-07] MEDS: QUEtiapine Fumarate 50 MG TABLET PO (05:31)
[2023-05-07] MEDS: polyethylene glycoL 3350 17 GM POWD.PACK PO ×2 (08:31→21:10)
[2023-05-07] MEDS: Docusate Sodium 100 MG CAPSULE 200 MG PO (08:31)
[2023-05-07] MEDS: Sodium Bicarbonate 650 MG TABLET PO ×2 (08:31→21:10)
[2023-05-07] MEDS: 0.9 % Sodium Chloride Flush 3 ML SYRINGE IVFLUSH ×3 (08:31→21:11)
[2023-05-07] MEDS: Multivitamin TABLET 1 TAB PO (08:31)
[2023-05-07 09:32] LABS: Hematocrit 26.9 % (42.0-52.0); Hemoglobin 8.7 g/dl (14.0-18.0); Mean Corpuscular HGB Conc 32.3 g/dl (31.0-36.0); Mean Corpuscular Volume 101.9 fL (80.0-98.0); Red Blood Count 2.64 X10*6/uL (4.60-5.80); Red Cell Distribution Width 21.2 % (11.0-16.0)
[2023-05-07 09:34] LABS: Platelet Count 8 X10*3/uL (160-400)
[2023-05-07 09:42] LABS: White Blood Count 0.2 X10*3/uL (4.8-10.8)
[2023-05-07] MEDS: Calcium + Vitamin D 250 MG TABLET 500 MG PO (15:24)
[2023-05-07] MEDS: Cyanocobalamin (Vitamin B-12) 1,000 MCG TABLET 1000 MCG PO (15:24)
[2023-05-07] MEDS: Albuterol/Iprat 2.5/0.5MG 3 ML AMPUL.NEB INHALE (16:51)
[2023-05-07] MEDS: QUEtiapine Fumarate 25 MG TABLET PO (21:10)
[2023-05-07] MEDS: cefEPime HCl 2 GM in 0.9 % Sodium Chloride 50 ML IV (21:10)
[2023-05-08] VITALS (12 sets, daily range): BP systolic 85–120; BP diastolic 46–59; PULSE 62–86; RESP 16–17; TEMP 36.3–36.5; O2SAT 93–98
[2023-05-08] MEDS: Acetaminophen 325 MG TABLET 650 MG PO ×2 (03:08→12:41)
[2023-05-08] MEDS: Omeprazole 20 MG CAPSULE.DR PO ×2 (06:12→17:25)
[2023-05-08] MEDS: Multivitamin TABLET 1 TAB PO (07:55)
[2023-05-08] MEDS: Docusate Sodium 100 MG CAPSULE 200 MG PO (07:55)
[2023-05-08] MEDS: Sodium Bicarbonate 650 MG TABLET PO ×2 (07:55→20:19)
[2023-05-08] MEDS: polyethylene glycoL 3350 17 GM POWD.PACK PO ×2 (07:55→20:20)
[2023-05-08] MEDS: 0.9 % Sodium Chloride Flush 3 ML SYRINGE IVFLUSH (07:55)
--- NOTE | 2023-05-08 08:30 | HO.PM.IMPN ---
Subjective Subjective Date of Service: 05/08/23 Interval History: Neutropenic fever,pancytopenia, WBC reamins low, no fever. He is more awake and alert today, but is confused to place and time Physical Exam Vital Signs: Vital Signs: Last Vital Signs Temp 97.6 F 05/08/23 08:00 Pulse 70 05/08/23 08:00 Resp 16 05/08/23 08:00 BP 93/54 L 05/08/23 08:00 Pulse Ox 96 05/08/23 08:00 O2 Del Method Nasal Cannula 05/08/23 08:00 O2 Flow Rate 2 05/08/23 08:00 BMI result Body Mass Index 18.8 Const: Other: General: Oriented to sammy, no acute distress Resp: CTA bilateral CVS: S1,S2,RRR GI: +BS, NT, no distention Skin: No rash Neuro: motor grossly intact Psych: appropriate affect Objective Data Active Medications Acetaminophen (Acetaminophen 325 Mg Tablet) 650 mg PO Q6H PRN PRN Reason: Pain, Mild (Pain Scale 1-3) Last Admin: 05/08/23 03:08 Dose: 650 mg Documented By: JAILYN Albuterol/Ipratropium (Albuterol/Iprat 2.5/0.5mg 3 Ml Ampul.Neb) 3 ml INHALE RQ4H WHILE AWAKE [facility] Last Admin: 05/07/23 19:34 Dose: Not Given Documented By: HANH Non-Admin Reason: Patient Asleep Atorvastatin Calcium (Atorvastatin Calcium 20 Mg Tablet) 20 mg PO DAILY@1100 [facility] Last Admin: 05/07/23 12:56 Dose: Not Given Documented By: CRYSTAL Non-Admin Reason: Patient Asleep Bisacodyl (Bisacodyl 10 Mg Supp.Rect) 10 mg [place] DAILY PRN PRN Reason: constipation Calcium Carbonate/Cholecalciferol (Calcium + Vitamin D 250 Mg Tablet) 500 mg PO DAILY@1500 [facility] Last Admin: 05/07/23 15:24 Dose: 500 mg Documented By: CRYSTAL Cyanocobalamin (Cyanocobalamin (Vitamin B-12) 1,000 Mcg Tablet) 1,000 mcg PO DAILY@1500 [facility] Last Admin: 05/07/23 15:24 Dose: 1,000 mcg Documented By: CRYSTAL Docusate Sodium (Docusate Sodium 100 Mg Capsule) 200 mg PO DAILY [facility] Last Admin: 05/08/23 07:55 Dose: 200 mg Documented By: CRYSTAL Cefepime HCl 2 gm/ Sodium (Chloride) 50 mls @ 100 mls/hr IV Q24H [facility] Last Infusion: 05/07/23 21:41 Dose: Infused Documented By: JAILYN Melatonin (Melatonin 3 Mg Tablet) 6 mg PO BEDTIME PRN PRN Reason: Insomnia Last Admin: 05/03/23 01:51 Dose: 6 mg Documented By: KEYSHAWN Multivitamins/Vitamin C (Multivitamin Tablet) 1 tab PO DAILY [facility] Last Admin: 05/08/23 07:55 Dose: 1 tab Documented By: CRYSTAL Omeprazole (Omeprazole 20 Mg Capsule.) 20 mg PO BID@0630,1630 [facility] Last Admin: 05/08/23 06:12 Dose: 20 mg Documented By: JAILYN Polyethylene Glycol (Polyethylene Glycol 3350 17 Gm Powd.Pack) 17 gm PO BID [facility] Last Admin: 05/08/23 07:55 Dose: 17 gm Documented By: CRYSTAL Quetiapine Fumarate (Quetiapine Fumarate 25 Mg Tablet) 25 mg PO TID PRN PRN Reason: Agitation Quetiapine Fumarate (Quetiapine Fumarate 25 Mg Tablet) 25 mg PO BEDTIME [facility] Last Admin: 05/07/23 21:10 Dose: 25 mg Documented By: JAILYN Sodium Bicarbonate (Sodium Bicarbonate 650 Mg Tablet) 650 mg PO BID [facility] Last Admin: 05/08/23 07:55 Dose: 650 mg Documented By: CRYSTAL Sodium Chloride (0.9 % Sodium Chloride Flush 3 Ml Syringe) 3 ml IVFLUSH QSHIFT [facility] Last Admin: 05/08/23 07:55 Dose: 3 ml Documented By: CRYSTAL Labs 05/07/23 09:01 05/06/23 09:29 Labs: Laboratory Results - last 24 hr 05/07/23 05/07/23 09:01 10:30 MCV 101.9 H MCH 33.0 MCHC 32.3 RDW 21.2 H Plt Count 8 L* MPV Not Reportable Absolute Nucleated RBC 0.000 Nucleated RBC % (auto) 0.0 Blood Type A Positive Antibody Screen NEGATIVE Assessment and Plan (1) Pancytopenia: Status: Acute Plan 78-year-old male with a PMH significant for?unspecified dementia, emphysema, pulmonary fibrosis not on home O2, temporal arteritis, CKD stage 4, macrocytic anemia, BPH, carotid atherosclerosis, and hx of retinal artery occlusion who presents to the ED with?fever, chills, and generalized weakness x2 days. Pt will be admitted to the hospital for treatment and further evaluation of neutropenic fever with IV antibiotics, close monitoring, and specialist consultation. Neutropenic, fever resolved. Count still low at 0.2, likely related to recent chemo, no specific source of infection located, cxr, ct abd pelveis, and ua negative. Neutropenic precautions continue cefepime, started 05/01/2023,received neupogen 05/01,05/02,05/03,05/04. Augmentin at discharge for 10 days total of Abxc Oncology following ID following Pancytopenia-related to chemo and MDS WBC 0.2, H&H 8.1/26.6 point, platelets 8--transfuse 1 unit of platlet, CBC pending Likely secondary to starting chemotherapy last week Myelodysplastic syndrome (MDS)--management by oncology, hold hydroxyurea Chronic constipation Patient long history of chronic constipation, CT of abdomen and pelvis showed large stool ball in the rectum and moderate stool content throughout the colon Continue miralax, docusate, bisacodyl High-fiber diet Encourage liquids chronic hypoxic respiratory failure on 2 liter oxygen sec to pulmonary fibrosis and emphysema, contine O2 HypERnatremia 146, improving toxic metabolic encepahlopathy-multifactorial ( dementia ,hypernatremia ,dec po inatke ,received zyprexa) continue above management. Patient was over sedated with seroquel as requested by Psych dose reduced substantially with increase in alertness HLD Continue statin Full Code DVT Prophylaxis: Pneumatic boots d/t thrombopenia ongoing hospitalization need:pancytopenia -need transfusion ,neurtropenic fever -on antibiotics ,wait blood cultures ,hematology follow up. Time Spent With Patient Time: Total time managing care of this patient today ____ minutes. Quality Stroke Does the patient have a stroke diagnosis?: No VTE Prior VTE?: No VTE Risk Level:: Medical - moderate - high VTE Device Contraindication: Treatment Not Indicated VTE Drug Contraindication: N/A - Med Ordered
[2023-05-08 08:52] LABS: Hematocrit 23.9 % (42.0-52.0); Hemoglobin 7.7 g/dl (14.0-18.0); Mean Corpuscular HGB Conc 32.2 g/dl (31.0-36.0); Mean Corpuscular Volume 102.6 fL (80.0-98.0); Mean Platelet Volume 9.6 fL (9.4-12.4); Red Blood Count 2.33 X10*6/uL (4.60-5.80); Red Cell Distribution Width 21.3 % (11.0-16.0)
[2023-05-08 08:58] LABS: Platelet Count 15 X10*3/uL (160-400); WBC ABN SCTR FOR CBC 1; White Blood Count 0.2 X10*3/uL (4.8-10.8)
[2023-05-08] MEDS: Albuterol/Iprat 2.5/0.5MG 3 ML AMPUL.NEB INHALE ×4 (09:03→19:46)
[2023-05-08 09:09] LABS: Anion Gap 13 (12-20); Blood Urea Nitrogen 85 mg/dL (9-16); Calcium 9.4 mg/dL (8.4-10.2); Carbon Dioxide 21 mmol/L (22-29); Chloride 119 mmol/L (96-108); Estimated Glomerular Filt Rate 19; Glucose Random 141 mg/dL (60-115); Potassium 4.9 mmol/L (3.3-5.1); Sodium 148 mmol/L (135-145)
--- NOTE | 2023-05-08 10:42 | MHC.CLN ---
F/U DIET RX: REGULAR, NEUTROPENIC-APPROPRIATE. ENSURE MAX BID TO INCREASE KCALS. SUPPLEMENT PROVIDES 300KCALS, 60G PROTEIN. PO INTAKE X 3 DAYS USUALLY 0-50%. MD NOTES CHRONIC CONSTIPATION, HIGH FIBER DIET. ENCOURAGE FLUIDS. CONTINUE NEUTROPENIC DIET WHICH RESTRICTS RAW FRUITS AND VEGETABLES. MONITOR PO INTAKE CLOSELY.
[2023-05-08] MEDS: Dextrose 5 % 1,000 ML 100 ML IVCONT ×2 (11:02→20:19)
[2023-05-08] MEDS: Atorvastatin Calcium 20 MG TABLET PO (11:03)
--- NOTE | 2023-05-08 12:18 | PC.NURSE ---
patient has 1 unit RBCS ordered. pre transfusion blood pressure was 89/54 MD okay to start transfusion.
[2023-05-08] MEDS: Cyanocobalamin (Vitamin B-12) 1,000 MCG TABLET 1000 MCG PO (14:02)
[2023-05-08] MEDS: Calcium + Vitamin D 250 MG TABLET 500 MG PO (14:02)
[2023-05-08] MEDS: cefEPime HCl 2 GM in 0.9 % Sodium Chloride 50 ML IV (20:19)
[2023-05-08] MEDS: QUEtiapine Fumarate 25 MG TABLET PO (20:20)
[2023-05-09] VITALS: BP 172/77; PULSE 84; RESP 16; TEMP 36.3; O2SAT 93
[2023-05-09] MEDS: Dextrose 5 % 1,000 ML 100 ML IVCONT ×3 (06:02→23:35)
[2023-05-09] MEDS: Omeprazole 20 MG CAPSULE.DR PO ×2 (06:02→15:55)
[2023-05-09 08:00] VITALS: BP 116/59; PULSE 74; RESP 16; TEMP 37; O2SAT 94
[2023-05-09] MEDS: Albuterol/Iprat 2.5/0.5MG 3 ML AMPUL.NEB INHALE (08:23)
[2023-05-09 08:25] VITALS: PULSE 74; RESP 16; O2SAT 94
--- NOTE | 2023-05-09 09:04 | HO.PM.IMPN ---
Subjective Subjective Date of Service: 05/09/23 Interval History: Neutropenic fever,pancytopenia, WBC reamins low, no fever. He is alert, talking, labs pending Physical Exam Vital Signs: Vital Signs: Last Vital Signs Temp 98.6 F 05/09/23 08:00 Pulse 74 05/09/23 08:25 Resp 16 05/09/23 08:25 BP 116/59 L 05/09/23 08:00 Pulse Ox 94 05/09/23 08:00 O2 Del Method Nasal Cannula 05/09/23 08:00 O2 Flow Rate 2 05/09/23 08:00 BMI result Body Mass Index 18.8 Const: Other: General: Oriented to sammy, no acute distress poor dentition Resp: CTA bilateral CVS: S1,S2,RRR GI: +BS, NT, no distention Skin: No rash Neuro: motor grossly intact Psych: appropriate affect Objective Data Active Medications Acetaminophen (Acetaminophen 325 Mg Tablet) 650 mg PO Q6H PRN PRN Reason: Pain, Mild (Pain Scale 1-3) Last Admin: 05/08/23 12:41 Dose: 650 mg Documented By: YESSIEMA Albuterol/Ipratropium (Albuterol/Iprat 2.5/0.5mg 3 Ml Ampul.Neb) 3 ml INHALE RQ4H WHILE AWAKE [facility] Last Admin: 05/09/23 08:23 Dose: 3 ml Documented By: MIRANDA Atorvastatin Calcium (Atorvastatin Calcium 20 Mg Tablet) 20 mg PO DAILY@1100 [facility] Last Admin: 05/08/23 11:03 Dose: 20 mg Documented By: COTEMA Bisacodyl (Bisacodyl 10 Mg Supp.Rect) 10 mg [place] DAILY PRN PRN Reason: constipation Calcium Carbonate/Cholecalciferol (Calcium + Vitamin D 250 Mg Tablet) 500 mg PO DAILY@1500 [facility] Last Admin: 05/08/23 14:02 Dose: 500 mg Documented By: COTEMA Cyanocobalamin (Cyanocobalamin (Vitamin B-12) 1,000 Mcg Tablet) 1,000 mcg PO DAILY@1500 [facility] Last Admin: 05/08/23 14:02 Dose: 1,000 mcg Documented By: YESSIEMA Docusate Sodium (Docusate Sodium 100 Mg Capsule) 200 mg PO DAILY [facility] Last Admin: 05/08/23 07:55 Dose: 200 mg Documented By: CRYSTAL Cefepime HCl 2 gm/ Sodium (Chloride) 50 mls @ 100 mls/hr IV Q24H [facility] Last Infusion: 05/08/23 20:52 Dose: Infused Documented By: JESUS Dextrose (D5w) 1,000 mls @ 100 mls/hr IVCONT .Q10H [facility] Last Admin: 05/09/23 06:02 Dose: 100 mls/hr Documented By: JESUS Melatonin (Melatonin 3 Mg Tablet) 6 mg PO BEDTIME PRN PRN Reason: Insomnia Last Admin: 05/03/23 01:51 Dose: 6 mg Documented By: KEYSHAWN Multivitamins/Vitamin C (Multivitamin Tablet) 1 tab PO DAILY [facility] Last Admin: 05/08/23 07:55 Dose: 1 tab Documented By: CRYSTAL Omeprazole (Omeprazole 20 Mg Capsule.Dr) 20 mg PO BID@0630,1630 [facility] Last Admin: 05/09/23 06:02 Dose: 20 mg Documented By: JESUS Polyethylene Glycol (Polyethylene Glycol 3350 17 Gm Powd.Pack) 17 gm PO BID [facility] Last Admin: 05/08/23 20:20 Dose: 17 gm Documented By: JESUS Quetiapine Fumarate (Quetiapine Fumarate 25 Mg Tablet) 25 mg PO TID PRN PRN Reason: Agitation Quetiapine Fumarate (Quetiapine Fumarate 25 Mg Tablet) 25 mg PO BEDTIME [facility] Last Admin: 05/08/23 20:20 Dose: 25 mg Documented By: JESUS Sodium Bicarbonate (Sodium Bicarbonate 650 Mg Tablet) 650 mg PO BID [facility] Last Admin: 05/08/23 20:19 Dose: 650 mg Documented By: JESUS Sodium Chloride (0.9 % Sodium Chloride Flush 3 Ml Syringe) 3 ml IVFLUSH QSHIFT [facility] Last Admin: 05/08/23 23:42 Dose: Not Given Documented By: JESUS Non-Admin Reason: IV Running Labs 05/08/23 08:43 05/08/23 08:43 Labs: Laboratory Results - last 24 hr 05/07/23 05/08/23 10:30 08:43 Anion Gap 13 Estim Creat Clear Calc 17.0 Estimated GFR 19 Random Glucose 141 H Calcium 9.4 Blood Type A Positive Antibody Screen NEGATIVE Crossmatch See Detail Assessment and Plan (1) Pancytopenia: Status: Acute Plan 78-year-old male with a PMH significant for?unspecified dementia, emphysema, pulmonary fibrosis not on home O2, temporal arteritis, CKD stage 4, macrocytic anemia, BPH, carotid atherosclerosis, and hx of retinal artery occlusion who presents to the ED with?fever, chills, and generalized weakness x2 days. Pt will be admitted to the hospital for treatment and further evaluation of neutropenic fever with IV antibiotics, close monitoring, and specialist consultation. Neutropenic, fever resolved. Count still low at 0.2, likely related to recent chemo, no specific source of infection located, cxr, ct abd pelveis, and ua negative. Neutropenic precautions continue cefepime, started 05/01/2023,received neupogen 05/01,05/02,05/03,05/04. Augmentin at discharge for 10 days total of Abxc Oncology following ID following Pancytopenia-related to chemo and MDS WBC 0.2, H&H 8.1/26.6 point, platelets 8--transfuse 1 unit of platlet on 05/06, 1 unit of rbc on 05/08. CBC pending Likely secondary to chemotherapy last week Myelodysplastic syndrome (MDS)--management by oncology, hold hydroxyurea Chronic constipation Patient long history of chronic constipation, CT of abdomen and pelvis showed large stool ball in the rectum and moderate stool content throughout the colon Continue miralax, docusate, bisacodyl High-fiber diet Encourage liquids OPAL on CKD3,IVF and monitor Hypernatremia d/t poor oral water intake, D5W and recheck level chronic hypoxic respiratory failure on 2 liter oxygen sec to pulmonary fibrosis and emphysema, contine O2 HypERnatremia 146, improving toxic metabolic encepahlopathy-multifactorial ( dementia ,hypernatremia ,dec po inatke ,received zyprexa) continue above management. Patient was over sedated with seroquel as requested by Psych dose reduced substantially with increase in alertness HLD Continue statin Full Code DVT Prophylaxis: Pneumatic boots d/t thrombopenia ongoing hospitalization need:pancytopenia -need transfusion ,neurtropenic fever -on antibiotics ,wait blood cultures ,hematology follow up. PT is recommending STR when ready for dc Time Spent With Patient Time: Total time managing care of this patient today ____ minutes. Quality Stroke Does the patient have a stroke diagnosis?: No VTE Prior VTE?: No VTE Risk Level:: Medical - moderate - high VTE Device Contraindication: Treatment Not Indicated VTE Drug Contraindication: N/A - Med Ordered
[2023-05-09 09:13] LABS: Hematocrit 24.5 % (42.0-52.0); Hemoglobin 7.9 g/dl (14.0-18.0); Mean Corpuscular HGB Conc 32.2 g/dl (31.0-36.0); Mean Corpuscular Hemoglobin 32.5 pg (27.0-33.0); Mean Corpuscular Volume 100.8 fL (80.0-98.0); Red Blood Count 2.43 X10*6/uL (4.60-5.80); Red Cell Distribution Width 20.1 % (11.0-16.0)
[2023-05-09 09:17] LABS: WBC ABN SCTR FOR CBC 1
[2023-05-09 09:19] LABS: Platelet Count 12 X10*3/uL (160-400); White Blood Count 0.2 X10*3/uL (4.8-10.8)
[2023-05-09 09:44] LABS: Anion Gap 17 (12-20); Blood Urea Nitrogen 104 mg/dL (9-16); Calcium 9.1 mg/dL (8.4-10.2); Chloride 114 mmol/L (96-108); Creatinine Clr Calc Pharmacy 14.8; Estimated Glomerular Filt Rate 16; Glucose Random 116 mg/dL (60-115); Potassium 4.6 mmol/L (3.3-5.1); Sodium 142 mmol/L (135-145)
[2023-05-09 10:00] LABS: Carbon Dioxide 16 mmol/L (22-29)
[2023-05-09] MEDS: Atorvastatin Calcium 20 MG TABLET PO (10:57)
[2023-05-09] MEDS: polyethylene glycoL 3350 17 GM POWD.PACK PO ×2 (10:58→20:13)
[2023-05-09] MEDS: Multivitamin TABLET 1 TAB PO (10:58)
[2023-05-09] MEDS: Sodium Bicarbonate 650 MG TABLET PO ×2 (11:07→20:16)
[2023-05-09 15:23] VITALS: BP 123/58; PULSE 69; RESP 18; TEMP 36.4; O2SAT 97
[2023-05-09] MEDS: Cyanocobalamin (Vitamin B-12) 1,000 MCG TABLET 1000 MCG PO (15:55)
[2023-05-09] MEDS: Calcium + Vitamin D 250 MG TABLET 500 MG PO (15:56)
[2023-05-09] MEDS: cefEPime HCl 2 GM in 0.9 % Sodium Chloride 50 ML IV (19:54)
[2023-05-09 20:15] VITALS: BP 130/60; PULSE 79; RESP 18; TEMP 36.7; O2SAT 94
[2023-05-09] MEDS: QUEtiapine Fumarate 25 MG TABLET PO (20:16)
[2023-05-10] VITALS: BP 165/72; PULSE 86; RESP 17; TEMP 36.9; O2SAT 93
[2023-05-10] MEDS: Omeprazole 20 MG CAPSULE.DR PO (06:20)
[2023-05-10 07:13] VITALS: BP 128/55; PULSE 78; RESP 17; TEMP 36.7; O2SAT 94
[2023-05-10 07:40] LABS: Hematocrit 21.6 % (42.0-52.0); Hemoglobin 7.1 g/dl (14.0-18.0); Mean Corpuscular HGB Conc 32.9 g/dl (31.0-36.0); Mean Corpuscular Hemoglobin 32.4 pg (27.0-33.0); Mean Corpuscular Volume 98.6 fL (80.0-98.0); Red Blood Count 2.19 X10*6/uL (4.60-5.80); Red Cell Distribution Width 19.1 % (11.0-16.0)
[2023-05-10 07:42] LABS: WBC ABN SCTR FOR CBC 1
[2023-05-10 07:51] LABS: Platelet Count 15 X10*3/uL (160-400); White Blood Count 0.1 X10*3/uL (4.8-10.8)
[2023-05-10 07:58] LABS: Anion Gap 12 (12-20); Blood Urea Nitrogen 107 mg/dL (9-16); Calcium 8.8 mg/dL (8.4-10.2); Carbon Dioxide 19 mmol/L (22-29); Chloride 108 mmol/L (96-108); Creatinine Clr Calc Pharmacy 14.7; Estimated Glomerular Filt Rate 16; Glucose Random 111 mg/dL (60-115); Potassium 4.5 mmol/L (3.3-5.1); Sodium 134 mmol/L (135-145)
[2023-05-10] MEDS: Multivitamin TABLET 1 TAB PO (07:58)
[2023-05-10] MEDS: Sodium Bicarbonate 650 MG TABLET PO ×2 (07:58→19:47)
--- NOTE | 2023-05-10 08:19 | P.PNIM_ITS ---
Subjective Subjective Date of Service: 05/10/23 Interval History: Neutropenic fever,pancytopenia, WBC is much lower today at 0.1, Plat 15 Physical Exam 2 Vital Signs: Vital Signs: Last Vital Signs Temp 98.0 F 05/10/23 07:13 Pulse 78 05/10/23 07:13 Resp 17 05/10/23 07:13 BP 128/55 L 05/10/23 07:13 Pulse Ox 94 05/10/23 07:13 O2 Del Method Nasal Cannula 05/10/23 07:13 O2 Flow Rate 3.0 05/10/23 07:13 BMI result Body Mass Index 18.8 Const: Other: General: Oriented to sammy, no acute distress poor dentition Resp: CTA bilateral CVS: S1,S2,RRR GI: +BS, NT, no distention Skin: No rash Neuro: motor grossly intact Psych: appropriate affect Objective Data Active Medications Acetaminophen (Acetaminophen 325 Mg Tablet) 650 mg PO Q6H PRN PRN Reason: Pain, Mild (Pain Scale 1-3) Last Admin: 05/08/23 12:41 Dose: 650 mg Documented By: CRYSTAL Atorvastatin Calcium (Atorvastatin Calcium 20 Mg Tablet) 20 mg PO DAILY@1100 [facility] Last Admin: 05/09/23 10:57 Dose: 20 mg Documented By: SPENSER-SCOTRj Bisacodyl (Bisacodyl 10 Mg Supp.Rect) 10 mg [place] DAILY PRN PRN Reason: constipation Calcium Carbonate/Cholecalciferol (Calcium + Vitamin D 250 Mg Tablet) 500 mg PO DAILY@1500 [facility] Last Admin: 05/09/23 15:56 Dose: 500 mg Documented By: FABIAN Cyanocobalamin (Cyanocobalamin (Vitamin B-12) 1,000 Mcg Tablet) 1,000 mcg PO DAILY@1500 [facility] Last Admin: 05/09/23 15:55 Dose: 1,000 mcg Documented By: FABIAN Docusate Sodium (Docusate Sodium 100 Mg Capsule) 200 mg PO DAILY [facility] Last Admin: 05/10/23 08:03 Dose: Not Given Documented By: SLIM Non-Admin Reason: pt has loose stools Cefepime HCl 2 gm/ Sodium (Chloride) 50 mls @ 100 mls/hr IV Q24H [facility] Last Infusion: 05/09/23 20:24 Dose: Infused Documented By: JANA Dextrose (D5w) 1,000 mls @ 100 mls/hr IVCONT .Q10H [facility] Last Admin: 05/09/23 23:35 Dose: 100 mls/hr Documented By: JANA Melatonin (Melatonin 3 Mg Tablet) 6 mg PO BEDTIME PRN PRN Reason: Insomnia Last Admin: 05/03/23 01:51 Dose: 6 mg Documented By: KEYSHAWN Multivitamins/Vitamin C (Multivitamin Tablet) 1 tab PO DAILY [facility] Last Admin: 05/10/23 07:58 Dose: 1 tab Documented By: SLIM Omeprazole (Omeprazole 20 Mg Capsule.Dr) 20 mg PO BID@0630,1630 [facility] Last Admin: 05/10/23 06:20 Dose: 20 mg Documented By: JANA Polyethylene Glycol (Polyethylene Glycol 3350 17 Gm Powd.Pack) 17 gm PO BID [facility] Last Admin: 05/10/23 08:03 Dose: Not Given Documented By: SLIM Non-Admin Reason: pt is incontinent of loose stools Quetiapine Fumarate (Quetiapine Fumarate 25 Mg Tablet) 25 mg PO TID PRN PRN Reason: Agitation Quetiapine Fumarate (Quetiapine Fumarate 25 Mg Tablet) 25 mg PO BEDTIME [facility] Last Admin: 05/09/23 20:16 Dose: 25 mg Documented By: JANA Sodium Bicarbonate (Sodium Bicarbonate 650 Mg Tablet) 650 mg PO BID [facility] Last Admin: 05/10/23 07:58 Dose: 650 mg Documented By: SLIM Sodium Chloride (0.9 % Sodium Chloride Flush 3 Ml Syringe) 3 ml IVFLUSH QSHIFT [facility] Last Admin: 05/10/23 07:58 Dose: Not Given Documented By: SLIM Non-Admin Reason: IV Running Labs 05/10/23 07:26 05/10/23 07:26 Labs: Laboratory Results - last 24 hr 05/09/23 05/10/23 09:04 07:26 MCV 100.8 H 98.6 H MCH 32.5 32.4 MCHC 32.2 32.9 RDW 20.1 H 19.1 H Plt Count 12 L* 15 L* MPV Not Reportable Not Reportable Absolute Nucleated RBC 0.000 0.000 Nucleated RBC % (auto) 0.0 0.0 Anion Gap 17 12 Estim Creat Clear Calc 14.8 14.7 Estimated GFR 16 16 Random Glucose 116 H 111 Calcium 9.1 8.8 Assessment and Plan (1) Pancytopenia: Status: Acute Plan 78-year-old male with a PMH significant for?unspecified dementia, emphysema, pulmonary fibrosis not on home O2, temporal arteritis, CKD stage 4, macrocytic anemia, BPH, carotid atherosclerosis, and hx of retinal artery occlusion who presents to the ED with?fever, chills, and generalized weakness x2 days. Pt will be admitted to the hospital for treatment and further evaluation of neutropenic fever with IV antibiotics, close monitoring, and specialist consultation. Neutropenic, fever resolved. WBC 0.1, cultures have been negative. Has been on Cefepime since 05/01, Augmentin at discharge or stop after 10 days of Abx received Neupogen on 05/01 with no much effect, will check with Oncology if needs more Pancytopenia-related to chemo and MDS, WBC 0.1 as of 05/10, Plat 15, Transfused 1 unit of platlet on 05/06, 1 unit of rbc on 05/08. H/H 02/27, will dicuss further management including transfusion with oncology Myelodysplastic syndrome (MDS)--management by oncology, hold hydroxyurea Chronic constipation--continue bowel regimen, having regular BM OPAL on CKD3, Cr going up, will get nephrology to see Hypernatremia d/t poor oral water, resolved with fluid chronic hypoxic respiratory failure on 2 liter oxygen sec to pulmonary fibrosis and emphysema, contine O2 toxic metabolic encepahlopathy-multifactorial ( dementia ,hypernatremia ,dec po inatke ,received zyprexa) continue above management. Patient was over sedated with seroquel as requested by Psych dose reduced substantially with increase in alertness HLD Continue statin Full Code DVT Prophylaxis: Pneumatic boots d/t thrombopenia ongoing hospitalization need:pancytopenia -need transfusion ,neurtropenic fever -on antibiotics ,wait blood cultures ,hematology follow up. PT is recommending STR when ready for dc Time Spent With Patient Time: Total time managing care of this patient today ____ minutes. Quality Stroke Does the patient have a stroke diagnosis?: No VTE Prior VTE?: No VTE Risk Level:: Medical - moderate - high VTE Device Contraindication: Treatment Not Indicated VTE Drug Contraindication: N/A - Med Ordered
[2023-05-10] MEDS: Dextrose 5 % 1,000 ML 100 ML IVCONT (09:36)
[2023-05-10] MEDS: Atorvastatin Calcium 20 MG TABLET PO (12:16)
[2023-05-10] MEDS: Cyanocobalamin (Vitamin B-12) 1,000 MCG TABLET 1000 MCG PO (13:58)
[2023-05-10] MEDS: Calcium + Vitamin D 250 MG TABLET 500 MG PO (13:58)
[2023-05-10] MEDS: 0.9 % Sodium Chloride Flush 3 ML SYRINGE IVFLUSH ×2 (14:02→19:47)
[2023-05-10 15:29] VITALS: BP 143/65; PULSE 76; RESP 18; TEMP 36.3; O2SAT 92
[2023-05-10] MEDS: cefEPime HCl 2 GM in 0.9 % Sodium Chloride 50 ML IV (19:46)
[2023-05-10] MEDS: polyethylene glycoL 3350 17 GM POWD.PACK PO (19:46)
[2023-05-10] MEDS: QUEtiapine Fumarate 25 MG TABLET PO ×2 (19:47→22:42)
[2023-05-10] MEDS: Melatonin 3 MG TABLET 6 MG PO (22:42)
[2023-05-10 23:38] VITALS: BP 118/53; PULSE 82; RESP 16; TEMP 36.9; O2SAT 98
[2023-05-11] MEDS: Omeprazole 20 MG CAPSULE.DR PO (05:11)
[2023-05-11 06:15] VITALS: BP 118/56; PULSE 94; RESP 18; TEMP 37.4; O2SAT 96
[2023-05-11 07:11] VITALS: BP 117/51; PULSE 80; RESP 16; TEMP 37.7; O2SAT 91
--- NOTE | 2023-05-11 09:11 | MHC.CLN ---
F/U DIET RX: REGULAR, NEUTROPENIC-APPROPRIATE. ENSURE MAX BID TO INCREASE KCALS. SUPPLEMENT PROVIDES 300 KCALS, 60 G PROTEIN. PO INTAKE VARIABLE WITH MOST MEALS LESS THAN OR EQUAL TO 50%. SKIN WITH REDNESS TO BILATERAL BUTTOCKS. CONTINUE NEUTROPENIC DIET AND SUPPLEMENT. MONITOR PO INTAKE CLOSELY.
[2023-05-11 09:20] LABS: Hematocrit 21.5 % (42.0-52.0); Hemoglobin 7.1 g/dl (14.0-18.0); Mean Corpuscular Hemoglobin 32.4 pg (27.0-33.0); Mean Corpuscular Volume 98.2 fL (80.0-98.0); Red Blood Count 2.19 X10*6/uL (4.60-5.80); Red Cell Distribution Width 18.9 % (11.0-16.0)
[2023-05-11 09:26] LABS: PLT ABN DIST 1; Platelet Count 34 X10*3/uL (160-400); WBC ABN SCTR FOR CBC 1
[2023-05-11 09:31] LABS: White Blood Count 0.2 X10*3/uL (4.8-10.8)
--- NOTE | 2023-05-11 10:10 | MHC.CM.PN ---
CM MET WITH PTS AND DAUGHTERS AT BEDSIDE IN 05/10/23 THEY REPORT CONCERNS THAT THE PT HAS AN APPT AT [facility] ON THE THEY ARE AWARE PT WILL LIKELY NOT BE ABLE TO GO TO STR AND DO CHEMO AT THE SAME TIME THEY ARE AWARE PTS ONCOLOGIST WILL NEED TO WEIGH IN ON THE DECISION MAKING REGARDING AFTERCARE HOWEVER THEY ARE CLEAR THEY CANNOT MANAGE THE PT AT HOME UPON DC
[2023-05-11] MEDS: 0.9 % Sodium Chloride Flush 3 ML SYRINGE IVFLUSH (10:15)
--- NOTE | 2023-05-11 10:46 | HO.PM.IMPN ---
Subjective Subjective Date of Service: 05/11/23 Interval History: Patient seems more confused today, more anemic, and WBC count unchanged at 0.2 Physical Exam Vital Signs: Vital Signs: Last Vital Signs Temp 99.8 F 05/11/23 07:11 Pulse 80 05/11/23 07:11 Resp 16 05/11/23 07:11 BP 117/51 L 05/11/23 07:11 Pulse Ox 91 L 05/11/23 07:11 O2 Del Method Nasal Cannula 05/11/23 07:11 O2 Flow Rate 3 05/11/23 07:11 BMI result Body Mass Index 18.8 Const: Other: General: Oriented to sammy, no acute distress, frail poor dentition Resp: CTA bilateral CVS: S1,S2,RRR GI: +BS, NT, no distention Skin: No rash Neuro: motor grossly intact Psych: appropriate affect Objective Data Active Medications Acetaminophen (Acetaminophen 325 Mg Tablet) 650 mg PO Q6H PRN PRN Reason: Pain, Mild (Pain Scale 1-3) Last Admin: 05/08/23 12:41 Dose: 650 mg Documented By: COTEMA Atorvastatin Calcium (Atorvastatin Calcium 20 Mg Tablet) 20 mg PO DAILY@1100 [facility] Last Admin: 05/10/23 12:16 Dose: 20 mg Documented By: LUCY Bisacodyl (Bisacodyl 10 Mg Supp.Rect) 10 mg [place] DAILY PRN PRN Reason: constipation Calcium Carbonate/Cholecalciferol (Calcium + Vitamin D 250 Mg Tablet) 500 mg PO DAILY@1500 [facility] Last Admin: 05/10/23 13:58 Dose: 500 mg Documented By: LUCY Cyanocobalamin (Cyanocobalamin (Vitamin B-12) 1,000 Mcg Tablet) 1,000 mcg PO DAILY@1500 [facility] Last Admin: 05/10/23 13:58 Dose: 1,000 mcg Documented By: LUCY Docusate Sodium (Docusate Sodium 100 Mg Capsule) 200 mg PO DAILY [facility] Last Admin: 05/11/23 09:44 Dose: Not Given Documented By: LUCY Non-Admin Reason: Pt having loose stools Cefepime HCl 2 gm/ Sodium (Chloride) 50 mls @ 100 mls/hr IV Q24H [facility] Last Infusion: 05/10/23 20:19 Dose: Infused Documented By: NIRMALA Melatonin (Melatonin 3 Mg Tablet) 6 mg PO BEDTIME PRN PRN Reason: Insomnia Last Admin: 05/10/23 22:42 Dose: 6 mg Documented By: NIRMALA Multivitamins/Vitamin C (Multivitamin Tablet) 1 tab PO DAILY [facility] Last Admin: 05/11/23 10:15 Dose: Not Given Documented By: LUCY Non-Admin Reason: Patient Refused Omeprazole (Omeprazole 20 Mg Capsule.) 20 mg PO BID@0630,1630 [facility] Last Admin: 05/11/23 05:11 Dose: 20 mg Documented By: NIRMALA Polyethylene Glycol (Polyethylene Glycol 3350 17 Gm Powd.Pack) 17 gm PO BID [facility] Last Admin: 05/11/23 09:44 Dose: Not Given Documented By: LUCY Non-Admin Reason: Pt having loose stools Quetiapine Fumarate (Quetiapine Fumarate 25 Mg Tablet) 25 mg PO TID PRN PRN Reason: Agitation Last Admin: 05/10/23 22:42 Dose: 25 mg Documented By: NIRMALA Quetiapine Fumarate (Quetiapine Fumarate 25 Mg Tablet) 25 mg PO BEDTIME [facility] Last Admin: 05/10/23 19:47 Dose: 25 mg Documented By: NIRMALA Sodium Bicarbonate (Sodium Bicarbonate 650 Mg Tablet) 650 mg PO BID [facility] Last Admin: 05/11/23 10:15 Dose: Not Given Documented By: LUCY Non-Admin Reason: Patient Refused Sodium Chloride (0.9 % Sodium Chloride Flush 3 Ml Syringe) 3 ml IVFLUSH QSHIFT [facility] Last Admin: 05/11/23 10:15 Dose: 3 ml Documented By: LUCY Labs 05/11/23 08:53 05/10/23 07:26 Labs: Laboratory Results - last 24 hr 05/11/23 05/11/23 08:53 Unknown MCV 98.2 H MCH 32.4 MCHC 33.0 RDW 18.9 H Plt Count 34 L D MPV Not Reportable Absolute Nucleated RBC 0.000 Nucleated RBC % (auto) 0.0 Hold Purple Top SEE NOTE Hold Green Top See Note Assessment and Plan (1) Dementia: Status: Acute (2) Delirium: Status: Acute (3) Pancytopenia: Status: Acute Plan 78-year-old male with a PMH significant for?unspecified dementia, emphysema, pulmonary fibrosis not on home O2, temporal arteritis, CKD stage 4, macrocytic anemia, BPH, carotid atherosclerosis, and hx of retinal artery occlusion who presents to the ED with?fever, chills, and generalized weakness x2 days. Pt will be admitted to the hospital for treatment and further evaluation of neutropenic fever with IV antibiotics, close monitoring, and specialist consultation. Neutropenia, fever resolved. WBC 0.2, cultures have been negative. Has been on Cefepime since 05/01, Augmentin at discharge or stop after 10 days of Abx received Neupogen on 05/01 with no much effect, give another dose of Granix today Pancytopenia-related to chemo and MDS, WBC 0.1 as of 05/10, Plat 15, Transfused 1 unit of platlet on 05/06, 1 unit of rbc on 05/08. H/H 02/27 now, T&S and transfuse 1 unit today Myelodysplastic syndrome (MDS)--management by oncology, hold hydroxyurea Chronic constipation--continue bowel regimen, having regular BM OPAL on CKD3, Cr going up, will get nephrology to ssee Hypernatremia d/t poor oral water, resolved with fluid chronic hypoxic respiratory failure on 2 liter oxygen sec to pulmonary fibrosis and emphysema, contine O2 toxic metabolic encepahlopathy-multifactorial ( dementia ,hypernatremia ,dec po inatke ,received zyprexa) continue above management. Patient was over sedated with seroquel as requested by Psych dose reduced substantially with increase in alertness HLD Continue statin Full Code DVT Prophylaxis: Pneumatic boots d/t thrombopenia ongoing hospitalization need:pancytopenia -need transfusion ,neurtropenic fever -on antibiotics ,wait blood cultures ,hematology follow up. PT is recommending STR when ready for dc Prognosis is poor, will discuss with Time Spent With Patient Time: Total time managing care of this patient today ____ minutes. Quality Stroke Does the patient have a stroke diagnosis?: No VTE Prior VTE?: No VTE Risk Level:: Medical - moderate - high VTE Device Contraindication: Treatment Not Indicated VTE Drug Contraindication: N/A - Med Ordered
[2023-05-11 12:38] LABS: Anion Gap 16 (12-20); Blood Urea Nitrogen 114 mg/dL (9-16); Calcium 9.2 mg/dL (8.4-10.2); Carbon Dioxide 16 mmol/L (22-29); Chloride 111 mmol/L (96-108); Creatinine Clr Calc Pharmacy 12.4; Estimated Glomerular Filt Rate 13; Glucose Random 91 mg/dL (60-115); Potassium 4.9 mmol/L (3.3-5.1); Sodium 138 mmol/L (135-145)
[2023-05-11 13:38] VITALS: BP 127/97; PULSE 84; RESP 16; TEMP 36.5
[2023-05-11 13:54] VITALS: BP 114/51; PULSE 104; RESP 16; TEMP 36.9
[2023-05-11 15:14] VITALS: BP 115/55; PULSE 79; RESP 18; TEMP 36.8; O2SAT 96
[2023-05-11] MEDS: cefEPime HCl 2 GM in 0.9 % Sodium Chloride 50 ML IV (19:42)
[2023-05-11 23:48] VITALS: BP 135/64; PULSE 85; RESP 16; TEMP 38.4; O2SAT 96
--- NOTE | 2023-05-11 23:59 | PM.EVENT ---
Event Note Date of Service: 05/11/23 Event Note: Spiking fever with altered mentations check UA, CXR, LA, cultures and resp panel Start Vancomycin meanwhile empirically Time Spent With Patient Time: Total time managing care of this patient today ____ minutes.
[2023-05-12] VITALS (8 sets, daily range): BP systolic 108–155; BP diastolic 54–70; PULSE 78–93; RESP 16–20; TEMP 36.4–38.3; O2SAT 93–99
[2023-05-12] MEDS: vancomycin HCL 1,500 MG in 0.9 % Sodium Chloride 500 ML 333.33 MG IV (00:17)
[2023-05-12 00:47] LABS: Lactic Acid 0.8 mmol/L (0.5-2.0)
[2023-05-12 00:48] LABS: Appearance Urine Clear; Color Urine Yellow; Glucose Urine UA Negative (Negative); Leukocyte Esterase Urine Negative (Negative); Nitrite Urine Negative (Negative); PH 5.5 (5.0-9.0); Specific Gravity - Urine 1.015 (1.005-1.025); UMIC TRIGGER UACC YES; Urine Blood Moderate (2+) (Negative); Urine Ketones Negative (Negative); Urine Protein 100 (2+) mg/dL (Neg-Trace)
[2023-05-12 00:51] LABS: Bacteria Urine None Seen (None Seen); Hyaline Casts Urine 0-2 /LPF (0-2); Squamous Epithelial Cell Urine 0-2 /HPF (0-2); WBC Urine 0-5 /HPF (0-5)
[2023-05-12] MEDS: Acetaminophen Supp 650 MG SUPP.RECT PR ×3 (00:54→23:27)
[2023-05-12 09:02] LABS: Hematocrit 25.6 % (42.0-52.0); Hemoglobin 8.5 g/dl (14.0-18.0); Mean Corpuscular HGB Conc 33.2 g/dl (31.0-36.0); Mean Corpuscular Hemoglobin 32.6 pg (27.0-33.0); Mean Corpuscular Volume 98.1 fL (80.0-98.0); Mean Platelet Volume 11.7 fL (9.4-12.4); Red Blood Count 2.61 X10*6/uL (4.60-5.80); Red Cell Distribution Width 18.5 % (11.0-16.0)
[2023-05-12 09:11] LABS: Platelet Count 85 X10*3/uL (160-400); White Blood Count 0.6 X10*3/uL (4.8-10.8)
[2023-05-12 09:30] LABS: Anion Gap 14 (12-20); Blood Urea Nitrogen 120 mg/dL (9-16); Calcium 8.9 mg/dL (8.4-10.2); Carbon Dioxide 16 mmol/L (22-29); Chloride 115 mmol/L (96-108); Creatinine Clr Calc Pharmacy 10.7; Estimated Glomerular Filt Rate 11; Glucose Random 83 mg/dL (60-115); Potassium 5.1 mmol/L (3.3-5.1); Sodium 140 mmol/L (135-145)
--- NOTE | 2023-05-12 10:36 | PHA.PROG ---
Admission Date/Time: May 01, 2023 20:43 Indication: FEBRILE NEUTROPENIA (OTHER)? Weight in k.6 kg Adjusted body weight in Kg: Fowler body weight in Kg: Obesity Dosing Indication % IBW: Serum Creatinine - Last 168 Hours 05/06/23 05/08/23 05/09/23 09:29 08:43 09:04 Creatinine 2.77 H 3.16 H 3.62 H 05/10/23 05/11/23 05/12/23 07:26 09:18 08:02 Creatinine 3.66 H 4.34 H* 5.01 H* Estimated CrCl and GFR - Last 168 Hours 05/06/23 05/08/23 05/09/23 09:29 08:43 09:04 Estim Creat Clear Calc 19.4 17.0 14.8 Estimated GFR 22 19 16 05/10/23 05/11/23 05/12/23 07:26 09:18 08:02 Estim Creat Clear Calc 14.7 12.4 10.7 Estimated GFR 16 13 11 Vancomycin Loading Dose: 1500 Current Vancomycin Dosing Regimen: DOSED BASED ON LEVEL Vancomycin Monitoring using AUC goal of 400 - 600 range with trough as surrogate marker: Date and Time for next Vancomycin Level to be drawn: Pharmacist Comments on Vancomycin Plan: Vancomycin dosing will take advantage of [employer] as a clinical decision support tool that uses Bayesian modeling to calculate individual patient's pharmacokinetic parameters and forecast the patient's drug concentration time course with the target goal AUC 24 range of 400 - 600 mg/L/hr.
[2023-05-12] MEDS: Sodium Bicarbonate 650 MG TABLET PO (11:17)
[2023-05-12] MEDS: Multivitamin TABLET 1 TAB PO (11:18)
[2023-05-12] MEDS: Atorvastatin Calcium 20 MG TABLET PO (11:18)
[2023-05-12] MEDS: Lactated Ringers 1,000 ML 100 ML IVCONT ×2 (11:55→20:17)
--- NOTE | 2023-05-12 14:27 | HO.PM.IMPN ---
Subjective Subjective Date of Service: 05/12/23 Interval History: fever overnight ,decreased po intake Review of Systems awake family member at bedside - says seems somewhat better than yesterday po intake is poor Physical Exam Vital Signs: Vital Signs: Last Vital Signs Temp 97.6 F 05/12/23 07:02 Pulse 82 05/12/23 07:02 Resp 18 05/12/23 07:02 BP 132/58 L 05/12/23 07:02 Pulse Ox 97 05/12/23 07:02 O2 Del Method Nasal Cannula 05/12/23 07:02 O2 Flow Rate 4 05/12/23 07:02 BMI result Body Mass Index 18.8 General: Oriented to self, no acute distress, frail poor dentition Resp: CTA bilateral CVS: S1,S2,RRR GI: +BS, NT, no distention Skin: No rash Neuro: motor grossly intact Psych: appropriate affect Objective Data Active Medications Acetaminophen (Acetaminophen 325 Mg Tablet) 650 mg PO Q6H PRN PRN Reason: Pain, Mild (Pain Scale 1-3) Last Admin: 05/08/23 12:41 Dose: 650 mg Documented By: COTEMA Acetaminophen (Acetaminophen Supp 650 Mg Supp.Rect) 650 mg [place] Q4H PRN PRN Reason: Fever Last Admin: 05/12/23 02:07 Dose: 650 mg Documented By: JANA Atorvastatin Calcium (Atorvastatin Calcium 20 Mg Tablet) 20 mg PO DAILY@1100 [facility] Last Admin: 05/12/23 11:18 Dose: 20 mg Documented By: ZAY Bisacodyl (Bisacodyl 10 Mg Supp.Rect) 10 mg [place] DAILY PRN PRN Reason: constipation Calcium Carbonate/Cholecalciferol (Calcium + Vitamin D 250 Mg Tablet) 500 mg PO DAILY@1500 [facility] Last Admin: 05/11/23 14:50 Dose: Not Given Documented By: LUCY Non-Admin Reason: Patient Refused Cyanocobalamin (Cyanocobalamin (Vitamin B-12) 1,000 Mcg Tablet) 1,000 mcg PO DAILY@1500 [facility] Last Admin: 05/11/23 14:50 Dose: Not Given Documented By: LUCY Non-Admin Reason: Patient Refused Docusate Sodium (Docusate Sodium 100 Mg Capsule) 200 mg PO DAILY [facility] Last Admin: 05/12/23 11:27 Dose: Not Given Documented By: ZAY Non-Admin Reason: Patient Refused Lactated Ringer's (Lr) 1,000 mls @ 100 mls/hr IVCONT .Q10H [facility] Last Admin: 05/12/23 11:55 Dose: 100 mls/hr Documented By: ZAY Vancomycin HCl 500 mg/ Sodium (Chloride) 110 mls @ 110 mls/hr IV Q48H [facility] Cefepime HCl 1 gm/ Sodium (Chloride) 50 mls @ 100 mls/hr IV Q24H [facility] Caspofungin 70 mg/ Sodium (Chloride) 250 mls @ 250 mls/hr IV ONCE ONE Stop: 05/12/23 14:59 Caspofungin 50 mg/ Sodium (Chloride) 250 mls @ 250 mls/hr IV Q24H [facility] Melatonin (Melatonin 3 Mg Tablet) 6 mg PO BEDTIME PRN PRN Reason: Insomnia Last Admin: 05/10/23 22:42 Dose: 6 mg Documented By: NIRMALA Multivitamins/Vitamin C (Multivitamin Tablet) 1 tab PO DAILY [facility] Last Admin: 05/12/23 11:18 Dose: 1 tab Documented By: ZAY Omeprazole (Omeprazole 20 Mg Capsule.Dr) 20 mg PO BID@0630,1630 [facility] Last Admin: 05/12/23 05:28 Dose: Not Given Documented By: JANA Non-Admin Reason: pt too ill to follow commands, confused Pharmacy Consult (Consult Rx Vancomycin Dosing) 1 each [place] DAILY PRN PRN Reason: Consult order Polyethylene Glycol (Polyethylene Glycol 3350 17 Gm Powd.Pack) 17 gm PO BID [facility] Last Admin: 05/12/23 11:27 Dose: Not Given Documented By: ZAY Non-Admin Reason: Patient Refused Quetiapine Fumarate (Quetiapine Fumarate 25 Mg Tablet) 25 mg PO TID PRN PRN Reason: Agitation Last Admin: 05/10/23 22:42 Dose: 25 mg Documented By: NIRMALA Quetiapine Fumarate (Quetiapine Fumarate 25 Mg Tablet) 25 mg PO BEDTIME [facility] Last Admin: 05/11/23 22:26 Dose: Not Given Documented By: JANA Non-Admin Reason: pt lethargic Sodium Bicarbonate (Sodium Bicarbonate 650 Mg Tablet) 650 mg PO BID [facility] Last Admin: 05/12/23 11:17 Dose: 650 mg Documented By: ZAY Sodium Chloride (0.9 % Sodium Chloride Flush 3 Ml Syringe) 3 ml IVFLUSH QSHIFT [facility] Last Admin: 05/12/23 11:18 Dose: Not Given Documented By: ZAY Non-Admin Reason: Previously Administered Labs 05/12/23 08:02 05/12/23 08:02 Labs: Laboratory Results - last 24 hr 05/11/23 05/12/23 05/12/23 11:50 00:10 00:40 MCV MCH MCHC RDW Plt Count MPV Absolute Nucleated RBC Nucleated RBC % (auto) Anion Gap Estim Creat Clear Calc Estimated GFR Random Glucose Lactic Acid 0.8 Calcium Urine Color Yellow Urine Appearance Clear Urine pH 5.5 Ur Specific [place] 1.015 Urine Protein 100 (2+) H Urine Glucose (UA) Negative Urine Ketones Negative Urine Blood Moderate (2+) H Urine Nitrite Negative Ur Leukocyte Esterase Negative Urine RBC 6-10 H Urine WBC 0-5 Ur Squamous Epith Cells 0-2 Urine Bacteria None Seen Hyaline Casts 0-2 Crossmatch See Detail 05/12/23 08:02 MCV 98.1 H MCH 32.6 MCHC 33.2 RDW 18.5 H Plt Count 85 L D MPV 11.7 Absolute Nucleated RBC 0.000 Nucleated RBC % (auto) 0.0 Anion Gap 14 Estim Creat Clear Calc 10.7 Estimated GFR 11 Random Glucose 83 Lactic Acid Calcium 8.9 Urine Color Urine Appearance Urine pH Ur Specific [place] Urine Protein Urine Glucose (UA) Urine Ketones Urine Blood Urine Nitrite Ur Leukocyte Esterase Urine RBC Urine WBC Ur Squamous Epith Cells Urine Bacteria Hyaline Casts Crossmatch Assessment and Plan (1) Dementia: Status: Acute (2) Delirium: Status: Acute (3) Pancytopenia: Status: Acute Plan 78-year-old male with a PMH significant for?unspecified dementia, emphysema, pulmonary fibrosis not on home O2, temporal arteritis, CKD stage 4, macrocytic anemia, BPH, carotid atherosclerosis, and hx of retinal artery occlusion who presents to the ED with?fever, chills, and generalized weakness x2 days. Pt will be admitted to the hospital for treatment and further evaluation of neutropenic fever with IV antibiotics, close monitoring, and specialist consultation. Neutropenia, fever resolved. WBC 0.6, cultures have been negative. Has been on Cefepime since 9/22. received Neupogen multiple times with no much effect, received Granix . intermittent fevers -ua negative ,cxr -seems similar ,?Superimposed infiltrate/developing infiltrate is a consideration. lactic acid normal,blood cultures intial (05/01 ) neg @5days ,another blood cultures sent(05/12/23). d/w ID-patient is on vanco/cefpime,added caspofungin Pancytopenia-related to chemo and MDS: patient received 2 platelet unit and 2 prbc soafar wbc 0.6,platlets 85 ,h/h : 8.5/25.6 Myelodysplastic syndrome (MDS)--management by oncology, hold hydroxyurea Chronic constipation--continue bowel regimen, having regular BM OPAL on CKD3, Cr going up, will get nephrology to ssee Hypernatremia d/t poor oral water, resolved with fluid chronic hypoxic respiratory failure on 2 liter oxygen sec to pulmonary fibrosis and emphysema, continue O2. toxic metabolic encepahlopathy-multifactorial ( dementia ,hypernatremia ,dec po inatke ,chemo) continue above management. Patient was over sedated with seroquel as requested by Psych dose reduced substantially with increase in alertness hold seroquel, give iv hydration,encouraged for po intake. HLD:Continue statin DVT Prophylaxis: Pneumatic boots d/t thrombopenia ongoing hospitalization need:pancytopenia -need transfusion ,neurtropenic fever -on antibiotics ,wait blood cultures ,hematology follow up. PT is recommending STR . Prognosis is poor, d/w -she want to continue current management -she will update us once decide for changing code status and goal of care,she understands that proganosis is poor. Time Spent With Patient Time: Total time managing care of this patient today ____ minutes. Quality Stroke Does the patient have a stroke diagnosis?: No VTE Prior VTE?: No VTE Risk Level:: Medical - moderate - high VTE Device Contraindication: Treatment Not Indicated VTE Drug Contraindication: N/A - Med Ordered
[2023-05-12] MEDS: Caspofungin Acetate 70 MG in 0.9 % Sodium Chloride 250 ML 250 MG IV (16:51)
[2023-05-12 19:07] LABS: Creatinine Urine 58.59 mg/dL
[2023-05-12] MEDS: Thiamine HCL 400 MG in 0.9 % Sodium Chloride 100 ML 208 MG IV (20:18)
[2023-05-12 20:23] LABS: Uric Acid 6.3 mg/dL (3.4-7.0)
[2023-05-12] MEDS: cefEPime HCl 1 GM in 0.9 % Sodium Chloride 50 ML IV (21:32)
--- NOTE | 2023-05-12 23:20 | P.PNID_ITS ---
Subjective Subjective Date of Service: 05/12/23 Critical Care Time (minutes): 15 Comment: he has new temperature to 101 overnight,no temp since 05/02 slower moving but no focal complaints Objective Data Labs 05/12/23 08:02 05/12/23 08:02 Labs: Laboratory Results - last 24 hr 05/12/23 05/12/23 05/12/23 00:10 00:40 08:02 WBC 0.6 L* RBC 2.61 L Hgb 8.5 L Hct 25.6 L MCV 98.1 H MCH 32.6 MCHC 33.2 RDW 18.5 H Plt Count 85 L D MPV 11.7 Absolute Nucleated RBC 0.000 Nucleated RBC % (auto) 0.0 Sodium 140 Potassium 5.1 Chloride 115 H Carbon Dioxide 16 L Anion Gap 14 BUN 120 H Creatinine 5.01 H* Estim Creat Clear Calc 10.7 Estimated GFR 11 Random Glucose 83 Lactic Acid 0.8 Uric Acid 6.3 Calcium 8.9 Urine Color Yellow Urine Appearance Clear Urine pH 5.5 Ur Specific Herminie 1.015 Urine Protein 100 (2+) H Urine Glucose (UA) Negative Urine Ketones Negative Urine Blood Moderate (2+) H Urine Nitrite Negative Ur Leukocyte Esterase Negative Urine RBC 6-10 H Urine WBC 0-5 Ur Squamous Epith Cells 0-2 Urine Bacteria None Seen Hyaline Casts 0-2 Ur Random Sodium Urine Creatinine 05/12/23 18:27 WBC RBC Hgb Hct MCV MCH MCHC RDW Plt Count MPV Absolute Nucleated RBC Nucleated RBC % (auto) Sodium Potassium Chloride Carbon Dioxide Anion Gap BUN Creatinine Estim Creat Clear Calc Estimated GFR Random Glucose Lactic Acid Uric Acid Calcium Urine Color Urine Appearance Urine pH Ur Specific Herminie Urine Protein Urine Glucose (UA) Urine Ketones Urine Blood Urine Nitrite Ur Leukocyte Esterase Urine RBC Urine WBC Ur Squamous Epith Cells Urine Bacteria Hyaline Casts Ur Random Sodium 34.0 Urine Creatinine 58.59 Microbiology Microbiology Results: Microbiology 05/01/23 19:58 Blood - Venous Blood Culture - Final No growth after 5 days. 05/01/23 19:36 Blood - Venous Blood Culture - Final No growth after 5 days. Physical Exam 2 Vital Signs: Vital Signs: Last Vital Signs Temp 100.3 F 05/12/23 23:12 Pulse 93 05/12/23 23:12 Resp 16 05/12/23 23:12 BP 155/70 H 05/12/23 23:12 Pulse Ox 93 05/12/23 23:12 O2 Del Method Nasal Cannula 05/12/23 23:12 O2 Flow Rate 4 05/12/23 23:12 BMI result Body Mass Index 18.8 Const: General: cooperative HEENT: Head: Yes normal to inspection Face and sinus: Yes normal facial exam Mouth: Normal oral and palatal mucosa present Teeth and gingiva: d entition normal Eyes: General: appearance normal, both eyes and all related structures P upils: Equal, round and reactive pupils present Resp: Effort & Inspection: normal respiratory effort Cardio: Rate: regular rate Rhythm: regular rhythm GI: Palpation (GI): Soft to palpation and nontender : General: Yes no CVA tenderness Back/Spine/Pelvis: Back: no CVA tenderness Skin: General skin exam: no rashes or lesions noted Neuro: General: moves all extremities Cranial nerves: Yes Equal, round and reactive pupils present Extrem: General: Yes normal to inspection Psych: Appearance: grossly normal Assessment and Plan Assessment and plan (1) Pancytopenia: Problem details: fuo with neutropenia he has been in 11 days risk for fungemia and also risk with more weakness for aspiration pneumonia(difficult to read CXR) Status: Acute Assessment and Plan: Add Cancidas Hematology evaluation ?PJP pneumonia ?need Mepron (atovaquone). Continue Vancomycin and Cefepime possible 3-5 days if nothing else found rx aspiration Prognosis guarded (2) Neutropenic fever: Status: Acute Time Spent With Patient Time: Total time managing care of this patient today ____ minutes.
[2023-05-13 00:51] VITALS: TEMP 38.3
[2023-05-13 03:10] VITALS: TEMP 37.1
[2023-05-13] MEDS: Lactated Ringers 1,000 ML 100 ML IVCONT (05:18)
[2023-05-13 06:50] LABS: Vancomycin Random 16.4 mcg/mL (15-20)
[2023-05-13 07:03] VITALS: BP 124/56; PULSE 87; RESP 20; TEMP 38.2; O2SAT 90
[2023-05-13 07:38] LABS: Creatinine Clr Calc Pharmacy 9.2; Estimated Glomerular Filt Rate 9
[2023-05-13 08:52] LABS: EOS Counted 100 CELLS; EOS QC POS YES; EOS Stain Quality OK YES; WBC, Counted 0 CELLS
[2023-05-13] MEDS: Thiamine HCL 400 MG in 0.9 % Sodium Chloride 100 ML 208 MG IV (09:04)
--- NOTE | 2023-05-13 09:09 | HE.PHANOTE ---
VANCO DOSE HELD TODAY BECAUSE OF INCREASING SCR. NEXT TROUGH OF 05/14 @ 0600
[2023-05-13 09:31] LABS: Anion Gap 14 (12-20); Carbon Dioxide 16 mmol/L (22-29); Chloride 119 mmol/L (96-108); Potassium 4.7 mmol/L (3.3-5.1); Sodium 144 mmol/L (135-145)
--- NOTE | 2023-05-13 10:58 | MHC.CLN ---
F/U DIET RX: REGULAR, NEUTROPENIC-APPROPRIATE. ENSURE MAX BID TO INCREASE KCALS. SUPPLEMENT PROVIDES 300 KCALS, 60 G PROTEIN. PO INTAKE X MOST RECENT 3 DAYS=0-25%. SEVEN DAY AVERAGE INTAKE CALCULATED PER MEAL INTAKE DOCUMENTATION=26%. PO INTAKE NOT MEETING ESTIMATED NUTRITIONAL NEEDS. PATIENT IS FULL CODE. CONSIDER ALTERNATE NUTRITION. CONTINUE NEUTROPENIC DIET AND SUPPLEMENT. MONITOR PO INTAKE CLOSELY.
--- NOTE | 2023-05-13 11:09 | CONS_ITS ---
DATE OF SERVICE: 05/12/2023 REASON FOR CONSULTATION: I was asked to see patient to assist in evaluation and management of patient's acute kidney injury as reflected by a BUN and creatinine today of 120 and 5.0, whereas his baseline creatinine appears to be in the 2.5 to 3 range going back to March. 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 The patient has developed acute kidney injury on chronic kidney disease, hence the consultation. PAST MEDICAL HISTORY: As mentioned above. He is also status post cholecystectomy and rectal surgery as well. MEDICATIONS: On admission, noted in the admitting notes. ALLERGIES: HE HAS ALLERGIES TO HYDROCHLOROTHIAZIDE LISTED. FAMILY HISTORY: Noncontributory. REVIEW OF SYSTEMS: Unobtainable. PHYSICAL EXAMINATION: VITAL SIGNS: Blood pressure of 130/60 with a heart rate in the 80s. Afebrile. HEENT: Head is atraumatic and normocephalic. Mucous membranes are dry. LUNGS: Breath sounds diminished with poor air movement. CARDIAC: Regular rate and rhythm. ABDOMEN: Soft. EXTREMITIES: Feet with distal pulses. LABORATORY DATA: Sodium 140, potassium 5.1, chloride 115, bicarb 16, BUN 120, creatinine 5.0. Yesterday, BUN and creatinine were 114 and 4.3. Hemoglobin 8.5, hematocrit 25.6, white blood cell count 0.6, platelet count of 85. A CAT scan of the abdomen and pelvis, which showed no hydronephrosis. IMPRESSION: 78-year-old with acute kidney injury on advanced chronic kidney disease in the setting of neutropenic fever. 1. Acute kidney injury. Appears to have multifactorial acute tubular necrosis. Presumably due to his ongoing neutropenic fever and systemic inflammatory response syndrome. a. Obstructive uropathy seems unlikely given the CAT scan that showed no hydro. His urinalysis showed some blood and protein and depending on his clinical course, further workup to rule out other causes such as an acute glomerulonephritis. The chemotherapy he is on is not typically associated with acute kidney injury. We will check a uric acid level to make sure there is not acute urate nephropathy. 2. Advanced chronic kidney disease. Baseline creatinine appears to be in the 2 to 3 range. 3. Neutropenic fever. RECOMMENDATIONS: At this time include, continued IV fluids. We will check a serum uric acid level. Avoid nephrotoxins. Depending on his clinical course, further evaluation will be undertaken. The patient is very sick at this point in time and there are ongoing discussions with the family about to what extent they want to be aggressive given his multitude of chronic medical problems and the severity of his acute kidney injury. It is unclear whether or not the family would want him to have dialysis if his renal function worsens further. MD JAOCBO Nails/MODCyndi / [phone]
--- NOTE | 2023-05-13 11:58 | MHC.CM.PN ---
Per MD rounds patient is FLY SETTER.
[2023-05-13] MEDS: Scopolamine 1.5 MG PATCH.TD.3 TRANSDERMA (12:09)
--- NOTE | 2023-05-13 13:08 | P.PNIM_ITS ---
Subjective Subjective Date of Service: 05/13/23 Interval History: ftt,neutropenic fever,bigg on ckd Physical Exam 2 Vital Signs: Vital Signs: Last Vital Signs Temp 100.8 F H 05/13/23 07:03 Pulse 87 05/13/23 07:03 Resp 20 05/13/23 07:03 BP 124/56 L 05/13/23 07:03 Pulse Ox 90 L 05/13/23 07:03 O2 Del Method Nasal Cannula 05/13/23 07:03 O2 Flow Rate 4 05/13/23 07:03 BMI result Body Mass Index 18.8 General: awake ,but agitated Resp: CTA bilateral CVS: S1,S2,RRR GI: +BS, NT, no distention Skin: No rash Objective Data Active Medications Acetaminophen (Acetaminophen Supp 650 Mg Supp.Rect) 650 mg MT Q4H PRN PRN Reason: Fever Last Admin: 05/12/23 23:27 Dose: 650 mg Documented By: JANA Lorazepam (Lorazepam 0.5 Mg Tablet) 0.5 mg SUBLINGUAL Q4H PRN PRN Reason: anxiety/restlessness Morphine Sulfate (Morphine Sulfate 2 Mg/Ml Cartridge) 2 mg IVPUSH Q4H PRN PRN Reason: Discomfort/Shortness of breath Quetiapine Fumarate (Quetiapine Fumarate 25 Mg Tablet) 25 mg PO BEDTIME [facility] Last Admin: 05/11/23 22:26 Dose: Not Given Documented By: JANA Non-Admin Reason: pt lethargic Scopolamine (Scopolamine 1.5 Mg Patch.Td.3) 1.5 mg TRANSDERMA Q72H [facility] Last Admin: 05/13/23 12:09 Dose: 1.5 mg Documented By: ZAY Sodium Chloride (0.9 % Sodium Chloride Flush 3 Ml Syringe) 3 ml IVFLUSH QSHIFT [facility] Last Admin: 05/13/23 09:05 Dose: Not Given Documented By: ZAY Non-Admin Reason: IV Running Labs 05/12/23 08:02 05/13/23 06:08 Labs: Laboratory Results - last 24 hr 05/12/23 05/12/23 05/13/23 08:02 18:27 06:08 Hold Purple Top SEE NOTE Anion Gap 14 Estim Creat Clear Calc 9.2 Estimated GFR 9 Uric Acid 6.3 Hold Green Top See Note Urine Eosinophils % 0.0 Ur Random Sodium 34.0 Urine Creatinine 58.59 Random Vancomycin 16.4 Microbiology Microbiology Results: Microbiology 05/12/23 00:10 Blood Culture - Preliminary Blood - Venous No growth after 24 hours. 05/12/23 00:11 Blood Culture - Preliminary Blood - Venous No growth after 24 hours. Assessment and Plan (1) Dementia: Status: Acute (2) Delirium: Status: Acute (3) Pancytopenia: Status: Acute (4) Neutropenic fever: Status: Acute Plan 78-year-old male with a PMH significant for?unspecified dementia, emphysema, pulmonary fibrosis not on home O2, temporal arteritis, CKD stage 4, macrocytic anemia, BPH, carotid atherosclerosis, and hx of retinal artery occlusion who presents to the ED with?fever, chills, and generalized weakness x2 days. Patient initially admitted for neutropenic fever, pancytopenia,also bigg on ckd ,toxic metabolic encephalopathy multifactorial ,also poor oral intake /possible FTT: Patient received IV antibiotics, blood cultures sent, IV hydration, multiple doses of Neupogen and Granix as well as recived prbc and paltelets for pancytopenia:The patient did not improve much progressively declining, his prognosis very poor,family does not want any artificial nutrition or hydration and decided for comfort measures only. Time Spent With Patient Time: Total time managing care of this patient today ____ minutes. Quality Stroke Does the patient have a stroke diagnosis?: No VTE Prior VTE?: No VTE Risk Level:: Medical - moderate - high VTE Device Contraindication: Treatment Not Indicated VTE Drug Contraindication: N/A - Med Ordered
--- NOTE | 2023-05-13 13:29 | W.MHC.ACPN ---
Advanced Care Planning Note Advanced Care Planning Note Time spent (in minutes): 35 Narrative: 78-year-old male with a PMH significant for?unspecified dementia, emphysema, pulmonary fibrosis not on home O2, temporal arteritis, CKD stage 4, macrocytic anemia, BPH, carotid atherosclerosis, and hx of retinal artery occlusion who presents to the ED with?fever, chills, and generalized weakness x2 days. Patient initially admitted for neutropenic fever, pancytopenia,also opal on ckd ,toxic metabolic encephalopathy multifactorial ,also poor oral intake /possible FTT: Patient received IV antibiotics, blood cultures sent, IV hydration, multiple doses of Neupogen and Granix as well as recived prbc and paltelets for pancytopenia:Goal of care meeting done yesterday and today:The patient did not improve much progressively declining, his prognosis very poor,family does not want any artificial nutrition or hydration and decided for comfort measures only. Problems Discussed (1) Dementia: (2) Delirium: (3) Pancytopenia: (4) Neutropenic fever: (5) FTT (failure to thrive) in adult: (6) OPAL (acute kidney injury):
[2023-05-13 17:46] VITALS: RESP 20; TEMP 37.3; O2SAT 94
[2023-05-13] MEDS: 0.9 % Sodium Chloride Flush 3 ML SYRINGE IVFLUSH (19:22)
[2023-05-14 06:47] LABS: Creatinine Clr Calc Pharmacy 7.7; Estimated Glomerular Filt Rate 8
[2023-05-14 06:49] LABS: Vancomycin Random 15.1 mcg/mL (15-20)
[2023-05-14] MEDS: LORazepam 0.5 MG TABLET SUBLINGUAL ×2 (08:25→18:50)
[2023-05-14] MEDS: 0.9 % Sodium Chloride Flush 3 ML SYRINGE IVFLUSH ×3 (08:25→19:50)
--- NOTE | 2023-05-14 12:21 | HO.PM.IMPN ---
Subjective Subjective Date of Service: 05/14/23 Interval History: ftt,neutropenic fever,bigg on ckd Review of Systems unable to obtain Physical Exam Vital Signs: Vital Signs: Last Vital Signs Temp 99.1 F 05/13/23 17:46 Pulse 87 05/13/23 07:03 Resp 20 05/13/23 17:46 BP 124/56 L 05/13/23 07:03 Pulse Ox 94 05/13/23 17:46 O2 Del Method Nasal Cannula 05/13/23 17:46 O2 Flow Rate 4 05/13/23 17:46 BMI result Body Mass Index 18.8 General: awake ,less restless Resp: CTA bilateral CVS: S1,S2,RRR GI: +BS, NT, no distention Skin: No rash Objective Data Active Medications Acetaminophen (Acetaminophen Supp 650 Mg Supp.Rect) 650 mg IN Q4H PRN PRN Reason: Fever Last Admin: 05/12/23 23:27 Dose: 650 mg Documented By: JANA Lorazepam (Lorazepam 0.5 Mg Tablet) 0.5 mg SUBLINGUAL Q4H PRN PRN Reason: anxiety/restlessness Last Admin: 05/14/23 08:25 Dose: 0.5 mg Documented By: ZAY Morphine Sulfate (Morphine Sulfate 2 Mg/Ml Cartridge) 2 mg IVPUSH Q4H PRN PRN Reason: Discomfort/Shortness of breath Quetiapine Fumarate (Quetiapine Fumarate 25 Mg Tablet) 25 mg PO BEDTIME [facility] Last Admin: 05/11/23 22:26 Dose: Not Given Documented By: JANA Non-Admin Reason: pt lethargic Scopolamine (Scopolamine 1.5 Mg Patch.Td.3) 1.5 mg TRANSDERMA Q72H [facility] Last Admin: 05/13/23 12:09 Dose: 1.5 mg Documented By: ZAY Sodium Chloride (0.9 % Sodium Chloride Flush 3 Ml Syringe) 3 ml IVFLUSH QSHIFT [facility] Last Admin: 05/14/23 08:25 Dose: 3 ml Documented By: ZAY Labs 05/12/23 08:02 05/14/23 06:14 Labs: Laboratory Results - last 24 hr 05/14/23 06:14 Hold Purple Top SEE NOTE Estim Creat Clear Calc 7.7 Estimated GFR 8 Random Vancomycin 15.1 Microbiology Microbiology Results: Microbiology 05/12/23 00:10 Blood Culture - Preliminary Blood - Venous No growth after 48 hours. 05/12/23 00:11 Blood Culture - Preliminary Blood - Venous No growth after 48 hours. Assessment and Plan (1) FTT (failure to thrive) in adult: Status: Acute (2) Neutropenic fever: Status: Acute Plan 78-year-old male with a PMH significant for?unspecified dementia, emphysema, pulmonary fibrosis not on home O2, temporal arteritis, CKD stage 4, macrocytic anemia, BPH, carotid atherosclerosis, and hx of retinal artery occlusion who presents to the ED with?fever, chills, and generalized weakness x2 days. Patient initially admitted for neutropenic fever, pancytopenia,also bigg on ckd ,toxic metabolic encephalopathy multifactorial ,also poor oral intake /possible FTT: Patient received IV antibiotics, blood cultures sent, IV hydration, multiple doses of Neupogen and Granix as well as recived prbc and paltelets for pancytopenia:The patient did not improve much progressively declining, his prognosis very poor,family does not want any artificial nutrition or hydration and decided for comfort measures only. Time Spent With Patient Time: Total time managing care of this patient today ____ minutes. Quality Stroke Does the patient have a stroke diagnosis?: No VTE Prior VTE?: No VTE Risk Level:: Medical - moderate - high VTE Device Contraindication: Treatment Not Indicated VTE Drug Contraindication: N/A - Med Ordered
[2023-05-14 15:40] LABS: Adenovirus PCR Not Detected (Not Detect.); Bordetella parapertussis PCR Not Detected (Not Detect.); Bordetella pertussis PCR Not Detected (Not Detect.); Chlamydia pneumoniae PCR Not Detected (Not Detect.); Coronavirus 229E PCR Not Detected (Not Detect.); Coronavirus HKU1 PCR Not Detected (Not Detect.); Coronavirus NL63 PCR Not Detected (Not Detect.); Coronavirus OC43 PCR Not Detected (Not Detect.); Human metapneumovirus PCR Not Detected (Not Detect.); Influenza A PCR Not Detected (Not Detect.); Influenza B PCR Not Detected (Not Detect.); Mycoplasma pneumoniae PCR Not Detected (Not Detect.); Parainfluenza 1 PCR Not Detected (Not Detect.); Parainfluenza 2 PCR Not Detected (Not Detect.); Parainfluenza 3 PCR Not Detected (Not Detect.); Parainfluenza 4 PCR Not Detected (Not Detect.); RSV PCR Not Detected (Not Detect.); Rhino/Enterovirus PCR Not Detected (Not Detect.)
[2023-05-14] MEDS: Morphine Sulfate 2 MG/ML CARTRIDGE IVPUSH (18:06)
[2023-05-15] MEDS: LORazepam 0.5 MG TABLET SUBLINGUAL ×2 (04:39→16:30)
[2023-05-15] MEDS: 0.9 % Sodium Chloride Flush 3 ML SYRINGE IVFLUSH ×3 (07:10→19:53)
[2023-05-15 07:33] LABS: SARS-CoV-2 PCR Not Detected (Not Detect.)
--- NOTE | 2023-05-15 10:30 | MHC.CLN ---
F/U STATUS CHANGED TO HEARINGS REPORTER. DIET=REGULAR WITH NEUTROPENIC PRECAUTIONS. SUPPLEMENT ENSURE MAX PROTEIN TID DISCONTINUED DUE TO NOT TAKING. RD AVAILABLE NEEDED.
[2023-05-15] MEDS: Morphine Sulfate 2 MG/ML CARTRIDGE IVPUSH ×2 (13:41→17:44)
--- NOTE | 2023-05-15 14:27 | MHC.CM.PN ---
per rounds pt not medically clear for dc plan remains home
--- NOTE | 2023-05-15 16:38 | HO.PM.IMPN ---
Subjective Subjective Date of Service: 05/15/23 Interval History: ftt Review of Systems unable to obtain Physical Exam Vital Signs: Vital Signs: Last Vital Signs Temp 99.1 F 05/13/23 17:46 Pulse 87 05/13/23 07:03 Resp 20 05/13/23 17:46 BP 124/56 L 05/13/23 07:03 Pulse Ox 94 05/13/23 17:46 O2 Del Method Nasal Cannula 05/13/23 17:46 O2 Flow Rate 4 05/13/23 17:46 BMI result Body Mass Index 18.8 General: awake ,less restless Resp: CTA bilateral CVS: S1,S2,RRR GI: +BS, NT, no distention Skin: No rash Objective Data Active Medications Acetaminophen (Acetaminophen Supp 650 Mg Supp.Rect) 650 mg SC Q4H PRN PRN Reason: Fever Last Admin: 05/12/23 23:27 Dose: 650 mg Documented By: JANA Lorazepam (Lorazepam 0.5 Mg Tablet) 0.5 mg SUBLINGUAL Q4H PRN PRN Reason: anxiety/restlessness Last Admin: 05/15/23 16:30 Dose: 0.5 mg Documented By: THEA Morphine Sulfate (Morphine Sulfate 2 Mg/Ml Cartridge) 2 mg IVPUSH Q4H PRN PRN Reason: Discomfort/Shortness of breath Last Admin: 05/15/23 13:41 Dose: 2 mg Documented By: THEA Quetiapine Fumarate (Quetiapine Fumarate 25 Mg Tablet) 25 mg PO BEDTIME [facility] Last Admin: 05/11/23 22:26 Dose: Not Given Documented By: JANA Non-Admin Reason: pt lethargic Scopolamine (Scopolamine 1.5 Mg Patch.Td.3) 1.5 mg TRANSDERMA Q72H [facility] Last Admin: 05/13/23 12:09 Dose: 1.5 mg Documented By: ZAY Sodium Chloride (0.9 % Sodium Chloride Flush 3 Ml Syringe) 3 ml IVFLUSH QSHIFT [facility] Last Admin: 05/15/23 16:31 Dose: 3 ml Documented By: THEA Labs 05/12/23 08:02 05/14/23 06:14 Labs: Laboratory Results - last 24 hr 05/12/23 00:40 Respiratory Panel Albarran See Note Adenovirus (Rapid PCR) Not Detected B.pert (TEM-PCR) Not Detected B.parapertussis DNA PCR Not Detected C. pneumoniae DNA (PCR) Not Detected Coronavirus OC43 (PCR) Not Detected Coronavirus HKU1 (PCR) Not Detected Coronavirus 229E (PCR) Not Detected Coronavirus NL63 (PCR) Not Detected Human Metapneumovir PCR Not Detected Influenza A (RT-PCR) Not Detected Influenza B (RT-PCR) Not Detected M. pneumoniae (PCR) Not Detected Parainfluenza 1 (PCR) Not Detected Parainfluenza 2 (PCR) Not Detected Parainfluenza 3 (PCR) Not Detected Parainfluenza 4 (PCR) Not Detected RSV (PCR) Not Detected Entero/Rhino (PCR) Not Detected SARS-CoV-2 RNA (RT-PCR) Not Detected Assessment and Plan (1) FTT (failure to thrive) in adult: Status: Acute Plan 78-year-old male with a PMH significant for?unspecified dementia, emphysema, pulmonary fibrosis not on home O2, temporal arteritis, CKD stage 4, macrocytic anemia, BPH, carotid atherosclerosis, and hx of retinal artery occlusion who presents to the ED with?fever, chills, and generalized weakness x2 days. Patient initially admitted for neutropenic fever, pancytopenia,also bigg on ckd ,toxic metabolic encephalopathy multifactorial ,also poor oral intake /possible FTT: Patient received IV antibiotics, blood cultures sent, IV hydration, multiple doses of Neupogen and Granix as well as recived prbc and paltelets for pancytopenia:The patient did not improve much progressively declining, his prognosis very poor,family does not want any artificial nutrition or hydration and decided for comfort measures only. Time Spent With Patient Time: Total time managing care of this patient today ____ minutes. Quality Stroke Does the patient have a stroke diagnosis?: No VTE Prior VTE?: No VTE Risk Level:: Medical - moderate - high VTE Device Contraindication: Treatment Not Indicated VTE Drug Contraindication: N/A - Med Ordered
[2023-05-16] MEDS: Morphine Sulfate 2 MG/ML CARTRIDGE IVPUSH ×4 (04:25→17:56)
[2023-05-16] MEDS: 0.9 % Sodium Chloride Flush 3 ML SYRINGE IVFLUSH ×3 (07:28→19:04)
--- NOTE | 2023-05-16 10:21 | HO.PM.IMPN ---
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 and hearse Review of Systems no new events Physical Exam Vital Signs: Vital Signs: Last Vital Signs Temp 99.1 F 05/13/23 17:46 Pulse 87 05/13/23 07:03 Resp 20 05/13/23 17:46 BP 124/56 L 05/13/23 07:03 Pulse Ox 94 05/13/23 17:46 O2 Del Method Nasal Cannula 05/13/23 17:46 O2 Flow Rate 4 05/13/23 17:46 BMI result Body Mass Index 18.8 General: awake ,less restless Resp: CTA bilateral CVS: S1,S2,RRR GI: +BS, NT, no distention Skin: No rash Objective Data Active Medications Acetaminophen (Acetaminophen Supp 650 Mg Supp.Rect) 650 mg [place] Q4H PRN PRN Reason: Fever Last Admin: 05/12/23 23:27 Dose: 650 mg Documented By: JANA Lorazepam (Lorazepam 2 Mg/Ml Vial) 0.5 mg IVPUSH Q6H PRN PRN Reason: anxiety/restlessness Morphine Sulfate (Morphine Sulfate 2 Mg/Ml Cartridge) 2 mg IVPUSH Q4H PRN PRN Reason: Discomfort/Shortness of breath Last Admin: 05/16/23 08:17 Dose: 2 mg Documented By: STEFF Quetiapine Fumarate (Quetiapine Fumarate 25 Mg Tablet) 25 mg PO BEDTIME [facility] Last Admin: 05/11/23 22:26 Dose: Not Given Documented By: JANA Non-Admin Reason: pt lethargic Scopolamine (Scopolamine 1.5 Mg Patch.Td.3) 1.5 mg TRANSDERMA Q72H [facility] Last Admin: 05/13/23 12:09 Dose: 1.5 mg Documented By: ZAY Sodium Chloride (0.9 % Sodium Chloride Flush 3 Ml Syringe) 3 ml IVFLUSH QSHIFT [facility] Last Admin: 05/16/23 07:28 Dose: 3 ml Documented By: STEFF Labs 05/12/23 08:02 05/14/23 06:14 Assessment and Plan (1) FTT (failure to thrive) in adult: Status: Acute Plan 78-year-old male with a PMH significant for?unspecified dementia, emphysema, pulmonary fibrosis not on home O2, temporal arteritis, CKD stage 4, macrocytic anemia, BPH, carotid atherosclerosis, and hx of retinal artery occlusion who presents to the ED with?fever, chills, and generalized weakness x2 days. Patient initially admitted for neutropenic fever, pancytopenia,also bigg on ckd ,toxic metabolic encephalopathy multifactorial ,also poor oral intake /possible FTT: Patient received IV antibiotics, blood cultures sent, IV hydration, multiple doses of Neupogen and Granix as well as recived prbc and paltelets for pancytopenia:The patient did not improve much progressively declining, his prognosis very poor,family does not want any artificial nutrition or hydration and decided for comfort measures only. Time Spent With Patient Time: Total time managing care of this patient today ____ minutes. Quality Stroke Does the patient have a stroke diagnosis?: No VTE Prior VTE?: No VTE Risk Level:: Medical - moderate - high VTE Device Contraindication: Treatment Not Indicated VTE Drug Contraindication: N/A - Med Ordered
[2023-05-16] MEDS: Scopolamine 1.5 MG PATCH.TD.3 TRANSDERMA (11:49)
--- NOTE | 2023-05-17 10:06 | HO.PM.IMPN ---
Subjective Subjective Date of Service: 05/17/23 Interval History: ftt Review of Systems seems comfortable unable to obtain Physical Exam Vital Signs: Vital Signs: Last Vital Signs Temp 99.1 F 05/13/23 17:46 Pulse 87 05/13/23 07:03 Resp 20 05/13/23 17:46 BP 124/56 L 05/13/23 07:03 Pulse Ox 94 05/13/23 17:46 O2 Del Method Nasal Cannula 05/13/23 17:46 O2 Flow Rate 4 05/13/23 17:46 BMI result Body Mass Index 18.8 General: awake ,less restless Resp: CTA bilateral CVS: S1,S2,RRR GI: +BS, NT, no distention Skin: No rash Objective Data Active Medications Acetaminophen (Acetaminophen Supp 650 Mg Supp.Rect) 650 mg [place] Q4H PRN PRN Reason: Fever Last Admin: 05/12/23 23:27 Dose: 650 mg Documented By: JNAA Lorazepam (Lorazepam 2 Mg/Ml Vial) 0.5 mg IVPUSH Q6H PRN PRN Reason: anxiety/restlessness Last Admin: 05/17/23 03:19 Dose: 0.5 mg Documented By: JAILYN Morphine Sulfate (Morphine Sulfate 2 Mg/Ml Cartridge) 2 mg IVPUSH Q4H PRN PRN Reason: Discomfort/Shortness of breath Last Admin: 05/17/23 08:48 Dose: 2 mg Documented By: STEFF Quetiapine Fumarate (Quetiapine Fumarate 25 Mg Tablet) 25 mg PO BEDTIME [facility] Last Admin: 05/11/23 22:26 Dose: Not Given Documented By: JANA Non-Admin Reason: pt lethargic Scopolamine (Scopolamine 1.5 Mg Patch.Td.3) 1.5 mg TRANSDERMA Q72H [facility] Last Admin: 05/16/23 11:49 Dose: 1.5 mg Documented By: STEFF Sodium Chloride (0.9 % Sodium Chloride Flush 3 Ml Syringe) 3 ml IVFLUSH QSHIFT [facility] Last Admin: 05/16/23 19:04 Dose: 3 ml Documented By: JAILYN Labs 05/12/23 08:02 05/14/23 06:14 Microbiology Microbiology Results: Microbiology 05/12/23 00:10 Blood Culture - Final Blood - Venous No growth after 5 days. 05/12/23 00:11 Blood Culture - Final Blood - Venous No growth after 5 days. Assessment and Plan (1) FTT (failure to thrive) in adult: Status: Acute Plan 78-year-old male with a PMH significant for?unspecified dementia, emphysema, pulmonary fibrosis not on home O2, temporal arteritis, CKD stage 4, macrocytic anemia, BPH, carotid atherosclerosis, and hx of retinal artery occlusion who presents to the ED with?fever, chills, and generalized weakness x2 days. Patient initially admitted for neutropenic fever, pancytopenia,also bigg on ckd ,toxic metabolic encephalopathy multifactorial ,also poor oral intake /possible FTT: Patient received IV antibiotics, blood cultures sent, IV hydration, multiple doses of Neupogen and Granix as well as recived prbc and paltelets for pancytopenia:The patient did not improve much progressively declining, his prognosis very poor,family does not want any artificial nutrition or hydration and decided for comfort measures only. Time Spent With Patient Time: Total time managing care of this patient today ____ minutes. Quality Stroke Does the patient have a stroke diagnosis?: No VTE Prior VTE?: No VTE Risk Level:: Medical - moderate - high VTE Device Contraindication: Treatment Not Indicated VTE Drug Contraindication: N/A - Med Ordered
--- NOTE | 2023-05-17 13:50 | PM.HEMONCPN ---
Medical Summary - Medical Summary Date of Service: 05/17/23 Primary Care Provider: Rashaad Leach MD Medical Summary: DIAGNOSIS: MDS. S/P Chemotherapy. Neutropenic Sepsis. He is currently asleep and barely rousable. His failmly is present. He is now moribund and being given comfort measures only. Interval History Interval history: Alban Little is a 78 year old gentleman,treated recently with decitibine for MDS. He presented with a fever. He is still pancytopenic but afebrile. Alert but confused. No complaints. Review of Systems - Constitutional Reports anorexia, Reports lack of energy, Reports malaise, Reports weakness, Reports weight loss - Eyes Reports blurry vision - ENT Reports dizziness, Reports hearing loss - Cardiovascular Reports fast heart rate, Reports shortness of breath when lying down - Respiratory Reports dyspnea on exertion - Gastrointestinal Reports abdominal pain - Genitourinary Genitourinary: Reports urinary hesitancy - Musculoskeletal Reports muscle weakness - Integumentary/Breasts Skin/Breast: Reports unusual bruising - Neurologic Reports abnormal movements, Reports confusion, Reports focal weakness, Reports weakness, Denies memory loss, Denies seizure-like activity [facility] Medical History: Medical History (Last Reviewed 05/07/23 @ 10:42 by Lynnette Butt, PT) Anemia CKD (chronic kidney disease) stage 3, GFR 30-59 ml/min Exercise hypoxemia Hearing difficulty of both ears HTN (hypertension) Pulmonary emphysema determined by X-ray Pulmonary fibrosis Tubular adenoma of colon Family History: Family History (Last Reviewed 05/06/23 @ 16:00 by Cheyanne Demarco MD) Father No problems noted. Mother No problems noted. 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 Home Medications and Allergies Current Medications: Current Medications Acetaminophen (Acetaminophen Supp 650 Mg Supp.Rect) 650 mg [place] Q4H PRN PRN Reason: Fever Last Admin: 05/12/23 23:27 Dose: 650 mg Lorazepam (Lorazepam 2 Mg/Ml Vial) 0.5 mg IVPUSH Q6H PRN PRN Reason: anxiety/restlessness Last Admin: 05/17/23 03:19 Dose: 0.5 mg Morphine Sulfate (Morphine Sulfate 2 Mg/Ml Cartridge) 2 mg IVPUSH Q4H PRN PRN Reason: Discomfort/Shortness of breath Last Admin: 05/17/23 08:48 Dose: 2 mg Quetiapine Fumarate (Quetiapine Fumarate 25 Mg Tablet) 25 mg PO BEDTIME [facility] Last Admin: 05/11/23 22:26 Dose: Not Given Scopolamine (Scopolamine 1.5 Mg Patch.Td.3) 1.5 mg TRANSDERMA Q72H [facility] Last Admin: 05/16/23 11:49 Dose: 1.5 mg Sodium Chloride (0.9 % Sodium Chloride Flush 3 Ml Syringe) 3 ml IVFLUSH QSHIFT [facility] Last Admin: 05/17/23 11:02 Dose: Not Given Home Medications Medication Instructions Recorded Confirmed Type cyanocobalamin (vitamin B-12) 1,000 mcg PO DAILY@1500 05/10/20 05/01/23 History 1,000 mcg tablet vit C 250 mg-vit E 90 mg-zinc 40 1 tab PO BID 08/29/20 05/01/23 History mg-copper 1 [id number] capsule (PreserVision AREDS-2) atorvastatin 20 mg tablet 20 mg PO DAILY@1100 06/03/22 05/01/23 History tacrolimus 0.1 % topical ointment 1 appl topical DAILY 06/03/22 05/01/23 History calcium carbonate 600 mg-vitamin 1 tab PO DAILY@1500 12/25/22 05/01/23 History D3 5 mcg (200 unit) tablet hydroxyurea 500 mg capsule 500 mg PO DAILY@1300 05/01/23 05/01/23 History Allergies Allergy/AdvReac Type Severity Reaction Status Date / Time hydrochlorothiazide AdvReac Intermediate ITCH Verified 04/28/23 11:27 Exam Vital signs: Vital Signs Temp 99.1 F 05/13/23 17:46 Pulse 87 05/13/23 07:03 Resp 20 05/13/23 17:46 BP 124/56 L 05/13/23 07:03 Pulse Ox 94 05/13/23 17:46 O2 Del Method Nasal Cannula 05/13/23 17:46 O2 Flow Rate 4 05/13/23 17:46 Intake & Output 05/16/23 05/17/23 05/17/23 18:59 06:59 18:59 Output Total 100 / 100 Balance -100 / -100 Urine Output (Average ml/kg/hr) 0.13 Output: Output, Urine Amount (Catheter) 100 / 100 Condom 100 / 100 Other: NPO Yes Urine Color Yellow Continuous Bladder Irrigation Fluid - Amount Instilled Condom 100 Weight 64.6 kg BMI result Body Mass Index 18.8 - Constitutional Present: no acute distress, obtunded - Routine HEENT Exam Head: Present: atraumatic ENT: Present: mucous membranes dry - Routine Neck Exam Present: full ROM - Routine Chest/Breast/Axilla Exam Chest wall: Present: tenderness Breast: Present: tenderness - Routine Respiratory Exam Present: decreased breath sounds, rhonchi - Routine Cardiovascular Exam Cardiovascular: Present: RRR, tachycardia - Routine Abdominal Exam Present: diminished bowel sounds - Routine Extremities Exam Present: full ROM - Routine Back/Spine/Pelvis Exam Back/Spine: Present: full ROM - Routine Skin Exam Present: intact, warm - Routine Neurological Exam Present: moving all extremities, tremors - Routine Psychiatric Exam Present: unable to assess Data - Labs CBC & Chem 7: 05/12/23 08:02 05/14/23 06:14 - Imaging Radiologist's impression: ITS Impressions Chest X-Ray 05/01/23 19:18 IMPRESSION: Diffuse increased markings/interstitial coarsening and patchy lung opacities were present previously with some apparent improvement. This is likely chronic. There is no new consolidation or evidence for significant pleural effusion. Abdomen/Pelvis CT 05/01/23 20:24 IMPRESSION: Limited noncontrast examination. 1. Large stool ball in the rectum and moderate stool content throughout the colon suggesting constipation. 2. Colonic diverticulosis but no evidence of acute diverticulitis. 3. Again noted very prominent duodenal diverticuli without significant associated inflammatory changes. 4. Redemonstration of advanced emphysematous changes and pulmonary fibrosis in the visualized lung bases. Chest CT 05/02/23 08:55 IMPRESSION: * Advanced tan lobar pulmonary emphysema. * Interstitial hazy opacification especially at the periphery of the lower more than upper lobes combined with interlobular septal thickening, peripheral paraseptal and subpleural honeycombing suggesting interstitial pneumonitis, interstitial pulmonary fibrosis. The process has progressed, advanced since prior exams. * No suspicious lung mass. Stable 5 mm nodule right upper lobe. * Coronary calcification. Various management parameters for solitary pulmonary nodules are in the literature. According to the UPDATED 2017 Fleischner Society recommendations, the advised follow-up imaging for solid nodules < 6 mm is: LOW RISK PATIENT: No routine follow-up. HIGH RISK PATIENT: Optional CT at 12 months. Reference: Guidelines for Management of Incidental Pulmonary Nodules Detected on CT Images: From the Fleischner Society 2017. Chest X-Ray 05/12/23 00:30 IMPRESSION: Diffuse increased interstitial markings/interstitial coarsening with patchy infiltrative change grossly similar to previous. Findings are at least partly chronic. Superimposed infiltrate/developing infiltrate is a consideration. 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 Recommend maximum emotional support for family. - Time Spent With Patient Time Spent with Patient (in minutes): 15
[2023-05-17] MEDS: 0.9 % Sodium Chloride Flush 3 ML SYRINGE IVFLUSH ×2 (14:11→19:06)
--- NOTE | 2023-05-17 15:17 | PC.NURSE ---
Pt family requesting zoroastrian last rights .The education teacher [place] notified .
--- NOTE | 2023-05-18 07:41 | PM.DDS ---
Discharge Sum: Prov Provider Primary care physician: Rashaad Leach MD Admitting clinician: Apoorva Maloney Attending physician on admission: Apoorva Maloney Consults: 05/01/23 20:50 Consult to Hematology / Oncology Routine Consulting Provider: Rashaad Leach Reason for consultation: febrile neutropenia Has provider been notified: Yes 05/02/23 08:07 Consult to Pulmonology Routine Consulting Provider: [facility] Reason for consultation: acute hypoxemic respiratory failure Has provider been notified: No 05/03/23 09:08 Consult to Psychiatry Routine Consulting Provider: [facility] Reason for consultation: dementia with behavioural disturbances Has provider been notified: No 05/04/23 16:04 Consult to Infectious Diseases Routine Consulting Provider: [facility] Reason for consultation: pancytopenia Has provider been notified: No 05/12/23 07:59 Consult to Infectious Diseases Routine Consulting Provider: [facility] Reason for consultation: fuo Has provider been notified: No 05/12/23 08:00 Consult to Nephrology Routine Consulting Provider: Miguelito Funes Reason for consultation: bigg on ckd Discharge Sum: Diag Contributing Factors (1) Neutropenic fever: Discharge Sum: Summary Date and Time Date of admission: 05/01/23 20:43 Date of : 05/18/23 Time of : 07:30 Summary Details: HPI:78-year-old male with a PMH significant for?unspecified dementia, emphysema, pulmonary fibrosis not on home O2, temporal arteritis, CKD stage 4, macrocytic anemia, BPH, carotid atherosclerosis, and hx of retinal artery occlusion who presents to the ED with?fever, chills, and generalized weakness x2 days. Patient is accompanied by his was at bedside and who provides much of the HPI. Pt is followed by Dr. 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 Patient was recently restarted on hydroxyurea on 04/20/2023 and started on chemotherapy last week, undergoing treatments Thursday through Thursday. states patient seemed fine until 2 days ago when he just started shaking as if he were cold. Initially sat on the couch and was able to calm down, but patient experienced additional episodes in X today. Earlier today patient had an additional episode of shaking that was much worse than prior. states patient could not even walk and seemed more weak and confused than at baseline. also notes patient was transfused 2 units of PRBCs yesterday. Patient otherwise has no acute complaints. Denies chest pain/pressure, palpitations. No shortness of breath. Chronic cough and shortness of breath, at baseline. Denies nausea, vomiting, abdominal pain. Patient has long history of chronic constipation for which he has recently been placed on stool softeners. Last bowel movement was 2-3 days ago. In the ED the patient was febrile up to 1042 hypertensive to 150/56. Labs were significant for leukopenia 0.3, H&H 9.1/28.4, absolute neutrophils 0.2, sodium 146, chloride 119, BUN 83, creatinine 3.31, alk-phos 136, BNP 144. Troponin 34.2. Lactic acid WNL at 1.1. UA negative for UTI. CXR showed no new consolidation or evidence for significant pleural effusion, but showed improving likely chronic diffuse markings/interstitial coarsening and patchy lung opacities. CT?of abdomen and pelvis found no evidence of acute abdomen, but did show large stool ball in the rectum and moderate stool content throughout the colon. EKG showed normal sinus rhythm without evidence of ST elevations or depressions. Pt was treated with IVF, acetaminophen, cefepime, and Neupogen. Pt will be admitted to the hospital for treatment and further evaluation of neutropenic fever with IV antibiotics, close monitoring, and specialist consultation. Hospital course:78-year-old male with a PMH significant for?unspecified dementia, emphysema, pulmonary fibrosis not on home O2, temporal arteritis, CKD stage 4, macrocytic anemia, BPH, carotid atherosclerosis, and hx of retinal artery occlusion who presents to the ED with?fever, chills, and generalized weakness x2 days,patient has MDS s/p dacitabine recently-Patient initially admitted for neutropenic fever, pancytopenia,also bigg on ckd ,toxic metabolic encephalopathy multifactorial ,also poor oral intake /possible FTT: Patient received IV antibiotics, blood cultures sent, IV hydration, multiple doses of Neupogen and Granix as well as recived prbc and paltelets for pancytopenia:The patient did not improve much progressively declining, his prognosis very poor,family does not want any artificial nutrition or hydration and decided for comfort measures only. Patient passed comfortably today. Notified by staff and Pronounced at 730 a.m. Physical exam: Pupil are dilated and fixed No s breathing or hear sounds by Auscultation. carotid ,femoral and radial pulses -absent . Additional Data Confirmation of as documented by pronouncing clinician: no pulse, no respirations, no heart sounds and pupils fixed and dilated Family: contacted Attending/PCP notified?: No Attending physician: Lisbeth Oreilly MD Was code activated?: No Autopsy requested?: No naturalization examiner notified?: No
== END 2023-05-18 07:30 | disposition expired | DRG 374 ==
LOC: HO.ED 20:30 → HO.EDOVER 21:46 → HO.S3 05-02 14:30
PROVIDERS: Internal Medicine; Internal Medicine Nephrology; Physician Assistant; Student in an Organized Health Care Education/Training Program; Admitting Provider Student in an Organized Health Care Education/Training Program; Emergency Provider Emergency Medicine; PCP Internal Medicine Medical Oncology; Visit Provider Internal Medicine
DX: C20 Malignant neoplasm of rectum (principal); D61.810 Antineoplastic chemotherapy induced pancytopenia; G92.8 Other toxic encephalopathy; N17.0 Acute kidney failure with tubular necrosis; J96.11 Chronic respiratory failure with hypoxia; E87.0 Hyperosmolality and hypernatremia; F05 Delirium due to known physiological condition; N18.4 Chronic kidney disease, stage 4 (severe); N13.8 Other obstructive and reflux uropathy; Z68.1 Body mass index [BMI] 19.9 or less, adult; E46 Unspecified protein-calorie malnutrition; R50.81 Fever presenting with conditions classified elsewhere; D70.2 Other drug-induced agranulocytosis; D53.9 Nutritional anemia, unspecified; D63.0 Anemia in neoplastic disease; F03.90 Unspecified dementia, unspecified severity, without behavioral disturbance, psychotic disturbance, mood disturbance, and anxiety; D63.1 Anemia in chronic kidney disease; T45.1X5A Adverse effect of antineoplastic and immunosuppressive drugs, initial encounter; E78.5 Hyperlipidemia, unspecified; N40.1 Benign prostatic hyperplasia with lower urinary tract symptoms; R62.7 Adult failure to thrive; J43.9 Emphysema, unspecified; J84.10 Pulmonary fibrosis, unspecified; Z51.5 Encounter for palliative care; Z99.81 Dependence on supplemental oxygen; K59.09 Other constipation; D46.9 Myelodysplastic syndrome, unspecified; Z20.822 Contact with and (suspected) exposure to COVID-19; Z23 Encounter for immunization; Z87.891 Personal history of nicotine dependence; Z79.899 Other long term (current) drug therapy
CPT/HCPCS: 36415; 71045; 71250; 74176; 80048; 80051; 80053; 80202; 81001; 82565; 82570; 82803; 83605; 83735; 83880; 84295; 84300; 84484; 84550; 85007; 85025; 85027; 85999; 86850; 86900; 86901; 86923; 87040; 87633; 87635; 90686; 93005; 94640; 97110; 97163; 99212; 99285; J0637; J0692; J1447; J1650; J2060; J2270; J3371; J3411; P9016; P9073

== ENCOUNTER → 2023-05-01 20:43 | Outpatient (BNV) | payer MEDICARE, SELFPAY | PROVIDERS: Admitting Provider Student in an Organized Health Care Education/Training Program; Emergency Provider Emergency Medicine; PCP Internal Medicine Medical Oncology; Visit Provider Internal Medicine Medical Oncology | DX: D46.9 Myelodysplastic syndrome, unspecified (principal) | CPT/HCPCS: 99232 ==

== ENCOUNTER → 2023-05-01 20:43 | Outpatient (BNV) | payer MEDICARE, SELFPAY | PROVIDERS: Admitting Provider Student in an Organized Health Care Education/Training Program; Emergency Provider Emergency Medicine; PCP Internal Medicine Medical Oncology; Visit Provider Internal Medicine | DX: D61.818 Other pancytopenia (principal); D70.9 Neutropenia, unspecified; R50.81 Fever presenting with conditions classified elsewhere | CPT/HCPCS: 99222; 99232 ==

== ENCOUNTER → 2023-05-01 20:43 | Outpatient (BNV) | payer MEDICARE, SELFPAY | PROVIDERS: Admitting Provider Student in an Organized Health Care Education/Training Program; Emergency Provider Emergency Medicine; Visit Provider Psychiatry & Neurology Psychiatry | DX: F03.90 Unspecified dementia, unspecified severity, without behavioral disturbance, psychotic disturbance, mood disturbance, and anxiety (principal); R41.0 Disorientation, unspecified; D61.818 Other pancytopenia; D70.9 Neutropenia, unspecified; J96.11 Chronic respiratory failure with hypoxia; J43.9 Emphysema, unspecified; R50.81 Fever presenting with conditions classified elsewhere; Z85.048 Personal history of other malignant neoplasm of rectum, rectosigmoid junction, and anus | CPT/HCPCS: 99222 ==

== ENCOUNTER → 2023-05-01 20:43 | Outpatient (BNV) | payer MEDICARE, SELFPAY | PROVIDERS: Admitting Provider Student in an Organized Health Care Education/Training Program; Emergency Provider Emergency Medicine; Visit Provider Internal Medicine Pulmonary Disease | DX: J43.9 Emphysema, unspecified (principal); J84.10 Pulmonary fibrosis, unspecified; J96.11 Chronic respiratory failure with hypoxia | CPT/HCPCS: 99222 ==

== ENCOUNTER → 2023-05-01 20:43 | Outpatient (BNV) | payer MEDICARE, SELFPAY | PROVIDERS: Admitting Provider Student in an Organized Health Care Education/Training Program; Emergency Provider Emergency Medicine; Visit Provider Student in an Organized Health Care Education/Training Program | DX: R62.7 Adult failure to thrive (principal) | CPT/HCPCS: 99223; 99231; 99232; 99233; 99239; 99497; 99499 ==